=== PATIENT | female | born 1965 | race Caucasian/White ===

== ENCOUNTER → 2021-01-15 14:19 | Outpatient (BNVA) | payer MEDICARE, MEDICAID, SELFPAY | PROVIDERS: PCP Internal Medicine; Visit Provider Internal Medicine Pulmonary Disease | DX: E66.01 Morbid (severe) obesity due to excess calories (principal); Z99.89 Dependence on other enabling machines and devices | CPT/HCPCS: 99202 ==

== ENCOUNTER 2021-07-09 13:25 | Outpatient (REF) | payer MEDICARE, MEDICAID, SELFPAY ==
[2021-07-09 13:53] LABS: Binax Internal Control QC Valid; Binax Lot number: 17705; Binax Now Covid-19 Ag Negative (Negative); Binax Performed by: HO.BONILM
== END 2021-07-09 13:26 | disposition home or self-care (01) ==
LOC: HO.HMGCLDS 13:25
PROVIDERS: PCP Internal Medicine; Visit Provider Nurse Practitioner Family
DX: Z13.89 Encounter for screening for other disorder (principal)

== ENCOUNTER 2021-11-10 09:15 | Inpatient (IN) | payer MEDICARE, MEDICAID, SELFPAY ==
[2021-11-10] VITALS (8 sets, daily range): BP systolic 100–179; BP diastolic 51–87; PULSE 82–106; RESP 16–24; TEMP 37.1–37.7; O2SAT 87–96; BMI 77.6
--- NOTE | ~2021-11-10 | XR_ITS ---
EXAMINATION: PELVIS AND RIGHT FEMUR X-RAY CLINICAL INFORMATION: Pain and bruising COMPARISON: Right knee x-ray September 2015 TECHNIQUE: One view of the pelvis and 2 views of the right femur FINDINGS: Pelvis: Bone alignment is normal. No fracture or dislocation is seen. The joint spaces are normal. There are degenerative changes of the lower lumbar spine. There may be soft tissue calcification left lower quadrant or pelvis. Right femur: Bone alignment is normal. No fracture or dislocation is seen. The joint spaces are normal. Soft tissues are normal. XR/XR pelvis 1-2V IMPRESSION: No fracture or dislocation.
--- NOTE | ~2021-11-10 | XR_ITS ---
EXAMINATION: XR CHEST CLINICAL INFORMATION: Dyspnea. COMPARISON: Previous chest x-ray January 2020 TECHNIQUE: Frontal view of the chest was obtained. FINDINGS: The cardiac and mediastinal contours are stable. The lungs are clear. There is no pleural effusion or pneumothorax. Bony structures are unremarkable. XR/XR chest 1V IMPRESSION: No evidence for acute disease in the chest.
--- NOTE | ~2021-11-10 | XR_ITS ---
EXAMINATION: PELVIS AND RIGHT FEMUR X-RAY CLINICAL INFORMATION: Pain and bruising COMPARISON: Right knee x-ray September 2015 TECHNIQUE: One view of the pelvis and 2 views of the right femur FINDINGS: Pelvis: Bone alignment is normal. No fracture or dislocation is seen. The joint spaces are normal. There are degenerative changes of the lower lumbar spine. There may be soft tissue calcification left lower quadrant or pelvis. Right femur: Bone alignment is normal. No fracture or dislocation is seen. The joint spaces are normal. Soft tissues are normal. XR/XR femur RT 2V IMPRESSION: No fracture or dislocation.
--- NOTE | ~2021-11-10 | CT_ITS ---
EXAMINATION: CT HEAD WITHOUT CONTRAST CLINICAL INFORMATION: Leg COMPARISON: None TECHNIQUE: Contiguous axial imaging was performed from the skull base to vertex without intravenous administration of contrast. This CT examination was performed using dose optimization techniques as appropriate, variously including the following: *Automated exposure control *Adjustment of mA and/or kV according to patient size (this includes techniques or standardized protocols for targeted exams where dose is matched to indication/reason for exam; i.e. extremities or head) *Use of iterative reconstruction technique DLP: 688 mGy-cm FINDINGS: There is no evidence of acute intracranial hemorrhage or territorial infarction. No abnormal mass effect or midline shift is seen. Singh to white matter differentiation is well preserved. No extra-axial fluid collections are identified. The ventricles are normal in size. There is no abnormal attenuation within the brain parenchyma. The osseous structures and soft tissues are normal. The mastoid air cells and visualized portions of the paranasal sinuses are well aerated. CT/CT head/brain wo con IMPRESSION: Unremarkable exam.
--- NOTE | ~2021-11-10 | US_ITS ---
EXAMINATION: US VENOUS ULTRASOUND WITH DOPPLER LOWER EXTREMITY, RIGHT CLINICAL INFORMATION: Pain and swelling COMPARISON: None TECHNIQUE: Ultrasound of the deep veins is performed from the hip to the calf with compression sonography and color and pulse Doppler assessment. Spectral analysis with color-flow imaging is performed. FINDINGS: There is normal venous compression and respiratory variation and augmented flow. The visualized common femoral vein, superficial femoral vein, and profunda femoral veins show no evidence of DVT. The popliteal vein and calf veins are not well visualized. There is no significant popliteal fossa cyst. If the patient's symptoms persist, followup ultrasound in 5 days 7 days might be of value to exclude proximal propagation from a non-visualized calf vein. US/US venous duplex LE RT IMPRESSION: Very limited exam. No DVT demonstrated in the right lower extremity. Popliteal and calf veins are not well visualized.
--- NOTE | 2021-11-10 11:44 | ED.GENADULT ---
HPI - General Adult General Chief complaint: Dyspnea Stated complaint: SOB,COVID 2 WEEKS AGO PER EMS Time Seen by Provider: 11/10/21 11:27 Source: patient Mode of arrival: EMS Limitations: no limitations History of Present Illness HPI narrative: 56-year-old female presents emergency department multiple complaints. Four days and also slept for 2 days from Monday to Monday waking up 2 days ago. She denies any falls pains but states she has had chronic headaches and migraines and has run out of her sumatriptan. She states she has had chills for the past 4 days as well but denies any fevers and states he has got body aches all over. When she initially arrived her chief complaint was shortness of breath and that she recently had COVID but since test negative she states she has not had anything to eat for the past Related Data Home Medications Medication Instructions Recorded Confirmed buspirone 15 mg tablet 15 mg PO TID 07/07/20 11/10/21 ondansetron HCl 4 mg tablet 4 mg PO Q8H PRN 07/07/20 11/10/21 sertraline 100 mg tablet 150 mg PO DAILY 07/07/20 11/10/21 sumatriptan succinate 100 mg tablet 100 mg PO DIRECTED 07/07/20 11/10/21 montelukast 10 mg tablet 10 mg PO BEDTIME 11/10/21 11/10/21 Previous Rx's Medication Instructions Recorded cpap mask #1 ea NS 07/14/20 filters for cpap #1 ea NS 07/14/20 heated tubing #1 ea NS 07/14/20 oxybutynin chloride 15 mg 15 mg PO DAILY #30 tab 05/21/21 tablet,extended release 24 hr albuterol sulfate 90 mcg/actuation 1 inh INHALATION QID PRN #6.7 g 07/09/21 aerosol inhaler atorvastatin 40 mg tablet 40 mg PO BEDTIME #90 tab 07/12/21 cetirizine 10 mg tablet 10 mg PO DAILY PRN #90 tab 07/12/21 metformin 500 mg tablet,extended 1,000 mg PO BEDTIME #180 tab 07/12/21 release 24 hr cholecalciferol (vitamin D3) 125 125 mcg PO BEDTIME #90 cap 07/19/21 mcg (5,000 unit) capsule Allergies Allergy/AdvReac Type Severity Reaction Status Date / Time cat dander [CAT] Allergy Unknown UNKNOWN Verified 07/09/21 13:10 mold [MOLD] Allergy Unknown UNKNOWN Verified 07/09/21 13:10 amoxicillin [From Augmentin] AdvReac Anaphylaxis Verified 07/09/21 13:10 clavulanic acid AdvReac Anaphylaxis Verified 07/09/21 13:10 [From Augmentin] ENVIRONMENTAL Allergy Unknown RUNNY Uncoded 07/09/21 13:10 NOSE,ITCHY EYES Review of Systems Review of Systems: Review of systems: General: Patient denies any fever chills recent illness or falls Musculoskeletal: Denies back pain or body aches or other injuries HEENT: denies headache, runny nose, ear pain Respiratory: denies shortness of breath, cough Cardiovascular: no chest pain or palpitations : denies dysuria, frequency Abdomen: no nausea vomiting denies abdominal pain Extremities: no swelling, no pain Skin: no diaphoresis Yes all other systems are reviewed and are negative PMFSH Past Medical History Medical History Chronic venous insufficiency Depression with anxiety Essential hypertension Hyperparathyroidism Impaired fasting glucose Migraine Mixed dyslipidemia Morbid obesity DAVIS (nonalcoholic steatohepatitis) Obstructive sleep apnea on CPAP Peripheral vascular disease Urinary, incontinence, stress female Surgical History History of carpal tunnel release of both wrists History of section History of removal of cyst History of trigger finger History of umbilical hernia repair Hx of cholecystectomy Family History Family History Father Diabetes mellitus Mother HTN (hypertension) Maternal Grandmother Scleroderma Maternal Grandfather Lung cancer Maternal Aunt Lung cancer Maternal Uncle Colon cancer Brother No problems noted. Son No problems noted. Son No problems noted. Daughter No problems noted. Social History Social History Alcohol intake: never Advance Directives: No Advance Directives Information Provided: No Physical Exam ED Vital Signs: Vital Signs - 24 hr 11/10/21 09:21 11/10/21 10:55 11/10/21 12:54 Temperature Pulse Rate 106 H 97 93 Respiratory Rate 18 16 16 Blood Pressure 144/84 H 126/51 L 100/73 Pulse Oximetry 96 94 93 11/10/21 14:00 11/10/21 15:33 Temperature 98.7 F Pulse Rate 98 Respiratory Rate 24 H Blood Pressure 145/65 H Pulse Oximetry 87 L 93 BMI result Body Mass Index 77.6 General: Morbidly obese in no signs of distress HEENT: Normocephalic atraumatic Neck: No signs of JVD, no masses no tenderness or lymphadenopathy Cardiovascular: Regular rate and rhythm Respiratory: Clear to auscultation bilaterally Abdomen: Soft nontender no masses Extremities: Normal pedal pulses obesity with chronic venous stasis to legs Skin: Right hip with red blotchy round lesions that are tender to palpation in the warmer than the rest of the scan. Dry warm no rashes Back: No tenderness full ROM Medical Decision Making MDM Narrative Medical decision making narrative: Patient here with multiple complaints I will get a CT scan of her head to make sure that there is no bleeding within the brain. I will get an x-ray on her leg her leg does look like cellulitis I will start her on clindamycin as she is allergic to amoxicillin so I do not feel comfortable starting on Ancef and vanco. I will continue fluids she does have 2 tiny sores on her back she called back in the room to evaluate that very nonspecific in appearance could be related to bed sores. 1230 I was called back the room she had no complaints she feels that she can no longer take care of herself at home she states as she has was to use stockings she can not get up she can move around she feels that she needs to have help to get her in a better situation and she does not feel safe at home by herself. 1456 page sent to hospitalist about admission for the cellulitis and IV antibiotics 1515 I spoke with the hospitalist who wanted US for DVT ruled out as well as evaluation for PE and covid swab sent. I ordered the US she is sleeping comfortably in the room I took her off the oxygen that was was placed on by nursing. Patient was taken off of oxygen and her saturation was 87% on room air so the oxygen was restarted. Lab Data Result diagrams: 11/10/21 12:11 11/10/21 12:10 Labs: Lab Results 11/10/21 11/10/21 11/10/21 Range/Units 12:10 12:10 12:11 WBC 10.6 (4.8-10.8) X10*3/uL RBC 4.37 (4.20-5.50) X10*6/uL Hgb 10.7 L (12.0-16.0) g/dl Hct 34.7 L (37.0-47.0) % MCV 79.4 L (80.0-98.0) fL MCH 24.5 L (27.0-33.0) pg MCHC 30.8 L (31.0-35.0) g/dl RDW 16.7 H (11.0-16.0) % Plt Count 205 (160-400) X10*3/uL MPV 9.4 (9.4-12.3) fL Immature Gran % (Auto) 0.9 H (0.0-0.4) % Neut % (Auto) 79.4 H (45-73) % Lymph % (Auto) 10.6 L (20-40) % Faulk % (Auto) 8.8 (2-11) % Eos % (Auto) 0.0 (0-4) % Baso % (Auto) 0.3 (0-2) % Lymph # (Auto) 1.1 L (1.2-4.9) X10*3/uL Faulk # (Auto) 0.9 (0.1-1.2) X10*3/uL Eos # (Auto) 0.0 (0.0-0.4) X10*3/uL Baso # (Auto) 0.0 (0.0-0.2) X10*3/uL Abs Immat Gran (auto) 0.10 H (0.00-0.03) X10*3/uL Absolute Neuts (auto) 8.4 H (2.0-8.3) x10*3/uL Absolute Nucleated RBC 0.000 (0.0-0.012) X10*3/uL Nucleated RBC % (auto) 0.0 (0.0-0.2) /100WBC Sodium 142 (135-145) mmol/L Potassium 3.9 (3.3-5.1) mmol/L Chloride 102 (96-108) mmol/L Carbon Dioxide 32 H (22-29) mmol/L Anion Gap 12 (12-20) BUN 8 L (9-16) mg/dL Creatinine 0.69 (0.5-1.4) mg/dL Estim Creat Clear Calc 146.3 Estimated GFR > 60 Random Glucose 154 H (60-115) mg/dL Lactic Acid (0.5-2.0) mmol/L Calcium 9.6 (8.4-10.2) mg/dL Total Bilirubin 0.6 (0.0-1.0) mg/dL Direct Bilirubin 0.3 (0.0-0.5) mg/dL AST 26 (5-31) U/L ALT 22 (0-31) U/L Alkaline Phosphatase 80 (39-117) U/L Total Creatine Kinase 169 H (26-140) U/L Troponin I High Sens 11.9 (<3.5-17.0) ng/L Total Protein 7.0 (6.5-8.0) g/dL Albumin 3.4 L (3.5-5.0) g/dL Lipase 24 (8-78) U/L 11/10/ Range/Units 12:23 WBC (4.8-10.8) X10*3/uL RBC (4.20-5.50) X10*6/uL Hgb (12.0-16.0) g/dl Hct (37.0-47.0) % MCV (80.0-98.0) fL MCH (27.0-33.0) pg MCHC (31.0-35.0) g/dl RDW (11.0-16.0) % Plt Count (160-400) X10*3/uL MPV (9.4-12.3) fL Immature Gran % (Auto) (0.0-0.4) % Neut % (Auto) (45-73) % Lymph % (Auto) (20-40) % Faulk % (Auto) (2-11) % Eos % (Auto) (0-4) % Baso % (Auto) (0-2) % Lymph # (Auto) (1.2-4.9) X10*3/uL Faulk # (Auto) (0.1-1.2) X10*3/uL Eos # (Auto) (0.0-0.4) X10*3/uL Baso # (Auto) (0.0-0.2) X10*3/uL Abs Immat Gran (auto) (0.00-0.03) X10*3/uL Absolute Neuts (auto) (2.0-8.3) x10*3/uL Absolute Nucleated RBC (0.0-0.012) X10*3/uL Nucleated RBC % (auto) (0.0-0.2) /100WBC Sodium (135-145) mmol/L Potassium (3.3-5.1) mmol/L Chloride (96-108) mmol/L Carbon Dioxide (22-29) mmol/L Anion Gap (12-20) BUN (9-16) mg/dL Creatinine (0.5-1.4) mg/dL Estim Creat Clear Calc Estimated GFR Random Glucose (60-115) mg/dL Lactic Acid 1.4 (0.5-2.0) mmol/L Calcium (8.4-10.2) mg/dL Total Bilirubin (0.0-1.0) mg/dL Direct Bilirubin (0.0-0.5) mg/dL AST (5-31) U/L ALT (0-31) U/L Alkaline Phosphatase (39-117) U/L Total Creatine Kinase (26-140) U/L Troponin I High Sens (<3.5-17.0) ng/L Total Protein (6.5-8.0) g/dL Albumin (3.5-5.0) g/dL Lipase (8-78) U/L ECG Data Attestation: I personally reviewed and interpreted this ECG as follows: Prior ECG tracings: available for review Interpretation: Rate 98 pulse artifact normal intervals no signs of ischemia Discharge Plan Discharge Clinical Impression: Morbid obesity, Headache, Shortness of breath, Cellulitis of right anterior lower leg, Rhabdomyolysis, Acute dehydration, Adult failure to thrive Patient Disposition: Admitted As Inpatient Prescriptions: No Action (DME) filters for cpap See Rx Instructions .Route .MEDSUPPLY Qty: 1 0RF Rx Instructions: Filters for CPAP machine (DME) heated tubing See Rx Instructions .Route .MEDSUPPLY Qty: 1 0RF Rx Instructions: Heated tubing for CPAP machine (DME) cpap mask See Rx Instructions .Route .MEDSUPPLY Qty: 1 0RF Rx Instructions: cpap mask- CPAP at 15 cm oxybutynin chloride 15 mg tablet extended release 24 hr 15 mg PO DAILY Qty: 30 5RF cetirizine 10 mg tablet 10 mg PO DAILY PRN (Reason: for allergies) Qty: 90 0RF atorvastatin 40 mg tablet 40 mg PO BEDTIME Qty: 90 0RF metformin 500 mg tablet extended release 24 hr 1,000 mg PO BEDTIME Qty: 180 0RF cholecalciferol (vitamin D3) 125 mcg (5,000 unit) capsule 125 mcg PO BEDTIME Qty: 90 0RF montelukast 10 mg tablet 10 mg PO BEDTIME 0RF buspirone 15 mg tablet 15 mg PO TID 0RF sertraline 100 mg tablet 150 mg PO DAILY 0RF sumatriptan succinate 100 mg tablet 100 mg PO DIRECTED 0RF ondansetron HCl 4 mg tablet 4 mg PO Q8H PRN (Reason: Nausea) 0RF albuterol sulfate 90 mcg/actuation HFA aerosol inhaler 1 inh inhalation QID PRN (Reason: shortness of breath or wheezing) Qty: 6.7 1RF
--- NOTE | 2021-11-10 11:45 | ECG_ITS ---
Test Reason : DYSPNEA Blood Pressure : / mmHG Vent. Rate : 098 BPM Atrial Rate : 098 BPM P-R Int : 158 ms QRS Dur : 086 ms QT Int : 338 ms P-R-T Axes : 057 009 019 degrees QTc Int : 431 ms Normal sinus rhythm Cannot rule out Anterior infarct (cited on or before 13-JUN-2007) Abnormal ECG When compared with ECG of 13-JUN-2007 18:37, No significant change was found Referred By: Azeem Jensen Electronically Signed By:Perez Matson
[2021-11-10] MEDS: 0.9 % Sodium Chloride 1,000 ML 999 ML IV (12:13)
[2021-11-10] MEDS: Acetaminophen 325 MG TABLET 650 MG PO (12:13)
[2021-11-10] MEDS: Ketorolac Tromethamine 15 MG/ML VIAL IVPUSH (12:14)
[2021-11-10 12:23] LABS: Basophils Percent Auto 0.3 % (0-2); Hematocrit 34.7 % (37.0-47.0); Hemoglobin 10.7 g/dl (12.0-16.0); Imm Gran Pct Auto 0.9 % (0.0-0.4); Lymphocytes Absolute Auto 1.1 X10*3/uL (1.2-4.9); Lymphocytes Percent Auto 10.6 % (20-40); MANUAL DIFF FLAG NO; Mean Corpuscular HGB Conc 30.8 g/dl (31.0-35.0); Mean Corpuscular Hemoglobin 24.5 pg (27.0-33.0); Mean Corpuscular Volume 79.4 fL (80.0-98.0); Mean Platelet Volume 9.4 fL (9.4-12.3); Monocytes Absolute Auto 0.9 X10*3/uL (0.1-1.2); Monocytes Percent Auto 8.8 % (2-11); Neutrophils Absolute Auto 8.4 x10*3/uL (2.0-8.3); Neutrophils Percent Auto 79.4 % (45-73); Platelet Count 205 X10*3/uL (160-400); Red Blood Count 4.37 X10*6/uL (4.20-5.50); Red Cell Distribution Width 16.7 % (11.0-16.0); White Blood Count 10.6 X10*3/uL (4.8-10.8)
[2021-11-10 12:46] LABS: Alanine Aminotransferase 22 U/L (0-31); Albumin Level 3.4 g/dL (3.5-5.0); Alkaline Phosphatase 80 U/L (39-117); Anion Gap 12 (12-20); Aspartate Amino Transferase 26 U/L (5-31); Bilirubin Direct 0.3 mg/dL (0.0-0.5); Bilirubin Total 0.6 mg/dL (0.0-1.0); Blood Urea Nitrogen 8 mg/dL (9-16); Calcium 9.6 mg/dL (8.4-10.2); Carbon Dioxide 32 mmol/L (22-29); Chloride 102 mmol/L (96-108); Creatinine Clr Calc Pharmacy 146.3; Estimated Glomerular Filt Rate > 60; Glucose Random 154 mg/dL (60-115); Lipase 24 U/L (8-78); Potassium 3.9 mmol/L (3.3-5.1); Sodium 142 mmol/L (135-145)
[2021-11-10 12:48] LABS: Troponin-I High Sensitivity 11.9 ng/L (<3.5-17.0)
[2021-11-10 12:51] LABS: Lactic Acid 1.4 mmol/L (0.5-2.0)
--- NOTE | 2021-11-10 12:54 | PHA.MEDREC ---
Pharmacy Consult ? Medication Reconciliation Pharmacy has completed the medication reconciliation. Pt admittedly non-adherent to medications.
[2021-11-10] MEDS: Clindamycin Phosphate/D5W 600 MG/50 ML PIGGYBACK 100 MG IV (13:02)
--- NOTE | 2021-11-10 15:39 | P.HPHOSP_ITS ---
History of Present Illness Date of Service: 11/10/21 Chief Complaint: dyspnea 56F presented with sob. patient reports recent covid illness about 2 weeks ptp. she had tested positive on home test and had known exposure. she is vaccinated and recovered (12/2019). she was treated with paxlovid, her symptoms including, headache, myalgias, fatigue. on monday prior to admission patient noted fevers, she fell asleep and states she woke up on monday. she tested again and was negative at that time. patient also notes 2 new erythematous lesions on sholder blades and wide spread erythema and tightening and pain on right thigh. on day of presentation patient began to feel significant sob, inability to tolerate ADLs so she called EMS, she was found to have o2 sat on room air of 82%, improved to 93% on 2L. cxr negative, no signs of sepsis. Review of Systems Review of Systems: Constitutional: fevers Eyes: denies blurry vision ENT: denies sore throat CVS: denies chest pain Respiratory: dyspnea GI: no abdominal pain : denies dysuria MSK: denies neck pain Skin: rash Neuro: denies specific motor weakness Psych: denies suicidal ideation Endocrine: denies heat/cold intolerance Hematologic: denies easy bleeding Allergy: denies hives [facility] Medical History Chronic venous insufficiency Depression with anxiety Essential hypertension Hyperparathyroidism Impaired fasting glucose Migraine Mixed dyslipidemia Morbid obesity DAVIS (nonalcoholic steatohepatitis) Obstructive sleep apnea on CPAP Peripheral vascular disease Urinary, incontinence, stress female Family History Father Diabetes mellitus Mother HTN (hypertension) Maternal Grandmother Scleroderma Maternal Grandfather Lung cancer Maternal Aunt Lung cancer Maternal Uncle Colon cancer Brother No problems noted. Son No problems noted. Son No problems noted. Daughter No problems noted. Surgical History History of carpal tunnel release of both wrists History of section History of removal of cyst History of trigger finger History of umbilical hernia repair Hx of cholecystectomy Social History Alcohol intake: never Advance Directives: No Advance Directives Information Provided: No Meds Allergies Allergy/AdvReac Type Severity Reaction Status Date / Time cat dander [CAT] Allergy Unknown UNKNOWN Verified 07/09/21 13:10 mold [MOLD] Allergy Unknown UNKNOWN Verified 07/09/21 13:10 amoxicillin [From Augmentin] AdvReac Anaphylaxis Verified 07/09/21 13:10 clavulanic acid AdvReac Anaphylaxis Verified 07/09/21 13:10 [From Augmentin] ENVIRONMENTAL Allergy Unknown RUNNY Uncoded 07/09/21 13:10 NOSE,ITCHY EYES Active Medications: Current Medications Albuterol Sulfate (Albuterol Sulfate 90 Mcg 8 Gm Inhaler) 1 puff INHALE QID PRN PRN Reason: shortness of breath or wheezing Albuterol/Ipratropium (Albuterol/Iprat 2.5/0.5mg 3 Ml Ampul.Neb) 3 ml INHALE RQ4H PRN PRN Reason: sob Atorvastatin Calcium (Atorvastatin Calcium 40 Mg Tablet) 40 mg PO BEDTIME [facility] Buspirone HCl (Buspirone Hcl 5 Mg Tablet) 15 mg PO TID [facility] Dextrose (Dextrose 50 % 25 Gm/50 Ml Syringe) 25 gm IVPUSH Q15M PRN; Protocol PRN Reason: per Hypoglycemia Standing Ord. Glucose (Glucose Gel 15 Gm Gel..Gram.) 15 gm PO Q15M PRN; Protocol PRN Reason: per Hypoglycemia Standing Ord. Insulin Glargine (Insulin Glargine,Hum.Rec.Anlog 100 Unit/Ml 10 Ml Vial) 10 unit SUBCUT BEDTIME [facility] Insulin Human Lispro (Insulin Lispro 100 Unit/Ml 3 Ml Vial) 0 unit SUBCUT QIDACHS [facility]; Protocol Loratadine (Loratadine 10 Mg Tablet) 10 mg PO DAILY PRN PRN Reason: for allergies Montelukast Sodium (Montelukast Sodium 10 Mg Tablet) 10 mg PO BEDTIME [facility] Non-Formulary Medication (Cholecalciferol (Vitamin D3)) 125 mcg PO BEDTIME [facility] Oxybutynin Chloride (Oxybutynin Chloride Er 5 Mg Tab.Er.24) 15 mg PO DAILY [facility] Pharmacy Consult (Consult Rx Perform Med Rec) 1 each MISCELLANE ONCE PRN PRN Reason: Consult order Prednisone (Prednisone 20 Mg Tablet) 40 mg PO DAILY [facility] Sertraline HCl (Sertraline Hcl 50 Mg Tablet) 150 mg PO DAILY [facility] Home Medications Medication Instructions Recorded Confirmed Last Taken Type buspirone 15 mg tablet 15 mg PO TID 07/07/20 11/10/21 Unknown History ondansetron HCl 4 mg tablet 4 mg PO Q8H PRN 07/07/20 11/10/21 Unknown History sertraline 100 mg tablet 150 mg PO DAILY 07/07/20 11/10/21 11/10/21 History sumatriptan succinate 100 mg tablet 100 mg PO DIRECTED 07/07/20 11/10/21 Unknown History montelukast 10 mg tablet 10 mg PO BEDTIME 11/10/21 11/10/21 Unknown History Physical Exam Vital Signs and Narrative: Vital Signs: Last Vital Signs Temp 98.7 F 11/10/21 15:33 Pulse 98 11/10/21 15:33 Resp 24 H 11/10/21 15:33 BP 145/65 H 11/10/21 15:33 Pulse Ox 93 11/10/21 15:33 BMI result Body Mass Index 77.6 General: no acute distress HEENT: atraumatic Neck: normal to visual inspection CVS: S1, S2, RRR Resp: mild exp wheeze bilateral Chest: non tender GI: soft, non tender, non distended : no CVA tenderness Skin: rle rash (see pic), small patchy erythema on shoulder blades, chronic LLE erythema Extremities: bialteral le lymphedema Neuro: Oriented X3, grossly intact Psych: cooperative Results Labs CBC and Chem 7: 11/10/21 12:11 11/10/21 12:10 Labs: Laboratory Results - last 24 hr 11/10/21 11/10/21 11/10/21 12:10 12:10 12:11 MCV 79.4 L MCH 24.5 L MCHC 30.8 L RDW 16.7 H Plt Count 205 MPV 9.4 Immature Gran % (Auto) 0.9 H Neut % (Auto) 79.4 H Lymph % (Auto) 10.6 L [place] % (Auto) 8.8 Eos % (Auto) 0.0 Baso % (Auto) 0.3 Lymph # (Auto) 1.1 L [place] # (Auto) 0.9 Eos # (Auto) 0.0 Baso # (Auto) 0.0 Abs Immat Gran (auto) 0.10 H Absolute Neuts (auto) 8.4 H Absolute Nucleated RBC 0.000 Nucleated RBC % (auto) 0.0 Anion Gap 12 Estim Creat Clear Calc 146.3 Estimated GFR > 60 Random Glucose 154 H Lactic Acid Calcium 9.6 Total Bilirubin 0.6 Direct Bilirubin 0.3 AST 26 ALT 22 Alkaline Phosphatase 80 Total Creatine Kinase 169 H Troponin I High Sens 11.9 Total Protein 7.0 Albumin 3.4 L Lipase 24 11/10/21 12:23 MCV MCH MCHC RDW Plt Count MPV Immature Gran % (Auto) Neut % (Auto) Lymph % (Auto) [place] % (Auto) Eos % (Auto) Baso % (Auto) Lymph # (Auto) [place] # (Auto) Eos # (Auto) Baso # (Auto) Abs Immat Gran (auto) Absolute Neuts (auto) Absolute Nucleated RBC Nucleated RBC % (auto) Anion Gap Estim Creat Clear Calc Estimated GFR Random Glucose Lactic Acid 1.4 Calcium Total Bilirubin Direct Bilirubin AST ALT Alkaline Phosphatase Total Creatine Kinase Troponin I High Sens Total Protein Albumin Lipase Imaging Radiologist's Impressions: Impressions Chest X-Ray 11/10/21 13:20 IMPRESSION: No evidence for acute disease in the chest. Femur X-Ray 11/10/21 13:20 IMPRESSION: No fracture or dislocation. Pelvis X-Ray 11/10/21 13:20 IMPRESSION: No fracture or dislocation. Head CT 11/10/21 13:47 IMPRESSION: Unremarkable exam. Assessment and Plan (1) Shortness of breath: Status: Acute Plan 56F presented with sob, RLE erythema acute hypoxic respiratory failure acute decompensation of moderate persistent asthma due to recent COVID steroids, bronchodilators RLE erythema rule out dvt, follow up us empiric antibiotics for possible cellulitis morbid obesity complicated by bilateral lymphedema, DAVIS, DM, likely OHS, ZAHEER weight loss strongly encouraged DM basal bolus insulin ZAHEER no longer on CPAP at home (needs new study) mood disorder sertraline buspar dvt prophylaxis- lovenox full code patient with singifcant hypoxia, risk factors of morbid obesity and DM, therefor, expected to require atleast 2 midnights in hospital Quality Stroke Does the patient have a stroke diagnosis?: No VTE Prior VTE?: No VTE Risk Level:: Medical - moderate - high VTE Device Contraindication: Treatment Not Indicated VTE Drug Contraindication: N/A - Med Ordered
[2021-11-10 16:10] LABS: COVID-19 Test Negative (Negative); IDNOW Serial# 16C4AD1C
[2021-11-10] MEDS: Enoxaparin Sodium 40 MG/0.4 ML SYRINGE SUBCUT (16:15)
[2021-11-10] MEDS: predniSONE 20 MG TABLET 40 MG PO (16:16)
[2021-11-10 16:35] LABS: Glucose, Whole Blood 132 mg/dL (60-115)
--- NOTE | 2021-11-10 20:08 | PC.NURSE ---
PATIENT WAS INC OF URINE ,CARE WAS GIVEN ,NEW PER WICK WAS PLACED BEDDING WAS CHANGE AND PATIENT WAS CHANGE INTO HOSPITAL ATTIRE .
[2021-11-10] MEDS: Cholecalciferol (Vitamin D3) 25 MCG TABLET 125 MCG PO (21:12)
[2021-11-10] MEDS: Atorvastatin Calcium 40 MG TABLET PO (21:13)
[2021-11-10] MEDS: busPIRone HCl 5 MG TABLET 15 MG PO (21:13)
[2021-11-10] MEDS: Montelukast Sodium 10 MG TABLET PO (21:13)
[2021-11-10 21:28] LABS: Glucose, Whole Blood 218 mg/dL (60-115)
[2021-11-10] MEDS: Insulin Glargine,Hum.rec.anlog 100 UNIT/ML 10 ML VIAL 10 UNIT SUBCUT (21:32)
[2021-11-10] MEDS: Insulin Lispro 100 UNIT/ML 3 ML VIAL SUBCUT (21:32)
--- NOTE | 2021-11-10 22:00 | PC.NURSE ---
pt given a sandwich, nigel delmy and crackers for h.s snack
[2021-11-10] MEDS: Clindamycin Phosphate/D5W 900 MG/50 ML PIGGYBACK 50 MG IV (22:49)
[2021-11-11] VITALS (11 sets, daily range): BP systolic 118–149; BP diastolic 46–94; PULSE 74–88; RESP 16–26; TEMP 36.3–37.2; O2SAT 86–96
[2021-11-11] MEDS: 0.9 % Sodium Chloride Flush 3 ML SYRINGE IVFLUSH ×2 (00:23→08:06)
--- NOTE | 2021-11-11 04:32 | PC.NURSE ---
while giving pt incontient care, after being incont of urine, this RN noted 2 reddened areas to the L and R side back. Rt upper leg was noted to be reddened as well
[2021-11-11] MEDS: Clindamycin Phosphate/D5W 900 MG/50 ML PIGGYBACK 50 MG IV (05:49)
[2021-11-11 07:16] LABS: Hematocrit 32.4 % (37.0-47.0); Hemoglobin 9.7 g/dl (12.0-16.0); Mean Corpuscular HGB Conc 29.9 g/dl (31.0-35.0); Mean Corpuscular Hemoglobin 23.8 pg (27.0-33.0); Mean Corpuscular Volume 79.6 fL (80.0-98.0); Mean Platelet Volume 9.9 fL (9.4-12.3); Platelet Count 205 X10*3/uL (160-400); Red Blood Count 4.07 X10*6/uL (4.20-5.50); Red Cell Distribution Width 16.7 % (11.0-16.0); White Blood Count 12.8 X10*3/uL (4.8-10.8)
[2021-11-11 07:44] LABS: Anion Gap 11 (12-20); Blood Urea Nitrogen 10 mg/dL (9-16); Calcium 9.4 mg/dL (8.4-10.2); Carbon Dioxide 30 mmol/L (22-29); Chloride 104 mmol/L (96-108); Creatinine Clr Calc Pharmacy 168.2; Estimated Glomerular Filt Rate > 60; Glucose Fasting 158 mg/dL (60-99); Potassium 3.5 mmol/L (3.3-5.1); Sodium 141 mmol/L (135-145)
[2021-11-11 07:48] LABS: Glucose, Whole Blood 147 mg/dL (60-115)
[2021-11-11] MEDS: Sertraline HCL 50 MG TABLET 150 MG PO (08:04)
[2021-11-11] MEDS: Acetaminophen 325 MG TABLET 650 MG PO ×2 (08:04→13:53)
[2021-11-11] MEDS: busPIRone HCl 5 MG TABLET 15 MG PO ×3 (08:04→21:06)
[2021-11-11] MEDS: predniSONE 20 MG TABLET 40 MG PO (08:05)
--- NOTE | 2021-11-11 08:55 | MHC.CM.PN ---
Addendum entered by Aracely Mayo 11/11/21 09:49: VAX X2 SILVERIO WILL NEED A PT JUAN DANIEL Original Note: IMM 11/11/21 Female 56 DX Dyspnea She lives with her dtr. Pts Parents and a son also live in the same complex. She uses a cane. She states that she fells weak and unsteady. She has requested a referral be placed to [facility]. A referral will be sent. She uses a CPAP, provider [facility] is the provider. DP home with services family will provide transportation. A HCP has been documented and copies have been provided to the patient. CM will follow to address discharge needs as needed.
[2021-11-11 12:14] LABS: Glucose, Whole Blood 196 mg/dL (60-115)
[2021-11-11] MEDS: Insulin Lispro 100 UNIT/ML 3 ML VIAL SUBCUT ×3 (12:16→20:54)
--- NOTE | 2021-11-11 13:24 | P.PNIM_ITS ---
Subjective Subjective Date of Service: 11/11/21 Interval History: cc: sob interval history: minimally better Cardiovascular Cardiovascular: Reports no additional cardiovascular complaints Respiratory Respiratory: Reports no additional respiratory complaints Physical Exam Vital Signs: Vital Signs: Last Vital Signs Temp 98.8 F 11/11/21 08:36 Pulse 83 11/11/21 08:36 Resp 17 11/11/21 08:36 BP 118/46 L 11/11/21 08:36 Pulse Ox 92 11/11/21 08:36 BMI result Body Mass Index 77.6 General: AO X 3, no acute distress Resp: diminished bilateral, no accessory muscles used CVS: S1,S2,RRR GI: soft, non tender, non distended Neuro: motor grossly intact, alert Psych: appropriate affect, appropriate insight skin: rle erythema unchanged, bilateral lymphedema Objective Data Active Medications Acetaminophen (Acetaminophen 325 Mg Tablet) 650 mg PO Q6H PRN PRN Reason: Breakthrough Pain Last Admin: 11/11/21 08:04 Dose: 650 mg Documented by: ARISTIDES Albuterol Sulfate (Albuterol Sulfate 90 Mcg 8 Gm Inhaler) 1 puff INHALE QID PRN PRN Reason: shortness of breath or wheezing Albuterol/Ipratropium (Albuterol/Iprat 2.5/0.5mg 3 Ml Ampul.Neb) 3 ml INHALE RQ4H PRN PRN Reason: sob Atorvastatin Calcium (Atorvastatin Calcium 40 Mg Tablet) 40 mg PO BEDTIME [facility] Last Admin: 11/10/21 21:13 Dose: 40 mg Documented by: LORRAINE Buspirone HCl (Buspirone Hcl 5 Mg Tablet) 15 mg PO TID [facility] Last Admin: 11/11/21 08:04 Dose: 15 mg Documented by: ARISTIDES Dextrose (Dextrose 50 % 25 Gm/50 Ml Syringe) 25 gm IVPUSH Q15M PRN; Protocol PRN Reason: per Hypoglycemia Standing Ord. Enoxaparin Sodium (Enoxaparin Sodium 40 Mg/0.4 Ml Syringe) 40 mg SUBCUT Q24H [facility] Last Admin: 11/10/21 16:15 Dose: 40 mg Documented by: AMY Glucose (Glucose Gel 15 Gm Gel..Gram.) 15 gm PO Q15M PRN; Protocol PRN Reason: per Hypoglycemia Standing Ord. Cefazolin Sodium 1 gm/ Sodium (Chloride) 50 mls @ 100 mls/hr IV Q8H [facility] Last Admin: 11/11/21 11:19 Dose: 100 mls/hr Documented by: REY Insulin Glargine (Insulin Glargine,Hum.Rec.Anlog 100 Unit/Ml 10 Ml Vial) 10 un it SUBCUT BEDTIME [facility] Last Admin: 11/10/21 21:32 Dose: 10 unit Documented by: LORRAINE Insulin Human Lispro (Insulin Lispro 100 Unit/Ml 3 Ml Vial) 0 unit SUBCUT QIDACHS [facility]; Protocol Last Admin: 11/11/21 12:16 Dose: 2 unit Documented by: REY Loratadine (Loratadine 10 Mg Tablet) 10 mg PO DAILY PRN PRN Reason: for allergies Montelukast Sodium (Montelukast Sodium 10 Mg Tablet) 10 mg PO BEDTIME [facility] Last Admin: 11/10/21 21:13 Dose: 10 mg Documented by: LORRAINE Oxybutynin Chloride (Oxybutynin Chloride Er 5 Mg Tab.Er.24) 15 mg PO DAILY [facility] Last Admin: 11/11/21 08:04 Dose: 15 mg Documented by: ARISTIDES Pharmacy Consult (Consult Rx Perform Med Rec) 1 each MISCELLANE ONCE PRN PRN Reason: Consult order Prednisone (Prednisone 20 Mg Tablet) 40 mg PO DAILY [facility] Last Admin: 11/11/21 08:05 Dose: 40 mg Documented by: ARISTIDES Sertraline HCl (Sertraline Hcl 50 Mg Tablet) 150 mg PO DAILY [facility] Last Admin: 11/11/21 08:04 Dose: 150 mg Documented by: ARISTIDES Sodium Chloride (0.9 % Sodium Chloride Flush 3 Ml Syringe) 3 ml IVFLUSH QSHIFT [facility] Last Admin: 11/11/21 08:06 Dose: 3 ml Documented by: ARISTIDES Vitamin D (Cholecalciferol (Vitamin D3) 25 Mcg Tablet) 125 mcg PO BEDTIME [facility] Last Admin: 11/10/21 21:12 Dose: 125 mcg Documented by: LORRAINE Labs CBC & Chem 7: 11/11/21 07:00 11/11/21 07:00 Labs: Laboratory Results - last 24 hr 11/10/21 11/10/21 11/10/21 15:39 16:32 21:22 MCV MCH MCHC RDW Plt Count MPV Absolute Nucleated RBC Nucleated RBC % (auto) Anion Gap Estim Creat Clear Calc Estimated GFR POC Glucose 132 H 218 H Fasting Glucose Calcium COVID-19 (GAEL) Negative COVID-19 Clin Com See Note 11/11/21 11/11/21 11/11/21 07:00 07:00 07:42 MCV 79.6 L MCH 23.8 L MCHC 29.9 L RDW 16.7 H Plt Count 205 MPV 9.9 Absolute Nucleated RBC 0.000 Nucleated RBC % (auto) 0.0 Anion Gap 11 L Estim Creat Clear Calc 168.2 Estimated GFR > 60 POC Glucose 147 H Fasting Glucose 158 H Calcium 9.4 COVID-19 (GAEL) COVID-19 Clin Com 11/11/21 12:05 MCV MCH MCHC RDW Plt Count MPV Absolute Nucleated RBC Nucleated RBC % (auto) Anion Gap Estim Creat Clear Calc Estimated GFR POC Glucose 196 H Fasting Glucose Calcium COVID-19 (GAEL) COVID-19 Clin Com Assessment and Plan (1) Cellulitis of right anterior lower leg: Status: Acute Plan 56F presented with sob, RLE erythema acute hypoxic respiratory failure acute decompensation of moderate persistent asthma due to recent COVID continue steroids, bronchodilators wean o2 as tolerated RLE erythema duplex negative empiric antibiotics for possible cellulitis - augmentin allergy not anaphylaxis - abd pain and diarrhea only, will change to ancef morbid obesity complicated by bilateral lymphedema, DAVIS, DM, likely OHS, ZAHEER weight loss strongly encouraged DM basal bolus insulin ZAHEER no longer on CPAP at home (needs new study) mood disorder sertraline buspar dvt prophylaxis-? lovenox full code reason for continued hospitalization:still needing o2, minimal improvement of cellulitis, continued need for iv abx Quality Stroke Does the patient have a stroke diagnosis?: No VTE Prior VTE?: No VTE Risk Level:: Medical - moderate - high VTE Device Contraindication: Treatment Not Indicated VTE Drug Contraindication: N/A - Med Ordered
[2021-11-11] MEDS: Enoxaparin Sodium 40 MG/0.4 ML SYRINGE SUBCUT (14:41)
[2021-11-11] MEDS: SUMAtriptan succinate 100 MG TABLET PO (14:41)
[2021-11-11 15:13] LABS: Glucose, Whole Blood 206 mg/dL (60-115)
--- NOTE | 2021-11-11 17:45 | PC.NURSE ---
patient's damp at this time, linens changed and skin cleansed. patient noted to have red area to right thigh, goes from knee to hip. patient rotated on to left side with pillows under right side. patient's purewix changed at this time. urine noted to be red and cloudy, contacted via tiger text and informed of urine condition
[2021-11-11 20:35] LABS: Glucose, Whole Blood 199 mg/dL (60-115)
[2021-11-11] MEDS: Montelukast Sodium 10 MG TABLET PO (20:54)
[2021-11-11] MEDS: Cholecalciferol (Vitamin D3) 25 MCG TABLET 125 MCG PO (20:54)
[2021-11-11] MEDS: Atorvastatin Calcium 40 MG TABLET PO (20:54)
[2021-11-11] MEDS: Insulin Glargine,Hum.rec.anlog 100 UNIT/ML 10 ML VIAL 10 UNIT SUBCUT (21:15)
[2021-11-12] VITALS: BP 139/72; PULSE 76; RESP 16; TEMP 36.8; O2SAT 98
[2021-11-12 00:45] LABS: Appearance Urine CLEAR; Color Urine YELLOW; Glucose Urine UA NEG (NEG); Leukocyte Esterase Urine NEG (NEG); Nitrite Urine NEG (NEG); PH 6.5 (5.0-8.0); Urine Blood 1+ (NEG); Urine Ketones NEG (NEG); Urine Protein NEG (NEG-TRACE)
[2021-11-12 01:34] LABS: Squamous Epithelial Cell Urine TRACE /LPF; WBC Urine 0-2 /HPF (0-4)
[2021-11-12] MEDS: SUMAtriptan succinate 100 MG TABLET PO (02:31)
[2021-11-12] MEDS: Famotidine/PF 20 MG/2 ML VIAL IVPUSH (05:21)
[2021-11-12 05:42] VITALS: PULSE 77; RESP 18; O2SAT 98
[2021-11-12] MEDS: Albuterol/Iprat 2.5/0.5MG 3 ML AMPUL.NEB INHALE (05:42)
[2021-11-12] MEDS: ondansetron HCL 4 MG/2 ML VIAL IVPUSH (05:46)
[2021-11-12 06:43] VITALS: BP 120/64; PULSE 103; RESP 16; TEMP 37.6; O2SAT 90
[2021-11-12 06:57] LABS: Hematocrit 33.8 % (37.0-47.0); Hemoglobin 10.1 g/dl (12.0-16.0); Mean Corpuscular HGB Conc 29.9 g/dl (31.0-35.0); Mean Corpuscular Hemoglobin 24.1 pg (27.0-33.0); Mean Corpuscular Volume 80.7 fL (80.0-98.0); Mean Platelet Volume 10.3 fL (9.4-12.3); NRBC Pct Auto 0.1 /100WBC (0.0-0.2); Platelet Count 167 X10*3/uL (160-400); Red Blood Count 4.19 X10*6/uL (4.20-5.50); Red Cell Distribution Width 16.8 % (11.0-16.0); White Blood Count 13.4 X10*3/uL (4.8-10.8)
[2021-11-12 07:18] LABS: Anion Gap 12 (12-20); Blood Urea Nitrogen 10 mg/dL (9-16); Carbon Dioxide 32 mmol/L (22-29); Chloride 102 mmol/L (96-108); Creatinine Clr Calc Pharmacy 174.1; Estimated Glomerular Filt Rate > 60; Glucose Fasting 126 mg/dL (60-99); Potassium 3.8 mmol/L (3.3-5.1); Sodium 142 mmol/L (135-145)
[2021-11-12 07:43] LABS: Glucose, Whole Blood 136 mg/dL (60-115)
[2021-11-12] MEDS: 0.9 % Sodium Chloride Flush 3 ML SYRINGE IVFLUSH ×2 (10:58→22:33)
--- NOTE | 2021-11-12 11:26 | HO.PM.IMPN ---
Subjective Subjective Date of Service: 11/12/21 Interval History: cc: sob, rle erythema interval history: abd pain, n/v, diaphoresis, feeling unwell Respiratory Respiratory: Reports no additional respiratory complaints Gastrointestinal Gastrointestinal: Reports no additional gastrointestinal complaints Physical Exam Vital Signs: Vital Signs: Last Vital Signs Temp 99.6 F 11/12/21 06:43 Pulse 103 H 11/12/21 06:43 Resp 16 11/12/21 06:43 BP 120/64 11/12/21 06:43 Pulse Ox 90 L 11/12/21 06:43 BMI result Body Mass Index 77.6 General: AO X 3, diaphoretic, in distress Resp: diminished bilateral, no accessory muscles used CVS: S1,S2,RRR GI: soft, non tender, non distended Neuro: motor grossly intact, alert Psych: appropriate affect, appropriate insight skin: bilateral lymphedema with some improvement in RLE erythema Objective Data Active Medications Acetaminophen (Acetaminophen 325 Mg Tablet) 650 mg PO Q6H PRN PRN Reason: Breakthrough Pain Last Admin: 11/11/21 13:53 Dose: 650 mg Documented by: REY Albuterol Sulfate (Albuterol Sulfate 90 Mcg 8 Gm Inhaler) 1 puff INHALE QID PRN PRN Reason: shortness of breath or wheezing Albuterol/Ipratropium (Albuterol/Iprat 2.5/0.5mg 3 Ml Ampul.Neb) 3 ml INHALE RQ4H PRN PRN Reason: sob Last Admin: 11/12/21 05:42 Dose: 3 ml Documented by: ANA Atorvastatin Calcium (Atorvastatin Calcium 40 Mg Tablet) 40 mg PO BEDTIME [facility] Last Admin: 11/11/21 20:54 Dose: 40 mg Documented by: OG Buspirone HCl (Buspirone Hcl 5 Mg Tablet) 15 mg PO TID [facility] Last Admin: 11/12/21 10:54 Dose: Not Given Documented by: PERICO Non-Admin Reason: Patient Refused Dextrose (Dextrose 50 % 25 Gm/50 Ml Syringe) 25 gm IVPUSH Q15M PRN; Protocol PRN Reason: per Hypoglycemia Standing Ord. Enoxaparin Sodium (Enoxaparin Sodium 40 Mg/0.4 Ml Syringe) 40 mg SUBCUT Q24H [facility] Last Admin: 11/11/21 14:41 Dose: 40 mg Documented by: REY Glucose (Glucose Gel 15 Gm Gel..Gram.) 15 gm PO Q15M PRN; Protocol PRN Reason: per Hypoglycemia Standing Ord. Clindamycin Phosphate (Cleocin) 900 mg in 50 mls @ 50 mls/hr IV Q8H [facility] Insulin Glargine (Insulin Glargine,Hum.Rec.Anlog 100 Unit/Ml 10 Ml Vial) 10 unit SUBCUT BEDTIME [facility] Last Admin: 11/11/21 21:15 Dose: 10 unit Documented by: OG Insulin Human Lispro (Insulin Lispro 100 Unit/Ml 3 Ml Vial) 0 unit SUBCUT QIDACHS [facility]; Protocol Last Admin: 11/12/21 07:56 Dose: Not Given Documented by: PERICO Non-Admin Reason: No Insulin Coverage Loratadine (Loratadine 10 Mg Tablet) 10 mg PO DAILY PRN PRN Reason: for allergies Montelukast Sodium (Montelukast Sodium 10 Mg Tablet) 10 mg PO BEDTIME [facility] Last Admin: 11/11/21 20:54 Dose: 10 mg Documented by: OG Oxybutynin Chloride (Oxybutynin Chloride Er 5 Mg Tab.Er.24) 15 mg PO DAILY [facility] Last Admin: 11/12/21 10:55 Dose: Not Given Documented by: PERICO Non-Admin Reason: Patient Refused Pharmacy Consult (Consult Rx Perform Med Rec) 1 each MISCELLANE ONCE PRN PRN Reason: Consult order Prednisone (Prednisone 20 Mg Tablet) 40 mg PO DAILY [facility] Last Admin: 11/12/21 10:54 Dose: Not Given Documented by: PERICO Non-Admin Reason: Patient Refused Sertraline HCl (Sertraline Hcl 50 Mg Tablet) 150 mg PO DAILY [facility] Last Admin: 11/12/21 10:55 Dose: Not Given Documented by: PERICO Non-Admin Reason: Patient Refused Sodium Chloride (0.9 % Sodium Chloride Flush 3 Ml Syringe) 3 ml IVFLUSH QSHIFT [facility] Last Admin: 11/12/21 10:58 Dose: 3 ml Documented by: PERICO Sumatriptan Succinate (Sumatriptan Succinate 100 Mg Tablet) 100 mg PO DAILY MRX1 PRN PRN Reason: Migraine Headache Last Admin: 11/12/21 02:31 Dose: 100 mg Documented by: OG Vitamin D (Cholecalciferol (Vitamin D3) 25 Mcg Tablet) 125 mcg PO BEDTIME [facility] Last Admin: 11/11/21 20:54 Dose: 125 mcg Documented by: OG Labs CBC & Chem 7: 11/12/21 06:33 11/12/21 06:33 Labs: Laboratory Results - last 24 hr 11/11/21 11/11/21 11/11/21 12:05 15:10 20:18 MCV MCH MCHC RDW Plt Count MPV Absolute Nucleated RBC Nucleated RBC % (auto) Anion Gap Estim Creat Clear Calc Estimated GFR POC Glucose 196 H 206 H 199 H Fasting Glucose Calcium Urine Color Urine Appearance Urine pH Ur Specific Randolph Urine Protein Urine Glucose (UA) Urine Ketones Urine Blood Urine Nitrite Ur Leukocyte Esterase Urine RBC Urine WBC Ur Squamous Epith Cells Urine Bacteria 11/12/21 11/12/21 11/12/21 00:30 06:33 06:33 MCV 80.7 MCH 24.1 L MCHC 29.9 L RDW 16.8 H Plt Count 167 MPV 10.3 Absolute Nucleated RBC 0.020 H Nucleated RBC % (auto) 0.1 Anion Gap 12 Estim Creat Clear Calc 174.1 Estimated GFR > 60 POC Glucose Fasting Glucose 126 H Calcium 10.0 D Urine Color YELLOW Urine Appearance CLEAR Urine pH 6.5 Ur Specific Randolph 1.020 Urine Protein NEG Urine Glucose (UA) NEG Urine Ketones NEG Urine Blood 1+ H Urine Nitrite NEG Ur Leukocyte Esterase NEG Urine RBC 10-14 H Urine WBC 0-2 Ur Squamous Epith Cells TRACE Urine Bacteria Not Reportable 11/12/21 07:23 MCV MCH MCHC RDW Plt Count MPV Absolute Nucleated RBC Nucleated RBC % (auto) Anion Gap Estim Creat Clear Calc Estimated GFR POC Glucose 136 H Fasting Glucose Calcium Urine Color Urine Appearance Urine pH Ur Specific [place] Urine Protein Urine Glucose (UA) Urine Ketones Urine Blood Urine Nitrite Ur Leukocyte Esterase Urine RBC Urine WBC Ur Squamous Epith Cells Urine Bacteria Microbiology Microbiology Results: Microbiology 11/10/21 12:24 Blood Culture - Preliminary Blood - Venous No growth after 24 hours. 11/10/21 12:10 Blood Culture - Preliminary Blood - Venous No growth after 24 hours. Assessment and Plan (1) Cellulitis of right anterior lower leg: Status: Acute Plan 56F presented with sob, RLE erythema acute hypoxic respiratory failure acute decompensation of moderate persistent asthma due to recent COVID continue steroids, bronchodilators wean o2 as tolerated RLE erythema duplex negative GI upset possible adverse reaction to ancef, will change back to clina, minimal improvement - continue iv, bcx negative morbid obesity complicated by bilateral lymphedema, DAVIS, DM, likely OHS, ZAHEER weight loss strongly encouraged DM basal bolus insulin ZAHEER no longer on CPAP at home (needs new study) mood disorder sertraline buspar dvt prophylaxis-? lovenox full code reason for continued hospitalization:still needing o2, minimal improvement of cellulitis, continued need for iv abx Quality Stroke Does the patient have a stroke diagnosis?: No VTE Prior VTE?: No VTE Risk Level:: Medical - moderate - high VTE Device Contraindication: Treatment Not Indicated VTE Drug Contraindication: N/A - Med Ordered
[2021-11-12 12:33] VITALS: BP 132/77; PULSE 85; RESP 17; TEMP 37.3; O2SAT 90
[2021-11-12 13:04] VITALS: BMI 74.9
[2021-11-12 13:07] LABS: Glucose, Whole Blood 174 mg/dL (60-115)
[2021-11-12] MEDS: busPIRone HCl 5 MG TABLET 15 MG PO ×2 (14:21→22:32)
[2021-11-12] MEDS: Clindamycin Phosphate/D5W 900 MG/50 ML PIGGYBACK 50 MG IV ×2 (14:23→22:33)
[2021-11-12 15:11] VITALS: BP 137/77; PULSE 76; RESP 18; TEMP 36.9; O2SAT 93
--- NOTE | 2021-11-12 15:30 | MHC.CLN ---
NUTRITION CONSULT FOR OBESITY. BMI=74.9. NO LONGER ACTIVE WITH [facility]. DISCUSSED EATING PATTERNS/EATING HABITS. FOOD INSECURITY IS CONCERN AND DISCUSSED PLACES WHERE FOOD IS AVAILABLE. PROVIDED BOOKLET ON EATING FOR DIABETES.
[2021-11-12 15:37] LABS: Glucose, Whole Blood 154 mg/dL (60-115)
[2021-11-12] MEDS: Enoxaparin Sodium 40 MG/0.4 ML SYRINGE SUBCUT (17:17)
[2021-11-12] MEDS: Insulin Lispro 100 UNIT/ML 3 ML VIAL SUBCUT (17:17)
[2021-11-12 19:56] VITALS: BP 139/82; PULSE 74; RESP 20; TEMP 37.1; O2SAT 96
[2021-11-12 20:14] LABS: Glucose, Whole Blood 119 mg/dL (60-115)
[2021-11-12] MEDS: Montelukast Sodium 10 MG TABLET PO (22:32)
[2021-11-12] MEDS: Atorvastatin Calcium 40 MG TABLET PO (22:33)
[2021-11-12] MEDS: Cholecalciferol (Vitamin D3) 25 MCG TABLET 125 MCG PO (22:33)
[2021-11-12] MEDS: Insulin Glargine,Hum.rec.anlog 100 UNIT/ML 10 ML VIAL 10 UNIT SUBCUT (22:37)
[2021-11-13] VITALS: BP 114/56; PULSE 77; RESP 17; TEMP 36.1; O2SAT 94
[2021-11-13] MEDS: oxyCODONE HCl Immed Release 5 MG TABLET 10 MG PO (00:24)
[2021-11-13 04:00] VITALS: BP 136/76; PULSE 88; RESP 17; TEMP 36.4; O2SAT 94
[2021-11-13] MEDS: Clindamycin Phosphate/D5W 900 MG/50 ML PIGGYBACK 50 MG IV ×3 (05:41→21:30)
[2021-11-13 06:04] LABS: Hematocrit 32.5 % (37.0-47.0); Hemoglobin 9.4 g/dl (12.0-16.0); Mean Corpuscular HGB Conc 28.9 g/dl (31.0-35.0); Mean Corpuscular Hemoglobin 23.6 pg (27.0-33.0); Mean Corpuscular Volume 81.7 fL (80.0-98.0); Mean Platelet Volume 9.5 fL (9.4-12.3); NRBC Pct Auto 0.2 /100WBC (0.0-0.2); Platelet Count 236 X10*3/uL (160-400); Red Blood Count 3.98 X10*6/uL (4.20-5.50); White Blood Count 11.2 X10*3/uL (4.8-10.8)
[2021-11-13 06:28] LABS: Alanine Aminotransferase 31 U/L (0-31); Albumin Level 3.1 g/dL (3.5-5.0); Alkaline Phosphatase 93 U/L (39-117); Anion Gap 13 (12-20); Aspartate Amino Transferase 36 U/L (5-31); Bilirubin Direct 0.5 mg/dL (0.0-0.5); Bilirubin Total 0.7 mg/dL (0.0-1.0); Blood Urea Nitrogen 10 mg/dL (9-16); Calcium 9.8 mg/dL (8.4-10.2); Carbon Dioxide 34 mmol/L (22-29); Chloride 101 mmol/L (96-108); Creatinine Clr Calc Pharmacy 166.7; Estimated Glomerular Filt Rate > 60; Glucose Fasting 115 mg/dL (60-99); Potassium 3.8 mmol/L (3.3-5.1); Sodium 144 mmol/L (135-145); Total Protein 6.4 g/dL (6.5-8.0)
[2021-11-13 07:31] LABS: Glucose, Whole Blood 113 mg/dL (60-115)
[2021-11-13 07:38] VITALS: BP 132/61; PULSE 76; RESP 19; TEMP 36.5; O2SAT 95
[2021-11-13] MEDS: predniSONE 20 MG TABLET 40 MG PO (08:30)
[2021-11-13] MEDS: 0.9 % Sodium Chloride Flush 3 ML SYRINGE IVFLUSH ×3 (08:30→20:32)
[2021-11-13] MEDS: Sertraline HCL 50 MG TABLET 150 MG PO (08:30)
[2021-11-13] MEDS: busPIRone HCl 5 MG TABLET 15 MG PO ×3 (08:31→20:29)
[2021-11-13 11:25] LABS: Glucose, Whole Blood 151 mg/dL (60-115)
[2021-11-13] MEDS: Furosemide 40 MG/4 ML VIAL IVPUSH ×2 (11:28→17:10)
--- NOTE | 2021-11-13 11:35 | HO.PM.IMPN ---
Subjective Subjective Date of Service: 11/13/21 Interval History: cc: sob, rle erythema interval history:much better today, still with sob Cardiovascular Cardiovascular: Reports no additional cardiovascular complaints Respiratory Respiratory: Reports no additional respiratory complaints Physical Exam Vital Signs: Vital Signs: Last Vital Signs Temp 97.7 F 11/13/21 07:38 Pulse 76 11/13/21 07:38 Resp 19 11/13/21 07:38 BP 132/61 11/13/21 07:38 Pulse Ox 95 11/13/21 07:38 BMI result Body Mass Index 74.9 General: AO X 3, NAD Resp:? diminished bilateral, no accessory muscles used CVS: S1,S2,RRR GI: soft, non tender, non distended Neuro:? motor grossly intact, alert Psych: appropriate affect, appropriate insight? skin: bilateral lymphedema with some improvement in RLE erythema Objective Data Active Medications Acetaminophen (Acetaminophen 325 Mg Tablet) 650 mg PO Q6H PRN PRN Reason: Breakthrough Pain Last Admin: 11/11/21 13:53 Dose: 650 mg Documented by: REY Albuterol Sulfate (Albuterol Sulfate 90 Mcg 8 Gm Inhaler) 1 puff INHALE QID PRN PRN Reason: shortness of breath or wheezing Albuterol/Ipratropium (Albuterol/Iprat 2.5/0.5mg 3 Ml Ampul.Neb) 3 ml INHALE RQ4H PRN PRN Reason: sob Last Admin: 11/12/21 05:42 Dose: 3 ml Documented by: ANA Atorvastatin Calcium (Atorvastatin Calcium 40 Mg Tablet) 40 mg PO BEDTIME [facility] Last Admin: 11/12/21 22:33 Dose: 40 mg Documented by: BECK Buspirone HCl (Buspirone Hcl 5 Mg Tablet) 15 mg PO TID [facility] Last Admin: 11/13/21 08:31 Dose: 15 mg Documented by: MILTON Dextrose (Dextrose 50 % 25 Gm/50 Ml Syringe) 25 gm IVPUSH Q15M PRN; Protocol PRN Reason: per Hypoglycemia Standing Ord. Enoxaparin Sodium (Enoxaparin Sodium 40 Mg/0.4 Ml Syringe) 40 mg SUBCUT Q24H [facility] Last Admin: 11/12/21 17:17 Dose: 40 mg Documented by: COLSOL Furosemide (Furosemide 40 Mg/4 Ml Vial) 40 mg IVPUSH BID@0900,1800 [facility]; Protocol Last Admin: 11/13/21 11:28 Dose: 40 mg Documented by: MILTON Glucose (Glucose Gel 15 Gm Gel..Gram.) 15 gm PO Q15M PRN; Protocol PRN Reason: per Hypoglycemia Standing Ord. Clindamycin Phosphate (Cleocin) 900 mg in 50 mls @ 50 mls/hr IV Q8H [facility] Last Infusion: 11/13/21 07:18 Dose: 0 mls/hr Documented by: BECK Insulin Glargine (Insulin Glargine,Hum.Rec.Anlog 100 Unit/Ml 10 Ml Vial) 10 unit SUBCUT BEDTIME [facility] Last Admin: 11/12/21 22:37 Dose: 10 unit Documented by: BECK Insulin Human Lispro (Insulin Lispro 100 Unit/Ml 3 Ml Vial) 0 unit SUBCUT QIDACHS [facility]; Protocol Last Admin: 11/13/21 07:33 Dose: Not Given Documented by: MILTON Non-Admin Reason: No Insulin Coverage Loratadine (Loratadine 10 Mg Tablet) 10 mg PO DAILY PRN PRN Reason: for allergies Montelukast Sodium (Montelukast Sodium 10 Mg Tablet) 10 mg PO BEDTIME [facility] Last Admin: 11/12/21 22:32 Dose: 10 mg Documented by: BECK Oxybutynin Chloride (Oxybutynin Chloride Er 5 Mg Tab.Er.24) 15 mg PO DAILY [facility] Last Admin: 11/13/21 08:31 Dose: 15 mg Documented by: MILTON Pharmacy Consult (Consult Rx Perform Med Rec) 1 each MISCELLANE ONCE PRN PRN Reason: Consult order Prednisone (Prednisone 20 Mg Tablet) 40 mg PO DAILY [facility] Last Admin: 11/13/21 08:30 Dose: 40 mg Documented by: MILTON Sertraline HCl (Sertraline Hcl 50 Mg Tablet) 150 mg PO DAILY [facility] Last Admin: 11/13/21 08:30 Dose: 150 mg Documented by: MILTON Sodium Chloride (0.9 % Sodium Chloride Flush 3 Ml Syringe) 3 ml IVFLUSH QSHIFT [facility] Last Admin: 11/13/21 08:30 Dose: 3 ml Documented by: MILTON Sumatriptan Succinate (Sumatriptan Succinate 100 Mg Tablet) 100 mg PO DAILY MRX1 PRN PRN Reason: Migraine Headache Last Admin: 11/12/21 02:31 Dose: 100 mg Documented by: OG Vitamin D (Cholecalciferol (Vitamin D3) 25 Mcg Tablet) 125 mcg PO BEDTIME [facility] Last Admin: 11/12/21 22:33 Dose: 125 mcg Documented by: BECK Labs CBC & Chem 7: 11/13/21 05:42 11/13/21 05:42 Labs: Laboratory Results - last 24 hr 11/12/21 11/12/21 11/12/21 13:03 15:15 19:59 MCV MCH MCHC RDW Plt Count MPV Absolute Nucleated RBC Nucleated RBC % (auto) Anion Gap Estim Creat Clear Calc Estimated GFR POC Glucose 174 H 154 H 119 H Fasting Glucose Calcium Total Bilirubin Direct Bilirubin AST ALT Alkaline Phosphatase Total Protein Albumin 11/13/21 11/13/21 11/13/21 05:42 05:42 07:26 MCV 81.7 MCH 23.6 L MCHC 28.9 L RDW 17.0 H Plt Count 236 D MPV 9.5 Absolute Nucleated RBC 0.020 H Nucleated RBC % (auto) 0.2 Anion Gap 13 Estim Creat Clear Calc 166.7 Estimated GFR > 60 POC Glucose 113 Fasting Glucose 115 H Calcium 9.8 Total Bilirubin 0.7 Direct Bilirubin 0.5 AST 36 H ALT 31 Alkaline Phosphatase 93 Total Protein 6.4 L Albumin 3.1 L 11/13/21 11:20 MCV MCH MCHC RDW Plt Count MPV Absolute Nucleated RBC Nucleated RBC % (auto) Anion Gap Estim Creat Clear Calc Estimated GFR POC Glucose 151 H Fasting Glucose Calcium Total Bilirubin Direct Bilirubin AST ALT Alkaline Phosphatase Total Protein Albumin Microbiology Microbiology Results: Microbiology 11/10/21 12:24 Blood Culture - Preliminary Blood - Venous No growth after 48 hours. 11/10/21 12:10 Blood Culture - Preliminary Blood - Venous No growth after 48 hours. Assessment and Plan (1) Cellulitis of right anterior lower leg: Status: Acute Plan 56F presented with sob, RLE erythema acute hypoxic respiratory failure acute decompensation of moderate persistent asthma due to recent COVID continue steroids, bronchodilators wean o2 as tolerated acute on chronic diastolic chf iv lasix, monitor bmp RLE erythema - cellulitis with stasis dermatitis duplex negative had some gi upset with ancef, better with iv clinda morbid obesity complicated by bilateral lymphedema, DAVIS, DM, likely OHS, ZAHEER weight loss strongly encouraged DM basal bolus insulin ZAHEER no longer on CPAP at home (needs new study) mood disorder sertraline buspar dvt prophylaxis-? lovenox full code reason for continued hospitalization:still needing o2, minimal improvement of cellulitis, continued need for iv abx Quality Stroke Does the patient have a stroke diagnosis?: No VTE Prior VTE?: No VTE Risk Level:: Medical - moderate - high VTE Device Contraindication: Treatment Not Indicated VTE Drug Contraindication: N/A - Med Ordered
[2021-11-13] MEDS: Insulin Lispro 100 UNIT/ML 3 ML VIAL SUBCUT ×3 (11:43→21:33)
[2021-11-13 15:47] VITALS: BP 134/83; PULSE 78; RESP 18; TEMP 36.4; O2SAT 95
[2021-11-13] MEDS: Enoxaparin Sodium 40 MG/0.4 ML SYRINGE SUBCUT (15:51)
[2021-11-13 16:34] LABS: Glucose, Whole Blood 184 mg/dL (60-115)
[2021-11-13 20:27] LABS: Glucose, Whole Blood 191 mg/dL (60-115)
[2021-11-13] MEDS: Atorvastatin Calcium 40 MG TABLET PO (20:29)
[2021-11-13] MEDS: Cholecalciferol (Vitamin D3) 25 MCG TABLET 125 MCG PO (20:29)
[2021-11-13] MEDS: Montelukast Sodium 10 MG TABLET PO (20:30)
[2021-11-13] MEDS: Insulin Glargine,Hum.rec.anlog 100 UNIT/ML 10 ML VIAL 10 UNIT SUBCUT (21:33)
[2021-11-14] VITALS: BP 133/98; PULSE 69; RESP 18; TEMP 36.3; O2SAT 96
[2021-11-14] MEDS: Clindamycin Phosphate/D5W 900 MG/50 ML PIGGYBACK 50 MG IV ×3 (05:22→20:22)
[2021-11-14] MEDS: SUMAtriptan succinate 100 MG TABLET PO (05:28)
[2021-11-14 06:57] LABS: Anion Gap 14 (12-20); Blood Urea Nitrogen 11 mg/dL (9-16); Calcium 10.6 mg/dL (8.4-10.2); Carbon Dioxide 39 mmol/L (22-29); Chloride 96 mmol/L (96-108); Creatinine Clr Calc Pharmacy 156.1; Estimated Glomerular Filt Rate > 60; Glucose Fasting 113 mg/dL (60-99); Potassium 3.6 mmol/L (3.3-5.1); Sodium 145 mmol/L (135-145)
[2021-11-14 07:04] LABS: Hematocrit 35.1 % (37.0-47.0); Hemoglobin 10.2 g/dl (12.0-16.0); Mean Corpuscular HGB Conc 29.1 g/dl (31.0-35.0); Mean Corpuscular Hemoglobin 23.3 pg (27.0-33.0); Mean Corpuscular Volume 80.1 fL (80.0-98.0); Mean Platelet Volume 9.8 fL (9.4-12.3); NRBC Pct Auto 0.4 /100WBC (0.0-0.2); Platelet Count 285 X10*3/uL (160-400); Red Blood Count 4.38 X10*6/uL (4.20-5.50); Red Cell Distribution Width 16.5 % (11.0-16.0); White Blood Count 10.8 X10*3/uL (4.8-10.8)
[2021-11-14 07:57] VITALS: BP 156/74; PULSE 68; RESP 19; TEMP 36.2; O2SAT 94
[2021-11-14 07:58] LABS: Glucose, Whole Blood 115 mg/dL (60-115)
[2021-11-14] MEDS: Sertraline HCL 50 MG TABLET 150 MG PO (09:02)
[2021-11-14] MEDS: 0.9 % Sodium Chloride Flush 3 ML SYRINGE IVFLUSH ×2 (09:02→20:26)
[2021-11-14] MEDS: predniSONE 20 MG TABLET 40 MG PO (09:02)
[2021-11-14] MEDS: busPIRone HCl 5 MG TABLET 15 MG PO ×3 (09:02→20:14)
--- NOTE | 2021-11-14 09:25 | P.PNIM_ITS ---
Subjective Subjective Date of Service: 11/14/21 Interval History: cc: sob interval history: overall improved, but still sob Cardiovascular Cardiovascular: Reports no additional cardiovascular complaints Respiratory Respiratory: Reports no additional respiratory complaints Physical Exam Vital Signs: Vital Signs: Last Vital Signs Temp 97.1 F 11/14/21 07:57 Pulse 68 11/14/21 07:57 Resp 19 11/14/21 07:57 BP 156/74 H 11/14/21 07:57 Pulse Ox 94 11/14/21 07:57 BMI result Body Mass Index 74.9 General: AO X 3, NAD Resp:? diminished bilateral, no accessory muscles used CVS: S1,S2,RRR GI: soft, non tender, non distended Neuro:? motor grossly intact, alert Psych: appropriate affect, appropriate insight? skin: bilateral lymphedema with some improvement in RLE erythema Objective Data Active Medications Acetaminophen (Acetaminophen 325 Mg Tablet) 650 mg PO Q6H PRN PRN Reason: Breakthrough Pain Last Admin: 11/11/21 13:53 Dose: 650 mg Documented by: REY Albuterol Sulfate (Albuterol Sulfate 90 Mcg 8 Gm Inhaler) 1 puff INHALE QID PRN PRN Reason: shortness of breath or wheezing Albuterol/Ipratropium (Albuterol/Iprat 2.5/0.5mg 3 Ml Ampul.Neb) 3 ml INHALE RQ4H PRN PRN Reason: sob Last Admin: 11/12/21 05:42 Dose: 3 ml Documented by: ANA Atorvastatin Calcium (Atorvastatin Calcium 40 Mg Tablet) 40 mg PO BEDTIME [facility] Last Admin: 11/13/21 20:29 Dose: 40 mg Documented by: MICHAEL Buspirone HCl (Buspirone Hcl 5 Mg Tablet) 15 mg PO TID [facility] Last Admin: 11/14/21 09:02 Dose: 15 mg Documented by: MILTON Dextrose (Dextrose 50 % 25 Gm/50 Ml Syringe) 25 gm IVPUSH Q15M PRN; Protocol PRN Reason: per Hypoglycemia Standing Ord. Enoxaparin Sodium (Enoxaparin Sodium 40 Mg/0.4 Ml Syringe) 40 mg SUBCUT Q24H [facility] Last Admin: 11/13/21 15:51 Dose: 40 mg Documented by: MILTON Furosemide (Furosemide 40 Mg/4 Ml Vial) 40 mg IVPUSH BID@0900,1800 [facility]; P rotocol Last Admin: 11/13/21 17:10 Dose: 40 mg Documented by: MILTON Glucose (Glucose Gel 15 Gm Gel..Gram.) 15 gm PO Q15M PRN; Protocol PRN Reason: per Hypoglycemia Standing Ord. Clindamycin Phosphate (Cleocin) 900 mg in 50 mls @ 50 mls/hr IV Q8H [facility] Last Infusion: 11/14/21 06:23 Dose: 0 mls/hr Documented by: MICHAEL Insulin Glargine (Insulin Glargine,Hum.Rec.Anlog 100 Unit/Ml 10 Ml Vial) 10 unit SUBCUT BEDTIME [facility] Last Admin: 11/13/21 21:33 Dose: 10 unit Documented by: MICHAEL Insulin Human Lispro (Insulin Lispro 100 Unit/Ml 3 Ml Vial) 0 unit SUBCUT QIDACHS [facility]; Protocol Last Admin: 11/14/21 08:54 Dose: Not Given Documented by: MILTON Non-Admin Reason: No Insulin Coverage Loratadine (Loratadine 10 Mg Tablet) 10 mg PO DAILY PRN PRN Reason: for allergies Montelukast Sodium (Montelukast Sodium 10 Mg Tablet) 10 mg PO BEDTIME [facility] Last Admin: 11/13/21 20:30 Dose: 10 mg Documented by: MICHAEL Oxybutynin Chloride (Oxybutynin Chloride Er 5 Mg Tab.Er.24) 15 mg PO DAILY [facility] Last Admin: 11/14/21 09:02 Dose: 15 mg Documented by: MILTON Pharmacy Consult (Consult Rx Perform Med Rec) 1 each MISCELLANE ONCE PRN PRN Reason: Consult order Prednisone (Prednisone 20 Mg Tablet) 40 mg PO DAILY [facility] Last Admin: 11/14/21 09:02 Dose: 40 mg Documented by: MILTON Sertraline HCl (Sertraline Hcl 50 Mg Tablet) 150 mg PO DAILY [facility] Last Admin: 11/14/21 09:02 Dose: 150 mg Documented by: MILTON Sodium Chloride (0.9 % Sodium Chloride Flush 3 Ml Syringe) 3 ml IVFLUSH QSHIFT [facility] Last Admin: 11/14/21 09:02 Dose: 3 ml Documented by: MILTON Sumatriptan Succinate (Sumatriptan Succinate 100 Mg Tablet) 100 mg PO DAILY MRX1 PRN PRN Reason: Migraine Headache Last Admin: 11/14/21 05:28 Dose: 100 mg Documented by: MICHAEL Vitamin D (Cholecalciferol (Vitamin D3) 25 Mcg Tablet) 125 mcg PO BEDTIME [facility] Last Admin: 11/13/21 20:29 Dose: 125 mcg Documented by: MICHAEL Labs CBC & Chem 7: 11/14/21 06:11 11/14/21 06:11 Labs: Laboratory Results - last 24 hr 11/13/21 11/13/21 11/13/21 11:20 15:50 19:37 MCV MCH MCHC RDW Plt Count MPV Absolute Nucleated RBC Nucleated RBC % (auto) Anion Gap Estim Creat Clear Calc Estimated GFR POC Glucose 151 H 184 H 191 H Fasting Glucose Calcium 11/14/21 11/14/21 11/14/21 06:11 06:11 07:48 MCV 80.1 MCH 23.3 L MCHC 29.1 L RDW 16.5 H Plt Count 285 MPV 9.8 Absolute Nucleated RBC 0.040 H Nucleated RBC % (auto) 0.4 H Anion Gap 14 Estim Creat Clear Calc 156.1 Estimated GFR > 60 POC Glucose 115 Fasting Glucose 113 H Calcium 10.6 H D Assessment and Plan (1) Cellulitis of right anterior lower leg: Status: Acute Plan 56F presented with sob, RLE erythema acute hypoxic respiratory failure acute decompensation of moderate persistent asthma due to recent COVID continue steroids, bronchodilators wean o2 as tolerated acute on chronic diastolic chf continue iv lasix, monitor bmp RLE erythema - cellulitis with stasis dermatitis duplex negative had some gi upset with ancef, better with iv clinda morbid obesity complicated by bilateral lymphedema, DAVIS, DM, likely OHS, ZAHEER weight loss strongly encouraged DM basal bolus insulin ZAHEER no longer on CPAP at home (needs new study) mood disorder sertraline buspar dvt prophylaxis-? lovenox full code reason for continued hospitalization:still needing o2, iv diuresis Quality Stroke Does the patient have a stroke diagnosis?: No VTE Prior VTE?: No VTE Risk Level:: Medical - moderate - high VTE Device Contraindication: Treatment Not Indicated VTE Drug Contraindication: N/A - Med Ordered
[2021-11-14 11:52] LABS: Glucose, Whole Blood 149 mg/dL (60-115)
[2021-11-14] MEDS: Furosemide 40 MG/4 ML VIAL IVPUSH ×2 (12:32→17:07)
[2021-11-14] MEDS: Enoxaparin Sodium 40 MG/0.4 ML SYRINGE SUBCUT (14:45)
[2021-11-14 15:49] VITALS: BP 153/69; PULSE 72; RESP 16; TEMP 35.9; O2SAT 94
[2021-11-14 17:06] LABS: Glucose, Whole Blood 203 mg/dL (60-115)
[2021-11-14] MEDS: Insulin Lispro 100 UNIT/ML 3 ML VIAL SUBCUT ×2 (17:07→20:21)
[2021-11-14] MEDS: Cholecalciferol (Vitamin D3) 25 MCG TABLET 125 MCG PO (20:11)
[2021-11-14] MEDS: Montelukast Sodium 10 MG TABLET PO (20:15)
[2021-11-14] MEDS: Atorvastatin Calcium 40 MG TABLET PO (20:15)
[2021-11-14] MEDS: Insulin Glargine,Hum.rec.anlog 100 UNIT/ML 10 ML VIAL 10 UNIT SUBCUT (20:15)
[2021-11-14 20:16] LABS: Glucose, Whole Blood 163 mg/dL (60-115)
[2021-11-14 23:15] VITALS: PULSE 67; RESP 20; O2SAT 95
[2021-11-15] VITALS: BP 141/78; PULSE 70; RESP 17; TEMP 36.6; O2SAT 96
[2021-11-15] MEDS: Clindamycin Phosphate/D5W 900 MG/50 ML PIGGYBACK 50 MG IV (05:43)
[2021-11-15 06:29] LABS: Hematocrit 35.4 % (37.0-47.0); Hemoglobin 10.5 g/dl (12.0-16.0); Mean Corpuscular HGB Conc 29.7 g/dl (31.0-35.0); Mean Corpuscular Hemoglobin 23.6 pg (27.0-33.0); Mean Corpuscular Volume 79.7 fL (80.0-98.0); Mean Platelet Volume 9.4 fL (9.4-12.3); Platelet Count 289 X10*3/uL (160-400); Red Blood Count 4.44 X10*6/uL (4.20-5.50); Red Cell Distribution Width 16.5 % (11.0-16.0); White Blood Count 11.2 X10*3/uL (4.8-10.8)
[2021-11-15 07:40] LABS: Anion Gap 13 (12-20); Blood Urea Nitrogen 12 mg/dL (9-16); Calcium 10.2 mg/dL (8.4-10.2); Carbon Dioxide 40 mmol/L (22-29); Chloride 94 mmol/L (96-108); Creatinine Clr Calc Pharmacy 161.2; Estimated Glomerular Filt Rate > 60; Glucose Fasting 112 mg/dL (60-99); Potassium 3.3 mmol/L (3.3-5.1); Sodium 144 mmol/L (135-145)
[2021-11-15 07:41] LABS: Glucose, Whole Blood 109 mg/dL (60-115)
[2021-11-15 07:43] VITALS: BP 149/72; PULSE 78; RESP 18; TEMP 36.1; O2SAT 96
[2021-11-15] MEDS: predniSONE 20 MG TABLET 40 MG PO (09:30)
[2021-11-15] MEDS: acetaZOLAMIDE 250 MG TABLET 500 MG PO (09:30)
[2021-11-15] MEDS: busPIRone HCl 5 MG TABLET 15 MG PO (09:30)
[2021-11-15] MEDS: Sertraline HCL 50 MG TABLET 150 MG PO (09:31)
[2021-11-15] MEDS: 0.9 % Sodium Chloride Flush 3 ML SYRINGE IVFLUSH (09:32)
--- NOTE | 2021-11-15 10:55 | PM.DS ---
DS: Providers Provider Date of Service: 11/15/21 Date of admission: 11/10/21 15:36 Primary care physician: Nonstaff Physician DS: Diagnosis Discharge Diagnosis (1) Cellulitis of right anterior lower leg: Status: Acute DS: Summary Hospital Course Hospital Course: from initial hpi: Chief Complaint: dyspnea 56F presented with sob. patient reports recent covid illness about 2 weeks ptp. she had tested positive on home test and had known exposure. she is vaccinated and recovered (12/2019). she was treated with paxlovid, her symptoms including, headache, myalgias, fatigue. on monday prior to admission patient noted fevers, she fell asleep and states she woke up on monday. she tested again and was negative at that time. patient also notes 2 new erythematous lesions on sholder blades and wide spread erythema and tightening and pain on right thigh. on day of presentation patient began to feel significant sob, inability to tolerate ADLs so she called EMS, she was found to have o2 sat on room air of 82%, improved to 93% on 2L. cxr negative, no signs of sepsis. hospital course: Patient was admitted for acute hypoxic respiratory failure secondary to acute decompensation of moderate persistent asthma in the setting of recent COVID infection. She was treated with steroids and bronchodilators. Course was also complicated by acute on chronic diastolic CHF, patient was treated with IV Lasix with significant diuresis and improvement shortness of breath. She was eventually able to be weaned off oxygen. Patient was also noted to have right lower extremity edema and erythema likely stasis dermatitis with superimposed bacterial cellulitis. Her venous duplex was negative for DVT, she was treated with IV cefazolin, however, she had GI side effects of abdominal pain and diarrhea and vomiting, so she was changed to clindamycin which she tolerated well with significant improvement in erythema and pain. She will be discharged on 4 more days of oral clindamycin for her morbid obesity complicated by bilateral lymphedema, nonalcoholic steatohepatitis, diabetes -weight loss is strongly encouraged. Will continue on insulin for diabetes, for obstructive sleep apnea she should get a new overnight sleep study to renew her CPAP. For mood disorder she will continue on sertraline and BuSpar. Patient is feeling much better will be discharged home. Time Spent with Patient Time attestation: Total time spent providing and/or coordinating discharge services: Discharge coordination time: Greater than 30 minutes Quality: Safe Use of Opioids Does Pt have an Active Cancer Diagnosis on the Problem List?: No Quality: Stroke Does the patient have a stroke diagnosis?: No Physical Exam Vital Signs: Vital Signs: Last Vital Signs Temp 96.9 F 11/15/21 07:43 Pulse 78 11/15/21 07:43 Resp 18 11/15/21 07:43 BP 149/72 H 11/15/21 07:43 Pulse Ox 96 11/15/21 07:43 BMI result Body Mass Index 74.9 General: AO X 3, NAD Resp:? diminished bilateral, no accessory muscles used CVS: S1,S2,RRR GI: soft, non tender, non distended Neuro:? motor grossly intact, alert Psych: appropriate affect, appropriate insight? skin: bilateral lymphedema with near resolution of RLE erythema DS: Data Data Completed and Pending Labs on day of discharge: Laboratory Results - last 24 hr 11/14/21 11/14/21 11/14/21 11:45 16:48 20:03 WBC RBC Hgb Hct MCV MCH MCHC RDW Plt Count MPV Absolute Nucleated RBC Nucleated RBC % (auto) Sodium Potassium Chloride Carbon Dioxide Anion Gap BUN Creatinine Estim Creat Clear Calc Estimated GFR POC Glucose 149 H 203 H 163 H Fasting Glucose Calcium 11/15/21 11/15/21 11/15/21 06:09 06:09 07:23 WBC 11.2 H RBC 4.44 Hgb 10.5 L Hct 35.4 L MCV 79.7 L MCH 23.6 L MCHC 29.7 L RDW 16.5 H Plt Count 289 MPV 9.4 Absolute Nucleated RBC 0.000 Nucleated RBC % (auto) 0.0 Sodium 144 Potassium 3.3 Chloride 94 L Carbon Dioxide 40 H* Anion Gap 13 BUN 12 Creatinine 0.61 Estim Creat Clear Calc 161.2 Estimated GFR > 60 POC Glucose 109 Fasting Glucose 112 H Calcium 10.2 Preliminary micro results at discharge 11/10/21 12:24 Blood Culture - Preliminary Blood - Venous No growth after 48 hours. 11/10/21 12:10 Blood Culture - Preliminary Blood - Venous No growth after 48 hours. Discharge Plan Discharge Patient Disposition: Home, Self-Care Discharge Diagnosis: chf, asthma, cellulitis Referrals: Physician,Nonstaff [Primary Care Provider] - 1 Week Discharge Medications: New clindamycin HCl 300 mg capsule 300 mg PO Q8H Qty: 12 0RF Continued (DME) filters for cpap See Rx Instructions .Route .MEDSUPPLY Qty: 1 0RF Rx Instructions: Filters for CPAP machine (DME) heated tubing See Rx Instructions .Route .MEDSUPPLY Qty: 1 0RF Rx Instructions: Heated tubing for CPAP machine (DME) cpap mask See Rx Instructions .Route .MEDSUPPLY Qty: 1 0RF Rx Instructions: cpap mask- CPAP at 15 cm oxybutynin chloride 15 mg tablet extended release 24 hr 15 mg PO DAILY Qty: 30 5RF cetirizine 10 mg tablet 10 mg PO DAILY PRN (Reason: for allergies) Qty: 90 0RF atorvastatin 40 mg tablet 40 mg PO BEDTIME Qty: 90 0RF metformin 500 mg tablet extended release 24 hr 1,000 mg PO BEDTIME Qty: 180 0RF cholecalciferol (vitamin D3) 125 mcg (5,000 unit) capsule 125 mcg PO BEDTIME Qty: 90 0RF montelukast 10 mg tablet 10 mg PO BEDTIME 0RF buspirone 15 mg tablet 15 mg PO TID 0RF sertraline 100 mg tablet 150 mg PO DAILY 0RF sumatriptan succinate 100 mg tablet 100 mg PO DIRECTED 0RF ondansetron HCl 4 mg tablet 4 mg PO Q8H PRN (Reason: Nausea) 0RF albuterol sulfate 90 mcg/actuation HFA aerosol inhaler 1 inh inhalation QID PRN (Reason: shortness of breath or wheezing) Qty: 6.7 1RF Discharge Orders: Discharge Order (Routine); Ordered 11/15/21 Ordered By: Sandro Childress Diet: advance to usual diet Activity on Discharge: As tolerated Stand Alone Forms: Patient Portal Discharge page Care Plan Goals: recovery Health Concerns: chf, cellultiis, asthma Plan of Treatment: 4 more days clinda Assessment: see above
[2021-11-15 11:21] LABS: Glucose, Whole Blood 118 mg/dL (60-115)
--- NOTE | 2021-11-15 12:05 | MHC.CM.PN ---
PATIENT DISCHARGED HOME - SELF CARE CONTACT NUMBER FOR [facility] (NEAR HER HOME) GIVEN SHE IS ASKING FOR PROCESS OF SECURING HOME HEALTH AIDES. CASE MANAGEMENT AWARE THAT AGENCY DOES NOT RESPOND IN ALL[facility]CRIPTS SO PATIENT WAS COMFORTABLE WITH CALLING ON HER OWN IMM 11/14 IN CHART
== END 2021-11-15 14:01 | disposition home or self-care (01) | DRG 202 ==
LOC: HO.ED 15:37 → HO.EDOVER 15:46 → HO.S3 11-12 09:35
PROVIDERS: Hospitalist; Admitting Provider Internal Medicine; Emergency Provider Student in an Organized Health Care Education/Training Program; Visit Provider Internal Medicine
DX: J45.41 Moderate persistent asthma with (acute) exacerbation (principal); J96.01 Acute respiratory failure with hypoxia; I50.33 Acute on chronic diastolic (congestive) heart failure; Z68.45 Body mass index [BMI] 70 or greater, adult; E66.2 Morbid (severe) obesity with alveolar hypoventilation; L03.115 Cellulitis of right lower limb; G43.909 Migraine, unspecified, not intractable, without status migrainosus; E11.9 Type 2 diabetes mellitus without complications; E78.2 Mixed hyperlipidemia; I87.321 Chronic venous hypertension (idiopathic) with inflammation of right lower extremity; K75.81 Nonalcoholic steatohepatitis (NASH); U09.9 Post COVID-19 condition, unspecified; Z20.822 Contact with and (suspected) exposure to COVID-19; Z91.14 Patient's other noncompliance with medication regimen; Z88.0 Allergy status to penicillin; Z79.84 Long term (current) use of oral hypoglycemic drugs; Z79.899 Other long term (current) drug therapy
CPT/HCPCS: 36415; 70450; 71045; 72170; 73552; 80048; 80076; 81001; 82550; 82947; 83605; 83690; 84484; 85025; 85027; 87040; 87635; 93005; 93971; 94640; 94660; 96361; 96374; 96375; 99285; J0690; J1650; J1885; J1940; J2405

== ENCOUNTER 2021-12-02 09:29 | Emergency (ER) | payer MEDICARE, MEDICAID, SELFPAY ==
--- NOTE | ~2021-12-02 | XR_ITS ---
EXAMINATION: XR KNEE, LEFT CLINICAL INFORMATION: Left knee pain. COMPARISON: None TECHNIQUE: Four views of the left knee. FINDINGS: There is loss of tricompartment joint space without bony erosive changes. No visible acute fracture, dislocation or subluxation seen. The soft tissues are normal. XR/XR knee LT 4V IMPRESSION: Unremarkable left knee exam.
[2021-12-02 09:38] VITALS: BP 144/88; PULSE 98; O2SAT 100
[2021-12-02 09:41] VITALS: BP 143/63; PULSE 93; RESP 18; TEMP 36.9; O2SAT 99; BMI 76.6
--- NOTE | 2021-12-02 09:49 | ED_ITS ---
HPI - Extremity Injury (Lower) General Chief Complaint: Extremity Injury, Lower Stated Complaint: L KNEE PAIN PER EMS Time Seen by Provider: 12/02/21 09:41 Source: patient and EMS Mode of arrival: EMS Limitations: no limitations History of Present Illness HPI Narrative: 56 y/o female with history of morbid obesity (BMI 76), chronic LE edema with venous insufficiency, depression, anxiety, DAVIS, ZAHEER on CPAP, HTN, HLD who presents to the ER from home via EMS with left knee pain. She states she was getting into the shower today when she heard a snap and her left knee gave out. She fell backward and caught herself on the towel rack, did not fall onto the knee. She has not been able to bend the knee or bear any weight since. She states last Monday (11/23) she also injured the knee while walking and has been taking Motrin since last week with little improvement. She also was recently started on a diuretic for LE swelling. She was also recently treated for LE cellulitis. She had negative (but limited) LE dopplers on November 10. She was admitted here from 11/10 to 11/15 for acute hypoxia 2/2 asthma exacerbation s/p recent COVID infection, HFpEF. She states she ambulates with a cane at baseline and lives with her daughter. She has stairs to get up into the house but not within the home. complaint: knee injury Onset (ago): minute(s) Injury: Left: knee Type of Injury: unknown Place: home Severity: severe Severity scale (1-10): 10 Relieving factors: immobilization and rest Exacerbating factors: weight bearing, movement and palpation Associated symptoms: snap/pop sensation and unable to bear weight Other symptoms: none Related Data Home Medications Medication Instructions Recorded Confirmed buspirone 15 mg tablet 15 mg PO TID 07/07/20 11/10/21 ondansetron HCl 4 mg tablet 4 mg PO Q8H PRN Nausea 07/07/20 11/10/21 sertraline 100 mg tablet 150 mg PO DAILY 07/07/20 11/10/21 sumatriptan succinate 100 mg tablet 100 mg PO DIRECTED 07/07/20 11/10/21 montelukast 10 mg tablet 10 mg PO BEDTIME 11/10/21 11/10/21 Previous Rx's Medication Instructions Recorded cpap mask #1 ea 07/14/20 filters for cpap #1 ea 07/14/20 heated tubing #1 ea 07/14/20 oxybutynin chloride 15 mg 15 mg PO DAILY #30 tabs 05/21/21 tablet,extended release 24 hr albuterol sulfate 90 mcg/actuation 1 inh inhalation QID PRN shortness 07/09/21 aerosol inhaler of breath or wheezing #6.7 grams atorvastatin 40 mg tablet 40 mg PO BEDTIME #90 tabs 07/12/21 metformin 500 mg tablet,extended 1,000 mg PO BEDTIME #180 tabs 07/12/21 release 24 hr cholecalciferol (vitamin D3) 125 125 mcg PO BEDTIME #90 caps 07/19/21 mcg (5,000 unit) capsule cetirizine 10 mg tablet 10 mg PO DAILY PRN for allergies 11/23/21 #90 tabs furosemide 20 mg tablet 20 mg PO QAM PRN edema #30 tabs 11/23/21 commode (bedside commode) #1 ea 12/02/21 walker #1 ea 12/02/21 Allergies Allergy/AdvReac Type Severity Reaction Status Date / Time cat dander [CAT] Allergy Unknown UNKNOWN Verified 12/02/21 09:46 mold [MOLD] Allergy Unknown UNKNOWN Verified 12/02/21 09:46 amoxicillin [From Augmentin] AdvReac Abdominal Verified 12/02/21 09:46 Pain ENVIRONMENTAL Allergy Unknown RUNNY Uncoded 11/23/21 10:04 NOSE,ITCHY EYES Review of Systems Review of Systems: Constitutional: No Fever, No Chills ENT/Mouth: No sore throat, No Rhinorrhea Cardiovascular: No Chest Pain, No SOB, No Orthopnea, No Edema Respiratory: No Cough, No Sputum, No Wheezing, No dyspnea Gastrointestinal: No Nausea, No Vomiting, No Diarrhea, No abdominal Pain Musculoskeletal: +joint pain, No Myalgias Skin: No Skin Lesions, + rash Neuro: No Weakness, No Numbness, No Dizziness, No Headache Psych: No Anxiety/Panic, No Depression Heme/Lymph: No Bruising, No Lymphadenopathy Endocrine: No Polyuria, No Polydipsia PMFSH Past Medical History Surgical History History of carpal tunnel release of both wrists History of section History of removal of cyst History of trigger finger History of umbilical hernia repair Hx of cholecystectomy Family History Family History Father Diabetes mellitus Mother HTN (hypertension) Maternal Grandmother Scleroderma Maternal Grandfather Lung cancer Maternal Aunt Lung cancer Mental health disorder Maternal Uncle Colon cancer Substance use disorder Brother No problems noted. Son No problems noted. Son No problems noted. Daughter Mental health disorder Social History Social History Household Members: None Housing: Apartment Do you presently have visiting nurse or other home services: No Alcohol intake: never Patient Tobacco Use Status: Never used Tobacco e-Cigarette/Vaping Use: Never Used Advance Directives: Yes Advance Directives on File: Yes Advance Directives Date on File: 11/11/21 service: No Current occupational status: disabled Cognitive needs: No Hearing needs: No Vision needs: Yes Physical Exam Vital Signs: Vital Signs: Last Vital Signs Temp 98.5 F 12/02/21 09:41 Pulse 93 12/02/21 13:10 Resp 18 12/02/21 09:41 BP 143/63 H 12/02/21 13:10 Pulse Ox 99 12/02/21 13:10 O2 Del Method 12/02/21 09:41 BMI result Body Mass Index 76.6 Appearance: Alert. Oriented X3. No acute distress. Eyes: Pupils equal, round and reactive to light. ENT: Pharynx normal. Neck: Normal inspection. Neck supple. CVS: Normal heart rate and rhythm. Pulses normal. Respiratory: No respiratory distress. Breath sounds normal. Abdomen: Morbidly obese, Soft and nontender. +BS x4 Skin: Skin warm and dry. Normal skin color. Normal skin turgor. No rashes. Extremities: Bilateral lower extremities are obese with mild chronic venous stasis changes, pitting edema bilaterally of the lower legs. unable to flex the left knee, tender throughout the knee area. unable to assess for joint laxity due to pain and body habitus Neuro: Oriented X 3. No motor deficit. No sensory deficit. Unable to assess gait due to pain Course Course Course Narrative: 56 yo morbidly obese female with history of ZAHEER, asthma, HFpEF, HTN, HLD,. PVD and chronic lymphedema of the LE presents to the ER with severe left knee pain s/p slip and fall earlier today. Unable to bear weight on the left knee. Technically difficult examination due to body habitus and pain. Will medicate with Motrin and oxycodone and reassess her ability to bear weight and ambulate with the assist of a walker. Will also get x-rays to rule out bony traumatic injury. Reevaluation(s) Reevaluation #1: X-ray of the knee joint is normal. Patient up to the bedside commode with staff assistance, she is doing well. She is to be seen by Physical therapy for evaluation of possible home PT versus placement to a detention facility for acute rehab. Case management also involved. Reevaluation #2: Patient worked with physical therapy and is stable for discharge home with a bariatric walker and a bariatric commode. Will write scripts for both of those things. Will refer her to orthopedics for further evaluation of her knee pain and injury. Stable for DC. Consultations Consultation #1: Physical therapy and case management Discharge Plan Discharge Clinical Impression: Acute pain of left knee Patient Disposition: Home, Self-Care Instructions: Knee Pain (ED) Additional Instructions: A bariatric bedside commode and walker were sent to [facility]. Follow up with Orthopedics for further evaluation and treatment of your knee pain with concern for a possible ligament injury Your x-ray was normal - you can bear weight as tolerated Take Motrin and Tylenol as needed for pain If you develop new or worsening symptoms call 911 or come back to the ER for further evaluation. Prescriptions: New (DME) walker [facility] [place] See Rx Instructions .Route Qty: 1 0RF Rx Instructions: As directed (DME) bedside commode Kit See Rx Instructions .Route Qty: 1 0RF Rx Instructions: As directed [facility] (DME) filters for cpap See Rx Instructions .Route .MEDSUPPLY Qty: 1 0RF Rx Instructions: Filters for CPAP machine (DME) heated tubing See Rx Instructions .Route .MEDSUPPLY Qty: 1 0RF Rx Instructions: Heated tubing for CPAP machine (DME) cpap mask See Rx Instructions .Route .MEDSUPPLY Qty: 1 0RF Rx Instructions: cpap mask- CPAP at 15 cm oxybutynin chloride 15 mg tablet extended release 24 hr 15 mg PO DAILY Qty: 30 5RF atorvastatin 40 mg tablet 40 mg PO BEDTIME Qty: 90 0RF metformin 500 mg tablet extended release 24 hr 1,000 mg PO BEDTIME Qty: 180 0RF cholecalciferol (vitamin D3) 125 mcg (5,000 unit) capsule 125 mcg PO BEDTIME Qty: 90 0RF montelukast 10 mg tablet 10 mg PO BEDTIME buspirone 15 mg tablet 15 mg PO TID sertraline 100 mg tablet 150 mg PO DAILY sumatriptan succinate 100 mg tablet 100 mg PO DIRECTED ondansetron HCl 4 mg tablet 4 mg PO Q8H PRN (Reason: Nausea) albuterol sulfate 90 mcg/actuation HFA aerosol inhaler 1 inh inhalation QID PRN (Reason: shortness of breath or wheezing) Qty: 6.7 1RF furosemide 20 mg tablet 20 mg PO QAM PRN (Reason: edema) Qty: 30 0RF cetirizine 10 mg tablet 10 mg PO DAILY PRN (Reason: for allergies) Qty: 90 2RF Referrals: [facility] [Outside] Kaiden Roberts MD [Physician] - (knee pain, concern for ligamentous injury)
[2021-12-02] MEDS: oxyCODONE HCl Immed Release 5 MG TABLET PO (10:25)
[2021-12-02] MEDS: Ibuprofen 600 MG TABLET PO ×2 (10:26→17:59)
[2021-12-02 12:00] VITALS: RESP 18
--- NOTE | 2021-12-02 12:08 | PC.NURSE ---
PT ASSISTED TO SIT ON STRETCHER AND STAND BEARING WEIGHT ON RIGHT LEG, ABLE TO SLOWLY TURN AND HOLD ONTO A WALKER AND SIT ONTO COMMODE. PT THEN ASSISTED BACK INTO BED, PT UNABLE TO LIFT HER OWN LEFT LEG.
[2021-12-02 13:10] VITALS: BP 143/63; PULSE 93; O2SAT 99
--- NOTE | 2021-12-02 14:39 | MHC.CM.PN ---
Addendum entered by Yola Romero 12/02/21 14:45: [facility] IS ACCEPTING PATIENT Original Note: [facility] UNABLE TO OFFER SERVICES. [facility] IS INTERESTED IN OFFERING SERVICES. CASE MANAGEMENT AWAITING ANSWER. SHE WILL NEED [facility] TO GET HOME CASE MANAGEMENT TO ARRANGE
--- NOTE | 2021-12-02 14:52 | PC.NURSE ---
PLAN IS FOR PATIENT TO GO HOME BY AMBULANCE AND HAVE VISITING NURSES COME IN, ALSO SCRIPTS FOR BARIATRIC COMMODE AND WALKER.
[2021-12-02 15:41] VITALS: BP 135/53; PULSE 90; RESP 20; TEMP 36.9; O2SAT 98
[2021-12-02] MEDS: Acetaminophen 325 MG TABLET 975 MG PO (17:59)
--- NOTE | 2021-12-02 18:30 | MHC.CM.ED ---
CM met with pt at the request of VERITO Burch. Pt unable to obtain bariatric walker and commode until maybe Monday. Pt tells CM that she has access to a bariatric walker that she can borrow from family and that her daughter, who lives with her can help her to the bathroom. [facility] has accepted patient for home PT. Pt given contact information for agency. Ambulance booked with [facility]. Needs bariatric stretcher. CM called [facility] with ETA. Per [facility], ETA is about 9pm. Appropriate stretcher is on another run. Pt and RN aware. CM will follow for d/c needs.
== END 2021-12-02 22:01 | disposition home or self-care (01) ==
PROVIDERS: Emergency Provider Student in an Organized Health Care Education/Training Program; PCP Internal Medicine
DX: M25.562 Pain in left knee (principal); R60.0 Localized edema; E66.01 Morbid (severe) obesity due to excess calories; I10 Essential (primary) hypertension; E78.5 Hyperlipidemia, unspecified
CPT/HCPCS: 73564; 97162; 99284

== ENCOUNTER → 2022-01-05 08:47 | Outpatient (BNVA) | payer MEDICARE, MEDICAID, SELFPAY | PROVIDERS: PCP Internal Medicine; Visit Provider Physician Assistant | DX: M17.12 Unilateral primary osteoarthritis, left knee (principal); M25.562 Pain in left knee; E66.01 Morbid (severe) obesity due to excess calories; Z68.45 Body mass index [BMI] 70 or greater, adult; I83.899 Varicose veins of unspecified lower extremity with other complications; N39.46 Mixed incontinence | CPT/HCPCS: 99202 ==

== ENCOUNTER → 2022-01-06 14:52 | Outpatient (BNVA) | payer MEDICARE, MEDICAID, SELFPAY | PROVIDERS: PCP Internal Medicine; Visit Provider Internal Medicine Pulmonary Disease | DX: G47.33 Obstructive sleep apnea (adult) (pediatric) (principal); I83.11 Varicose veins of right lower extremity with inflammation; Z99.89 Dependence on other enabling machines and devices | CPT/HCPCS: 99202; 99212 ==

== ENCOUNTER 2022-07-06 13:02 | Outpatient (REF) | payer OTHER, SELFPAY ==
--- NOTE | ~2022-07-06 | US_ITS ---
EXAMINATION: US LOWER EXTREMITY VENOUS (REFLUX EXAM), BILATERAL CLINICAL INDICATION: Right lower extremity varicose veins COMPARISON: None. TECHNIQUE: Color flow triplex imaging and compression Doppler was performed to evaluate both the deep and the superficial systems bilaterally. To evaluate the superficial system, the examination was performed in the upright position. Color-flow Doppler ultrasound and compression ultrasound were utilized. In addition, maneuvers were utilized to demonstrate reflux. FINDINGS: RIGHT: 1. DEEP VENOUS ULTRASOUND OF THE RIGHT LOWER EXTREMITY: Common Femoral Vein: Compressible, normal respiratory variation and augmented flow. Popliteal Vein: Compressible, normal augmentation. Deep Venous Reflux: There is no evidence of reflux in the deep system in either the common femoral vein or the popliteal vein. There is no evidence of a Bahena's cyst. 2. SUPERFICIAL ULTRASOUND WITH DOPPLER OF RIGHT LOWER EXTREMITY: RIGHT GREAT SAPHENOUS VEIN: Saphenofemoral Junction: 10.6 mm. No reflux. Proximal thigh: 10 mm. No reflux Mid Thigh: 8 mm. No reflux. Above Knee: 8 mm. No reflux. At knee: 7 mm. 600 ms of reflux Below Knee: 7 mm. No reflux. Mid Calf: 4 mm. 2152 ms of reflux. Ankle: 2 mm. 1464 ms of reflux. DUPLICATED GREAT SAPHENOUS VEIN: Present Lateral: Saphenofemoral junction: 8 mm. 1492 ms of reflux Mid thigh: 10 mm. 1564 ms of reflux RIGHT SMALL SAPHENOUS VEIN: Saphenous popliteal junction: 4 mm LEFT: 1. DEEP VENOUS ULTRASOUND OF THE LEFT LOWER EXTREMITY: Common Femoral Vein: Compressible, normal respiratory variation and augmented flow. Popliteal Vein: Compressible, normal augmentation. Deep Venous Reflux: There is no evidence of reflux in the deep system in either the common femoral vein or the popliteal vein. There is no evidence of a Bahena's cyst. 2. SUPERFICIAL ULTRASOUND WITH DOPPLER OF LEFT LOWER EXTREMITY: LEFT GREAT SAPHENOUS VEIN: Saphenofemoral Junction: 8 mm. No reflux. Proximal thigh: 12 mm. No reflux Mid Thigh: 9 mm. No reflux. Above Knee: 6 mm. No reflux. Below Knee: 5 mm. 1464 ms of reflux. Mid Calf: 5 mm. No reflux. Ankle: 4 mm. No reflux. DUPLICATED GREAT SAPHENOUS VEIN: Present Lateral: Saphenofemoral junction: 6 mm. No reflux Mid thigh: 7 mm. No reflux LEFT SMALL SAPHENOUS VEIN: Proximal: 4 mm. No reflux. Distal: 3 mm. No reflux. US/US venous duplex LE BI IMPRESSION: 1. Venous reflux seen within the right great saphenous vein and accessory saphenous vein. See details above. 2. Venous reflux seen within the left great saphenous vein at the level of the knee. Abnormal lower extremity venous reflux times: Superficial and deep calf veins: >500 ms Femoropopliteal veins: >1000 ms Perforating veins: >350 ms Dana N, Yoly J, Pauline L, Iris AK, Chris SS, Karl Keyes M, Josef WH. Definition of venous reflux in lower-extremity veins.J Vasc Surg. 2003; [id number].
== END 2022-07-06 13:03 | disposition home or self-care (01) ==
LOC: HO.US 13:02
PROVIDERS: PCP Internal Medicine; Visit Provider Surgery Vascular Surgery
DX: I83.11 Varicose veins of right lower extremity with inflammation (principal)
CPT/HCPCS: 93970

== ENCOUNTER → 2022-09-14 13:58 | Outpatient (REF) | payer OTHER, SELFPAY | LOC: HO.SL 13:58 | PROVIDERS: Visit Provider Internal Medicine Pulmonary Disease | DX: Z13.89 Encounter for screening for other disorder (principal) ==

== ENCOUNTER → 2022-10-06 15:14 | Outpatient (BNVA) | payer OTHER, SELFPAY | PROVIDERS: PCP Internal Medicine; Visit Provider Surgery Vascular Surgery | DX: I83.11 Varicose veins of right lower extremity with inflammation (principal) | CPT/HCPCS: 99212 ==

== ENCOUNTER 2023-01-28 09:15 | Outpatient (AMB) | payer OTHER, SELFPAY ==
[2023-01-28 09:21] VITALS: BP 130/72; PULSE 84; TEMP 36.5; O2SAT 97
--- NOTE | 2023-01-28 09:21 | MHC.OFFWIV ---
Intake Vital Signs 01/28/23 09:21 Height 5 ft 1 in BP 130/72 Blood Pressure Location Rt brachial Position Sitting Pulse 84 Pulse Source Pulse Oximeter Temp 97.7 F Temp Source Temporal Artery Scan Pulse Oximetry (%) 97 Intake Visit Reasons: EST/right eye issues Intake Note: pt is here for c/o right eye, for 3 weeks pateint had watery eyes, itchiness, and crusty, and sensitive to light Patient Tobacco Use Status: Never used Tobacco Allergies cat dander [CAT] Allergy (Unknown, Verified 01/28/23 09:21) UNKNOWN mold [MOLD] Allergy (Unknown, Verified 01/28/23 09:21) UNKNOWN amoxicillin [From Augmentin] Adverse Reaction (Verified 01/28/23 09:21) Abdominal Pain ENVIRONMENTAL Allergy (Unknown, Uncoded 03/11/22 14:23) RUNNY NOSE,ITCHY EYES Do you need a note to return to daycare/school/sports/work: No HPI EST/right eye issues HPI Details Patient is a 57-year-old female who comes to the walk-in clinic complaining of about 3 weeks of itchy and watery eyes, that have become increasingly sensitive to light, irritated, and now having thick curd discharge that is crusty, especially in the morning. She states that yesterday she started to developed chills and possible low-grade fever, and this morning she felt wheezy . She does have allergy history, and uses cetirizine in the morning and montelukast at night. She denies having asthma, but states that she was written for an albuterol inhaler have 1 point. She denies cough, shortness of breath, current fever or chills, nausea vomiting, headache, dizziness or weakness, myalgias or malaise, chest pain, runny nose or sore throat, or other significant associated symptoms. [facility] Medical History Anemia Chronic venous insufficiency Colon cancer screening Depression with anxiety Essential hypertension Hyperparathyroidism Impaired fasting glucose Migraine Mixed dyslipidemia Mixed stress and urge urinary incontinence Morbid obesity DAVIS (nonalcoholic steatohepatitis) Obstructive sleep apnea on CPAP Peripheral vascular disease Postmenopausal bleeding Urinary, incontinence, stress female Varicose veins of leg with swelling Surgical History History of carpal tunnel release of both wrists History of section History of removal of cyst History of trigger finger History of umbilical hernia repair Hx of cholecystectomy Family History Father Diabetes mellitus Mother HTN (hypertension) Maternal Grandmother Scleroderma Maternal Grandfather Lung cancer Maternal Aunt Lung cancer Mental health disorder Maternal Uncle Colon cancer Substance use disorder Brother No problems noted. Son No problems noted. Son No problems noted. Daughter Mental health disorder Social History Household Members: None Housing: Apartment Do you presently have visiting nurse or other home services: No Alcohol intake: never Patient Tobacco Use Status: Never used Tobacco e-Cigarette/Vaping Use: Never Used Advance Directives Date on File: 11/11/21 service: No Current occupational status: disabled Cognitive needs: No Hearing needs: No Vision needs: Yes Review of Systems Const All systems reviewed & are unremarkable except as noted in HPI and below Physical Exam Vital Signs: Last Vital Signs Temp 97.7 F 01/28/23 09:21 Pulse 84 01/28/23 09:21 BP 130/72 01/28/23 09:21 Pulse Ox 97 01/28/23 09:21 Const General: cooperative, comfortable, no acute distress, alert, awake, Physically active and well groomed; No anxious, diaphoretic, intoxicated appearing, poor hygiene or tired appearing Limitations: no limitations HEENT Head: Yes normal to inspection, Yes normocephalic and Yes atraumatic Ears: hearing grossly normal bilaterally, external ears normal, TM's normal bilaterally and EAC's normal General nose exam: Normal external nose present, Normal nares present, No nasal polyps present, Normal nasal mucous membranes and turbinates present, Normal septum present and No nasal discharge present Face and sinus: Yes normal facial exam, Yes sinuses nontender and Yes face symmetric Mouth: Normal oral and palatal mucosa present, lip normal and tongue normal Throat: Yes posterior oropharynx normal, Yes abnormal tonsil (mildly erythematous bilaterally), No peritonsillar mass, No postnasal drainage, No uvular edema and No cobblestoning Eyes Alignment and Position: alignment normal and position normal Periorbital: periorbital findings normal Eyelids: Yes eyelids normal Conjunctivae: conjunctival abnormal (Injection, erythema and watery discharge, right worse than left scant crust) diffuse Pupils: Equal, round and reactive pupils present EOM: EOMs intact bilaterally Neck Neck: Yes normal visual inspection, Yes no lymphadenopathy and Yes trachea midline Resp Effort & Inspection: normal respiratory effort, able to speak in complete sentences, no audible wheezes, no cough, no grunting, not labored, no nasal flaring, no retractions and symmetric chest movement Auscultation: clear to auscultation bilaterally, no crackles, no rales, no rhonchi, no wheezes, lung sounds not diminished and No rub present Cardio Rate: regular rate Rhythm: regular rhythm Skin Other: Good color, warm and dry Neuro Cranial nerves: Yes Equal, round and reactive pupils present Psych Appearance: grossly normal Mental Status: mental status grossly normal Speech and movement: Normal speech and movement present Affect: normal affect Attitude: cooperative Thought process: Normal thought process present Insight: Good insight present (Psych) Judgement: Good judgement present (Psych) Assessment & Plan Assessment & Plan (1) Allergic conjunctivitis: Code(s): H10.10 - Acute atopic conjunctivitis, unspecified eye Plan: Patient with a few weeks of allergic conjunctivitis symptoms, that have apparently worsened over the last few days, along with systemic symptoms that suggest viral infection. She is developing crusting on the right side especially. I will write her for azelastine drops for baseline allergy use, and will prescribe erythromycin for the acute infection. She knows to keep hands clean with frequent washing. She can use warm compresses as needed for the discharge. Follow-up if symptoms persist or worsen (2) Viral syndrome: Code(s): B34.9 - Viral infection, unspecified Plan: Patient is pending results for rapid COVID. PCR for the respiratory panel not available today. We discussed however we discussed that in general 5 days from symptom onset is the quarantine time still for COVID, with a total of 10 days masked. If she is negative for COVID, she should still be at least 24 hours from fever/chills symptoms, and other symptoms before considering social interactions. Orders: Orders [facility] Covid-19 Ag 01/28/23 Z20.822 - Contact with and (suspected) exposure to COVID-19 Medications: New azelastine 0.05% 1 drp ophthalmic (eye) BID 6 mL 0RF erythromycin 0.5 inches ophthalmic (eye) TID 3.5 grams 0RF Coding Level of Care Code Est Pt Level 4 (41009) Diagnoses Allergic conjunctivitis H10.10 Viral syndrome B34.9
== END 2023-01-28 11:00 | disposition home or self-care (01) ==
PROVIDERS: PCP Internal Medicine; Visit Provider Physician Assistant Medical
DX: H10.10 Acute atopic conjunctivitis, unspecified eye (principal); B34.9 Viral infection, unspecified
CPT/HCPCS: 99214

== ENCOUNTER 2023-01-28 10:00 | Outpatient (REF) | payer OTHER, SELFPAY ==
[2023-01-28 10:31] LABS: Binax Internal Control QC Valid; Binax Now Covid-19 Ag Negative (Negative); Binax Performed by: HO.BONILM
== END 2023-01-28 10:01 | disposition home or self-care (01) ==
LOC: HO.HMGCLDS 10:00
PROVIDERS: PCP Internal Medicine; Visit Provider Physician Assistant Medical
DX: Z20.822 Contact with and (suspected) exposure to COVID-19 (principal)
CPT/HCPCS: 87811; C9803

== ENCOUNTER 2023-03-13 07:27 | Emergency (ER) | payer OTHER, SELFPAY ==
[2023-03-13] VITALS (7 sets, daily range): BP systolic 115–148; BP diastolic 60–80; PULSE 88–94; RESP 16–22; TEMP 36.7–36.8; O2SAT 86–94; BMI 72.1
--- NOTE | ~2023-03-13 | US_ITS ---
EXAMINATION: US VENOUS ULTRASOUND WITH DOPPLER LOWER EXTREMITY, BILATERAL CLINICAL INFORMATION: Left calf pain, right lower extremity swelling. COMPARISON: 07/06/2022 and 11/10/2021. TECHNIQUE: Ultrasound of the deep veins is performed from the hip to the calf with compression sonography and color and pulse Doppler assessment. Spectral analysis with color-flow imaging is performed. FINDINGS: RIGHT: There is normal venous compression and respiratory variation and augmented flow. The visualized common femoral vein, superficial femoral vein, profunda femoral vein, popliteal vein, and calf veins shows no evidence of deep venous thrombosis with the caveat that the peroneal vein was not well visualized. There is a large 5.2 x 3.8 x 3.3 cm avascular collection in the popliteal fossa with thickened dsouza and lobulated shape. LEFT: There is occlusive thrombosis of the popliteal vein and posterior tibialis veins. The distal femoral and peroneal veins were not well visualized. Otherwise, the visualized segments of the common femoral vein, superficial femoral vein, profunda femoral vein and popliteal vein are patent. There is no significant popliteal fossa cyst. US/US venous duplex LE BI IMPRESSION: 1. There is occlusive thrombosis of the left popliteal vein and posterior tibialis veins. 2. No evidence of deep venous thrombosis in the right lower extremity with the caveat that the peroneal veins were not well visualized. 3. There is a large 5.2 cm avascular collection in the right popliteal fossa with thickened dsouza and lobulated shape. This could represent a complex Bahena's cyst with superimposed infection/inflammatory changes versus hematoma or abscess in the appropriate clinical context. Recommend correlation with physical examination. This critical result was discussed with Sangita Park at 03/13/2023 10:25 AM and it was ascertained that the content and urgency of the report was understood at the time of direct communication.
--- NOTE | ~2023-03-13 | CT_ITS ---
EXAMINATION: CT ANGIOGRAM OF THE CHEST WITH AND WITHOUT CONTRAST (CT PULMONARY ANGIOGRAM FOR PE) CLINICAL INFORMATION: Shortness of breath, hypoxia, calf pain, DVT. COMPARISON: None available. TECHNIQUE: Prior to contrast administration, noncontrast localization images were obtained. Subsequently, multidetector volumetric imaging was performed from the thoracic inlet to below the diaphragms following the administration of 100 mL Omnipaque 350 intravenous contrast. No contrast reaction reported Sagittal, coronal, and MIP oblique sagittal reformatted images were obtained on the CT workstation, uploaded to PACS, and reviewed. This CT examination was performed using dose optimization techniques as appropriate, variously including the following: *Automated exposure control *Adjustment of mA and/or kV according to patient size (this includes techniques or standardized protocols for targeted exams where dose is matched to indication/reason for exam; i.e. extremities or head) *Use of iterative reconstruction technique Total exam dose-length product 484 mGy-cm FINDINGS: QUALITY OF STUDY/CONTRAST BOLUS: Satisfactory. PULMONARY ARTERIES: Saddle pulmonary embolism with a large thrombus straddling the bifurcation of the pulmonary trunk, extending into the left and right pulmonary arteries. The pulmonary trunk is enlarged measuring 3.9 cm in diameter, there increased right ventricular to left ventricular ratio and there is reflux of contrast into the hepatic veins all suggestive of increased right-sided heart pressure. Multiple additional segmental pulmonary emboli are noted bilaterally. THORACIC AORTA: No aneurysm. LUNG: No focal consolidation or significant groundglass disease. Central airways are patent. Multiple sub-6 mm solid pulmonary nodules are seen, for instance a 6 mm right lower lobe nodule (10:260) and a 6 mm pleural-based nodule in the left lower lobe (10:263). PLEURA: No pleural effusion or pneumothorax. MEDIASTINUM: Normal heart size. No pericardial effusion. No hilar or mediastinal lymphadenopathy. As above, increased right ventricle to left ventricular ratio. CORONARY ARTERY CALCIFICATION: Coronary artery calcifications are present. CHEST WALL/AXILLA: No axillary or internal mammary lymphadenopathy. OSSEOUS STRUCTURES: No acute or suspicious osseous abnormality. UPPER ABDOMEN: Hepatic steatosis and hepatomegaly. As above, there is reflux of contrast into the hepatic veins. CT/CT angio chest PE protocol IMPRESSION: Extensive bilateral pulmonary emboli, including a saddle pulmonary embolism straddling the bifurcation of the pulmonary trunk, extending into the left and right pulmonary arteries. There is evidence of right heart strain with increased size of the main pulmonary trunk, increased right ventricular to left ventricular ratio and reflux of contrast into the hepatic veins. Multiple sub-6 mm bilateral solid pulmonary nodules. Assuming patient has no history of malignancy, recommend follow-up per Fleischner Society recommendations. According to the UPDATED 2017 Fleischner Society recommendations, the advised followup imaging for multiple solid nodules, the largest measuring 6 mm or greater, is: LOW RISK PATIENT: CT at 3-6 months, then consider CT at 18-24 months. HIGH RISK PATIENT: CT at 3-6 months, then at 18-24 months. Hepatic steatosis and hepatomegaly. VTE: positive This critical result was discussed with Sangita Park at 03/13/2023 12:16 PM and it was ascertained that the content and urgency of the report was understood at the time of direct communication.
--- NOTE | 2023-03-13 07:47 | ED_ITS ---
HPI - SOB/Dyspnea General Chief Complaint: Dyspnea Stated Complaint: DIFF BREATHING PER EMS Time Seen by Provider: 03/13/23 07:33 Source: patient, EMS, RN notes reviewed and old records reviewed Mode of arrival: EMS History of Present Illness HPI Narrative: 57-year-old female with past medical history of anemia, hyperparathyroidism, DAVIS, depression/ anxiety, migraines, HTN, PVD, morbid obesity, ZAHEER noncompliant on CPAP, presenting to the ED complaining of SOB worse on exertion x 5 days with productive cough starting yesterday. Also reports left calf pain. Per EMS patient was satting 95% on RA, when transferred to stretcher O2 dropped to 86%, placed on 2 L NC. Also reports RLE more swollen than baseline, LLE chronically swollen. Denies fever/chills, chest pain, abdominal pain, recent travel, anticoagulation use. MD elicited complaint: shortness of breath and cough Related Data Home Medications Medication Instructions Recorded Confirmed buspirone 15 mg tablet 15 mg PO TID 07/07/20 03/11/22 ondansetron HCl 4 mg tablet 4 mg PO Q8H PRN Nausea 07/07/20 03/11/22 sertraline 100 mg tablet 150 mg PO DAILY 07/07/20 03/11/22 sumatriptan succinate 100 mg tablet 100 mg PO DIRECTED 07/07/20 03/11/22 Previous Rx's Medication Instructions Recorded cpap mask #1 ea 07/14/20 filters for cpap #1 ea 07/14/20 heated tubing #1 ea 07/14/20 albuterol sulfate 90 mcg/actuation 1 inh inhalation QID PRN shortness 07/09/21 aerosol inhaler of breath or wheezing #6.7 grams commode (bedside commode) #1 ea 12/02/21 bariatric sliding shower bench #1 ea 12/07/21 bariatric wheeled walker #1 ea 12/07/21 bariatric commode #1 ea 01/05/22 walker #1 ea 01/05/22 furosemide 20 mg tablet 20 mg PO QAM PRN for swelling #90 06/02/22 tabs bed pad #100 ea 10/26/22 diaper,brief,adult,disposable #200 ea 10/26/22 disposable wipes #100 ea 10/26/22 cetirizine 10 mg tablet 10 mg PO DAILY PRN for allergies 12/02/22 #90 tabs atorvastatin 40 mg tablet 40 mg PO BEDTIME #90 tabs 01/26/23 cholecalciferol (vitamin D3) 125 125 mcg PO BEDTIME #90 caps 01/26/23 mcg (5,000 unit) capsule metformin 500 mg tablet,extended 1,000 mg (2 x 500 mg) PO BEDTIME 01/26/23 release 24 hr #180 tabs montelukast 10 mg tablet 10 mg PO BEDTIME #90 tabs 01/26/23 azelastine 0.05 % eye drops 1 drp ophthalmic (eye) BID #6 mL 01/28/23 erythromycin 5 mg/gram (0.5 %) eye 0.5 inch ophthalmic (eye) TID #3.5 01/28/23 ointment grams Allergies Allergy/AdvReac Type Severity Reaction Status Date / Time cat dander [CAT] Allergy Unknown UNKNOWN Verified 03/13/23 07:36 mold [MOLD] Allergy Unknown UNKNOWN Verified 03/13/23 07:36 amoxicillin [From Augmentin] AdvReac Abdominal Verified 03/13/23 07:36 Pain ENVIRONMENTAL Allergy Unknown RUNNY Uncoded 03/13/23 07:36 NOSE,ITCHY EYES Review of Systems 2 Review of Systems: Constitutional: No Fever, No Chills, No Fatigue, No Malaise ENT/Mouth: No Ear Pain, No Nasal Congestion, No sore throat, No Rhinorrhea, No Swallowing Difficulty Eyes: No Eye Pain, No Swelling, No Redness, No Vision Changes Cardiovascular: No Chest Pain, +SOB, + Dyspnea on Exertion, No Orthopnea, No Edema, No Palpitations Respiratory: + Cough, + Sputum, No Wheezing, No Smoke Exposure, +Dyspne Genitourinary: No irregular bleeding, No Dysuria, No Urinary Frequency, No Hematuria, No Flank Pain Musculoskeletal: No joint pain, No Myalgias, No Joint Swelling Skin: No Skin Lesions, No rash Neuro: No Weakness, No Numbness, No Dizziness, No Headache Yes all other systems are reviewed and are negative Constitutional: Constitutional: Reports as per [facility] Past Medical History Attestation statement: The following information was validated with the patient. Source: old records reviewed Medical History Anemia Mixed stress and urge urinary incontinence Varicose veins of leg with swelling Postmenopausal bleeding Colon cancer screening Hyperparathyroidism DAVIS (nonalcoholic steatohepatitis) Impaired fasting glucose Depression with anxiety Migraine Chronic venous insufficiency Urinary, incontinence, stress female Mixed dyslipidemia Essential hypertension Peripheral vascular disease Morbid obesity Obstructive sleep apnea on CPAP Surgical History History of removal of cyst History of umbilical hernia repair Hx of cholecystectomy History of trigger finger History of carpal tunnel release of both wrists History of section Family History Family History Father Diabetes mellitus Mother HTN (hypertension) Maternal Grandmother Scleroderma Maternal Grandfather Lung cancer Maternal Aunt Lung cancer Mental health disorder Maternal Uncle Colon cancer Substance use disorder Brother No problems noted. Son No problems noted. Son No problems noted. Daughter Mental health disorder Social History Social History Household Members: None Housing: Apartment Do you presently have visiting nurse or other home services: No Alcohol intake: never Patient Tobacco Use Status: Never used Tobacco Smoked in Last 30 Days: No e-Cigarette/Vaping Use: Never Used Use of substances other than those prescribed or required for medical reasons: No Advance Directives: Yes Advance Directives on File: Yes Advance Directives Date on File: 11/11/21 Patient : No service: No Current occupational status: disabled Cognitive needs: No Hearing needs: No Vision needs: Yes Physical Exam 2 Vital Signs: Vital Signs: Last Vital Signs Temp 98.1 F 03/13/23 12:36 Pulse 94 03/13/23 14:16 Resp 20 03/13/23 14:16 BP 148/74 H 03/13/23 14:16 Pulse Ox 94 03/13/23 14:16 O2 Del Method Nasal Cannula 03/13/23 14:16 O2 Flow Rate 2 03/13/23 14:16 BMI result Body Mass Index 72.1 Const: General: cooperative, healthy appearing, no acute distress and alert Orientation/consciousness: patient oriented x3 Limitations: no limitations HEENT: Head: Yes normal to inspection and Yes atraumatic Ears: hearing grossly normal bilaterally General nose exam: Normal external nose present Face and sinus: Yes normal facial exam Eyes: General: appearance normal, both eyes and all related structures EOM: EOMs intact bilaterally Neck: Neck: Yes normal visual inspection and Yes no meningeal signs Resp: Effort & Inspection: normal respiratory effort and no respiratory distress Auscultation: diminished lung sounds bilateral in the lower lung valdez Cardio: Rate: regular rate Heart sounds: S1 normal heart sound present and S2 normal heart sound present GI: Inspection: Yes normal to inspection Palpation (GI): Soft to palpation, nontender, no guarding and not rigid Skin: Rashes: no rashes Wounds: no wounds Neuro: General: patient oriented x3, tone normal and no meningeal signs C ranial nerves: Yes CN's II-XII intact bilaterally Gait exam (Neuro): Normal gait present Extrem: Other: + chronic bilateral LE lymphedema noted. No overlying erythema/warmth. +L calf ttp. NV intact distally Course Course Course Narrative: -0930-- No leukocytosis. Initial troponin 13 > will obtain 3 hour repeat. BNP 252 - on re-evaluation patient satting 87-90% on 1L NC > 93-84% in 2L NC >> technical education teacher confirmed DVT to left lower extremity. CTA pending but will initiate heparinbolus & drip US venous duplex LE BI IMPRESSION: 1. There is occlusive thrombosis of the left popliteal vein and posterior tibialis veins. 2. No evidence of deep venous thrombosis in the right lower extremity with the caveat that the peroneal veins were not well visualized. 3. There is a large 5.2 cm avascular collection in the right popliteal fossa with thickened dsouza and lobulated shape. This could represent a complex Bahena's cyst with superimposed infection/inflammatory changes versus hematoma or abscess in the appropriate clinical context. Recommend correlation with physical examination. This critical result was discussed with Sangita Park at 03/13/2023 10:25 AM and it was ascertained that the content and urgency of the report was understood at the time of direct communication. 1227--CT angio chest PE protocol IMPRESSION: Extensive bilateral pulmonary emboli, including a saddle pulmonary embolism straddling the bifurcation of the pulmonary trunk, extending into the left and right pulmonary arteries. There is evidence of right heart strain with increased size of the main pulmonary trunk, increased right ventricular to left ventricular ratio and reflux of contrast into the hepatic veins. Multiple sub-6 mm bilateral solid pulmonary nodules. Assuming patient has no history of malignancy, recommend follow-up per Fleischner Society recommendations. According to the UPDATED 2017 Fleischner Society recommendations, the advised followup imaging for multiple solid nodules, the largest measuring 6 mm or greater, is: LOW RISK PATIENT: CT at 3-6 months, then consider CT at 18-24 months. HIGH RISK PATIENT: CT at 3-6 months, then at 18-24 months. Hepatic steatosis and hepatomegaly. VTE: positive > will consult vascular, Dr. Light who recommended transfer for intervention/ clot removal -1257--[facility] declined transfer & [facility] declined due to capacity - patient accepted to [facility] ICU, accepting physician Dr. Finn. Spoke with vascular surgeon Dr. Arambula, plan will be for intervention to night. Medications Administered Discontinued Medications Generic Name Dose Route Start Last Admin Trade Name Freq PRN Reason Stop Dose Admin Albuterol/Ipratropium 3 ml 03/13/23 08:09 03/13/23 09:10 Albuterol/Iprat 2.5/0.5mg 3 Ml Ampul.Neb INHALE 03/13/23 08:10 3 ml ONCE ONE Administration Heparin Sodium (Porcine) 10,000 unit 03/13/23 09:35 03/13/23 10:49 Heparin Sodium,Porcine 5,000 Unit/Ml Vial IVPUSH 03/13/23 09:36 10,000 unit ONCE ONE Administration Heparin Sodium/Sodium Chloride 25,000 unit in 250 mls @ 0 mls/hr 03/13/23 09:45 03/13/23 10:54 Heparin Sodium,Porcine/1/2ns IVCONT 14 units/kg/hr .Q0M ELMER 24.23 mls/hr Administration Protocol Per Protocol Iohexol 100 ml 03/13/23 10:42 03/13/23 10:42 Iohexol 350 Mg/Ml 100 Ml Infus..Btl IV 03/13/23 10:43 100 ml ONCE ONE Administration Medical Decision Making Medical Decision Making MDM Narrative: 57-year-old female with past medical history of anemia, hyperparathyroidism, DAVIS, depression/ anxiety, migraines, HTN, PVD, morbid obesity, ZAHEER noncompliant on CPAP, presenting to the ED complaining of SOB worse on exertion x 5 days with productive cough starting yesterday. Also reports left calf pain. On exam patient is satting 92-93% on RA, with little movement de-sats, lungs with diminished breath sounds throughout, chronic LUE lymphedema noted with left- sided calf tenderness. Concern for CHF vs DVT/PE vs pneumonia or atypical ACS. Rule out viral syndrome. Unlikely dissection plan: EKG, labs, CXR, viral testing, venous duplex ultrasound, re-evaluate Please refer to course for remaining clinical decision making, interpretation of labs/imaging results, and discussions with consultants and/or family members. Differential Diagnosis Differential Diagnoses: The differential diagnosis associated with the presentation includes As above Admission/Observation Consideration of admission/observation: Escalation of care including admission/observation considered Consult Healthcare Provider Management of the patient was discussed with: Hospitalist Lab Data MDM Lab Attestation statement: I reviewed the patient's lab results. 03/13/23 08:26 03/13/23 08:26 Labs: Lab Results 03/13/23 03/13/23 03/13/23 Range/Units 07:46 08:25 08:26 WBC 10.3 (4.8-10.8) X10*3/uL RBC 4.96 (4.20-5.50) X10*6/uL Hgb 12.2 (12.0-16.0) g/dl Hct 39.8 (37.0-47.0) % MCV 80.2 (80.0-98.0) fL MCH 24.6 L (27.0-33.0) pg MCHC 30.7 L (31.0-35.0) g/dl RDW 17.3 H (11.0-16.0) % Plt Count 222 (160-400) X10*3/uL MPV 10.0 (9.4-12.3) fL Immature Gran % (Auto) 1.2 H (0.0-0.4) % Neut % (Auto) 72.3 (45-73) % Lymph % (Auto) 16.8 L (20-40) % Rogers % (Auto) 7.7 (2-11) % Eos % (Auto) 1.4 (0-4) % Baso % (Auto) 0.6 (0-2) % Lymph # (Auto) 1.7 (1.2-4.9) X10*3/uL Rogers # (Auto) 0.8 (0.1-1.2) X10*3/uL Eos # (Auto) 0.1 (0.0-0.4) X10*3/uL Baso # (Auto) 0.1 (0.0-0.2) X10*3/uL Abs Immat Gran (auto) 0.12 H (0.00-0.03) X10*3/uL Absolute Neuts (auto) 7.5 (2.0-8.3) x10*3/uL Absolute Nucleated RBC 0.000 (0.0-0.012) X10*3/uL Nucleated RBC % (auto) 0.0 (0.0-0.2) /100WBC PT 12.5 (11.1-13.3) SEC INR 1.0 (0.9-1.1) APTT 28.3 (26.0-36.4) SEC Sodium 142 (135-145) mmol/L Potassium 3.7 (3.3-5.1) mmol/L Chloride 106 (96-108) mmol/L Carbon Dioxide 23 (22-29) mmol/L Anion Gap 17 (12-20) BUN 13 (9-16) mg/dL Creatinine 0.74 (0.5-1.4) mg/dL Estim Creat Clear Calc 132.8 Estimated GFR > 60 POC Glucose 173 H (60-115) mg/dL Random Glucose 169 H (60-115) mg/dL Calcium 10.2 (8.4-10.2) mg/dL Magnesium 2.0 (1.6-2.6) mg/dL Total Bilirubin 0.6 (0.0-1.0) mg/dL Direct Bilirubin 0.2 (0.0-0.5) mg/dL AST 19 (5-31) U/L ALT 13 (0-31) U/L Alkaline Phosphatase 105 (39-117) U/L Troponin I High Sens 13.0 (<3.5-17.0) ng/L B-Natriuretic Peptide 252 H (<100) pg/mL Total Protein 8.0 (6.5-8.0) g/dL Albumin 3.9 (3.5-5.0) g/dL COVID-19 (GAEL) Negative (Negative) COVID-19 Clin Com See Note 03/13/23 Range/Units 11:47 WBC (4.8-10.8) X10*3/uL RBC (4.20-5.50) X10*6/uL Hgb (12.0-16.0) g/dl Hct (37.0-47.0) % MCV (80.0-98.0) fL MCH (27.0-33.0) pg MCHC (31.0-35.0) g/dl RDW (11.0-16.0) % Plt Count (160-400) X10*3/uL MPV (9.4-12.3) fL Immature Gran % (Auto) (0.0-0.4) % Neut % (Auto) (45-73) % Lymph % (Auto) (20-40) % Rogers % (Auto) (2-11) % Eos % (Auto) (0-4) % Baso % (Auto) (0-2) % Lymph # (Auto) (1.2-4.9) X10*3/uL Rogers # (Auto) (0.1-1.2) X10*3/uL Eos # (Auto) (0.0-0.4) X10*3/uL Baso # (Auto) (0.0-0.2) X10*3/uL Abs Immat Gran (auto) (0.00-0.03) X10*3/uL Absolute Neuts (auto) (2.0-8.3) x10*3/uL Absolute Nucleated RBC (0.0-0.012) X10*3/uL Nucleated RBC % (auto) (0.0-0.2) /100WBC PT (11.1-13.3) SEC INR (0.9-1.1) APTT (26.0-36.4) SEC Sodium (135-145) mmol/L Potassium (3.3-5.1) mmol/L Chloride (96-108) mmol/L Carbon Dioxide (22-29) mmol/L Anion Gap (12-20) BUN (9-16) mg/dL Creatinine (0.5-1.4) mg/dL Estim Creat Clear Calc Estimated GFR POC Glucose (60-115) mg/dL Random Glucose (60-115) mg/dL Calcium (8.4-10.2) mg/dL Magnesium (1.6-2.6) mg/dL Total Bilirubin (0.0-1.0) mg/dL Direct Bilirubin (0.0-0.5) mg/dL AST (5-31) U/L ALT (0-31) U/L Alkaline Phosphatase (39-117) U/L Troponin I High Sens 11.7 (<3.5-17.0) ng/L B-Natriuretic Peptide (<100) pg/mL Total Protein (6.5-8.0) g/dL Albumin (3.5-5.0) g/dL COVID-19 (GAEL) (Negative) COVID-19 Clin Com Independent Interpretation I performed an independent interpretation of an: EKG ( my interpretation EKG is normal sinus rhythm rate of 86. QRS 100. QTC 495. T-wave inversion now evident in anterior leads. No STEMI.) Radiology Impression Discussion of test interpretation with radiology: I have reviewed the radiologist's reading. Independent Historian Clinical information obtained from an independent historian. History obtained from or confirmed by: EMS External Record Review External record reviewed: Inpatient record, Office record, Outpatient record, Prior outpatient labs, Prior outpatient radiology, Primary care record and Outside ED record Tests considered The following testing was considered but not selected: As above Chronic Conditions Patient?s care impacted by: Hypertension and Other (ZAHEER) Critical Care Time Critical Care Time Critical Care Time: Yes Total Critical Care Time: 60 Attestation: I have personally provided critical care time exclusive of time spent on separately billable procedures. Time includes review of lab data, radiology results, discussion with consultants, and monitoring for potential decompensation. Intervention performed as documented. Discharge Plan Discharge Clinical Impression: Acute saddle pulmonary embolism with acute cor pulmonale, DVT (deep venous thrombosis), Hypoxia Patient Disposition: Xfer Other Transfer Details: [facility] ICU Dr. Finn Prescriptions: No Action (DME) filters for cpap See Rx Instructions .Route .MEDSUPPLY Qty: 1 0RF Rx Instructions: Filters for CPAP machine (DME) heated tubing See Rx Instructions .Route .MEDSUPPLY Qty: 1 0RF Rx Instructions: Heated tubing for CPAP machine (DME) cpap mask See Rx Instructions .Route .MEDSUPPLY Qty: 1 0RF Rx Instructions: cpap mask- CPAP at 15 cm (DME) bariatric wheeled walker See Rx Instructions .Route .MEDSUPPLY Qty: 1 0RF Rx Instructions: As directed (DME) bariatric sliding shower bench See Rx Instructions .Route .MEDSUPPLY Qty: 1 0RF Rx Instructions: As directed furosemide 20 mg tablet 20 mg PO QAM PRN (Reason: for swelling) Qty: 90 0RF (DME) disposable wipes See Rx Instructions .Route .MEDSUPPLY Qty: 100 11RF Rx Instructions: As directed to clean after incontinence (DME) diaper,brief,adult,disposable Misc See Rx Instructions .Route Qty: 200 11RF Rx Instructions: As directed for incontinence, up to 6 per day (DME) bed pad See Rx Instructions .Route .MEDSUPPLY Qty: 100 11RF Rx Instructions: As directed cetirizine 10 mg tablet 10 mg PO DAILY PRN (Reason: for allergies) Qty: 90 1RF montelukast 10 mg tablet 10 mg PO BEDTIME Qty: 90 0RF Rx Instructions: schedule PCP appt for future refills atorvastatin 40 mg tablet 40 mg PO BEDTIME Qty: 90 0RF Rx Instructions: schedule PCP appt for future refills metformin 500 mg tablet extended release 24 hr 1,000 mg PO BEDTIME Qty: 180 0RF Rx Instructions: Schedule next PCP appt for future refills cholecalciferol (vitamin D3) 125 mcg (5,000 unit) capsule 125 mcg PO BEDTIME Qty: 90 0RF Rx Instructions: Schedule next PCP appt for future refill (DME) bedside commode Kit See Rx Instructions .Route Qty: 1 0RF Rx Instructions: As directed buspirone 15 mg tablet 15 mg PO TID sertraline 100 mg tablet 150 mg PO DAILY sumatriptan succinate 100 mg tablet 100 mg PO DIRECTED ondansetron HCl 4 mg tablet 4 mg PO Q8H PRN (Reason: Nausea) albuterol sulfate 90 mcg/actuation HFA aerosol inhaler 1 inh inhalation QID PRN (Reason: shortness of breath or wheezing) Qty: 6.7 1RF azelastine 0.05 % drops 1 drp ophthalmic (eye) BID Qty: 6 0RF erythromycin 5 mg/gram (0.5 %) ointment 0.5 inch ophthalmic (eye) TID Qty: 3.5 0RF (DME) walker Misc See Rx Instructions .Route Qty: 1 0RF Rx Instructions: As directed (DME) bariatric commode See Rx Instructions .Route .MEDSUPPLY Qty: 1 0RF Rx Instructions: As directed Interventions: Acute Care Transfer Worksheet (ED) Last Done: 03/13/23 14:41 Discharge Date/Time: 03/13/23 14:42
--- NOTE | 2023-03-13 07:47 | ECG_ITS ---
Test Reason : SOB Blood Pressure : / mmHG Vent. Rate : 086 BPM Atrial Rate : 086 BPM P-R Int : 156 ms QRS Dur : 100 ms QT Int : 414 ms P-R-T Axes : 068 012 -30 degrees QTc Int : 495 ms Normal sinus rhythm T wave abnormality, consider anterior ischemia Abnormal ECG When compared with ECG of 10-NOV-2021 11:52, Inverted T waves have replaced nonspecific T wave abnormality in Inferior leads T wave inversion now evident in Anterior leads QT has lengthened Referred By: Sangita Park Electronically Signed By:MACK ARAIZA
--- NOTE | 2023-03-13 07:48 | PC.NURSE ---
pt a&ox3, vss, nsr on the cardiac monitor technician. pt biba d/t SOB/difficulty breathing. pt verbalizing SOB increases upon movement/exertion. pt currently on 1L satting at 93%. pt able to speak in full clear sentences but displays some WOB. pt seems short of breath when anwerng questions and displays pursed lip breathing. denies hx of asthma/COPD. find crackles noted throughout upon auscultation. pt also complaining of left calf pain. CMS intact. peripheral pulses palpable. redness/swelling noted to LLE. 2+ edema present bilaterally. POC = 179mg/dL. provider bedside discussing plan of care with pt. call whitt placed within reach.
[2023-03-13 08:07] LABS: Glucose, Whole Blood 173 mg/dL (60-115)
--- NOTE | 2023-03-13 08:27 | PC.NURSE ---
20gIV placed in the right forearm w/o complications. tech bedside currently drawing labs.
[2023-03-13 08:34] LABS: MANUAL DIFF FLAG NO
[2023-03-13 08:38] LABS: Basophils Absolute Auto 0.1 X10*3/uL (0.0-0.2); Basophils Percent Auto 0.6 % (0-2); Eosinophils Absolute Auto 0.1 X10*3/uL (0.0-0.4); Eosinophils Percent Auto 1.4 % (0-4); Hematocrit 39.8 % (37.0-47.0); Hemoglobin 12.2 g/dl (12.0-16.0); Imm Gran Abs Auto 0.12 X10*3/uL (0.00-0.03); Imm Gran Pct Auto 1.2 % (0.0-0.4); Lymphocytes Absolute Auto 1.7 X10*3/uL (1.2-4.9); Lymphocytes Percent Auto 16.8 % (20-40); Mean Corpuscular HGB Conc 30.7 g/dl (31.0-35.0); Mean Corpuscular Hemoglobin 24.6 pg (27.0-33.0); Mean Corpuscular Volume 80.2 fL (80.0-98.0); Monocytes Absolute Auto 0.8 X10*3/uL (0.1-1.2); Monocytes Percent Auto 7.7 % (2-11); Neutrophils Absolute Auto 7.5 x10*3/uL (2.0-8.3); Neutrophils Percent Auto 72.3 % (45-73); Platelet Count 222 X10*3/uL (160-400); Red Blood Count 4.96 X10*6/uL (4.20-5.50); Red Cell Distribution Width 17.3 % (11.0-16.0); White Blood Count 10.3 X10*3/uL (4.8-10.8)
[2023-03-13 08:49] LABS: Prothrombin Time 12.5 SEC (11.1-13.3)
[2023-03-13 08:50] LABS: Alanine Aminotransferase 13 U/L (0-31); Albumin Level 3.9 g/dL (3.5-5.0); Alkaline Phosphatase 105 U/L (39-117); Anion Gap 17 (12-20); Aspartate Amino Transferase 19 U/L (5-31); Bilirubin Direct 0.2 mg/dL (0.0-0.5); Bilirubin Total 0.6 mg/dL (0.0-1.0); Blood Urea Nitrogen 13 mg/dL (9-16); Calcium 10.2 mg/dL (8.4-10.2); Carbon Dioxide 23 mmol/L (22-29); Chloride 106 mmol/L (96-108); Creatinine Clr Calc Pharmacy 132.8; Estimated Glomerular Filt Rate > 60; Glucose Random 169 mg/dL (60-115); Potassium 3.7 mmol/L (3.3-5.1); Sodium 142 mmol/L (135-145)
[2023-03-13 08:56] LABS: B Type Natriuretic Peptide 252 pg/mL (<100)
[2023-03-13 09:01] LABS: IDNOW Serial# BCCEAD1C
[2023-03-13 09:02] LABS: COVID-19 Test Negative (Negative)
[2023-03-13] MEDS: Albuterol/Iprat 2.5/0.5MG 3 ML AMPUL.NEB INHALE (09:10)
[2023-03-13] MEDS: iohexoL 350 MG/ML 100 ML INFUS..BTL IV (10:42)
[2023-03-13] MEDS: Heparin Sodium,Porcine 5,000 UNIT/ML VIAL 10000 UNIT IVPUSH (10:49)
[2023-03-13] MEDS: Heparin Sodium,Porcine/1/2NS 25,000 UNIT/250 ML IV.SOLN 24.23 UNIT IVCONT (10:54)
--- NOTE | 2023-03-13 10:57 | PC.NURSE ---
vss and up to date. nsr on the cardiac rn. pt still verbalizing SOB at this time. pt able to speak in full, clear sentences w/o difficulty. medications administered per provider order. heparin drip started per protocol. pt resting comfortably in no apparent distress. call whitt placed within reach.
[2023-03-13 11:41] LABS: Partial Thromboplastin Time 28.3 SEC (26.0-36.4)
[2023-03-13 12:18] LABS: Troponin-I High Sensitivity 11.7 ng/L (<3.5-17.0)
--- NOTE | 2023-03-13 14:22 | PC.NURSE ---
Patient alert and oriented x 3. Iv angio in left antecubital. Heparin drip running at 14u/kg/hr next ptt due at
--- NOTE | 2023-03-13 14:31 | PC.NURSE ---
Patient alert and oriented x 3. Iv angio in left antecubital. Heparin drip running at 14u/kg/hr next ptt due at 1700. Gave report to [facility] at [facility] ICU. tele: sinus rythym 80-90's on 2l via nasal cannula o2 sats 92-94%. 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 Patient using purewick to void. Will continue with plan of care.
== END 2023-03-13 14:42 | disposition other institution (70) ==
PROVIDERS: Physician Assistant; Emergency Provider Emergency Medicine; PCP Internal Medicine
DX: I26.02 Saddle embolus of pulmonary artery with acute cor pulmonale (principal); I82.432 Acute embolism and thrombosis of left popliteal vein; R09.02 Hypoxemia; Q82.0 Hereditary lymphedema; I10 Essential (primary) hypertension; R06.02 Shortness of breath; E66.01 Morbid (severe) obesity due to excess calories; Z68.45 Body mass index [BMI] 70 or greater, adult; Z79.899 Other long term (current) drug therapy
CPT/HCPCS: 36415; 71275; 80048; 80076; 82947; 83735; 83880; 84484; 85025; 85610; 85730; 87635; 93005; 93970; 99284; 99285; J1643; Q9967

== ENCOUNTER 2023-04-17 13:12 | Outpatient (AMB) | payer OTHER, SELFPAY ==
[2023-04-17 13:49] VITALS: BP 126/64; PULSE 79; O2SAT 99; BMI 71.4
--- NOTE | 2023-04-17 13:49 | A.OFFPC_ITS ---
Vital Signs 04/17/23 13:49 Height 5 ft 1 in Weight 378 lb 2 oz BMI 71.4 BP 126/64 Blood Pressure Location Lt radial Position Sitting Pulse 79 Pulse Source Pulse Oximeter Pulse Oximetry (%) 99 Oxygen Delivery Method Nasal Cannula Intake Visit Reasons: [facility] [place] 03/12 Sandle PE w/ heart strain Intake Note: pt is here for HDF from [facility] 03/12 Allergies cat dander [CAT] Allergy (Unknown, Verified 05/08/23 00:00) UNKNOWN mold [MOLD] Allergy (Unknown, Verified 05/08/23 00:00) UNKNOWN amoxicillin [From Augmentin] Adverse Reaction (Verified 05/08/23 00:00) Abdominal Pain ENVIRONMENTAL Allergy (Unknown, Uncoded 05/08/23 00:00) RUNNY NOSE,ITCHY EYES Medication List - Last Reconciled 05/08/23 by Shaunna Owens MD albuterol sulfate 90 mcg/actuation 1 inh inhalation QID PRN atorvastatin 40 mg PO BEDTIME [bariatric commode As directed] [bariatric sliding shower bench As directed] [bariatric wheeled walker As directed] [bed pad As directed ] buspirone 15 mg PO TID cetirizine 10 mg PO DAILY PRN cholecalciferol (vitamin D3) 125 mcg PO BEDTIME commode (bedside commode) As directed [cpap mask cpap mask- CPAP at 15 cm NS] diaper,brief,adult,disposable As directed for incontinence, up to 6 per day [disposable wipes As directed to clean after incontinence] Eliquis (apixaban) 5 mg PO BID 30 days NS [filters for cpap Filters for CPAP machine NS] furosemide 20 mg PO QAM PRN [heated tubing Heated tubing for CPAP machine NS] medroxyprogesterone 10 mg PO BID montelukast 10 mg PO BEDTIME nitrofurantoin monohyd/m-cryst 100 mg 1 cap PO BID ondansetron HCl 4 mg PO Q8H PRN oxybutynin chloride ER 15 mg PO DAILY sennosides-docusate sodium 8.6-50 mg (Senokot-S) 1 tab-cap PO BEDTIME PRN sertraline 150 mg PO DAILY sulfamethoxazole-trimethoprim 800-160 mg 1 tab PO BID sumatriptan succinate 100 mg PO DIRECTED walker As directed Tobacco use date assessed: 04/17/23 Dental Screening Dental Screen Date: 04/17/23 Did you have a dental visit in the last 12 months?: No Did you have a dental problem in the last 6 months where you did not have access to dental care?: No Was dental information given to patient?: No [facility] Sandle PE w/ heart strain HPI Details 57-year-old lady with history of anemia, hyperparathyroidism, DAVIS, depression with anxiety, migraines, hypertension , peripheral vascular disease, morbid obesity, obstructive so sleep apnea, noncompliant with CPAP, who is here today for follow-up after recent admission at [facility] 03/13- for acute saddle pulmonary embolism with right ventricular strain and a DVT. Patient had catheter directed thrombolysis of her pulmonary embolism, discharged home on Eliquis and home O2 at 3 L. She however reported having vaginal bleeding which started at the hospital when she was started on heparin drip prior to having tPA. She then presented again to the ER at [facility] as she has started passing big clots. Patient however denies having any dizziness or lightheadedness. Pelvic ultrasound done 03/20/2023 showed presence of thickened endometrium, neoplastic process cannot be excluded. She remained hemodynamically stable, was started on 20 mg of Provera daily to control bleed and was discharged home. She was advised to follow-up with OBGYN for endometrial sampling and to discuss long-term management. [facility] Medical History (Updated 05/23/23 @ 23:34 by Shaunna Owens MD) Pulmonary embolism on long-term anticoagulation therapy History of DVT (deep vein thrombosis) Saddle embolism of pulmonary artery Anemia Mixed stress and urge urinary incontinence Varicose veins of leg with swelling Postmenopausal bleeding Colon cancer screening Hyperparathyroidism DAVIS (nonalcoholic steatohepatitis) Impaired fasting glucose Depression with anxiety Migraine Chronic venous insufficiency Mixed dyslipidemia Essential hypertension Peripheral vascular disease Morbid obesity Surgical History History of removal of cyst History of umbilical hernia repair Hx of cholecystectomy History of trigger finger History of carpal tunnel release of both wrists History of section Family History Father Diabetes mellitus Mother HTN (hypertension) Maternal Grandmother Scleroderma Maternal Grandfather Lung cancer Maternal Aunt Lung cancer Mental health disorder Maternal Uncle Colon cancer Substance use disorder Brother No problems noted. Son No problems noted. Son No problems noted. Daughter Mental health disorder Social History Household Members: None Housing: Apartment Do you presently have visiting nurse or other home services: No Alcohol intake: never Patient Tobacco Use Status: Never used Tobacco e-Cigarette/Vaping Use: Never Used Advance Directives Date on File: 11/11/21 service: No Current occupational status: disabled Cognitive needs: No Hearing needs: No Vision needs: Yes Questionnaire Thrive Questionnaire Date Thrive assessed: 12/17/21 AUDIT C Alcohol Use Questionnaire (AUDIT-C) 1. How often do you have a drink containing alcohol?: Never 3. How often do you have six or more drinks on one occasion?: Never Total Score: 0 KIARA-7 AMB Questionnaire KIARA-7 Date KIARA - 7 assessed: 11/23/21 Source: Developed by Drs. Vince Duque, Jane Sue, Govind Gomez and colleagues, with an educational ayaz from [employer]. Review of Systems Const Reports daytime sleepiness, Denies excessive sweating, Denies fever(s), Denies m alaise, Denies night sweats, Reports snoring, Reports weakness (Lower extremities) and Denies weight loss Eyes Denies blurry vision ENT Denies nasal congestion, Reports disequilibrium, Denies post nasal drip, Denies sinus pain and Denies sinus pressure Card Denies chest pain and Reports dyspnea on exertion Resp Denies cough, Denies hemoptysis, Denies excessive phlegm production, Reports dyspnea on exertion, Reports snoring and Denies wheezing GI Denies abdominal pain and Denies heartburn Reports urinary incontinence Musc Reports abnormal gait, Denies arthralgias, Denies joint swelling, Reports muscle weakness (Lower extremities) and Reports stiffness Skin/Breast Reports dry skin and Denies rash Neuro Reports abnormal gait, Denies memory loss, Denies seizure-like activity, Reports disequilibrium and Reports weakness (Lower extremities) Psych Denies anxiety and Denies memory loss Endo Denies excessive sweating and Denies heat intolerance Saulo/Lymph Reports easy bruising Aller/Immun Denies seasonal rhinorrhea and Denies wheezing Physical exam (Primary Care) Vital Signs: Last Vital Signs Pulse 79 04/17/23 13:49 BP 126/64 04/17/23 13:49 Pulse Ox 99 04/17/23 13:49 Oxygen Delivery Method Nasal Cannula 04/17/23 13:49 BMI result Body Mass Index 71.4 Tobacco/Smoking Status: Tobacco use Status Tobacco use date assessed 04/17/23 04/17/23 14:00 Patient Tobacco Use Status Never used Tobacco 04/17/23 14:00 e-Cigarette/Vaping Use Never Used 04/17/23 14:00 Thrive Assessment: Date of Thrive Assessment Date Thrive assessed 12/17/21 04/17/23 14:00 Const General: comfortable, no acute distress and alert Nutritional Appearance: obese morbidly obese Orientation/consciousness: patient oriented x3 Limitations: physical limitations, ambulation with walker and other limitations (On 3 L supplemental oxygen) HENMT Ears: external ears normal General nose exam: Normal external nose present Mouth: oropharynx normal and moist mucous membranes Eyes General: appearance normal, both eyes and all related structures Neck Neck: Yes full ROM, Yes no lymphadenopathy and Yes supple Resp Effort & Inspection: normal respiratory effort and able to speak in complete sentences Auscultation: diminished lung sounds bilateral Cardio Rate: regular rate Rhythm: regular rhythm Heart sounds: S1 normal heart sound present and S2 normal heart sound present GI Palpation (GI): Soft to palpation, nontender and no masses Auscultation: normal bowel sounds Back/Spine/Pelvis Back: No back tenderness Skin Other: Varicose veins noted in both lower extremities Neuro General: patient oriented x3, tone normal, moves all extremities, Normal light touch and pain sensation and no focal motor deficits Cranial nerves: Yes CN's II-XII intact bilaterally Cognition (Neuro): normal cognition Extrem General: Yes full ROM, Yes no joint enlargement, Yes no calf tenderness, Yes normal gait and Yes pedal edema (Bilateral) Assessment and Plan Assessment & Plan (1) History of DVT (deep vein thrombosis): Code(s): Z86.718 - Personal history of other venous thrombosis and embolism Plan: Currently on Eliquis (2) Postmenopausal bleeding: Code(s): N95.0 - Postmenopausal bleeding Plan: Started on Provera, to make appointment with OBGYN at [place] for follow-up and to do endometrial sample (3) Impaired fasting glucose: Code(s): R73.01 - Impaired fasting glucose Plan: Your fasting blood sugars elevated above 100 mg/dL. Impaired glucose metabolism O2 at risk for developing diabetes mellitus type 2, as well as heart attack and stroke later on. Lifestyle changes at just weight loss, healthy eating habits, and regular exercise are important, and can prevent the progression to diabetes (4) Mixed dyslipidemia: Code(s): E78.2 - Mixed hyperlipidemia Plan: Continue atorvastatin 40 mg daily, in addition to adhering to healthy eating habits, and staying active (5) Essential hypertension: Code(s): I10 - Essential (primary) hypertension Plan: Blood pressure at goal of less than 130/80. Continue with current medication. Reinforced importance of following a low sodium diet, getting regular exercise, and lowering stress levels. (6) Supplemental oxygen dependent: Code(s): Z99.81 - Dependence on supplemental oxygen (7) Peripheral vascular disease: Code(s): I73.9 - Peripheral vascular disease, unspecified Plan: Followed by vascular surgery (8) Morbid obesity: Comment: Currently being followed at [facility] Code(s): E66.01 - Morbid (severe) obesity due to excess calories (9) Depression with anxiety: Code(s): F41.8 - Other specified anxiety disorders Plan: Followed by her psychiatrist (10) ZAHEER (obstructive sleep apnea): Code(s): G47.33 - Obstructive sleep apnea (adult) (pediatric) Plan: Within appointment already to see her liquid sugar fortifier, interested in restarting CPAP (11) Pulmonary embolism on long-term anticoagulation therapy: Code(s): I26.99 - Other pulmonary embolism without acute cor pulmonale; 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 Plan: Currently on Eliquis Orders: Orders Hemoglobin A1c 04/17/23 Z86.718 - Personal history of other venous thrombosis an d embolism, I26.92 - Saddle embolus of pulmonary artery without acute cor pulmonale, N95.0 - Postmenopausal bleeding, R73.01 - Impaired fasting glucose, E78.2 - Mixed hyperlipidemia, I10 - Essential (primary) hypertension Lipid Panel 04/17/23 Z86.718 - Personal history of other venous thrombosis and embolism, I26.92 - Saddle embolus of pulmonary artery without acute cor pulmonale, N95.0 - Postmenopausal bleeding, R73.01 - Impaired fasting glucose, E78.2 - Mixed hyperlipidemia, I10 - Essential (primary) hypertension Comprehensive [place]. Panel Fast 04/17/23 Z86.718 - Personal history of other venous thrombosis and embolism, I26.92 - Saddle embolus of pulmonary artery without acute cor pulmonale, N95.0 - Postmenopausal bleeding, R73.01 - Impaired fasting glucose, E78.2 - Mixed hyperlipidemia, I10 - Essential (primary) hypertension Complete Blood Count Auto Diff 04/17/23 Z86.718 - Personal history of other veno us thrombosis and embolism, I26.92 - Saddle embolus of pulmonary artery without acute cor pulmonale, N95.0 - Postmenopausal bleeding, R73.01 - Impaired fasting glucose, E78.2 - Mixed hyperlipidemia, I10 - Essential (primary) hypertension Vitamin D 25-OH Total 04/17/23 Z86.718 - Personal history of other venous thrombosis and embolism, I26.92 - Saddle embolus of pulmonary artery without acute cor pulmonale, N95.0 - Postmenopausal bleeding, R73.01 - Impaired fasting glucose, E78.2 - Mixed hyperlipidemia, I10 - Essential (primary) hypertension Coding Level of Care Code Est Pt Level 4 (14834) Diagnoses History of DVT (deep vein thrombosis) Z86.718 Postmenopausal bleeding N95.0 Impaired fasting glucose R73.01 Mixed dyslipidemia E78.2 Essential hypertension I10 Supplemental oxygen dependent Z99.81 Peripheral vascular disease I73.9 Morbid obesity E66.01 Depression with anxiety F41.8 ZAHEER (obstructive sleep apnea) G47.33 Pulmonary embolism on long-term anticoagulation therapy I26.99; Z79.01
== END 2023-04-17 14:32 | disposition home or self-care (01) ==
PROVIDERS: PCP Internal Medicine; Visit Provider Internal Medicine
DX: I73.9 Peripheral vascular disease, unspecified (principal); I26.99 Other pulmonary embolism without acute cor pulmonale; E66.01 Morbid (severe) obesity due to excess calories; Z68.45 Body mass index [BMI] 70 or greater, adult; Z86.718 Personal history of other venous thrombosis and embolism; N95.0 Postmenopausal bleeding; R73.01 Impaired fasting glucose; E78.2 Mixed hyperlipidemia; I10 Essential (primary) hypertension; Z99.81 Dependence on supplemental oxygen; G47.33 Obstructive sleep apnea (adult) (pediatric); Z79.01 Long term (current) use of anticoagulants
CPT/HCPCS: 99214

== ENCOUNTER 2023-04-28 15:12 | Outpatient (AMB) | payer OTHER, SELFPAY ==
--- NOTE | 2023-04-28 15:12 | MHC.OFFVIS ---
Intake Vital Signs 04/28/23 15:13 Height 5 ft 1 in Weight 378 lb 1.484 oz BMI 71.4 BP 122/67 Blood Pressure Location Rt brachial Position Sitting Pulse 87 Pulse Source Doppler Pulse Oximetry (%) 98 Oxygen Delivery Method Room Air Oxygen Flow Rate 3 Intake Visit Reasons: ZAHEER Allergies cat dander [CAT] Allergy (Unknown, Verified 04/28/23 15:16) UNKNOWN mold [MOLD] Allergy (Unknown, Verified 04/28/23 15:16) UNKNOWN amoxicillin [From Augmentin] Adverse Reaction (Verified 04/28/23 15:16) Abdominal Pain ENVIRONMENTAL Allergy (Unknown, Uncoded 04/17/23 14:04) RUNNY NOSE,ITCHY EYES HPI ZAHEER HPI Details 57-year-old lady with underlying history of morbid obesity and severe obstructive sleep apnea recent diagnosis of DVT with PE status post directed therapy, now requiring 3 L of supplemental oxygen, on Eliquis. Patient is interested in restarting CPAP therapy. She does need new sleep study. [facility] Medical History (Updated 04/28/23 @ 15:38 by Jose Mares MD) History of DVT (deep vein thrombosis) Saddle embolism of pulmonary artery Anemia Mixed stress and urge urinary incontinence Varicose veins of leg with swelling Postmenopausal bleeding Colon cancer screening Hyperparathyroidism DAVIS (nonalcoholic steatohepatitis) Impaired fasting glucose Depression with anxiety Migraine Chronic venous insufficiency Urinary, incontinence, stress female Mixed dyslipidemia Essential hypertension Peripheral vascular disease Morbid obesity Obstructive sleep apnea on CPAP Surgical History History of removal of cyst History of umbilical hernia repair Hx of cholecystectomy History of trigger finger History of carpal tunnel release of both wrists History of section Family History Father Diabetes mellitus Mother HTN (hypertension) Maternal Grandmother Scleroderma Maternal Grandfather Lung cancer Maternal Aunt Lung cancer Mental health disorder Maternal Uncle Colon cancer Substance use disorder Brother No problems noted. Son No problems noted. Son No problems noted. Daughter Mental health disorder Social History Household Members: None Housing: Apartment Do you presently have visiting nurse or other home services: No Alcohol intake: never Patient Tobacco Use Status: Never used Tobacco e-Cigarette/Vaping Use: Never Used Advance Directives Date on File: 11/11/21 service: No Current occupational status: disabled Cognitive needs: No Hearing needs: No Vision needs: Yes Review of Systems Const Denies daytime sleepiness, Denies excessive sweating, Denies fatigue, Denies fever(s), Denies lethargy, Denies malaise, Denies night sweats, Denies snoring and Denies weight loss Eyes Denies blurry vision and Denies itchy eyes ENT Denies nasal congestion, Denies post nasal drip, Denies sinus pain, Denies sinus pressure and Denies other ( Thrush) Card Denies chest pain, Denies pedal edema, Denies dyspnea, Denies orthopnea and Denies paroxysmal nocturnal dyspnea Resp Denies cough, Denies hemoptysis, Denies excessive phlegm production, Denies dyspnea, Denies snoring and Denies wheezing GI Denies abdominal pain and Denies heartburn Musc Denies myalgias, Denies arthralgias and Denies joint swelling Skin/Breast Denies rash Neuro Denies memory loss and Denies seizure-like activity Psych Denies abnormal sleep pattern, Denies anxiety and Denies memory loss Endo Denies excessive sweating, Denies fatigue and Denies heat intolerance Saulo/Lymph Denies easy bruising Aller/Immun Denies itchy eyes, Denies seasonal rhinorrhea and Denies wheezing Physical Exam Vital Signs: Last Vital Signs Pulse 87 04/28/23 15:13 BP 122/67 04/28/23 15:13 Pulse Ox 98 04/28/23 15:13 Oxygen Delivery Method Room Air 04/28/23 15:13 Oxygen Flow Rate 3 04/28/23 15:13 BMI result Body Mass Index 71.4 Const General: no acute distress and alert Nutritional Appearance: obese Orientation/consciousness: Other orientation findings ( oriented) HEENT Head: Yes atraumatic Eyes General: appearance normal, both eyes and all related structures Sclerae: sclerae normal EOM: EOMs intact bilaterally Neck Neck: Yes supple Lymphatic: no lymphadenopathy noted Resp Effort & Inspection: normal respiratory effort and no use of accessory muscles Auscultation: clear to auscultation bilaterally Cardio Rate: regular rate Rhythm: regular rhythm Heart sounds: no gallops, no murmurs and no rubs Skin General skin exam: other ( warm) Extrem General: No clubbing, No cyanosis and No edema Assessment & Plan Assessment & Plan (1) ZAHEER (obstructive sleep apnea): Code(s): G47.33 - Obstructive sleep apnea (adult) (pediatric) Plan: Will obtain in lab sleep study. [place] Sleepiness Scale score of 16. (2) Supplemental oxygen dependent: Code(s): Z99.81 - Dependence on supplemental oxygen Plan: Continue supplemental oxygen to maintain O2 saturation above 90%. (3) Saddle embolism of pulmonary artery: Code(s): I26.92 - Saddle embolus of pulmonary artery without acute cor pulmonale Plan: Continue on Eliquis for 6 months, then will discontinue and reassess for further need. Orders: Orders RT PSG in-lab sleep study Today G47.33 - Obstructive sleep apnea (adult) (pediatric) Medications: Changed From apixaban (Eliquis) 5 mg PO BID G47.33 - Obstructive sleep apnea (adult) (pediatric) To Eliquis (apixaban) 5 mg PO BID 60 tabs 6RF 30 days NS G47.33 - Obstructive sleep apnea (adult) (pediatric) Coding Level of Care Code Est Pt Level 4 (34670) Diagnoses ZAHEER (obstructive sleep apnea) G47.33 Supplemental oxygen dependent Z99.81 Saddle embolism of pulmonary artery I26.92
[2023-04-28 15:13] VITALS: BP 122/67; PULSE 87; O2SAT 98; BMI 71.4
== END 2023-04-28 15:35 | disposition home or self-care (01) ==
PROVIDERS: PCP Internal Medicine; Visit Provider Internal Medicine Pulmonary Disease
DX: G47.33 Obstructive sleep apnea (adult) (pediatric) (principal); Z99.81 Dependence on supplemental oxygen; I26.92 Saddle embolus of pulmonary artery without acute cor pulmonale
CPT/HCPCS: 99214

== ENCOUNTER → 2023-04-28 15:12 | Outpatient (BNVA) | payer OTHER, SELFPAY | PROVIDERS: PCP Internal Medicine; Visit Provider Internal Medicine Pulmonary Disease | DX: G47.33 Obstructive sleep apnea (adult) (pediatric) (principal); I26.99 Other pulmonary embolism without acute cor pulmonale; Z99.81 Dependence on supplemental oxygen | CPT/HCPCS: 99212 ==

== ENCOUNTER 2023-06-01 10:43 | Outpatient (REF) | payer OTHER, SELFPAY ==
[2023-06-01 13:13] LABS: MANUAL DIFF FLAG NO
[2023-06-01 13:23] LABS: Basophils Percent Auto 0.2 % (0-2); Eosinophils Absolute Auto 0.1 X10*3/uL (0.0-0.4); Eosinophils Percent Auto 0.9 % (0-4); Hematocrit 24.2 % (37.0-47.0); Imm Gran Abs Auto 0.06 X10*3/uL (0.00-0.03); Imm Gran Pct Auto 0.7 % (0.0-0.4); Lymphocytes Absolute Auto 1.7 X10*3/uL (1.2-4.9); Lymphocytes Percent Auto 19.6 % (20-40); Mean Corpuscular HGB Conc 27.7 g/dl (31.0-35.0); Mean Corpuscular Hemoglobin 19.8 pg (27.0-33.0); Mean Corpuscular Volume 71.6 fL (80.0-98.0); Mean Platelet Volume 10.4 fL (9.4-12.3); Monocytes Absolute Auto 0.6 X10*3/uL (0.1-1.2); Monocytes Percent Auto 7.1 % (2-11); NRBC Pct Auto 0.2 /100WBC (0.0-0.2); Neutrophils Percent Auto 71.5 % (45-73); Platelet Count 310 X10*3/uL (160-400); Red Blood Count 3.38 X10*6/uL (4.20-5.50); Red Cell Distribution Width 16.9 % (11.0-16.0); White Blood Count 8.5 X10*3/uL (4.8-10.8)
[2023-06-01 13:29] LABS: Hemoglobin 6.7 g/dl (12.0-16.0)
[2023-06-01 13:45] LABS: Estimated Average Glucose 171 mg/dL; Hemoglobin A1c % 7.6 % (<6.0)
[2023-06-01 14:00] LABS: Alanine Aminotransferase 8 U/L (0-31); Albumin Level 3.8 g/dL (3.5-5.0); Alkaline Phosphatase 85 U/L (39-117); Anion Gap 14 (12-20); Aspartate Amino Transferase 11 U/L (5-31); Bilirubin Total 0.4 mg/dL (0.0-1.0); Blood Urea Nitrogen 13 mg/dL (9-16); Carbon Dioxide 26 mmol/L (22-29); Chloride 104 mmol/L (96-108); Cholesterol 205 mg/dL (<200); Estimated Glomerular Filt Rate > 60; Glucose Fasting 210 mg/dL (60-99); HDL Cholesterol 32 mg/dL (>40); LDL Cholesterol Calculated 143 mg/dL (<100); Potassium 3.9 mmol/L (3.3-5.1); Sodium 140 mmol/L (135-145); Total Protein 7.4 g/dL (6.5-8.0); Triglycerides 151 mg/dL (<150)
[2023-06-01 14:03] LABS: Vitamin D 25-OH Total 23.9 ng/mL (>30)
== END 2023-06-01 10:44 | disposition home or self-care (01) ==
LOC: HO.HMGCLDS 10:43
PROVIDERS: PCP Internal Medicine; Visit Provider Internal Medicine
DX: I26.92 Saddle embolus of pulmonary artery without acute cor pulmonale (principal); N95.0 Postmenopausal bleeding; R73.01 Impaired fasting glucose; E78.2 Mixed hyperlipidemia; I10 Essential (primary) hypertension; Z86.718 Personal history of other venous thrombosis and embolism
CPT/HCPCS: 36415; 80053; 80061; 82306; 83036; 85025

== ENCOUNTER 2023-06-01 14:43 | Inpatient (IN) | payer OTHER, SELFPAY ==
[2023-06-01] VITALS (9 sets, daily range): BP systolic 117–162; BP diastolic 47–74; PULSE 85–101; RESP 18–26; TEMP 37.1–37.4; O2SAT 98–100; BMI 67.7; BMI 69.1
--- NOTE | ~2023-06-01 | XR_ITS ---
EXAMINATION: XR CHEST CLINICAL INFORMATION: Shortness of breath. COMPARISON: 11/10/2021 TECHNIQUE: Frontal view of the chest was obtained. FINDINGS: The study is limited due to low lung volumes, body habitus and AP portable technique. The cardiomediastinal silhouette is within normal limits and stable. There is no focal lung consolidation or pleural effusion. The bony structures and soft tissues are unremarkable. XR/XR chest 1V IMPRESSION: Somewhat limited study due to low lung volumes, body habitus and AP portable technique. No evidence for active cardiopulmonary disease.
--- NOTE | 2023-06-01 15:31 | ECG_ITS ---
Test Reason : ANEMIA/SOB Blood Pressure : / mmHG Vent. Rate : 088 BPM Atrial Rate : 088 BPM P-R Int : 162 ms QRS Dur : 088 ms QT Int : 346 ms P-R-T Axes : 058 007 023 degrees QTc Int : 418 ms Normal sinus rhythm Cannot rule out Anterior infarct , age undetermined Abnormal ECG When compared with ECG of 13-MAR-2023 07:58, Nonspecific T wave abnormality has replaced inverted T waves in Inferior leads T wave inversion no longer evident in Anterior leads QT has shortened Referred By: Ashlyn Seymour Electronically Signed By:Perez Matson
--- NOTE | 2023-06-01 15:37 | ED_ITS ---
HPI - Recheck/Abnormal Lab/Rx General Chief Complaint: Recheck/Abnormal Lab/Rx Stated Complaint: ABN LABS PER EMS Time Seen by Provider: 06/01/23 15:20 Source: patient and EMS Mode of arrival: EMS Limitations: no limitations History of Present Illness HPI narrative: [age] year female came in from PCP office for low blood count. Patient with history of pulmonary embolism taking Eliquis pulmonary embolism patient also using 3 L of oxygen 24/7 for hypoxia secondary to pulmonary embolism, 3 months history of vaginal bleed on the daily basis change 3-6 pads a day sometimes with blood clots, no rectal bleed, no nose bleed. Patient had OBGYN evaluation was told that she may need a D&C. Patient is requesting a 2nd opinion from our OBGYN a while she is here. Blood transfusion risk was discussed with the patient, and agreed for blood transfusion. Related Data Home Medications Medication Instructions Recorded Confirmed buspirone 15 mg tablet 15 mg PO TID 07/07/20 04/17/23 ondansetron HCl 4 mg tablet 4 mg PO Q8H PRN Nausea 07/07/20 04/17/23 sertraline 100 mg tablet 150 mg PO DAILY 07/07/20 04/17/23 sumatriptan succinate 100 mg tablet 100 mg PO DIRECTED 07/07/20 04/17/23 medroxyprogesterone 10 mg tablet 10 mg PO BID 04/17/23 04/17/23 nitrofurantoin 1 cap PO BID 04/28/23 05/08/23 monohydrate/macrocrystals 100 mg capsule sulfamethoxazole 800 1 tab PO BID 04/28/23 05/08/23 mg-trimethoprim 160 mg tablet Previous Rx's Medication Instructions Recorded cpap mask #1 ea 07/14/20 filters for cpap #1 ea 07/14/20 heated tubing #1 ea 07/14/20 albuterol sulfate 90 mcg/actuation 1 inh inhalation QID PRN shortness 07/09/21 aerosol inhaler of breath or wheezing #6.7 grams commode (bedside commode) #1 ea 12/02/21 bariatric sliding shower bench #1 ea 12/07/21 bariatric wheeled walker #1 ea 12/07/21 bariatric commode #1 ea 01/05/22 walker #1 ea 01/05/22 furosemide 20 mg tablet 20 mg PO QAM PRN for swelling #90 06/02/22 tabs bed pad #100 ea 10/26/22 diaper,brief,adult,disposable #200 ea 10/26/22 disposable wipes #100 ea 10/26/22 montelukast 10 mg tablet 10 mg PO BEDTIME #90 tabs 01/26/23 sennosides 8.6 mg-docusate sodium 1 tab-cap PO BEDTIME PRN 04/03/23 50 mg tablet (Senokot-S) constipation #30 tabs atorvastatin 40 mg tablet 40 mg PO BEDTIME #90 tabs 04/24/23 cholecalciferol (vitamin D3) 125 125 mcg PO BEDTIME #90 caps 04/24/23 mcg (5,000 unit) capsule Eliquis 5 mg tablet (apixaban) 5 mg PO BID 30 days #60 tabs 04/28/23 cetirizine 10 mg tablet 10 mg PO DAILY PRN for allergies 05/06/23 #90 tabs oxybutynin chloride 15 mg 15 mg PO DAILY #30 tabs 05/08/23 tablet,extended release 24 hr Allergies Allergy/AdvReac Type Severity Reaction Status Date / Time cat dander [CAT] Allergy Unknown UNKNOWN Verified 06/01/23 15:06 mold [MOLD] Allergy Unknown UNKNOWN Verified 06/01/23 15:06 amoxicillin [From Augmentin] AdvReac Abdominal Verified 06/01/23 15:06 Pain ENVIRONMENTAL Allergy Unknown RUNNY Uncoded 06/01/23 15:06 NOSE,ITCHY EYES PMFSH Past Medical History Medical History (Updated 06/01/23 @ 15:48 by Ashlyn Seymour MD) Pulmonary embolism on long-term anticoagulation therapy History of DVT (deep vein thrombosis) Saddle embolism of pulmonary artery Anemia Mixed stress and urge urinary incontinence Varicose veins of leg with swelling Postmenopausal bleeding Colon cancer screening Hyperparathyroidism DAVIS (nonalcoholic steatohepatitis) Impaired fasting glucose Depression with anxiety Migraine Chronic venous insufficiency Mixed dyslipidemia Essential hypertension Peripheral vascular disease Morbid obesity Surgical History History of removal of cyst History of umbilical hernia repair Hx of cholecystectomy History of trigger finger History of carpal tunnel release of both wrists History of section Family History Family History Father Diabetes mellitus Mother HTN (hypertension) Maternal Grandmother Scleroderma Maternal Grandfather Lung cancer Maternal Aunt Lung cancer Mental health disorder Maternal Uncle Colon cancer Substance use disorder Brother No problems noted. Son No problems noted. Son No problems noted. Daughter Mental health disorder Social History Social History Household Members: None Housing: Apartment Do you presently have visiting nurse or other home services: No Alcohol intake: never Patient Tobacco Use Status: Never used Tobacco Smoked in Last 30 Days: No e-Cigarette/Vaping Use: Never Used Use of substances other than those prescribed or required for medical reasons: No Advance Directives: Yes Advance Directives on File: Yes Advance Directives Date on File: 11/11/21 Patient : No service: No Current occupational status: disabled Cognitive needs: No Hearing needs: No Vision needs: Yes Physical Exam Vital Signs: Vital Signs: Last Vital Signs Temp 99.0 F 06/01/23 15:08 Pulse 91 06/01/23 15:08 Resp 18 06/01/23 15:08 BP 144/69 H 06/01/23 15:08 Pulse Ox 98 06/01/23 15:08 O2 Del Method Nasal Cannula 06/01/23 15:08 O2 Flow Rate 3 06/01/23 15:08 BMI result Body Mass Index 67.7 Vital signs have been reviewed and appear to be correct. Blood pressure elevated. Heart rate normal. Respiratory rate normal. Temperature normal. Oxygen saturation normal. Appearance: Alert. Oriented X3. No acute distress. Head: Normal external exam. Normocephalic. Atraumatic. No Rahman signs noted. No raccoon eyes noted Eyes: PERRLA. EOMI. Conjunctiva and sclera normal. Eyelids normal. ENT: TM's Normal. Pharynx normal. Uvula midline. Moist mucous membranes. No trismus noted. No drooling noted. No muffled voice noted. Neck: Normal inspection. Neck supple. FROM. No adenopathy. Thyroid Normal. No meningeal signs. No neck mass noted. CVS: Normal heart rate and rhythm. Heart sound normal. No murmurs noted. Pulses normal throughout. Respiratory: No respiratory distress. Painless inspiration. Breath sounds normal. No wheezes/rales/rhonchi noted. Chest nontender. No accessory muscle usage noted or decreased air movement noted. Abdomen: Soft and nontender. Bowel sounds normal in all 4 quadrants. No distention noted. No organomegaly noted. No visible injury noted. Pelvic exam: Few cc of fresh blood in the vault, soaked pad in place, no active blood coming out of the os. Back: No CVA tenderness. Full range of motion noted. Skin: Skin warm and dry. Normal skin color. Normal skin turgor. No rashes/lesions/lacerations noted. Extremities: No lower extremity edema. Extremities exhibit normal range of motion. Extremities nontender. Neuro: Oriented X 3. Cranial nerve exam: II-XII are grossly intact No motor deficit. No sensory deficit. Reflexes normal. Course Reevaluation(s) Reevaluation #1: Severe anemia due to vaginal bleed, patient is on Eliquis, case discussed with Dr. Matthew who agree on the plan. Patient consented for blood transfusion after explaining risk and benefit of transfusing blood. Time: 15:45 Medical Decision Making Differential Diagnosis Differential Diagnoses: The differential diagnosis associated with the presentation includes (Vaginal bleed, rectal bleed, severe anemia, blood transfusion.) Admission/Observation Consideration of admission/observation: Escalation of care including admission/observation considered Consult Healthcare Provider Management of the patient was discussed with: Hospitalist (Soraya) and Lime Trimmer () Lab Data MDM Lab Attestation statement: I reviewed the patient's lab results. Critical Care Time Critical Care Time Critical Care Time: Yes Total Critical Care Time: 45 Attestation: I spent 45 minutes providing critical care service to the patient, this including time spent at the bedside to evaluate the patient, reassess the patient, monitoring vital signs, review labs, and radiographic studies, counseling the patient/family, discussing the case with consultants, disposition the patient. Discharge Plan Discharge Clinical Impression: Anemia, Abnormal vaginal bleeding Patient Disposition: Admitted As Inpatient Prescriptions: No Action (DME) filters for cpap See Rx Instructions .Route .MEDSUPPLY Qty: 1 0RF Rx Instructions: Filters for CPAP machine (DME) heated tubing See Rx Instructions .Route .MEDSUPPLY Qty: 1 0RF Rx Instructions: Heated tubing for CPAP machine (DME) cpap mask See Rx Instructions .Route .MEDSUPPLY Qty: 1 0RF Rx Instructions: cpap mask- CPAP at 15 cm (DME) bariatric wheeled walker See Rx Instructions .Route .MEDSUPPLY Qty: 1 0RF Rx Instructions: As directed (DME) bariatric sliding shower bench See Rx Instructions .Route .MEDSUPPLY Qty: 1 0RF Rx Instructions: As directed furosemide 20 mg tablet 20 mg PO QAM PRN (Reason: for swelling) Qty: 90 0RF (DME) disposable wipes See Rx Instructions .Route .MEDSUPPLY Qty: 100 11RF Rx Instructions: As directed to clean after incontinence (DME) diaper,brief,adult,disposable Misc See Rx Instructions .Route Qty: 200 11RF Rx Instructions: As directed for incontinence, up to 6 per day (DME) bed pad See Rx Instructions .Route .MEDSUPPLY Qty: 100 11RF Rx Instructions: As directed montelukast 10 mg tablet 10 mg PO BEDTIME Qty: 90 0RF Rx Instructions: schedule PCP appt for future refills sennosides-docusate sodium [Senokot-S] 8.6-50 mg tablet 1 tab-cap PO BEDTIME PRN (Reason: constipation) Qty: 30 0RF atorvastatin 40 mg tablet 40 mg PO BEDTIME Qty: 90 0RF cholecalciferol (vitamin D3) 125 mcg (5,000 unit) capsule 125 mcg PO BEDTIME Qty: 90 0RF cetirizine 10 mg tablet 10 mg PO DAILY PRN (Reason: for allergies) Qty: 90 1RF oxybutynin chloride 15 mg tablet extended release 24hr 15 mg PO DAILY Qty: 30 5RF (DME) bedside commode Kit See Rx Instructions .Route Qty: 1 0RF Rx Instructions: As directed buspirone 15 mg tablet 15 mg PO TID sertraline 100 mg tablet 150 mg PO DAILY sumatriptan succinate 100 mg tablet 100 mg PO DIRECTED ondansetron HCl 4 mg tablet 4 mg PO Q8H PRN (Reason: Nausea) albuterol sulfate 90 mcg/actuation HFA aerosol inhaler 1 inh inhalation QID PRN (Reason: shortness of breath or wheezing) Qty: 6.7 1RF medroxyprogesterone 10 mg tablet 10 mg PO BID (DME) walker Misc See Rx Instructions .Route Qty: 1 0RF Rx Instructions: As directed (DME) bariatric commode See Rx Instructions .Route .MEDSUPPLY Qty: 1 0RF Rx Instructions: As directed nitrofurantoin monohyd/m-cryst 100 mg capsule 1 cap PO BID sulfamethoxazole-trimethoprim 800-160 mg tablet 1 tab PO BID Eliquis 5 mg tablet 5 mg PO BID 30 Days Qty: 60 6RF
[2023-06-01 16:15] LABS: MANUAL DIFF FLAG NO
--- NOTE | 2023-06-01 16:17 | PHA.MEDREC ---
Pharmacy Consult ? Medication Reconciliation Pharmacy has completed the medication reconciliation. Patient had list of medication that match claim history. Deepali Martins, ClareD
--- NOTE | 2023-06-01 16:26 | PM.GYNCN ---
[employer] - CN: HPI Data of Consult Consult date: 06/01/23 Primary Care Provider: Shaunna Owens MD Consult Narrative Narrative: I was consulted on Argelia Gibbons who is a 57 year old female presenting to emergency room from PCP office for low H&H of 6.7/24.2. Patient with history of pulmonary embolism taking Eliquis pulmonary embolism using 3 L of oxygen 09/01 for hypoxia secondary to pulmonary embolism,. The patient gives a 3 months history of vaginal bleeding associated with blood clots. The Patient was seen at [facility] and was referred to Dr. conley, real property evaluator oncologist at [facility], who according to the patient did in office endometrial biopsy and was negative for endometrial hyperplasia and malignancy per patient, no records available an was started on 20 mg Provera b.i.d. in addition a pelvic Ultrasound according to the patient showed a thick endometrial thickness , the patient is scheduled for a follow-up in the outpatient office for possible preop hysteroscopy D&C polypectomy. The patient had some bleeding this morning but since then no vaginal bleeding cc:: CC: OB [facility] Past Medical History Medical History (Updated 06/01/23 @ 18:40 by Leo Matthew MD) Pulmonary embolism on long-term anticoagulation therapy History of DVT (deep vein thrombosis) Saddle embolism of pulmonary artery Anemia Mixed stress and urge urinary incontinence Varicose veins of leg with swelling Postmenopausal bleeding Colon cancer screening Hyperparathyroidism DAVIS (nonalcoholic steatohepatitis) Impaired fasting glucose Depression with anxiety Migraine Chronic venous insufficiency Mixed dyslipidemia Essential hypertension Peripheral vascular disease Morbid obesity Family History Family History Father Diabetes mellitus Mother HTN (hypertension) Maternal Grandmother Scleroderma Maternal Grandfather Lung cancer Maternal Aunt Lung cancer Mental health disorder Maternal Uncle Colon cancer Substance use disorder Brother No problems noted. Son No problems noted. Son No problems noted. Daughter Mental health disorder Surgical History Surgical History History of removal of cyst History of umbilical hernia repair Hx of cholecystectomy History of trigger finger History of carpal tunnel release of both wrists History of section Social History Social History Household Members: None Housing: Apartment Do you presently have visiting nurse or other home services: No Alcohol intake: never Patient Tobacco Use Status: Never used Tobacco Smoked in Last 30 Days: No e-Cigarette/Vaping Use: Never Used Use of substances other than those prescribed or required for medical reasons: No Advance Directives: Yes Advance Directives on File: Yes Advance Directives Date on File: 11/11/21 Patient : No service: No Current occupational status: disabled Cognitive needs: No Hearing needs: No Vision needs: Yes Meds Allergies Allergy/AdvReac Type Severity Reaction Status Date / Time cat dander [CAT] Allergy Unknown UNKNOWN Verified 06/01/23 15:06 mold [MOLD] Allergy Unknown UNKNOWN Verified 06/01/23 15:06 amoxicillin [From Augmentin] AdvReac Abdominal Verified 06/01/23 15:06 Pain ENVIRONMENTAL Allergy Unknown RUNNY Uncoded 06/01/23 15:06 NOSE,ITCHY EYES Active Medications: Current Medications Sodium Chloride (Ns) 100 mls @ 100 mls/hr IV ONCE ONE Stop: 06/01/23 16:29 Home Medications Medication Instructions Recorded Confirmed Last Taken Type buspirone 15 mg tablet 15 mg PO TID 07/07/20 06/01/23 06/01/23 History ondansetron HCl 4 mg tablet 4 mg PO Q8H PRN Nausea 07/07/20 06/01/23 Unknown History sertraline 100 mg tablet 150 mg PO DAILY 07/07/20 06/01/23 06/01/23 History sumatriptan succinate 100 mg tablet 100 mg PO DAILY MRX1 PRN Migraine 07/07/20 06/01/23 06/01/23 History Headache medroxyprogesterone 10 mg tablet 20 mg PO BID 04/17/23 06/01/23 06/01/23 History loperamide 2 mg capsule 2 mg PO Q6H PRN Loose Stool 06/01/23 06/01/23 06/01/23 History [employer] Physical Exam Vitals Vital signs: Temp Pulse Resp BP Pulse Ox O2 Del Method O2 Flow Rate 99.0 F 91 18 144/69 H 98 Nasal Cannula 3 06/01/23 15:08 06/01/23 15:08 06/01/23 15:08 06/01/23 15:08 06/01/23 15:08 06/01/23 15:08 06/01/23 15:08 BMI result Body Mass Index 67.7 Abdomen Auscultation/Inspection/Palpation: Normal bowel sounds, Soft, Non-distended and No tenderness Female Genitalia (Pelvic) Bladder/Urethra: Normal meatus Vulva: No lesions Vagina: Nontender and No erythema Cervix: Grossly normal Uterus: Normal size Adnexa/Parametria: Adnexal Tenderness: None, Adnexal Mass: None, Parametrial Tenderness: None and Parametrial Mass: None Additional Comments: Few blood clots per vagina but No evidence of active vaginal bleeding [employer] - Results Labs 06/01/23 15:58 06/01/23 15:58 Assessment and Plan (1) Postmenopausal bleeding: Status: Acute Discussed with the patient the possible causes of thickened endometrial stripe by ultrasound including but not limited to endometrial hyperplasia, polyp and/or malignancy please. Although according to patient's history endometrial biopsy was negative for endometrial hyperplasia malignancy or atypia, pathology/ultrasound reports are not available. Since there is no evidence of active vaginal bleeding, recommended to keep the patient on Provera 20 mg p.o. b.i.d. as prescribed and the patient will be managed as an outpatient with possible hysteroscopy D&C / polypectomy versus to r/o endometrial pathology including hyperplasia or cancer or polyp. All questions were answered pt verbalized understanding (2) Anemia: Status: Acute Defer the management to the hospitalist team (3) Pulmonary embolism on long-term anticoagulation therapy: Status: Acute Will defer the management to the hospitalist team
[2023-06-01 16:29] LABS: Basophils Percent Auto 0.4 % (0-2); Eosinophils Absolute Auto 0.1 X10*3/uL (0.0-0.4); Eosinophils Percent Auto 1.1 % (0-4); Hematocrit 22.8 % (37.0-47.0); Imm Gran Abs Auto 0.07 X10*3/uL (0.00-0.03); Lymphocytes Absolute Auto 1.3 X10*3/uL (1.2-4.9); Lymphocytes Percent Auto 18.4 % (20-40); Mean Corpuscular HGB Conc 27.6 g/dl (31.0-35.0); Mean Corpuscular Volume 72.4 fL (80.0-98.0); Mean Platelet Volume 10.3 fL (9.4-12.3); Monocytes Absolute Auto 0.5 X10*3/uL (0.1-1.2); Monocytes Percent Auto 6.5 % (2-11); Neutrophils Absolute Auto 5.1 x10*3/uL (2.0-8.3); Neutrophils Percent Auto 72.6 % (45-73); Platelet Count 275 X10*3/uL (160-400); Red Blood Count 3.15 X10*6/uL (4.20-5.50); Red Cell Distribution Width 16.8 % (11.0-16.0); White Blood Count 7.1 X10*3/uL (4.8-10.8)
[2023-06-01 16:35] LABS: Hemoglobin 6.3 g/dl (12.0-16.0)
[2023-06-01 16:43] LABS: Troponin-I High Sensitivity < 2.7 ng/L (<3.5-17.0)
[2023-06-01 16:44] LABS: Alanine Aminotransferase 8 U/L (0-31); Albumin Level 3.5 g/dL (3.5-5.0); Alkaline Phosphatase 80 U/L (39-117); Anion Gap 13 (12-20); Aspartate Amino Transferase 19 U/L (5-31); Bilirubin Direct 0.1 mg/dL (0.0-0.5); Bilirubin Total 0.3 mg/dL (0.0-1.0); Blood Urea Nitrogen 13 mg/dL (9-16); Calcium 9.9 mg/dL (8.4-10.2); Carbon Dioxide 25 mmol/L (22-29); Chloride 105 mmol/L (96-108); Estimated Glomerular Filt Rate > 60; Glucose Random 215 mg/dL (60-115); HCG Quantitative < 2 mIU/mL; Lipase 23 U/L (8-78); Potassium 3.8 mmol/L (3.3-5.1); Sodium 139 mmol/L (135-145); Total Protein 7.3 g/dL (6.5-8.0)
[2023-06-01 16:54] LABS: Influenza A PCR NEGATIVE (Negative); Influenza B PCR NEGATIVE (Negative); Resp Syncy Virus RNA Qual PCR NEGATIVE (Negative); SARS COV2 PCR INHOUSE NEGATIVE (Negative)
[2023-06-01 17:43] LABS: Appearance Urine Cloudy; Color Urine Yellow; Glucose Urine UA 500 mg/dL (Negative); Leukocyte Esterase Urine Small (1+) (Negative); Nitrite Urine Negative (Negative); PH 5.5 (5.0-9.0); Specific Gravity - Urine 1.025 (1.005-1.025); UMIC TRIGGER UACC YES; Urine Blood Large (3+) (Negative); Urine Ketones Negative (Negative); Urine Protein 30 (1+) mg/dL (Neg-Trace)
[2023-06-01 17:55] LABS: Iron 25 mcg/dL (30-160); Percent Iron Saturation 7 % (15-50); Total Iron Binding Capacity 365 mcg/dL (228-428); Unsaturated Iron Binding 340 ug/dL
[2023-06-01 18:01] LABS: Bacteria Urine Trace (None Seen); Hyaline Casts Urine 0-2 /LPF (0-2); RBC Urine >20 /HPF (0-2); Squamous Epithelial Cell Urine 0-2 /HPF (0-2); UACC Culture Trigger YES
--- NOTE | 2023-06-01 18:03 | PM.IMHP ---
History of Present Illness Date of Service: 06/01/23 Chief Complaint: Vaginal bleeding 57-year-old female patient with past medical history significant for anemia, hyperparathyroidism, depression/anxiety, migraine, hypertension, PVD, morbid obesity, obstructive sleep apnea not on CPAP on 3 L of oxygen, history of diabetes mellitus not on medications,, history of PE and left lower extremity DVT diagnosed in February 2023 on Eliquis presented to [facility] due to 3 month history of vaginal bleed and passing clots on a daily basis have to change 4-6 pads a day since started on Eliquis, she was seen by OBGYN physician at [facility] an ultrasound of pelvis was obtained that showed significant endometrial thickness ,she was started on Provera and was recommended D&C , patient was noted to have low hemoglobin therefore was referred to [facility] by PCP, patient complaining of increased weakness and lightheadedness, she denies associated chest pain, no palpitations, no headache, no nausea, no vomiting, no hematemesis, no melena, in ED labs showed a hematocrit of 22.8 with the last hematocrit 39.8 on March 13, otherwise patient noted to have normal electrolytes and kidney function hemoglobin A1c 7.6, blood sugar 215, 1 unit of packed RBC ordered patient is now being admitted for further treatment and evaluation of ongoing vaginal bleed and symptomatic anemia. Review of Systems Review of Systems: General no headache, no dizziness no fever chills. CVS no chest pain, no palpitation. Respiratory no cough no sob Gastrointestinal no nausea, no vomiting, no abdominal pain history of urinary incontinence Skin no rash PMFSH Medical History Pulmonary embolism on long-term anticoagulation therapy History of DVT (deep vein thrombosis) Saddle embolism of pulmonary artery Anemia Mixed stress and urge urinary incontinence Varicose veins of leg with swelling Postmenopausal bleeding Colon cancer screening Hyperparathyroidism DAVIS (nonalcoholic steatohepatitis) Impaired fasting glucose Depression with anxiety Migraine Chronic venous insufficiency Mixed dyslipidemia Essential hypertension Peripheral vascular disease Morbid obesity Family History Father Diabetes mellitus Mother HTN (hypertension) Maternal Grandmother Scleroderma Maternal Grandfather Lung cancer Maternal Aunt Lung cancer Mental health disorder Maternal Uncle Colon cancer Substance use disorder Brother No problems noted. Son No problems noted. Son No problems noted. Daughter Mental health disorder Surgical History History of removal of cyst History of umbilical hernia repair Hx of cholecystectomy History of trigger finger History of carpal tunnel release of both wrists History of section Social History Household Members: Family Housing: House Do you presently have visiting nurse or other home services: Yes Alcohol intake: never Patient Tobacco Use Status: Never used Tobacco e-Cigarette/Vaping Use: Never Used Advance Directives Date on File: 11/11/21 service: No Current occupational status: disabled Cognitive needs: No Hearing needs: No Vision needs: Yes Meds Allergies Allergy/AdvReac Type Severity Reaction Status Date / Time cat dander [CAT] Allergy Unknown UNKNOWN Verified 06/01/23 15:06 mold [MOLD] Allergy Unknown UNKNOWN Verified 06/01/23 15:06 amoxicillin [From Augmentin] AdvReac Abdominal Verified 06/01/23 15:06 Pain ENVIRONMENTAL Allergy Unknown RUNNY Uncoded 06/01/23 15:06 NOSE,ITCHY EYES Active Medications: Current Medications Acetaminophen (Acetaminophen 325 Mg Tablet) 650 mg PO Q6H PRN PRN Reason: Pain, Mild (Pain Scale 1-3) Al Hydroxide/Mg Hydroxide (Magnesium Hydrox/Alum Hydrox 30 Ml Oral.Susp) 30 ml PO Q4H PRN PRN Reason: Heartburn/Nausea Atorvastatin Calcium (Atorvastatin Calcium 40 Mg Tablet) 40 mg PO BEDTIME [place] Buspirone HCl (Buspirone Hcl 5 Mg Tablet) 15 mg PO TID [place] Loperamide HCl (Loperamide Hcl 2 Mg Capsule) 2 mg PO Q6H PRN PRN Reason: Loose Stool Magnesium Hydroxide (Milk Of Magnesia 30 Ml Oral.Susp) 30 ml PO DAILY PRN PRN Reason: Constipation Melatonin (Melatonin 3 Mg Tablet) 6 mg PO BEDTIME PRN PRN Reason: Insomnia Montelukast Sodium (Montelukast Sodium 10 Mg Tablet) 10 mg PO BEDTIME [place] Ondansetron HCl (Ondansetron Hcl 4 Mg/2 Ml Vial) 4 mg IVPUSH Q8H PRN PRN Reason: Nausea and Vomiting Oxybutynin Chloride (Oxybutynin Chloride Er 5 Mg Tab.Er.24) 15 mg PO DAILY [place] Senna/Docusate Sodium (Sennosides/Docusate Sodium Tablet) 1 tab PO BEDTIME PRN PRN Reason: constipation Sertraline HCl (Sertraline Hcl 50 Mg Tablet) 150 mg PO DAILY [facility] Sodium Chloride (0.9 % Sodium Chloride Flush 3 Ml Syringe) 3 ml IVFLUSH QSHIFT [facility] Sumatriptan Succinate (Sumatriptan Succinate 100 Mg Tablet) 100 mg PO DAILY MRX1 PRN PRN Reason: Migraine Headache Vitamin D (Cholecalciferol (Vitamin D3) 25 Mcg Tablet) 125 mcg PO BEDTIME [facility] Home Medications Medication Instructions Recorded Confirmed Last Taken Type buspirone 15 mg tablet 15 mg PO TID 07/07/20 06/01/23 06/01/23 History ondansetron HCl 4 mg tablet 4 mg PO Q8H PRN Nausea 07/07/20 06/01/23 Unknown History sertraline 100 mg tablet 150 mg PO DAILY 07/07/20 06/01/23 06/01/23 History sumatriptan succinate 100 mg tablet 100 mg PO DAILY MRX1 PRN Migraine 07/07/20 06/01/23 06/01/23 History Headache medroxyprogesterone 10 mg tablet 20 mg PO BID 04/17/23 06/01/23 06/01/23 History loperamide 2 mg capsule 2 mg PO Q6H PRN Loose Stool 06/01/23 06/01/23 06/01/23 History Physical Exam Vital Signs and Narrative: Vital Signs: Last Vital Signs Temp 98.8 F 06/01/23 17:38 Pulse 91 06/01/23 17:38 Resp 20 06/01/23 17:38 BP 136/65 06/01/23 17:38 Pulse Ox 100 06/01/23 17:29 O2 Del Method Nasal Cannula 06/01/23 17:29 O2 Flow Rate 3 06/01/23 17:29 BMI result Body Mass Index 67.7 Const: Other: General: no acute distress resting comfortably HEENT: Anicteric sclera Neck: normal to visual inspection, no JVD CVS: S1, S2, RRR Resp: Clear to auscultation, no use of accessory muscles no wheeze GI: soft, non tender, non distended, bowel sounds audible Skin: No rash,pallor Extremities: No pitting edema Neuro: Awake alert x3, no motor deficit, speech clear Psych: Appropriate affect Results Labs 06/02/23 07:59 06/01/23 15:58 Labs: Laboratory Results - last 24 hr 06/01/23 06/01/23 06/01/23 15:57 15:58 16:58 MCV 72.4 L MCH 20.0 L MCHC 27.6 L RDW 16.8 H Plt Count 275 MPV 10.3 Immature Gran % (Auto) 1.0 H Neut % (Auto) 72.6 Lymph % (Auto) 18.4 L Shack[place]ord % (Auto) 6.5 Eos % (Auto) 1.1 Baso % (Auto) 0.4 Lymph # (Auto) 1.3 [place]ord # (Auto) 0.5 Eos # (Auto) 0.1 Baso # (Auto) 0.0 Abs Immat Gran (auto) 0.07 H Absolute Neuts (auto) 5.1 Absolute Nucleated RBC 0.000 Nucleated RBC % (auto) 0.0 Smear Path Review Cancelled Anion Gap 13 Estim Creat Clear Calc 130.0 Estimated GFR > 60 Random Glucose 215 H Calcium 9.9 Iron 25 L TIBC 365 % Saturation 7 L Unsat Iron Binding 340 Total Bilirubin 0.3 Direct Bilirubin 0.1 AST 19 ALT 8 Alkaline Phosphatase 80 Total Protein 7.3 Albumin 3.5 Lipase 23 Beta HCG, Quant < 2 Urine Color Yellow Urine Appearance Cloudy Urine pH 5.5 Ur Specific Tuttle 1.025 Urine Protein 30 (1+) H Urine Glucose (UA) 500 H Urine Ketones Negative Urine Blood Large (3+) H Urine Nitrite Negative Ur Leukocyte Esterase Small (1+) H Influenza Type A (PCR) NEGATIVE Influenza Type B (PCR) NEGATIVE RSV RNA Qual (PCR) NEGATIVE SARS-CoV-2 RNA (RT-PCR) NEGATIVE Blood Type B Positive Antibody Screen NEGATIVE Crossmatch See Detail Imaging Radiologist's Impressions: Impressions Chest X-Ray 06/01/23 17:45 IMPRESSION: Somewhat limited study due to low lung volumes, body habitus and AP portable technique. No evidence for active cardiopulmonary disease. Assessment and Plan (1) Abnormal vaginal bleeding: Status: Acute (2) Anemia: Status: Acute (3) Pulmonary embolism on long-term anticoagulation therapy: Status: Acute (4) Supplemental oxygen dependent: Status: Acute Plan 57-year-old female patient with past medical history significant for morbid obesity, chronic hypoxic respiratory failure on 3 L of home oxygen, recently diagnosed saddle pulmonary embolism and left lower extremity DVT on Eliquis, history of obstructive sleep apnea, mood disorder, diabetes mellitus presented to [facility] due to vaginal bleed of recur 2-3 months duration since started on Eliquis, noted to have low hematocrit, as per labs ordered by PCP, patient presented with lightheadedness and weakness and noted to have significant anemia. Symptomatic anemia Due to vaginal bleeding since started on Eliquis for saddle pulmonary embolism Will transfuse 1 unit of packed RBC follow H&H closely obtain OBGYN consultation Hold Eliquis, monitor clinical status patient high risk for thromboembolism while on medroxyprogesterone. Diabetes mellitus place on diabetic diet and insulin sliding scale, patient not on home medications, recommend outpatient follow-up with PCP Obstructive sleep apnea not using CPAP, needs a new study Hyperlipidemia resume Lipitor Mood disorder continue home medications Morbid obesity complicated by bilateral lymphedema, Davis, diabetes mellitus, obstructive sleep apnea strongly encouraged to lose weight. DVT prophylaxis with compression boots due to vaginal bleed and resume Eliquis if noted to have no recurrent bleed in my clinical judgment patient need 2 night inpatient stay for treatment of symptomatic anemia due to vaginal bleed requiring blood transfusion and close hematocrit monitoring. Quality Stroke Does the patient have a stroke diagnosis?: No VTE Prior VTE?: No VTE Risk Level:: Medical - moderate - high VTE Device Contraindication: N/A - Device Ordered VTE Drug Contraindication: Treatment Not Indicated
[2023-06-01 18:09] LABS: Ferritin 10 ng/mL (10-250)
[2023-06-01] MEDS: Atorvastatin Calcium 40 MG TABLET PO (21:49)
[2023-06-01] MEDS: busPIRone HCl 5 MG TABLET 15 MG PO (21:49)
[2023-06-01] MEDS: Montelukast Sodium 10 MG TABLET PO (21:49)
[2023-06-01] MEDS: Cholecalciferol (Vitamin D3) 25 MCG TABLET 125 MCG PO (21:49)
[2023-06-01] MEDS: 0.9 % Sodium Chloride Flush 3 ML SYRINGE IVFLUSH (21:50)
[2023-06-02] VITALS (12 sets, daily range): BP systolic 121–162; BP diastolic 56–101; PULSE 76–91; RESP 17–20; TEMP 36.2–37.6; O2SAT 95–99
[2023-06-02 08:21] LABS: Hematocrit 23.6 % (37.0-47.0); Mean Corpuscular HGB Conc 28.8 g/dl (31.0-35.0); Mean Corpuscular Hemoglobin 20.6 pg (27.0-33.0); Mean Corpuscular Volume 71.5 fL (80.0-98.0); Mean Platelet Volume 9.6 fL (9.4-12.3); NRBC Pct Auto 0.3 /100WBC (0.0-0.2); Platelet Count 244 X10*3/uL (160-400); Red Cell Distribution Width 17.5 % (11.0-16.0); White Blood Count 7.1 X10*3/uL (4.8-10.8)
[2023-06-02 08:32] LABS: Hemoglobin 6.8 g/dl (12.0-16.0)
[2023-06-02] MEDS: oxyBUTYnin chloride ER 5 MG TAB.ER.24 15 MG PO (09:27)
[2023-06-02] MEDS: medroxyPROGESTERone Acetate 5 MG TABLET 20 MG PO ×2 (09:27→19:49)
[2023-06-02] MEDS: 0.9 % Sodium Chloride Flush 3 ML SYRINGE IVFLUSH ×2 (09:27→22:06)
[2023-06-02] MEDS: Sertraline HCL 50 MG TABLET 150 MG PO (09:28)
[2023-06-02] MEDS: busPIRone HCl 5 MG TABLET 15 MG PO ×3 (09:28→19:49)
--- NOTE | 2023-06-02 10:50 | P.PNOB_ITS ---
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 - Prog Note: Results Labs 06/02/23 07:59 06/01/23 15:58 Labs: Laboratory Results - last 24 hr 06/01/23 06/01/23 06/01/23 15:57 15:58 16:58 WBC 7.1 RBC 3.15 L Hgb 6.3 L* Hct 22.8 L MCV 72.4 L MCH 20.0 L MCHC 27.6 L RDW 16.8 H Plt Count 275 MPV 10.3 Immature Gran % (Auto) 1.0 H Neut % (Auto) 72.6 Lymph % (Auto) 18.4 L Charles % (Auto) 6.5 Eos % (Auto) 1.1 Baso % (Auto) 0.4 Lymph # (Auto) 1.3 Charles # (Auto) 0.5 Eos # (Auto) 0.1 Baso # (Auto) 0.0 Abs Immat Gran (auto) 0.07 H Absolute Neuts (auto) 5.1 Absolute Nucleated RBC 0.000 Nucleated RBC % (auto) 0.0 Smear Path Review Cancelled Sodium 139 Potassium 3.8 Chloride 105 Carbon Dioxide 25 Anion Gap 13 BUN 13 Creatinine 0.75 Estim Creat Clear Calc 130.0 Estimated GFR > 60 Random Glucose 215 H Calcium 9.9 Iron 25 L TIBC 365 % Saturation 7 L Unsat Iron Binding 340 Ferritin 10 Total Bilirubin 0.3 Direct Bilirubin 0.1 AST 19 ALT 8 Alkaline Phosphatase 80 Troponin I High Sens < 2.7 D Total Protein 7.3 Albumin 3.5 Lipase 23 Beta HCG, Quant < 2 Urine Color Yellow Urine Appearance Cloudy Urine pH 5.5 Ur Specific Arthur 1.025 Urine Protein 30 (1+) H Urine Glucose (UA) 500 H Urine Ketones Negative Urine Blood Large (3+) H Urine Nitrite Negative Ur Leukocyte Esterase Small (1+) H Urine RBC >20 H Urine WBC 11-20 H Ur Squamous Epith Cells 0-2 Urine Bacteria Trace Hyaline Casts 0-2 Influenza Type A (PCR) NEGATIVE Influenza Type B (PCR) NEGATIVE RSV RNA Qual (PCR) NEGATIVE SARS-CoV-2 RNA (RT-PCR) NEGATIVE Blood Type B Positive Antibody Screen NEGATIVE Crossmatch See Detail 06/02/23 07:59 WBC 7.1 RBC 3.30 L Hgb 6.8 L* Hct 23.6 L MCV 71.5 L MCH 20.6 L MCHC 28.8 L RDW 17.5 H Plt Count 244 MPV 9.6 Immature Gran % (Auto) Neut % (Auto) Lymph % (Auto) Charles % (Auto) Eos % (Auto) Baso % (Auto) Lymph # (Auto) Charles # (Auto) Eos # (Auto) Baso # (Auto) Abs Immat Gran (auto) Absolute Neuts (auto) Absolute Nucleated RBC 0.020 H Nucleated RBC % (auto) 0.3 H Smear Path Review Sodium Potassium Chloride Carbon Dioxide Anion Gap BUN Creatinine Estim Creat Clear Calc Estimated GFR Random Glucose Calcium Iron TIBC % Saturation Unsat Iron Binding Ferritin Total Bilirubin Direct Bilirubin AST ALT Alkaline Phosphatase Troponin I High Sens Total Protein Albumin Lipase Beta HCG, Quant Urine Color Urine Appearance Urine pH Ur Specific Arthur Urine Protein Urine Glucose (UA) Urine Ketones Urine Blood Urine Nitrite Ur Leukocyte Esterase Urine RBC Urine WBC Ur Squamous Epith Cells Urine Bacteria Hyaline Casts Influenza Type A (PCR) Influenza Type B (PCR) RSV RNA Qual (PCR) SARS-CoV-2 RNA (RT-PCR) Blood Type Antibody Screen Crossmatch 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 b.i.d. Instructions to be the patient to come back to emergency room in case of recurrence of heavy vaginal bleeding and 2 follow-up in outpatient clinic after discharge, early next week for further management. Time Spent With Patient Time: Total time managing care of this patient today ____ minutes. 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
[2023-06-02 11:22] LABS: Glucose, Whole Blood 162 mg/dL (60-115)
--- NOTE | 2023-06-02 11:33 | MHC.CM.PN ---
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
[2023-06-02] MEDS: Insulin Lispro 100 UNIT/ML 3 ML VIAL SUBCUT ×3 (12:07→22:02)
[2023-06-02] MEDS: Furosemide 20 MG TABLET PO (13:29)
--- NOTE | 2023-06-02 15:07 | PC.NURSE ---
1 unit of PRBCs infusing without complication. Documentation on TAR displays no blood clots box un-checked. This physician underwriter reviewed integrity with secondary RN as witness that unit was intact and free of clots upon inspection. Blood bank contacted and aware.
--- NOTE | 2023-06-02 16:00 | PM.CNPUL ---
History of Present Illness History of Present Illness Consult date: 06/02/23 Chief complaint: Pulmonary embolism Narrative: 57-year-old lady with recent saddle pulmonary embolism requiring catheter acted therapy in February of 2023 thereafter on Eliquis In supplemental oxygen 2-3 L admitted on 06/02/2023 with recurrent vaginal bleeding and clots since starting on Eliquis, now requiring PRBC transfusion. Patient is also under care of labor mediator for increased endometrial thickness and is currently on Provera. Review of Systems Constitutional: Constitutional: Denies daytime sleepiness, Denies excessive sweating, Denies fatigue, Denies fever(s), Denies lethargy, Denies malaise, Denies night sweats, Denies snoring and Denies weight loss Eyes: Eyes: Denies blurry vision and Denies itchy eyes ENT: Denies nasal congestion, Denies post nasal drip, Denies sinus pain, Denies sinus pressure and Denies other ( Thrush) Cardiovascular: Cardiovascular: Denies chest pain, Denies pedal edema, Denies dyspnea, Denies orthopnea and Denies paroxysmal nocturnal dyspnea Respiratory: Respiratory: Denies cough, Denies hemoptysis, Denies excessive phlegm production, Denies dyspnea, Denies snoring and Denies wheezing Gastrointestinal: Gastrointestinal: Denies abdominal pain and Denies heartburn Musculoskeletal: Musculoskeletal: Denies myalgias, Denies arthralgias and Denies joint swelling Integumentary/Breasts: Skin/Breast: Denies rash Neurologic: Denies memory loss and Denies seizure-like activity Psychiatric: Psychiatric: Denies abnormal sleep pattern, Denies anxiety and Denies memory loss Endocrine: Endocrine: Denies excessive sweating, Denies fatigue and Denies heat intolerance Hematologic/Lymphatic: Hematologic/Lymphatic: Denies easy bruising Allergic/Immunologic: Allergic/Immunologic: Denies itchy eyes, Denies seasonal rhinorrhea and Denies wheezing PMFSH Past Medical History Medical History Pulmonary embolism on long-term anticoagulation therapy History of DVT (deep vein thrombosis) Saddle embolism of pulmonary artery Anemia Mixed stress and urge urinary incontinence Varicose veins of leg with swelling Postmenopausal bleeding Colon cancer screening Hyperparathyroidism DAVIS (nonalcoholic steatohepatitis) Impaired fasting glucose Depression with anxiety Migraine Chronic venous insufficiency Mixed dyslipidemia Essential hypertension Peripheral vascular disease Morbid obesity Family History Family History Father Diabetes mellitus Mother HTN (hypertension) Maternal Grandmother Scleroderma Maternal Grandfather Lung cancer Maternal Aunt Lung cancer Mental health disorder Maternal Uncle Colon cancer Substance use disorder Brother No problems noted. Son No problems noted. Son No problems noted. Daughter Mental health disorder Surgical History Surgical History History of removal of cyst History of umbilical hernia repair Hx of cholecystectomy History of trigger finger History of carpal tunnel release of both wrists History of section Social History Social History Household Members: Family Housing: House Do you presently have visiting nurse or other home services: Yes Alcohol intake: never Patient Tobacco Use Status: Never used Tobacco e-Cigarette/Vaping Use: Never Used Advance Directives Date on File: 11/11/21 service: No Current occupational status: disabled Cognitive needs: No Hearing needs: No Vision needs: Yes Meds Allergies Allergy/AdvReac Type Severity Reaction Status Date / Time cat dander [CAT] Allergy Unknown UNKNOWN Verified 06/01/23 15:06 mold [MOLD] Allergy Unknown UNKNOWN Verified 06/01/23 15:06 amoxicillin [From Augmentin] AdvReac Abdominal Verified 06/01/23 15:06 Pain ENVIRONMENTAL Allergy Unknown RUNNY Uncoded 06/01/23 15:06 NOSE,ITCHY EYES Active Medications: Current Medications Acetaminophen (Acetaminophen 325 Mg Tablet) 650 mg PO Q6H PRN PRN Reason: Pain, Mild (Pain Scale 1-3) Al Hydroxide/Mg Hydroxide (Magnesium Hydrox/Alum Hydrox 30 Ml Oral.Susp) 30 ml PO Q4H PRN PRN Reason: Heartburn/Nausea Apixaban (Apixaban 5 Mg Tablet) 5 mg PO BID [facility] Atorvastatin Calcium (Atorvastatin Calcium 40 Mg Tablet) 40 mg PO BEDTIME [facility] Last Admin: 06/01/23 21:49 Dose: 40 mg Buspirone HCl (Buspirone Hcl 5 Mg Tablet) 15 mg PO TID [facility] Last Admin: 06/02/23 15:54 Dose: 15 mg Dextrose (Dextrose 50 % 25 Gm/50 Ml Syringe) 25 gm IVPUSH Q15M PRN; Protocol PRN Reason: per Hypoglycemia Standing Ord. Glucose (Glucose Gel 15 Gm Gel..Gram.) 15 gm PO Q15M PRN; Protocol PRN Reason: per Hypoglycemia Standing Ord. Insulin Human Lispro (Insulin Lispro 100 Unit/Ml 3 Ml Vial) 0 unit SUBCUT QIDACHS [facility]; Protocol Last Admin: 06/02/23 12:07 Dose: 2 unit Loperamide HCl (Loperamide Hcl 2 Mg Capsule) 2 mg PO Q6H PRN PRN Reason: Loose Stool Magnesium Hydroxide (Milk Of Magnesia 30 Ml Oral.Susp) 30 ml PO DAILY PRN PRN Reason: Constipation Medroxyprogesterone Acetate (Medroxyprogesterone Acetate 5 Mg Tablet) 20 mg PO BID [facility] Last Admin: 06/02/23 09:27 Dose: 20 mg Melatonin (Melatonin 3 Mg Tablet) 6 mg PO BEDTIME PRN PRN Reason: Insomnia Montelukast Sodium (Montelukast Sodium 10 Mg Tablet) 10 mg PO BEDTIME [facility] Last Admin: 06/01/23 21:49 Dose: 10 mg Ondansetron HCl (Ondansetron Hcl 4 Mg/2 Ml Vial) 4 mg IVPUSH Q8H PRN PRN Reason: Nausea and Vomiting Oxybutynin Chloride (Oxybutynin Chloride Er 5 Mg Tab.Er.24) 15 mg PO DAILY [facility] Last Admin: 06/02/23 09:27 Dose: 15 mg Senna/Docusate Sodium (Sennosides/Docusate Sodium Tablet) 1 tab PO BEDTIME PRN PRN Reason: constipation Sertraline HCl (Sertraline Hcl 50 Mg Tablet) 150 mg PO DAILY [facility] Last Admin: 06/02/23 09:28 Dose: 150 mg Sodium Chloride (0.9 % Sodium Chloride Flush 3 Ml Syringe) 3 ml IVFLUSH QSHIFT [facility] Last Admin: 06/02/23 09:27 Dose: 3 ml Sumatriptan Succinate (Sumatriptan Succinate 100 Mg Tablet) 100 mg PO DAILY MRX1 PRN PRN Reason: Migraine Headache Vitamin D (Cholecalciferol (Vitamin D3) 25 Mcg Tablet) 125 mcg PO BEDTIME [facility] Last Admin: 06/01/23 21:49 Dose: 125 mcg Home Medications Medication Instructions Recorded Confirmed Last Taken Type buspirone 15 mg tablet 15 mg PO TID 07/07/20 06/01/23 06/01/23 History ondansetron HCl 4 mg tablet 4 mg PO Q8H PRN Nausea 07/07/20 06/01/23 Unknown History sertraline 100 mg tablet 150 mg PO DAILY 07/07/20 06/01/23 06/01/23 History sumatriptan succinate 100 mg tablet 100 mg PO DAILY MRX1 PRN Migraine 07/07/20 06/01/23 06/01/23 History Headache medroxyprogesterone 10 mg tablet 20 mg PO BID 04/17/23 06/01/23 06/01/23 History loperamide 2 mg capsule 2 mg PO Q6H PRN Loose Stool 06/01/23 06/01/23 06/01/23 History Physical Exam Vital Signs: Vital Signs: Last Vital Signs Temp 98.6 F 06/02/23 15:42 Pulse 85 06/02/23 15:42 Resp 18 06/02/23 15:42 BP 122/57 L 06/02/23 15:42 Pulse Ox 97 06/02/23 15:42 O2 Del Method Nasal Cannula 06/02/23 15:42 O2 Flow Rate 2 06/02/23 15:42 BMI result Body Mass Index 69.1 Const: General: no acute distress and alert Nutritional Appearance: obese Orientation/consciousness: Other orientation findings ( oriented) HEENT: Head: Yes atraumatic Eyes: General: appearance normal, both eyes and all related structures Sclerae: sclerae normal EOM: EOMs intact bilaterally Neck: Neck: Yes supple Lymphatic: no lymphadenopathy noted Resp: Effort & Inspection: normal respiratory effort and no use of accessory muscles Auscultation: clear to auscultation bilaterally Cardio: Rate: regular rate Rhythm: regular rhythm Heart sounds: no gallops, no murmurs and no rubs Skin: General skin exam: other ( warm) Extrem: General: No clubbing, No cyanosis and No edema Results Laboratory Findings 06/02/23 07:59 06/01/23 15:58 Abnormal lab findings: Abnormal Labs 06/01/23 06/01/23 06/01/23 15:57 15:58 16:58 RBC 3.15 L Hgb 6.3 L* Hct 22.8 L MCV 72.4 L MCH 20.0 L MCHC 27.6 L RDW 16.8 H Immature Gran % (Auto) 1.0 H Lymph % (Auto) 18.4 L Abs Immat Gran (auto) 0.07 H Absolute Nucleated RBC Nucleated RBC % (auto) POC Glucose Random Glucose 215 H Iron 25 L % Saturation 7 L Urine Protein 30 (1+) H Urine Glucose (UA) 500 H Urine Blood Large (3+) H Ur Leukocyte Esterase Small (1+) H Urine RBC >20 H Urine WBC 11-20 H Crossmatch See Detail 06/02/23 06/02/23 07:59 11:14 RBC 3.30 L Hgb 6.8 L* Hct 23.6 L MCV 71.5 L MCH 20.6 L MCHC 28.8 L RDW 17.5 H Immature Gran % (Auto) Lymph % (Auto) Abs Immat Gran (auto) Absolute Nucleated RBC 0.020 H Nucleated RBC % (auto) 0.3 H POC Glucose 162 H Random Glucose Iron % Saturation Urine Protein Urine Glucose (UA) Urine Blood Ur Leukocyte Esterase Urine RBC Urine WBC Crossmatch Microbiology: Microbiology 06/01/23 Unknown Urine clean catch - Urine allen top Urine Culture - Preliminary Gram negative bernadette Assessment and Plan (1) History of DVT (deep vein thrombosis): Status: Acute (2) Supplemental oxygen dependent: Status: Acute (3) Saddle embolism of pulmonary artery: Status: Acute Plan Impression: 57-year-old lady with history of saddle pulmonary embolism now on 3rd months of Eliquis presenting with recurrent vaginal bleeding and on Provera. Recommendations: Consider and high-risk of clotting on Provera and recent history of what appears to be unprovoked pulmonary embolism patient requires further anticoagulation. At this time utilization of novel anticoagulants may be limited by difficulties in their reversal and usage of Lovenox is limited by significant obesity. Would suggest transition to Coumadin. However, if anticoagulation is significantly limited by vaginal bleeding, then further gynecologic evaluation is warranted. Procedures Date of Service Date of Service: 06/02/23
--- NOTE | 2023-06-02 16:11 | P.PNIM_ITS ---
Subjective Subjective Date of Service: 06/03/23 Interval History: being followed for vaginal bleed and symptomatic anemia. patient denies a general bleed, not passing clots, denies chest pain, no palpitations, complaining of tiredness weakness of few days duration, tolerated 1 unit of packed RBC hematocrit remains low agreeable for 2 more units of blood no acute issues overnight. Review of Systems All other system reviewed and negative. Physical Exam 2 Vital Signs: Vital Signs: Last Vital Signs Temp 98.6 F 06/02/23 15:42 Pulse 85 06/02/23 15:42 Resp 18 06/02/23 15:42 BP 122/57 L 06/02/23 15:42 Pulse Ox 97 06/02/23 15:42 O2 Del Method Nasal Cannula 06/02/23 15:42 O2 Flow Rate 2 06/02/23 15:42 BMI result Body Mass Index 69.1 Const: Other: General: no acute distress resting comfortably HEENT: Anicteric sclera Neck: normal to visual inspection, no JVD CVS: S1, S2, RRR Resp: Clear to auscultation, no use of accessory muscles no wheeze GI: soft, non tender, non distended, bowel sounds audible Skin: No rash,pallor Extremities: No pitting edema Neuro: Awake alert x3, no motor deficit, speech clear Psych: Appropriate affect Objective Data Active Medications Acetaminophen (Acetaminophen 325 Mg Tablet) 650 mg PO Q6H PRN PRN Reason: Pain, Mild (Pain Scale 1-3) Al Hydroxide/Mg Hydroxide (Magnesium Hydrox/Alum Hydrox 30 Ml Oral.Susp) 30 ml PO Q4H PRN PRN Reason: Heartburn/Nausea Apixaban (Apixaban 5 Mg Tablet) 5 mg PO BID [facility] Atorvastatin Calcium (Atorvastatin Calcium 40 Mg Tablet) 40 mg PO BEDTIME [facility] Last Admin: 06/01/23 21:49 Dose: 40 mg Documented By: CHRISTINE Buspirone HCl (Buspirone Hcl 5 Mg Tablet) 15 mg PO TID [facility] Last Admin: 06/02/23 15:54 Dose: 15 mg Documented By: MONICO Dextrose (Dextrose 50 % 25 Gm/50 Ml Syringe) 25 gm IVPUSH Q15M PRN; Protocol PRN Reason: per Hypoglycemia Standing Ord. Glucose (Glucose Gel 15 Gm Gel..Gram.) 15 gm PO Q15M PRN; Protocol PRN Reason: per Hypoglycemia Standing Ord. Insulin Human Lispro (Insulin Lispro 100 Unit/Ml 3 Ml Vial) 0 unit SUBCUT QIDACHS [facility]; Protocol Last Admin: 06/02/23 12:07 Dose: 2 unit Documented By: MONICO Loperamide HCl (Loperamide Hcl 2 Mg Capsule) 2 mg PO Q6H PRN PRN Reason: Loose Stool Magnesium Hydroxide (Milk Of Magnesia 30 Ml Oral.Susp) 30 ml PO DAILY PRN PRN Reason: Constipation Medroxyprogesterone Acetate (Medroxyprogesterone Acetate 5 Mg Tablet) 20 mg PO BID [facility] Last Admin: 06/02/23 09:27 Dose: 20 mg Documented By: MONICO Melatonin (Melatonin 3 Mg Tablet) 6 mg PO BEDTIME PRN PRN Reason: Insomnia Montelukast Sodium (Montelukast Sodium 10 Mg Tablet) 10 mg PO BEDTIME [facility] Last Admin: 06/01/23 21:49 Dose: 10 mg Documented By: CHRISTINE Ondansetron HCl (Ondansetron Hcl 4 Mg/2 Ml Vial) 4 mg IVPUSH Q8H PRN PRN Reason: Nausea and Vomiting Oxybutynin Chloride (Oxybutynin Chloride Er 5 Mg Tab.Er.24) 15 mg PO DAILY [facility] Last Admin: 06/02/23 09:27 Dose: 15 mg Documented By: MONICO Senna/Docusate Sodium (Sennosides/Docusate Sodium Tablet) 1 tab PO BEDTIME PRN PRN Reason: constipation Sertraline HCl (Sertraline Hcl 50 Mg Tablet) 150 mg PO DAILY [facility] Last Admin: 06/02/23 09:28 Dose: 150 mg Documented By: MONICO Sodium Chloride (0.9 % Sodium Chloride Flush 3 Ml Syringe) 3 ml IVFLUSH QSHIFT [facility] Last Admin: 06/02/23 09:27 Dose: 3 ml Documented By: MONICO Sumatriptan Succinate (Sumatriptan Succinate 100 Mg Tablet) 100 mg PO DAILY MRX1 PRN PRN Reason: Migraine Headache Vitamin D (Cholecalciferol (Vitamin D3) 25 Mcg Tablet) 125 mcg PO BEDTIME [facility] Last Admin: 06/01/23 21:49 Dose: 125 mcg Documented By: CHRISTINE Labs 06/02/23 16:35 06/01/23 15:58 Labs: Laboratory Results - last 24 hr 06/01/23 06/01/23 06/01/23 15:57 15:58 16:58 MCV 72.4 L MCH 20.0 L MCHC 27.6 L RDW 16.8 H Plt Count 275 MPV 10.3 Immature Gran % (Auto) 1.0 H Neut % (Auto) 72.6 Lymph % (Auto) 18.4 L [place] % (Auto) 6.5 Eos % (Auto) 1.1 Baso % (Auto) 0.4 Lymph # (Auto) 1.3 [place] # (Auto) 0.5 Eos # (Auto) 0.1 Baso # (Auto) 0.0 Abs Immat Gran (auto) 0.07 H Absolute Neuts (auto) 5.1 Absolute Nucleated RBC 0.000 Nucleated RBC % (auto) 0.0 Smear Path Review Cancelled Anion Gap 13 Estim Creat Clear Calc 130.0 Estimated GFR > 60 POC Glucose Random Glucose 215 H Calcium 9.9 Iron 25 L TIBC 365 % Saturation 7 L Unsat Iron Binding 340 Ferritin 10 Total Bilirubin 0.3 Direct Bilirubin 0.1 AST 19 ALT 8 Alkaline Phosphatase 80 Total Protein 7.3 Albumin 3.5 Lipase 23 Beta HCG, Quant < 2 Urine Color Yellow Urine Appearance Cloudy Urine pH 5.5 Ur Specific [place] 1.025 Urine Protein 30 (1+) H Urine Glucose (UA) 500 H Urine Ketones Negative Urine Blood Large (3+) H Urine Nitrite Negative Ur Leukocyte Esterase Small (1+) H Urine RBC >20 H Urine WBC 11-20 H Ur Squamous Epith Cells 0-2 Urine Bacteria Trace Hyaline Casts 0-2 Influenza Type A (PCR) NEGATIVE Influenza Type B (PCR) NEGATIVE RSV RNA Qual (PCR) NEGATIVE SARS-CoV-2 RNA (RT-PCR) NEGATIVE Blood Type B Positive Antibody Screen NEGATIVE Crossmatch See Detail 06/02/23 06/02/23 07:59 11:14 MCV 71.5 L MCH 20.6 L MCHC 28.8 L RDW 17.5 H Plt Count 244 MPV 9.6 Immature Gran % (Auto) Neut % (Auto) Lymph % (Auto) [place] % (Auto) Eos % (Auto) Baso % (Auto) Lymph # (Auto) [place] # (Auto) Eos # (Auto) Baso # (Auto) Abs Immat Gran (auto) Absolute Neuts (auto) Absolute Nucleated RBC 0.020 H Nucleated RBC % (auto) 0.3 H Smear Path Review Anion Gap Estim Creat Clear Calc Estimated GFR POC Glucose 162 H Random Glucose Calcium Iron TIBC % Saturation Unsat Iron Binding Ferritin Total Bilirubin Direct Bilirubin AST ALT Alkaline Phosphatase Total Protein Albumin Lipase Beta HCG, Quant Urine Color Urine Appearance Urine pH Ur Specific [place] Urine Protein Urine Glucose (UA) Urine Ketones Urine Blood Urine Nitrite Ur Leukocyte Esterase Urine RBC Urine WBC Ur Squamous Epith Cells Urine Bacteria Hyaline Casts Influenza Type A (PCR) Influenza Type B (PCR) RSV RNA Qual (PCR) SARS-CoV-2 RNA (RT-PCR) Blood Type Antibody Screen Crossmatch Microbiology Microbiology Results: Microbiology 06/01/23 Unknown Urine Culture - Preliminary Urine clean catch - Urine allen top Gram negative bernadette Assessment and Plan (1) Abnormal vaginal bleeding: Status: Acute (2) Anemia: Status: Acute (3) Pulmonary embolism on long-term anticoagulation therapy: Status: Acute Plan 57-year-old female patient with past medical history significant for morbid obesity, chronic hypoxic respiratory failure on 3 L of home oxygen, recently diagnosed saddle pulmonary embolism and left lower extremity DVT on Eliquis, history of obstructive sleep apnea, mood disorder, diabetes mellitus presented to [facility] due to vaginal bleed of recur 2-3 months duration since started on Eliquis, noted to have low hematocrit, as per labs ordered by PCP, patient presented with lightheadedness and weakness and noted to have significant anemia. Symptomatic anemia hematocrit remains low after 1 unit of packed RBC, will transfuse 2 more units noted to have low iron studies seen by OBGYN since patient having no active bleeding they recommend to hold off on any procedures and recommend outpatient follow-up with patient's OBGYN physician in [place] pulmonary consult by Dr. Mares obtained he recommend coumadin will check INR, and Hold Eliquis, Diabetes mellitus on diabetic diet and insulin sliding scale, patient not on home medications, recommend outpatient follow-up with PCP Obstructive sleep apnea not using CPAP, needs a new study Hyperlipidemia resume Lipitor Mood disorder continue home medications Morbid obesity complicated by bilateral lymphedema, [place], diabetes mellitus, obstructive sleep apnea strongly encouraged to lose weight. DVT prophylaxis with compression boots due to vaginal bleed and resume Eliquis if noted to have no recurrent bleed in my clinical judgment patient need continued inpatient stay for treatment of symptomatic anemia due to vaginal bleed requiring blood transfusion and close hematocrit monitoring. Quality Stroke Does the patient have a stroke diagnosis?: No VTE Prior VTE?: No VTE Risk Level:: Medical - moderate - high VTE Device Contraindication: N/A - Device Ordered VTE Drug Contraindication: Treatment Not Indicated
[2023-06-02 16:28] LABS: Glucose, Whole Blood 185 mg/dL (60-115)
[2023-06-02 16:58] LABS: Hematocrit 26.3 % (37.0-47.0); Hemoglobin 7.8 g/dl (12.0-16.0); Mean Corpuscular HGB Conc 29.7 g/dl (31.0-35.0); Mean Corpuscular Hemoglobin 21.5 pg (27.0-33.0); Mean Corpuscular Volume 72.5 fL (80.0-98.0); Mean Platelet Volume 9.9 fL (9.4-12.3); Platelet Count 253 X10*3/uL (160-400); Red Blood Count 3.63 X10*6/uL (4.20-5.50); Red Cell Distribution Width 18.3 % (11.0-16.0); White Blood Count 6.7 X10*3/uL (4.8-10.8)
[2023-06-02 17:02] LABS: Prothrombin Time 12.1 SEC (11.1-13.3)
[2023-06-02] MEDS: Cholecalciferol (Vitamin D3) 25 MCG TABLET 125 MCG PO (19:48)
[2023-06-02] MEDS: Enoxaparin Sodium 40 MG/0.4 ML SYRINGE SUBCUT (19:50)
[2023-06-02] MEDS: Warfarin Sodium 5 MG TABLET PO (19:50)
[2023-06-02] MEDS: Atorvastatin Calcium 40 MG TABLET PO (19:51)
[2023-06-02] MEDS: Montelukast Sodium 10 MG TABLET PO (19:51)
[2023-06-02 20:10] LABS: Glucose, Whole Blood 167 mg/dL (60-115)
[2023-06-03 04:00] VITALS: BP 122/56; PULSE 72; RESP 18; TEMP 37.6; O2SAT 98
[2023-06-03 06:52] VITALS: BP 145/72; PULSE 78; RESP 16; TEMP 36.6; O2SAT 97
[2023-06-03 07:24] LABS: Glucose, Whole Blood 154 mg/dL (60-115)
[2023-06-03] MEDS: medroxyPROGESTERone Acetate 5 MG TABLET 20 MG PO ×2 (08:29→20:34)
[2023-06-03] MEDS: Insulin Lispro 100 UNIT/ML 3 ML VIAL SUBCUT ×4 (08:29→20:35)
[2023-06-03] MEDS: Sertraline HCL 50 MG TABLET 150 MG PO (08:29)
[2023-06-03] MEDS: busPIRone HCl 5 MG TABLET 15 MG PO ×3 (08:30→20:34)
[2023-06-03] MEDS: 0.9 % Sodium Chloride Flush 3 ML SYRINGE IVFLUSH ×2 (08:30→16:59)
[2023-06-03] MEDS: oxyBUTYnin chloride ER 5 MG TAB.ER.24 15 MG PO (08:30)
[2023-06-03 08:59] LABS: Prothrombin Time 11.8 SEC (11.1-13.3)
[2023-06-03 11:07] LABS: Glucose, Whole Blood 189 mg/dL (60-115)
[2023-06-03] MEDS: Iron Sucrose Complex 200 MG in 0.9 % Sodium Chloride 100 ML 440 MG IV (11:37)
[2023-06-03 15:22] VITALS: BP 142/63; PULSE 76; RESP 18; TEMP 36.7; O2SAT 98
--- NOTE | 2023-06-03 15:31 | PC.NURSE ---
Lovenox education completed with patient's daughter. Able to return demonstrate. Information provided to take home.
--- NOTE | 2023-06-03 15:38 | P.PNIM_ITS ---
Subjective Subjective Date of Service: 06/03/23 Interval History: feeling better this morning less tired tolerated 3 units of packed RBC, no shortness of breath, no chest pain noted to have no recurrent vaginal bleed, patient denies urinary symptoms of urgency and frequency but has had prior UTIs in March required treatment with multiple courses of antibiotics complaining of vaginal itch, noted to have dark-colored urine and urine culture positive for E coli less than 100,000 Review of Systems all other system reviewed and negative. Physical Exam 2 Vital Signs: Vital Signs: Last Vital Signs Temp 98.1 F 06/03/23 15:22 Pulse 76 06/03/23 15:22 Resp 18 06/03/23 15:22 BP 142/63 H 06/03/23 15:22 Pulse Ox 98 06/03/23 15:22 O2 Del Method Nasal Cannula 06/03/23 15:22 O2 Flow Rate 2 06/03/23 15:22 BMI result Body Mass Index 69.1 Const: Other: General: no acute distress resting comfortably HEENT: Anicteric sclera Neck: normal to visual inspection, no JVD CVS: S1, S2, RRR Resp: Clear to auscultation, no use of accessory muscles no wheeze GI: soft, non tender, non distended, bowel sounds audible Skin: No rash,pallor Extremities: No pitting edema Neuro: Awake alert x3, no motor deficit, speech clear Psych: Appropriate affect Objective Data Active Medications Acetaminophen (Acetaminophen 325 Mg Tablet) 650 mg PO Q6H PRN PRN Reason: Pain, Mild (Pain Scale 1-3) Al Hydroxide/Mg Hydroxide (Magnesium Hydrox/Alum Hydrox 30 Ml Oral.Susp) 30 ml PO Q4H PRN PRN Reason: Heartburn/Nausea Atorvastatin Calcium (Atorvastatin Calcium 40 Mg Tablet) 40 mg PO BEDTIME [facility] Last Admin: 06/02/23 19:51 Dose: 40 mg Documented By: CHRISTINE Buspirone HCl (Buspirone Hcl 5 Mg Tablet) 15 mg PO TID [facility] Last Admin: 06/03/23 14:05 Dose: 15 mg Documented By: SUHAS Dextrose (Dextrose 50 % 25 Gm/50 Ml Syringe) 25 gm IVPUSH Q15M PRN; Protocol PRN Reason: per Hypoglycemia Standing Ord. Enoxaparin Sodium (Enoxaparin Sodium 40 Mg/0.4 Ml Syringe) 40 mg SUBCUT Q24H [facility] Last Admin: 06/02/23 19:50 Dose: 40 mg Documented By: CHRISTINE Glucose (Glucose Gel 15 Gm Gel..Gram.) 15 gm PO Q15M PRN; Protocol PRN Reason: per Hypoglycemia Standing Ord. Insulin Human Lispro (Insulin Lispro 100 Unit/Ml 3 Ml Vial) 0 unit SUBCUT QIDACHS [facility]; Protocol Last Admin: 06/03/23 11:38 Dose: 2 unit Documented By: SUHAS Loperamide HCl (Loperamide Hcl 2 Mg Capsule) 2 mg PO Q6H PRN PRN Reason: Loose Stool Magnesium Hydroxide (Milk Of Magnesia 30 Ml Oral.Susp) 30 ml PO DAILY PRN PRN Reason: Constipation Medroxyprogesterone Acetate (Medroxyprogesterone Acetate 5 Mg Tablet) 20 mg PO BID [facility] Last Admin: 06/03/23 08:29 Dose: 20 mg Documented By: SUHAS Melatonin (Melatonin 3 Mg Tablet) 6 mg PO BEDTIME PRN PRN Reason: Insomnia Montelukast Sodium (Montelukast Sodium 10 Mg Tablet) 10 mg PO BEDTIME [facility] Last Admin: 06/02/23 19:51 Dose: 10 mg Documented By: CHRISTINE Ondansetron HCl (Ondansetron Hcl 4 Mg/2 Ml Vial) 4 mg IVPUSH Q8H PRN PRN Reason: Nausea and Vomiting Oxybutynin Chloride (Oxybutynin Chloride Er 5 Mg Tab.Er.24) 15 mg PO DAILY [facility] Last Admin: 06/03/23 08:30 Dose: 15 mg Documented By: SUHAS Senna/Docusate Sodium (Sennosides/Docusate Sodium Tablet) 1 tab PO BEDTIME PRN PRN Reason: constipation Sertraline HCl (Sertraline Hcl 50 Mg Tablet) 150 mg PO DAILY [facility] Last Admin: 06/03/23 08:29 Dose: 150 mg Documented By: SUHAS Sodium Chloride (0.9 % Sodium Chloride Flush 3 Ml Syringe) 3 ml IVFLUSH QSHIFT [facility] Last Admin: 06/03/23 08:30 Dose: 3 ml Documented By: SUHAS Sumatriptan Succinate (Sumatriptan Succinate 100 Mg Tablet) 100 mg PO DAILY MRX1 PRN PRN Reason: Migraine Headache Vitamin D (Cholecalciferol (Vitamin D3) 25 Mcg Tablet) 125 mcg PO BEDTIME [facility] Last Admin: 06/02/23 19:48 Dose: 125 mcg Documented By: CRHISTINE Warfarin Sodium (Warfarin Sodium 5 Mg Tablet) 5 mg PO DAILY@1800 [facility] Last Admin: 06/02/23 19:50 Dose: 5 mg Documented By: CHRISTINE Labs 06/02/23 16:35 06/01/23 15:58 Labs: Laboratory Results - last 24 hr 06/01/23 06/02/23 06/02/23 15:57 16:24 16:35 MCV 72.5 L MCH 21.5 L MCHC 29.7 L RDW 18.3 H Plt Count 253 MPV 9.9 Absolute Nucleated RBC 0.000 Nucleated RBC % (auto) 0.0 Hold Purple Top PT 12.1 INR 1.0 POC Glucose 185 H Blood Type B Positive Antibody Screen NEGATIVE Crossmatch See Detail 06/02/23 06/03/23 06/03/23 20:06 06:51 08:03 MCV MCH MCHC RDW Plt Count MPV Absolute Nucleated RBC Nucleated RBC % (auto) Hold Purple Top SEE NOTE PT 11.8 INR 1.0 POC Glucose 167 H 154 H Blood Type Antibody Screen Crossmatch 06/03/23 11:02 MCV MCH MCHC RDW Plt Count MPV Absolute Nucleated RBC Nucleated RBC % (auto) Hold Purple Top PT INR POC Glucose 189 H Blood Type Antibody Screen Crossmatch Microbiology Microbiology Results: Microbiology 06/01/23 Unknown Urine Culture - Final Urine clean catch - Urine allen top Escherichia coli Assessment and Plan (1) Abnormal vaginal bleeding: Status: Acute (2) Anemia: Status: Acute (3) Pulmonary embolism on long-term anticoagulation therapy: Status: Acute Plan 57-year-old female patient with past medical history significant for morbid obesity, chronic hypoxic respiratory failure on 3 L of home oxygen, recently diagnosed saddle pulmonary embolism and left lower extremity DVT on Eliquis, history of obstructive sleep apnea, mood disorder, diabetes mellitus presented to [facility] due to vaginal bleed of recur 2-3 months duration since started on Eliquis, noted to have low hematocrit, as per labs ordered by PCP, patient presented with lightheadedness and weakness and noted to have significant anemia. Symptomatic anemia due to vaginal bleed hematocrit improved after 3 units of packed RBC no recurrent vaginal bleed noted seen by OBGYN since patient having no active bleeding they recommend to hold off on any procedures and recommend outpatient follow-up with patient's OBGYN physician in [place] started on Coumadin 5 mg as per Pulmonary recommendation follow PT INR, subQ Lovenox iron deficiency anemia due to bleed will give IV iron infusion Diabetes mellitus on diabetic diet and insulin sliding scale, patient not on home medications, recommend outpatient follow-up with PCP UTI will place on IV ceftriaxone. Obstructive sleep apnea not using CPAP, needs a new study Hyperlipidemia resume Lipitor Mood disorder continue home medications Morbid obesity complicated by bilateral lymphedema, [place], diabetes mellitus, obstructive sleep apnea strongly encouraged to lose weight. DVT prophylaxis with Coumadin in my clinical judgment patient need continued inpatient stay for treatment of symptomatic anemia due to vaginal bleed requiring blood transfusion and close hematocrit monitoring. Quality Stroke Does the patient have a stroke diagnosis?: No VTE Prior VTE?: No VTE Risk Level:: Medical - moderate - high VTE Device Contraindication: N/A - Device Ordered VTE Drug Contraindication: Treatment Not Indicated
[2023-06-03 16:05] LABS: Glucose, Whole Blood 163 mg/dL (60-115)
[2023-06-03] MEDS: cefTRIAXone sodium 1 GM in 0.9 % Sodium Chloride 50 ML IV (16:59)
[2023-06-03] MEDS: Warfarin Sodium 5 MG TABLET PO (17:56)
[2023-06-03 19:32] VITALS: BP 158/75; PULSE 74; RESP 16; TEMP 36.6; O2SAT 97
[2023-06-03 20:12] LABS: Glucose, Whole Blood 156 mg/dL (60-115)
[2023-06-03] MEDS: Enoxaparin Sodium 40 MG/0.4 ML SYRINGE SUBCUT (20:33)
[2023-06-03] MEDS: Atorvastatin Calcium 40 MG TABLET PO (20:34)
[2023-06-03] MEDS: Montelukast Sodium 10 MG TABLET PO (20:35)
[2023-06-03] MEDS: Cholecalciferol (Vitamin D3) 25 MCG TABLET 125 MCG PO (20:35)
[2023-06-04] MEDS: 0.9 % Sodium Chloride Flush 3 ML SYRINGE IVFLUSH ×3 (00:22→16:56)
[2023-06-04] MEDS: SUMAtriptan succinate 100 MG TABLET PO (00:49)
[2023-06-04 03:36] VITALS: BP 157/72; PULSE 74; RESP 14; TEMP 36.6; O2SAT 97
--- NOTE | 2023-06-04 05:41 | PC.NURSE ---
Patient with external urinary catheter with dark urine. ? blood ?vaginal bleeding. Looks brown when emptied into commode, no jennifer red blood.
[2023-06-04 07:08] LABS: Hematocrit 30.1 % (37.0-47.0); Hemoglobin 8.6 g/dl (12.0-16.0); Mean Corpuscular HGB Conc 28.6 g/dl (31.0-35.0); Mean Corpuscular Hemoglobin 21.5 pg (27.0-33.0); Mean Corpuscular Volume 75.3 fL (80.0-98.0); Mean Platelet Volume 9.8 fL (9.4-12.3); NRBC Pct Auto 0.4 /100WBC (0.0-0.2); Platelet Count 232 X10*3/uL (160-400); Red Cell Distribution Width 19.4 % (11.0-16.0)
[2023-06-04 07:11] VITALS: BP 138/65; PULSE 75; RESP 18; TEMP 36.1; O2SAT 98
[2023-06-04 07:15] LABS: Prothrombin Time 12.3 SEC (11.1-13.3)
[2023-06-04 07:21] LABS: Glucose, Whole Blood 154 mg/dL (60-115)
[2023-06-04] MEDS: Insulin Lispro 100 UNIT/ML 3 ML VIAL SUBCUT ×3 (07:45→20:56)
[2023-06-04] MEDS: busPIRone HCl 5 MG TABLET 15 MG PO ×3 (07:45→20:57)
[2023-06-04] MEDS: Sertraline HCL 50 MG TABLET 150 MG PO (07:45)
[2023-06-04] MEDS: oxyBUTYnin chloride ER 5 MG TAB.ER.24 15 MG PO (07:45)
[2023-06-04] MEDS: medroxyPROGESTERone Acetate 5 MG TABLET 20 MG PO ×2 (07:45→20:57)
[2023-06-04 10:58] LABS: PTT Heparin Drip 28.7 SEC (53-77.9)
[2023-06-04 11:24] VITALS: BMI 68.3
[2023-06-04 11:38] LABS: Glucose, Whole Blood 151 mg/dL (60-115)
[2023-06-04] MEDS: Heparin Sodium,Porcine/1/2NS 25,000 UNIT/250 ML IV.SOLN 10 UNIT IVCONT (12:19)
--- NOTE | 2023-06-04 15:07 | HO.PM.IMPN ---
Subjective Subjective Date of Service: 06/04/23 Interval History: being followed for vaginal bleed and anemia patient noted to have bloody urine, not aware of passing clots or having vaginal bleed,, puree catheter was removed and patient was noted to have vaginal bleeding and passing blood clot, patient denies urinary frequency or urgency, no fevers no chills denies lightheadedness dizziness no chest pain no palpitations, tolerating diet with no nausea, no vomiting. Review of Systems all other system reviewed and negative Physical Exam Vital Signs: Vital Signs: Last Vital Signs Temp 97.0 F 06/04/23 07:11 Pulse 75 06/04/23 07:11 Resp 18 06/04/23 07:11 BP 138/65 06/04/23 07:11 Pulse Ox 98 06/04/23 07:11 O2 Del Method Nasal Cannula 06/04/23 07:11 O2 Flow Rate 2 06/04/23 07:11 BMI result Body Mass Index 68.3 Const: Other: General: no acute distress resting comfortably HEENT: Anicteric sclera Neck: normal to visual inspection, no JVD CVS: S1, S2, RRR Resp: Clear to auscultation, no use of accessory muscles no wheeze GI: soft, non tender, non distended, bowel sounds audible Skin: No rash, Extremities: No pitting edema Neuro: Awake alert x3, no motor deficit, speech clear Psych: Appropriate affect Objective Data Active Medications Acetaminophen (Acetaminophen 325 Mg Tablet) 650 mg PO Q6H PRN PRN Reason: Pain, Mild (Pain Scale 1-3) Al Hydroxide/Mg Hydroxide (Magnesium Hydrox/Alum Hydrox 30 Ml Oral.Susp) 30 ml PO Q4H PRN PRN Reason: Heartburn/Nausea Atorvastatin Calcium (Atorvastatin Calcium 40 Mg Tablet) 40 mg PO BEDTIME [facility] Last Admin: 06/03/23 20:34 Dose: 40 mg Documented By: ALAINA Buspirone HCl (Buspirone Hcl 5 Mg Tablet) 15 mg PO TID [facility] Last Admin: 06/04/23 14:10 Dose: 15 mg Documented By: SUHAS Dextrose (Dextrose 50 % 25 Gm/50 Ml Syringe) 25 gm IVPUSH Q15M PRN; Protocol PRN Reason: per Hypoglycemia Standing Ord. Glucose (Glucose Gel 15 Gm Gel..Gram.) 15 gm PO Q15M PRN; Protocol PRN Reason: per Hypoglycemia Standing Ord. Heparin Sodium (Porcine) (Heparin Sodium,Porcine 5,000 Unit/Ml Vial) 6,800 unit 40 unit/kg (6800 unit) IVPUSH PROTOCOL BOLUS PRN; Protocol PRN Reason: 40 unit/kg - Heparin Protocol Heparin Sodium (Porcine) (Heparin Sodium,Porcine 5,000 Unit/Ml Vial) 10,000 unit IVPUSH PROTOCOL BOLUS PRN; Protocol PRN Reason: 80 unit/kg - Heparin Protocol Ceftriaxone Sodium 1 gm/ (Sodium Chloride) 50 mls @ 100 mls/hr IV Q24H [facility] Last Infusion: 06/03/23 17:58 Dose: Infused Documented By: ALAINA Heparin Sodium/Sodium Chloride (Heparin Sodium,Porcine/1/2ns) 25,000 unit in 250 mls @ 0 mls/hr IVCONT .Q0M [facility]; Protocol Last Admin: 06/04/23 12:19 Dose: 5.91 units/kg/hr, 10 mls/hr Documented By: SUHAS Co-signed By: CORINA Insulin Human Lispro (Insulin Lispro 100 Unit/Ml 3 Ml Vial) 0 unit SUBCUT QIDACHS [facility]; Protocol Last Admin: 06/04/23 12:10 Dose: 2 unit Documented By: SUHAS Loperamide HCl (Loperamide Hcl 2 Mg Capsule) 2 mg PO Q6H PRN PRN Reason: Loose Stool Magnesium Hydroxide (Milk Of Magnesia 30 Ml Oral.Susp) 30 ml PO DAILY PRN PRN Reason: Constipation Medroxyprogesterone Acetate (Medroxyprogesterone Acetate 5 Mg Tablet) 20 mg PO BID [facility] Last Admin: 06/04/23 07:45 Dose: 20 mg Documented By: SUHAS Melatonin (Melatonin 3 Mg Tablet) 6 mg PO BEDTIME PRN PRN Reason: Insomnia Montelukast Sodium (Montelukast Sodium 10 Mg Tablet) 10 mg PO BEDTIME [facility] Last Admin: 06/03/23 20:35 Dose: 10 mg Documented By: ALAINA Ondansetron HCl (Ondansetron Hcl 4 Mg/2 Ml Vial) 4 mg IVPUSH Q8H PRN PRN Reason: Nausea and Vomiting Oxybutynin Chloride (Oxybutynin Chloride Er 5 Mg Tab.Er.24) 15 mg PO DAILY [facility] Last Admin: 06/04/23 07:45 Dose: 15 mg Documented By: SUHAS Senna/Docusate Sodium (Sennosides/Docusate Sodium Tablet) 1 tab PO BEDTIME PRN PRN Reason: constipation Sertraline HCl (Sertraline Hcl 50 Mg Tablet) 150 mg PO DAILY [facility] Last Admin: 06/04/23 07:45 Dose: 150 mg Documented By: SUHAS Sodium Chloride (0.9 % Sodium Chloride Flush 3 Ml Syringe) 3 ml IVFLUSH QSHIFT [facility] Last Admin: 06/04/23 07:46 Dose: 3 ml Documented By: SUHAS Sumatriptan Succinate (Sumatriptan Succinate 100 Mg Tablet) 100 mg PO DAILY MRX1 PRN PRN Reason: Migraine Headache Last Admin: 06/04/23 00:49 Dose: 100 mg Documented By: AJ Vitamin D (Cholecalciferol (Vitamin D3) 25 Mcg Tablet) 125 mcg PO BEDTIME [facility] Last Admin: 06/03/23 20:35 Dose: 125 mcg Documented By: RHONDAIT Labs 06/04/23 06:58 06/01/23 15:58 Labs: Laboratory Results - last 24 hr 06/03/23 06/03/23 06/04/23 16:01 20:07 06:58 MCV 75.3 L MCH 21.5 L MCHC 28.6 L RDW 19.4 H Plt Count 232 MPV 9.8 Absolute Nucleated RBC 0.030 H Nucleated RBC % (auto) 0.4 H PT 12.3 INR 1.0 aPTT Heparin Protocol POC Glucose 163 H 156 H 06/04/23 06/04/23 06/04/23 07:18 10:36 11:34 MCV MCH MCHC RDW Plt Count MPV Absolute Nucleated RBC Nucleated RBC % (auto) PT INR aPTT Heparin Protocol 28.7 L POC Glucose 154 H 151 H Assessment and Plan (1) Abnormal vaginal bleeding: Status: Acute (2) Anemia: Status: Acute (3) Pulmonary embolism on long-term anticoagulation therapy: Status: Acute Plan 57-year-old female patient with past medical history significant for morbid obesity, chronic hypoxic respiratory failure on 3 L of home oxygen, recently diagnosed saddle pulmonary embolism and left lower extremity DVT on Eliquis, history of obstructive sleep apnea, mood disorder, diabetes mellitus presented to [facility] due to vaginal bleed of recur 2-3 months duration since started on Eliquis, noted to have low hematocrit, as per labs ordered by PCP, patient presented with lightheadedness and weakness and noted to have significant anemia. Symptomatic anemia due to vaginal bleed hematocrit improved after 3 units of packed RBC and IV iron infusion x1 noted to have vaginal bleed and passed clot this morning seen by Dr Matthew since patient was not having active bleeding they recommend to hold off on any procedures and recommend outpatient follow-up with patient's OBGYN physician in [place] Dr. conley, form grader operator oncologist at [facility], who according to the patient did in office endometrial biopsy and was negative for endometrial hyperplasia and malignancy per patient, and was started on 20 mg Provera b.i.d. in addition a pelvic Ultrasound according to the patient showed a thick endometrial thickness , the patient is scheduled for a follow-up in the outpatient office for possible preop hysteroscopy D&C polypectomy. patient might be a candidate for hysterectomy will re-consult Dr. Matthew at a.m. patient was started on Coumadin as per Pulmonary recommendation / INR remained 1, Eliquis was discontinued but due to recurrent vaginal bleeding/ passing clot will DC Coumadin start patient on IV heparin drip consult Dr. Light for IVC filter placement iron deficiency anemia due to vaginal bleed s/p IV iron infusion x1 placed on po iron. Diabetes mellitus on diabetic diet and insulin sliding scale, patient not on home medications, recommend outpatient follow-up with PCP UTI on IV ceftriaxone is started on 06 03. Obstructive sleep apnea not using CPAP, needs a new study Hyperlipidemia on Lipitor Mood disorder continue home medications Morbid obesity complicated by bilateral lymphedema, [place], diabetes mellitus, obstructive sleep apnea strongly encouraged to lose weight. DVT prophylaxis with IV heparin in my clinical judgment patient need continued inpatient stay for treatment of vaginal bleed , UTI and expert consultation a culture. Quality Stroke Does the patient have a stroke diagnosis?: No VTE Prior VTE?: No VTE Risk Level:: Medical - moderate - high VTE Device Contraindication: N/A - Device Ordered VTE Drug Contraindication: Treatment Not Indicated
[2023-06-04 15:34] VITALS: BP 143/70; PULSE 73; RESP 16; TEMP 36.9; O2SAT 97
[2023-06-04 16:08] LABS: Glucose, Whole Blood 144 mg/dL (60-115)
[2023-06-04] MEDS: Acetaminophen 325 MG TABLET 650 MG PO (16:56)
[2023-06-04] MEDS: Ferrous Sulfate 324 MG TABLET.DR PO (16:56)
[2023-06-04] MEDS: cefTRIAXone sodium 1 GM in 0.9 % Sodium Chloride 50 ML IV (16:57)
[2023-06-04 18:47] LABS: PTT Heparin Drip 28.4 SEC (53-77.9)
[2023-06-04] MEDS: Heparin Sodium,Porcine 5,000 UNIT/ML VIAL 10000 UNIT IVPUSH (19:42)
--- NOTE | 2023-06-04 19:48 | PC.NURSE ---
AT 89 WITNESSED HEPARIN DRIP INCREASED TO 9.907 UNITS/KG/HR = 16.77 ML /HR
[2023-06-04 19:59] LABS: Glucose, Whole Blood 163 mg/dL (60-115)
[2023-06-04] MEDS: Atorvastatin Calcium 40 MG TABLET PO (20:56)
[2023-06-04] MEDS: Montelukast Sodium 10 MG TABLET PO (20:57)
[2023-06-04] MEDS: Cholecalciferol (Vitamin D3) 25 MCG TABLET 125 MCG PO (20:57)
[2023-06-04] MEDS: Melatonin 3 MG TABLET 6 MG PO (23:38)
--- NOTE | 2023-06-05 02:57 | PC.NURSE ---
waiting for PTT-HD results
[2023-06-05 03:14] LABS: PTT Heparin Drip 47.5 SEC (53-77.9)
[2023-06-05] MEDS: Heparin Sodium,Porcine 5,000 UNIT/ML VIAL 6800 UNIT IVPUSH (03:53)
[2023-06-05] MEDS: Heparin Sodium,Porcine/1/2NS 25,000 UNIT/250 ML IV.SOLN 20.16 UNIT IVCONT ×2 (04:01→18:25)
[2023-06-05 06:56] LABS: Hematocrit 30.2 % (37.0-47.0); Hemoglobin 8.7 g/dl (12.0-16.0); Mean Corpuscular HGB Conc 28.8 g/dl (31.0-35.0); Mean Corpuscular Hemoglobin 22.1 pg (27.0-33.0); Mean Corpuscular Volume 76.6 fL (80.0-98.0); Platelet Count 252 X10*3/uL (160-400); Red Blood Count 3.94 X10*6/uL (4.20-5.50); Red Cell Distribution Width 20.5 % (11.0-16.0); White Blood Count 8.6 X10*3/uL (4.8-10.8)
[2023-06-05 07:06] LABS: INTERNATIONAL NORM RATIO 1.1 (0.9-1.1); Prothrombin Time 13.1 SEC (11.1-13.3)
[2023-06-05 07:08] LABS: Glucose, Whole Blood 142 mg/dL (60-115)
[2023-06-05] MEDS: medroxyPROGESTERone Acetate 5 MG TABLET 20 MG PO ×2 (08:35→21:09)
[2023-06-05 08:36] VITALS: BP 132/94; PULSE 83; RESP 12; TEMP 36.4; O2SAT 97
[2023-06-05] MEDS: Ferrous Sulfate 324 MG TABLET.DR PO ×2 (08:36→16:46)
[2023-06-05] MEDS: oxyBUTYnin chloride ER 5 MG TAB.ER.24 15 MG PO (08:36)
[2023-06-05] MEDS: Sertraline HCL 50 MG TABLET 150 MG PO (08:36)
[2023-06-05] MEDS: 0.9 % Sodium Chloride Flush 3 ML SYRINGE IVFLUSH ×2 (08:36→16:46)
[2023-06-05] MEDS: busPIRone HCl 5 MG TABLET 15 MG PO ×3 (08:36→21:09)
--- NOTE | 2023-06-05 08:49 | P.CONGS_ITS ---
History of Present Illness Consult details Consult date: 06/05/23 Reason for consult: other (DVT) Narrative: very pleasant 57-year-old female actually well known to me for prior treatment with lymphedema. She actually presented to [facility] with acute onset DVT. She was treated with anticoagulation and was discovered to have abnormal vaginal bleeding. She was readmitted to [facility] and it subsequently subsided. This recurred and she now presents to [facility]. Her presenting hemoglobin was down to 6.3. Review of Systems 2 Review of Systems: Yes all other systems are reviewed and are negative Constitutional: Constitutional: Reports no additional constitutional complaints ENT: Reports Normal hearing present Cardiovascular: Cardiovascular: Denies chest pain, Denies chest pain at rest, Denies chest pain with activity and Denies pedal edema Respiratory: Respiratory: Denies cough Gastrointestinal: Gastrointestinal: Denies abdominal pain Musculoskeletal: Musculoskeletal: Denies abnormal gait, Denies muscle cramps and Denies radiating pain into limb Integumentary/Breasts: Skin/Breast: Denies skin ulcer and Denies wounds Neurologic: Reports Normal hearing present and Denies abnormal gait Psychiatric: Psychiatric: Reports no additional psychiatric complaints [facility] Past Medical History Medical History Pulmonary embolism on long-term anticoagulation therapy History of DVT (deep vein thrombosis) Saddle embolism of pulmonary artery Anemia Mixed stress and urge urinary incontinence Varicose veins of leg with swelling Postmenopausal bleeding Colon cancer screening Hyperparathyroidism DAVIS (nonalcoholic steatohepatitis) Impaired fasting glucose Depression with anxiety Migraine Chronic venous insufficiency Mixed dyslipidemia Essential hypertension Peripheral vascular disease Morbid obesity Family History Family History Father Diabetes mellitus Mother HTN (hypertension) Maternal Grandmother Scleroderma Maternal Grandfather Lung cancer Maternal Aunt Lung cancer Mental health disorder Maternal Uncle Colon cancer Substance use disorder Brother No problems noted. Son No problems noted. Son No problems noted. Daughter Mental health disorder Surgical History Surgical History History of removal of cyst History of umbilical hernia repair Hx of cholecystectomy History of trigger finger History of carpal tunnel release of both wrists History of section Social History Social History Household Members: Family Housing: House Do you presently have visiting nurse or other home services: Yes Alcohol intake: never Patient Tobacco Use Status: Never used Tobacco e-Cigarette/Vaping Use: Never Used Advance Directives Date on File: 11/11/21 service: No Current occupational status: disabled Cognitive needs: No Hearing needs: No Vision needs: Yes Meds Allergies Allergy/AdvReac Type Severity Reaction Status Date / Time cat dander [CAT] Allergy Unknown UNKNOWN Verified 06/01/23 15:06 mold [MOLD] Allergy Unknown UNKNOWN Verified 06/01/23 15:06 amoxicillin [From Augmentin] AdvReac Abdominal Verified 06/01/23 15:06 Pain ENVIRONMENTAL Allergy Unknown RUNNY Uncoded 06/01/23 15:06 NOSE,ITCHY EYES Active Medications: Current Medications Acetaminophen (Acetaminophen 325 Mg Tablet) 650 mg PO Q6H PRN PRN Reason: Pain, Mild (Pain Scale 1-3) Last Admin: 06/04/23 16:56 Dose: 650 mg Al Hydroxide/Mg Hydroxide (Magnesium Hydrox/Alum Hydrox 30 Ml Oral.Susp) 30 ml PO Q4H PRN PRN Reason: Heartburn/Nausea Atorvastatin Calcium (Atorvastatin Calcium 40 Mg Tablet) 40 mg PO BEDTIME [facility] Last Admin: 06/04/23 20:56 Dose: 40 mg Buspirone HCl (Buspirone Hcl 5 Mg Tablet) 15 mg PO TID [facility] Last Admin: 06/05/23 08:36 Dose: 15 mg Dextrose (Dextrose 50 % 25 Gm/50 Ml Syringe) 25 gm IVPUSH Q15M PRN; Protocol PRN Reason: per Hypoglycemia Standing Ord. Ferrous Sulfate (Ferrous Sulfate 324 Mg Tablet.Dr) 324 mg PO BIDWM [facility] Last Admin: 06/05/23 08:36 Dose: 324 mg Glucose (Glucose Gel 15 Gm Gel..Gram.) 15 gm PO Q15M PRN; Protocol PRN Reason: per Hypoglycemia Standing Ord. Heparin Sodium (Porcine) (Heparin Sodium,Porcine 5,000 Unit/Ml Vial) 6,800 unit 40 unit/kg (6800 unit) IVPUSH PROTOCOL BOLUS PRN; Protocol PRN Reason: 40 unit/kg - Heparin Protocol Last Admin: 06/05/23 03:53 Dose: 6,800 unit Heparin Sodium (Porcine) (Heparin Sodium,Porcine 5,000 Unit/Ml Vial) 10,000 unit IVPUSH PROTOCOL BOLUS PRN; Protocol PRN Reason: 80 unit/kg - Heparin Protocol Last Admin: 06/04/23 19:42 Dose: 10,000 unit Ceftriaxone Sodium 1 gm/ (Sodium Chloride) 50 mls @ 100 mls/hr IV Q24H [facility] Last Infusion: 06/04/23 17:32 Dose: Infused Heparin Sodium/Sodium Chloride (Heparin Sodium,Porcine/1/2ns) 25,000 unit in 250 mls @ 0 mls/hr IVCONT .Q0M [facility]; Protocol Last Admin: 06/05/23 04:01 Dose: 11.907 units/kg/hr, 20.16 mls/hr Insulin Human Lispro (Insulin Lispro 100 Unit/Ml 3 Ml Vial) 0 unit SUBCUT QIDACHS [facility]; Protocol Last Admin: 06/05/23 07:53 Dose: Not Given Loperamide HCl (Loperamide Hcl 2 Mg Capsule) 2 mg PO Q6H PRN PRN Reason: Loose Stool Magnesium Hydroxide (Milk Of Magnesia 30 Ml Oral.Susp) 30 ml PO DAILY PRN PRN Reason: Constipation Medroxyprogesterone Acetate (Medroxyprogesterone Acetate 5 Mg Tablet) 20 mg PO BID [facility] Last Admin: 06/05/23 08:35 Dose: 20 mg Melatonin (Melatonin 3 Mg Tablet) 6 mg PO BEDTIME PRN PRN Reason: Insomnia Last Admin: 06/04/23 23:38 Dose: 6 mg Montelukast Sodium (Montelukast Sodium 10 Mg Tablet) 10 mg PO BEDTIME [facility] Last Admin: 06/04/23 20:57 Dose: 10 mg Ondansetron HCl (Ondansetron Hcl 4 Mg/2 Ml Vial) 4 mg IVPUSH Q8H PRN PRN Reason: Nausea and Vomiting Oxybutynin Chloride (Oxybutynin Chloride Er 5 Mg Tab.Er.24) 15 mg PO DAILY [facility] Last Admin: 06/05/23 08:36 Dose: 15 mg Senna/Docusate Sodium (Sennosides/Docusate Sodium Tablet) 1 tab PO BEDTIME PRN PRN Reason: constipation Sertraline HCl (Sertraline Hcl 50 Mg Tablet) 150 mg PO DAILY [facility] Last Admin: 06/05/23 08:36 Dose: 150 mg Sodium Chloride (0.9 % Sodium Chloride Flush 3 Ml Syringe) 3 ml IVFLUSH QSHIFT [facility] Last Admin: 06/05/23 08:36 Dose: 3 ml Sumatriptan Succinate (Sumatriptan Succinate 100 Mg Tablet) 100 mg PO DAILY MRX1 PRN PRN Reason: Migraine Headache Last Admin: 06/04/23 00:49 Dose: 100 mg Vitamin D (Cholecalciferol (Vitamin D3) 25 Mcg Tablet) 125 mcg PO BEDTIME [facility] Last Admin: 06/04/23 20:57 Dose: 125 mcg Home Medications Medication Instructions Recorded Confirmed Last Taken Type buspirone 15 mg tablet 15 mg PO TID 07/07/20 06/01/23 06/01/23 History ondansetron HCl 4 mg tablet 4 mg PO Q8H PRN Nausea 07/07/20 06/01/23 Unknown History sertraline 100 mg tablet 150 mg PO DAILY 07/07/20 06/01/23 06/01/23 History sumatriptan succinate 100 mg tablet 100 mg PO DAILY MRX1 PRN Migraine 07/07/20 06/01/23 06/01/23 History Headache medroxyprogesterone 10 mg tablet 20 mg PO BID 04/17/23 06/01/23 06/01/23 History loperamide 2 mg capsule 2 mg PO Q6H PRN Loose Stool 06/01/23 06/01/23 06/01/23 History Physical Exam 2 Vital Signs: Vital Signs: Last Vital Signs Temp 97.5 F 06/05/23 08:36 Pulse 83 06/05/23 08:36 Resp 12 06/05/23 08:36 BP 132/94 H 06/05/23 08:36 Pulse Ox 97 06/05/23 08:36 O2 Del Method Room Air 06/05/23 08:36 O2 Flow Rate 2 06/04/23 15:34 BMI result Body Mass Index 68.3 Const: General: cooperative, healthy appearing and comfortable O rientation/consciousness: oriented to person, oriented to place and oriented to time HEENT: Head: Yes normal to inspection Neck: Neck: Yes normal visual inspection Carotids: no bruits Chest: Chest palpation & inspection: normal inspection of the chest Resp: Effort & Inspection: normal respiratory effort and able to speak in complete sentences Auscultation: clear to auscultation bilaterally, no crackles, no rales, no rhonchi and no wheezes Cardio: Rate: regular rate Rhythm: regular rhythm Heart sounds: S1 normal heart sound present and S2 normal heart sound present Bruits: no carotid bruits Peripheral pulses: Peripheral pulses 2+ throughout GI: Inspection: Yes normal to inspection Skin: Wounds: no wounds Hair: normal Neuro: General: oriented to person, oriented to place and oriented to time Cranial nerves: Yes CN's II-XII intact bilaterally and Yes Normal hearing present Cognition (Neuro): normal cognition Motor exam (neuro): 5/5 motor strength present throughout Extrem: Other: venous exam: No significant superficial varicosities or spider telangiectasias, minimal edema General: No clubbing, No cyanosis and No edema Psych: Appearance: grossly normal Mental Status: mental status grossly normal Speech and movement: Normal speech and movement present Results Labs 06/05/23 06:18 06/01/23 15:58 Labs: Abnormal lab results 06/04/23 06/04/23 06/04/23 Range/Units 10:36 11:34 16:04 RBC (4.20-5.50) X10*6/uL Hgb (12.0-16.0) g/dl Hct (37.0-47.0) % MCV (80.0-98.0) fL MCH (27.0-33.0) pg MCHC (31.0-35.0) g/dl RDW (11.0-16.0) % aPTT Heparin Protocol 28.7 L (53-77.9) SEC POC Glucose 151 H 144 H (60-115) mg/dL 06/04/23 06/04/23 06/05/23 Range/Units 18:27 19:48 01:50 RBC (4.20-5.50) X10*6/uL Hgb (12.0-16.0) g/dl Hct (37.0-47.0) % MCV (80.0-98.0) fL MCH (27.0-33.0) pg MCHC (31.0-35.0) g/dl RDW (11.0-16.0) % aPTT Heparin Protocol 28.4 L 47.5 L D (53-77.9) SEC POC Glucose 163 H (60-115) mg/dL 06/05/23 06/05/23 Range/Units 06:18 07:04 RBC 3.94 L (4.20-5.50) X10*6/uL Hgb 8.7 L (12.0-16.0) g/dl Hct 30.2 L (37.0-47.0) % MCV 76.6 L (80.0-98.0) fL MCH 22.1 L (27.0-33.0) pg MCHC 28.8 L (31.0-35.0) g/dl RDW 20.5 H (11.0-16.0) % aPTT Heparin Protocol (53-77.9) SEC POC Glucose 142 H (60-115) mg/dL Short CBC 06/05/23 Range/Units 06:18 WBC 8.6 (4.8-10.8) X10*3/uL Hgb 8.7 L (12.0-16.0) g/dl Hct 30.2 L (37.0-47.0) % Plt Count 252 (160-400) X10*3/uL Urine 06/01/23 Range/Units 16:58 Urine Color Yellow Urine Appearance Cloudy Urine pH 5.5 (5.0-9.0) Ur Specific [place] 1.025 (1.005-1.025) Urine Protein 30 (1+) H (Neg-Trace) mg/dL Urine Glucose (UA) 500 H (Negative) mg/dL All other labs normal. Imaging Additional studies: Ultrasound at [facility] left lower extremity DVT 03/13/2023 CTA did demonstrated pulmonary embolism Assessment and Plan (1) History of DVT (deep vein thrombosis): Status: Acute Plan in short patient has DVT with PE with failure to anticoagulate. Concern is the recurrent bleeding in the low hemoglobin. We will plan for inferior vena cava filter placement. Risks benefits complications were discussed in detail with the patient. She understood and consented. Will plan for placement later this afternoon. Procedures Date of Service Date of Service: 06/05/23
[2023-06-05 10:25] LABS: PTT Heparin Drip 60.6 SEC (53-77.9)
[2023-06-05 11:55] LABS: Glucose, Whole Blood 128 mg/dL (60-115)
[2023-06-05 12:31] VITALS: BMI 68.3
[2023-06-05 12:34] VITALS: BP 144/58; PULSE 85; RESP 18; TEMP 37.2; O2SAT 96
--- NOTE | 2023-06-05 14:25 | W.PM.OPN ---
Operative Note Operative Note Date of Service: 06/05/23 Narrative: Angiogram report from [facility] Preoperative diagnosis: Deep venous thrombosis Postoperative diagnosis: Same Procedure: 1. Ultrasound-guided right common femoral vein access 2. Inferior vena cavogram 3. Placement of inferior vena cava filter Surgeon:Jose Light M.D., FACS, RPVI Ground Control Approach Technician:None Anesthesia: Local only Specimens:none Drains:none Estimated blood loss: Less than 10 ml Implant: Bard Navya retrievable vena cava filter Indications: 57-year-old female with a prior history of pulmonary embolism and DVT was on anticoagulation. She had significant vaginal bleeding. She is worked up by [facility]. She is recommended for filter placement The patient has signed the informed consent after reviewing risks, complications, benefits, and alternatives previously discussed with the patient. The patient was given the opportunity to ask any additional questions or voice any concerns. All questions were answered to the patient's satisfaction. Procedure in detail: Patient was brought to the angiography suite prior to which a time-out was called for patient identification and site verification. Bilateral groins were prepped and draped in the standard surgical fashion. Under ultrasound guidance right common femoral vein was punctured with micro puncture needle and wire. Subsequently a precision 5 [place] sheath was then placed. Happifyson wire was advanced to the level of the vena cava. Vena cavogram was then undertaken through the 5 [place] sheath. This was a baseline study to define the variant anatomy, caval size, location and number of renal veins, and to evaluate for ileo caval thrombus. Under direct fluoroscopic guidance we exchanged out the 5 [place] sheath for the Bard in [place] sheath. We brought the filter into position. This was then subsequently deployed. The inner cannula was then removed. Through the sheath a hand injection was performed to assess filter position. Once this was accomplished the sheath was then removed, and hemostasis was achieved with 10 minutes of direct compression. No immediate complications occurred and the patient was returned to the recovery suite with no complications Interpretation of films: 1. Ultrasound demonstrates appropriate femoral vein puncture. Image of which was saved. 2. There was no ileal caval thrombus noted 3. There are single renal veins bilaterally and the IVC is normal in caliber. There is no aberrant anatomy. 4. The filter was deployed appropriately and position below the lowest renal vein. Conclusion: 1. Successful placement of Bard Navya IVC filter 2. Anticoagulation status: Resume regular anticoagulation as indicated 4 hours post filter placement This note is constructed using voice recognition software. While every effort has been made to ensure accuracy, enamel applier errors may have been included. Thank you for allowing me to participate in the care of your patient. Yours sincerely, Jose Light MD, FACS, R.P.V.I.
--- NOTE | 2023-06-05 14:46 | HO.PM.IMPN ---
Subjective Subjective Date of Service: 06/05/23 Interval History: No acute issues overnight. Breathing remained stable along with O2 requirement. Still passing vaginal clots Review of Systems Denies chest pain Denies shortness of breath Denies nausea vomiting diarrhea Denies fever chills Physical Exam Vital Signs: Vital Signs: Last Vital Signs Temp 98.9 F 06/05/23 12:34 Pulse 85 06/05/23 12:34 Resp 18 06/05/23 12:34 BP 144/58 H 06/05/23 12:34 Pulse Ox 96 06/05/23 12:34 O2 Del Method Nasal Cannula 06/05/23 12:34 O2 Flow Rate 2 06/05/23 12:34 BMI result Body Mass Index 68.3 Const: Other: Awake alert no acute distress Resp: Other: Clear to auscultation bilaterally no rales rhonchi or wheezes Cardio: Other: No S4; positive S1-S2; no S3 murmurs rubs gallops GI: Other: Soft nontender nondistended normoactive bowel sounds Extrem: Other: No edema bilaterally Objective Data Active Medications Acetaminophen (Acetaminophen 325 Mg Tablet) 650 mg PO Q6H PRN PRN Reason: Pain, Mild (Pain Scale 1-3) Last Admin: 06/04/23 16:56 Dose: 650 mg Documented By: ALAINA Al Hydroxide/Mg Hydroxide (Magnesium Hydrox/Alum Hydrox 30 Ml Oral.Susp) 30 ml PO Q4H PRN PRN Reason: Heartburn/Nausea Atorvastatin Calcium (Atorvastatin Calcium 40 Mg Tablet) 40 mg PO BEDTIME [facility] Last Admin: 06/04/23 20:56 Dose: 40 mg Documented By: ALAINA Buspirone HCl (Buspirone Hcl 5 Mg Tablet) 15 mg PO TID [facility] Last Admin: 06/05/23 08:36 Dose: 15 mg Documented By: COLT Dextrose (Dextrose 50 % 25 Gm/50 Ml Syringe) 25 gm IVPUSH Q15M PRN; Protocol PRN Reason: per Hypoglycemia Standing Ord. Ferrous Sulfate (Ferrous Sulfate 324 Mg Tablet.) 324 mg PO BIDWM [facility] Last Admin: 06/05/23 08:36 Dose: 324 mg Documented By: COLT Glucose (Glucose Gel 15 Gm Gel..Gram.) 15 gm PO Q15M PRN; Protocol PRN Reason: per Hypoglycemia Standing Ord. Heparin Sodium (Porcine) (Heparin Sodium,Porcine 5,000 Unit/Ml Vial) 6,800 unit 40 unit/kg (6800 unit) IVPUSH PROTOCOL BOLUS PRN; Protocol PRN Reason: 40 unit/kg - Heparin Protocol Last Admin: 06/05/23 03:53 Dose: 6,800 unit Documented By: AJ Heparin Sodium (Porcine) (Heparin Sodium,Porcine 5,000 Unit/Ml Vial) 10,000 unit IVPUSH PROTOCOL BOLUS PRN; Protocol PRN Reason: 80 unit/kg - Heparin Protocol Last Admin: 06/04/23 19:42 Dose: 10,000 unit Documented By: ALAINA Ceftriaxone Sodium 1 gm/ (Sodium Chloride) 50 mls @ 100 mls/hr IV Q24H [facility] Last Infusion: 06/04/23 17:32 Dose: Infused Documented By: ALAINA Heparin Sodium/Sodium Chloride (Heparin Sodium,Porcine/1/2ns) 25,000 unit in 250 mls @ 0 mls/hr IVCONT .Q0M [facility]; Protocol Last Titration: 06/05/23 10:41 Dose: 11.907 units/kg/hr, 20.16 mls/hr Documented By: COLT Co-signed By: ÓSCAR Insulin Human Lispro (Insulin Lispro 100 Unit/Ml 3 Ml Vial) 0 unit SUBCUT QIDACHS [facility]; Protocol Last Admin: 06/05/23 12:09 Dose: Not Given Documented By: COLT Non-Admin Reason: No Insulin Coverage Loperamide HCl (Loperamide Hcl 2 Mg Capsule) 2 mg PO Q6H PRN PRN Reason: Loose Stool Magnesium Hydroxide (Milk Of Magnesia 30 Ml Oral.Susp) 30 ml PO DAILY PRN PRN Reason: Constipation Medroxyprogesterone Acetate (Medroxyprogesterone Acetate 5 Mg Tablet) 20 mg PO BID [facility] Last Admin: 06/05/23 08:35 Dose: 20 mg Documented By: COLT Melatonin (Melatonin 3 Mg Tablet) 6 mg PO BEDTIME PRN PRN Reason: Insomnia Last Admin: 06/04/23 23:38 Dose: 6 mg Documented By: AJ Montelukast Sodium (Montelukast Sodium 10 Mg Tablet) 10 mg PO BEDTIME [facility] Last Admin: 06/04/23 20:57 Dose: 10 mg Documented By: ALAINA Ondansetron HCl (Ondansetron Hcl 4 Mg/2 Ml Vial) 4 mg IVPUSH Q8H PRN PRN Reason: Nausea and Vomiting Oxybutynin Chloride (Oxybutynin Chloride Er 5 Mg Tab.Er.24) 15 mg PO DAILY [facility] Last Admin: 06/05/23 08:36 Dose: 15 mg Documented By: COLT Senna/Docusate Sodium (Sennosides/Docusate Sodium Tablet) 1 tab PO BEDTIME PRN PRN Reason: constipation Sertraline HCl (Sertraline Hcl 50 Mg Tablet) 150 mg PO DAILY [facility] Last Admin: 06/05/23 08:36 Dose: 150 mg Documented By: COLT Sodium Chloride (0.9 % Sodium Chloride Flush 3 Ml Syringe) 3 ml IVFLUSH QSHIFT [facility] Last Admin: 06/05/23 08:36 Dose: 3 ml Documented By: COLT Sumatriptan Succinate (Sumatriptan Succinate 100 Mg Tablet) 100 mg PO DAILY MRX1 PRN PRN Reason: Migraine Headache Last Admin: 06/04/23 00:49 Dose: 100 mg Documented By: AJ Vitamin D (Cholecalciferol (Vitamin D3) 25 Mcg Tablet) 125 mcg PO BEDTIME [facility] Last Admin: 06/04/23 20:57 Dose: 125 mcg Documented By: ALAINA Labs 06/05/23 06:18 06/01/23 15:58 Labs: Laboratory Results - last 24 hr 06/04/23 06/04/23 06/04/23 16:04 18:27 19:48 MCV MCH MCHC RDW Plt Count MPV Absolute Nucleated RBC Nucleated RBC % (auto) PT INR aPTT Heparin Protocol 28.4 L POC Glucose 144 H 163 H 06/05/23 06/05/23 06/05/23 01:50 06:18 07:04 MCV 76.6 L MCH 22.1 L MCHC 28.8 L RDW 20.5 H Plt Count 252 MPV 10.0 Absolute Nucleated RBC 0.000 Nucleated RBC % (auto) 0.0 PT 13.1 INR 1.1 aPTT Heparin Protocol 47.5 L D POC Glucose 142 H 06/05/23 06/05/23 09:47 11:49 MCV MCH MCHC RDW Plt Count MPV Absolute Nucleated RBC Nucleated RBC % (auto) PT INR aPTT Heparin Protocol 60.6 D POC Glucose 128 H Assessment and Plan (1) Anemia: Status: Acute (2) Abnormal vaginal bleeding: Status: Acute (3) Pulmonary embolism on long-term anticoagulation therapy: Status: Acute Plan 57-year-old female patient with past medical history significant for morbid obesity, chronic hypoxic respiratory failure on 3 L of home oxygen, recently diagnosed saddle pulmonary embolism and left lower extremity DVT on Eliquis, history of obstructive sleep apnea, mood disorder, diabetes mellitus presented to [facility] due to vaginal bleed of recur 2-3 months duration since started on Eliquis, noted to have low hematocrit, as per labs ordered by PCP, patient presented with lightheadedness and weakness and noted to have significant anemia. Coumadin DC 8 however started on a heparin drip given need for likely IVC. 1.Symptomatic anemia due to vaginal bleed -hemoglobin is stable... Follow daily CBCs -given persistent vaginal clots will ask Dr. Vipul meza to re-evaluate 2.Diabetes mellitus -acceptable control on current therapies -lispro correctional scale -adjust as indicated 3.UTI -E coli sensitive to ceftriaxone -IV ceftriaxone (3) 4. PE (saddle embolus) -IVC filter done today by Dr. Chaparro -will ask rn prior authorization input and continue heparin until clarified -restart Coumadin when appropriate IV heparin Full code Requires ongoing hospitalization given need for IV heparin in the backdrop of symptomatic anemia due to vaginal bleed. Requires specialist consult to determine further treatment going forward Quality Stroke Does the patient have a stroke diagnosis?: No VTE Prior VTE?: No VTE Risk Level:: Medical - moderate - high VTE Device Contraindication: N/A - Device Ordered VTE Drug Contraindication: Treatment Not Indicated
--- NOTE | 2023-06-05 15:10 | PC.NURSE ---
Patient came back from procedure without heparin drip - was not able to get actual time drip was stopped. Message sent to provide to get new orders.
[2023-06-05 15:44] VITALS: BP 114/59; PULSE 75; RESP 18; TEMP 36.8; O2SAT 96
[2023-06-05 16:40] LABS: Glucose, Whole Blood 116 mg/dL (60-115)
[2023-06-05] MEDS: cefTRIAXone sodium 1 GM in 0.9 % Sodium Chloride 50 ML IV (16:42)
--- NOTE | 2023-06-05 18:49 | PC.NURSE ---
Received message from [facility] that Dr. Nadege nuñez stated to restart heparin drip 4 hrs after procedure at the same rate. Heparin restarted at 11.907 U/kg at 1830
[2023-06-05 20:25] LABS: Glucose, Whole Blood 183 mg/dL (60-115)
[2023-06-05] MEDS: Insulin Lispro 100 UNIT/ML 3 ML VIAL SUBCUT (21:10)
[2023-06-05] MEDS: Cholecalciferol (Vitamin D3) 25 MCG TABLET 125 MCG PO (21:10)
[2023-06-05] MEDS: Atorvastatin Calcium 40 MG TABLET PO (21:10)
[2023-06-05] MEDS: Montelukast Sodium 10 MG TABLET PO (21:10)
[2023-06-05 23:08] VITALS: PULSE 86; O2SAT 97
[2023-06-06] VITALS: BP 147/67; PULSE 71; RESP 18; TEMP 36.9; O2SAT 98
[2023-06-06] MEDS: Melatonin 3 MG TABLET 6 MG PO ×2 (00:08→22:14)
[2023-06-06 00:57] LABS: PTT Heparin Drip 44.3 SEC (53-77.9)
[2023-06-06] MEDS: Heparin Sodium,Porcine 5,000 UNIT/ML VIAL 6800 UNIT IVPUSH ×2 (01:50→17:26)
[2023-06-06] MEDS: Heparin Sodium,Porcine/1/2NS 25,000 UNIT/250 ML IV.SOLN 23.53 UNIT IVCONT ×2 (05:03→17:08)
[2023-06-06] MEDS: SUMAtriptan succinate 100 MG TABLET PO (05:09)
[2023-06-06 06:03] LABS: MANUAL DIFF FLAG NO
[2023-06-06 06:12] LABS: INTERNATIONAL NORM RATIO 1.1 (0.9-1.1); Prothrombin Time 13.3 SEC (11.1-13.3)
[2023-06-06 06:20] LABS: Basophils Absolute Auto 0.1 X10*3/uL (0.0-0.2); Basophils Percent Auto 0.6 % (0-2); Eosinophils Absolute Auto 0.2 X10*3/uL (0.0-0.4); Eosinophils Percent Auto 2.7 % (0-4); Hematocrit 30.5 % (37.0-47.0); Hemoglobin 8.7 g/dl (12.0-16.0); Imm Gran Abs Auto 0.13 X10*3/uL (0.00-0.03); Imm Gran Pct Auto 1.5 % (0.0-0.4); Lymphocytes Absolute Auto 2.1 X10*3/uL (1.2-4.9); Lymphocytes Percent Auto 25.3 % (20-40); Mean Corpuscular HGB Conc 28.5 g/dl (31.0-35.0); Mean Corpuscular Hemoglobin 21.8 pg (27.0-33.0); Mean Corpuscular Volume 76.3 fL (80.0-98.0); Mean Platelet Volume 9.6 fL (9.4-12.3); Monocytes Absolute Auto 0.6 X10*3/uL (0.1-1.2); Monocytes Percent Auto 7.4 % (2-11); Neutrophils Absolute Auto 5.3 x10*3/uL (2.0-8.3); Neutrophils Percent Auto 62.5 % (45-73); Platelet Count 244 X10*3/uL (160-400); Red Cell Distribution Width 20.8 % (11.0-16.0); White Blood Count 8.5 X10*3/uL (4.8-10.8)
[2023-06-06 06:22] LABS: Alanine Aminotransferase 8 U/L (0-31); Albumin Level 3.6 g/dL (3.5-5.0); Alkaline Phosphatase 66 U/L (39-117); Anion Gap 13 (12-20); Aspartate Amino Transferase 11 U/L (5-31); Bilirubin Total 0.4 mg/dL (0.0-1.0); Blood Urea Nitrogen 9 mg/dL (9-16); Calcium 10.2 mg/dL (8.4-10.2); Carbon Dioxide 28 mmol/L (22-29); Chloride 105 mmol/L (96-108); Creatinine Clr Calc Pharmacy 153.3; Estimated Glomerular Filt Rate > 60; Glucose Fasting 142 mg/dL (60-99); Potassium 3.8 mmol/L (3.3-5.1); Sodium 142 mmol/L (135-145)
[2023-06-06 07:24] LABS: Glucose, Whole Blood 133 mg/dL (60-115)
[2023-06-06] MEDS: medroxyPROGESTERone Acetate 5 MG TABLET 20 MG PO ×2 (07:35→21:16)
[2023-06-06] MEDS: busPIRone HCl 5 MG TABLET 15 MG PO ×3 (07:36→21:16)
[2023-06-06] MEDS: Ferrous Sulfate 324 MG TABLET.DR PO ×2 (07:36→17:12)
[2023-06-06] MEDS: Sertraline HCL 50 MG TABLET 150 MG PO (07:36)
[2023-06-06] MEDS: oxyBUTYnin chloride ER 5 MG TAB.ER.24 15 MG PO (07:36)
[2023-06-06 08:00] VITALS: BP 146/64; PULSE 76; RESP 10; TEMP 36.2; O2SAT 96
[2023-06-06 10:04] LABS: PTT Heparin Drip 82.2 SEC (53-77.9)
--- NOTE | 2023-06-06 10:31 | P.PNVS_ITS ---
Subjective Subjective Date of Service: 06/06/23 Patient reports: no new complaints and feels better Interval history: Patient seen and examined. No significant events. Postop day 1 status post IVC filter placement. In general feels well. It appears that her hemoglobin has stabilized as well peer Physical Exam Vital Signs: Vital Signs: Last Vital Signs Temp 97.1 F 06/06/23 08:00 Pulse 76 06/06/23 08:00 Resp 10 L 06/06/23 08:00 BP 146/64 H 06/06/23 08:00 Pulse Ox 96 06/06/23 08:00 O2 Del Method Room Air 06/06/23 08:00 O2 Flow Rate 2 06/06/23 00:00 BMI result Body Mass Index 68.3 Const: General: cooperative, healthy appearing and no acute distress Orientation/consciousness: oriented to person, oriented to place and oriented to time HEENT: Head: Yes normal to inspection Neck: Carotids: no bruits Chest: Chest palpation & inspection: normal inspection of the chest Resp: Effort & Inspection: normal respiratory effort and able to speak in complete sentences Auscultation: clear to auscultation bilaterally Cardio: Rate: regular rate Heart sounds: S1 normal heart sound present and S2 normal heart sound present GI: Inspection: Yes normal to inspection Skin: Other: right groin no hematoma General skin exam: no rashes or lesions noted Wounds: no wounds Neuro: General: oriented to person, oriented to place, oriented to time and CN's II-XI intact bilaterally Extrem: General: Yes normal to inspection, Yes full ROM and Yes no clubbing, cyanosis or edema Psych: Appearance: grossly normal and well kempt Speech and movement: Nor mal speech and movement present Affect: normal affect Progress Note: A&P Assessment and plan (1) History of DVT (deep vein thrombosis): Status: Acute Assessment and Plan: in short patient has done extremely well status post filter placement. stable from our perspective for discharge. In addition this filter will be protective should she have future Gyne surgery. No need for outpatient follow-up and can see us on an as-needed basis. Thank you for allowing us to assist in her care. Time Spent With Patient Time: Total time managing care of this patient today ____ minutes. Procedures Date of Service Date of Service: 06/06/23 Quality Stroke Does the patient have a stroke diagnosis?: No VTE Prior VTE?: No VTE Risk Level:: Medical - moderate - high VTE Device Contraindication: N/A - Device Ordered VTE Drug Contraindication: Treatment Not Indicated
[2023-06-06 11:24] LABS: Glucose, Whole Blood 148 mg/dL (60-115)
--- NOTE | 2023-06-06 15:05 | HO.PM.IMPN ---
Subjective Subjective Date of Service: 06/06/23 Interval History: No acute issues overnight. No postoperative issues with filter placement Review of Systems Denies chest pain Denies shortness of breath Denies nausea vomiting diarrhea Denies fever chills Physical Exam Vital Signs: Vital Signs: Last Vital Signs Temp 97.1 F 06/06/23 08:00 Pulse 76 06/06/23 08:00 Resp 10 L 06/06/23 08:00 BP 146/64 H 06/06/23 08:00 Pulse Ox 96 06/06/23 08:00 O2 Del Method Room Air 06/06/23 08:00 O2 Flow Rate 2 06/06/23 00:00 BMI result Body Mass Index 68.3 Const: Other: Awake alert no acute distress Resp: Other: Clear to auscultation bilaterally no rales rhonchi or wheezes Cardio: Other: No S4; positive S1-S2; no S3 murmurs rubs gallops GI: Other: Soft nontender nondistended normoactive bowel sounds Extrem: Other: No edema bilaterally Objective Data Active Medications Acetaminophen (Acetaminophen 325 Mg Tablet) 650 mg PO Q6H PRN PRN Reason: Pain, Mild (Pain Scale 1-3) Last Admin: 06/04/23 16:56 Dose: 650 mg Documented By: ALAINA Al Hydroxide/Mg Hydroxide (Magnesium Hydrox/Alum Hydrox 30 Ml Oral.Susp) 30 ml PO Q4H PRN PRN Reason: Heartburn/Nausea Atorvastatin Calcium (Atorvastatin Calcium 40 Mg Tablet) 40 mg PO BEDTIME [facility] Last Admin: 06/05/23 21:10 Dose: 40 mg Documented By: RAZA Buspirone HCl (Buspirone Hcl 5 Mg Tablet) 15 mg PO TID [facility] Last Admin: 06/06/23 07:36 Dose: 15 mg Documented By: PRUDENCIO Dextrose (Dextrose 50 % 25 Gm/50 Ml Syringe) 25 gm IVPUSH Q15M PRN; Protocol PRN Reason: per Hypoglycemia Standing Ord. Ferrous Sulfate (Ferrous Sulfate 324 Mg Tablet.) 324 mg PO BIDWM [facility] Last Admin: 06/06/23 07:36 Dose: 324 mg Documented By: PRUDENCIO Glucose (Glucose Gel 15 Gm Gel..Gram.) 15 gm PO Q15M PRN; Protocol PRN Reason: per Hypoglycemia Standing Ord. Heparin Sodium (Porcine) (Heparin Sodium,Porcine 5,000 Unit/Ml Vial) 6,800 unit 40 unit/kg (6800 unit) IVPUSH PROTOCOL BOLUS PRN; Protocol PRN Reason: 40 unit/kg - Heparin Protocol Last Admin: 06/06/23 01:50 Dose: 6,800 unit Documented By: ERIC Heparin Sodium (Porcine) (Heparin Sodium,Porcine 5,000 Unit/Ml Vial) 10,000 unit IVPUSH PROTOCOL BOLUS PRN; Protocol PRN Reason: 80 unit/kg - Heparin Protocol Last Admin: 06/04/23 19:42 Dose: 10,000 unit Documented By: ALAINA Ceftriaxone Sodium 1 gm/ (Sodium Chloride) 50 mls @ 100 mls/hr IV Q24H [facility] Last Infusion: 06/05/23 17:18 Dose: Infused Documented By: COLT Heparin Sodium/Sodium Chloride (Heparin Sodium,Porcine/1/2ns) 25,000 unit in 250 mls @ 0 mls/hr IVCONT .Q0M [facility]; Protocol Last Titration: 06/06/23 10:09 Dose: 11.9 units/kg/hr, 20.15 mls/hr Documented By: PRUDENCIO Co-signed By: CORINA Insulin Human Lispro (Insulin Lispro 100 Unit/Ml 3 Ml Vial) 0 unit SUBCUT QIDACHS [facility]; Protocol Last Admin: 06/06/23 11:29 Dose: Not Given Documented By: PRUDENCIO Non-Admin Reason: No Insulin Coverage Loperamide HCl (Loperamide Hcl 2 Mg Capsule) 2 mg PO Q6H PRN PRN Reason: Loose Stool Magnesium Hydroxide (Milk Of Magnesia 30 Ml Oral.Susp) 30 ml PO DAILY PRN PRN Reason: Constipation Medroxyprogesterone Acetate (Medroxyprogesterone Acetate 5 Mg Tablet) 20 mg PO BID [facility] Last Admin: 06/06/23 07:35 Dose: 20 mg Documented By: PRUDENCIO Melatonin (Melatonin 3 Mg Tablet) 6 mg PO BEDTIME PRN PRN Reason: Insomnia Last Admin: 06/06/23 00:08 Dose: 6 mg Documented By: ERIC Montelukast Sodium (Montelukast Sodium 10 Mg Tablet) 10 mg PO BEDTIME [facility] Last Admin: 06/05/23 21:10 Dose: 10 mg Documented By: RAZA Ondansetron HCl (Ondansetron Hcl 4 Mg/2 Ml Vial) 4 mg IVPUSH Q8H PRN PRN Reason: Nausea and Vomiting Oxybutynin Chloride (Oxybutynin Chloride Er 5 Mg Tab.Er.24) 15 mg PO DAILY [facility] Last Admin: 06/06/23 07:36 Dose: 15 mg Documented By: PRUDENCIO Senna/Docusate Sodium (Sennosides/Docusate Sodium Tablet) 1 tab PO BEDTIME PRN PRN Reason: constipation Sertraline HCl (Sertraline Hcl 50 Mg Tablet) 150 mg PO DAILY [facility] Last Admin: 06/06/23 07:36 Dose: 150 mg Documented By: PRUDENCIO Sodium Chloride (0.9 % Sodium Chloride Flush 3 Ml Syringe) 3 ml IVFLUSH QSHIFT [facility] Last Admin: 06/06/23 07:00 Dose: Not Given Documented By: PRUDENCIO Non-Admin Reason: IV Running Sumatriptan Succinate (Sumatriptan Succinate 100 Mg Tablet) 100 mg PO DAILY MRX1 PRN PRN Reason: Migraine Headache Last Admin: 06/06/23 05:09 Dose: 100 mg Documented By: ERIC Vitamin D (Cholecalciferol (Vitamin D3) 25 Mcg Tablet) 125 mcg PO BEDTIME [facility] Last Admin: 06/05/23 21:10 Dose: 125 mcg Documented By: RAZA Labs 06/06/23 05:55 06/06/23 05:55 Labs: Laboratory Results - last 24 hr 06/05/23 06/05/23 06/06/23 16:11 19:55 00:38 MCV MCH MCHC RDW Plt Count MPV Immature Gran % (Auto) Neut % (Auto) Lymph % (Auto) [place] % (Auto) Eos % (Auto) Baso % (Auto) Lymph # (Auto) [place] # (Auto) Eos # (Auto) Baso # (Auto) Abs Immat Gran (auto) Absolute Neuts (auto) Absolute Nucleated RBC Nucleated RBC % (auto) PT INR aPTT Heparin Protocol 44.3 L D Anion Gap Estim Creat Clear Calc Estimated GFR POC Glucose 116 H 183 H Fasting Glucose Calcium Total Bilirubin AST ALT Alkaline Phosphatase Total Protein Albumin 06/06/23 06/06/23 06/06/23 05:55 05:56 07:16 MCV 76.3 L MCH 21.8 L MCHC 28.5 L RDW 20.8 H Plt Count 244 MPV 9.6 Immature Gran % (Auto) 1.5 H Neut % (Auto) 62.5 Lymph % (Auto) 25.3 [place] % (Auto) 7.4 Eos % (Auto) 2.7 Baso % (Auto) 0.6 Lymph # (Auto) 2.1 [place] # (Auto) 0.6 Eos # (Auto) 0.2 Baso # (Auto) 0.1 Abs Immat Gran (auto) 0.13 H Absolute Neuts (auto) 5.3 Absolute Nucleated RBC 0.000 Nucleated RBC % (auto) 0.0 PT 13.3 INR 1.1 aPTT Heparin Protocol Anion Gap 13 Estim Creat Clear Calc 153.3 Estimated GFR > 60 POC Glucose 133 H Fasting Glucose 142 H Calcium 10.2 Total Bilirubin 0.4 AST 11 ALT 8 Alkaline Phosphatase 66 Total Protein 7.0 Albumin 3.6 06/06/23 06/06/23 09:30 11:07 MCV MCH MCHC RDW Plt Count MPV Immature Gran % (Auto) Neut % (Auto) Lymph % (Auto) [place] % (Auto) Eos % (Auto) Baso % (Auto) Lymph # (Auto) [place] # (Auto) Eos # (Auto) Baso # (Auto) Abs Immat Gran (auto) Absolute Neuts (auto) Absolute Nucleated RBC Nucleated RBC % (auto) PT INR aPTT Heparin Protocol 82.2 H D Anion Gap Estim Creat Clear Calc Estimated GFR POC Glucose 148 H Fasting Glucose Calcium Total Bilirubin AST ALT Alkaline Phosphatase Total Protein Albumin Assessment and Plan (1) Abnormal vaginal bleeding: Status: Acute (2) Saddle embolism of pulmonary artery: Status: Acute Plan 57-year-old female patient with past medical history significant for morbid obesity, chronic hypoxic respiratory failure on 3 L of home oxygen, recently diagnosed saddle pulmonary embolism and left lower extremity DVT on Eliquis, history of obstructive sleep apnea, mood disorder, diabetes mellitus presented to [facility] due to vaginal bleed of recur 2-3 months duration since started on Eliquis, noted to have low hematocrit, as per labs ordered by PCP, patient presented with lightheadedness and weakness and noted to have significant anemia. Coumadin DC 8 however started on a heparin drip given need for likely IVC. 1.Symptomatic anemia due to vaginal bleed -hemoglobin is stable... Follow daily CBCs -discussed with Dr. Matthew; will contact patient's line mover Onc at [facility] -will need to discuss option of anticoagulation given saddle embolus in backdrop of ongoing Provera use 2.Diabetes mellitus -acceptable control on current therapies -lispro correctional scale -adjust as indicated 3.UTI -E coli sensitive to ceftriaxone -IV ceftriaxone (4) 4. PE (saddle embolus) -IVC filter done today by Dr. Light... Doing excellent -continue heparin until clarified with [facility] line mover Onc -restart Coumadin when appropriate IV heparin Full code Requires ongoing hospitalization given need for IV heparin in the backdrop of symptomatic anemia due to vaginal bleed. Requires specialist consult to determine further treatment going forward Quality Stroke Does the patient have a stroke diagnosis?: No VTE Prior VTE?: No VTE Risk Level:: Medical - moderate - high VTE Device Contraindication: N/A - Device Ordered VTE Drug Contraindication: Treatment Not Indicated
[2023-06-06 15:10] VITALS: BP 147/67; PULSE 68; RESP 17; TEMP 36.1; O2SAT 97
[2023-06-06] MEDS: cefTRIAXone sodium 1 GM in 0.9 % Sodium Chloride 50 ML IV (15:36)
[2023-06-06] MEDS: 0.9 % Sodium Chloride Flush 3 ML SYRINGE IVFLUSH (15:36)
[2023-06-06 16:10] LABS: PTT Heparin Drip 43.7 SEC (53-77.9)
[2023-06-06 16:20] LABS: Glucose, Whole Blood 179 mg/dL (60-115)
[2023-06-06] MEDS: Insulin Lispro 100 UNIT/ML 3 ML VIAL SUBCUT ×2 (17:13→21:16)
[2023-06-06 19:31] VITALS: BP 144/55; PULSE 72; RESP 16; TEMP 36.6; O2SAT 94
[2023-06-06 20:12] LABS: Glucose, Whole Blood 193 mg/dL (60-115)
[2023-06-06] MEDS: Atorvastatin Calcium 40 MG TABLET PO (21:16)
[2023-06-06] MEDS: Cholecalciferol (Vitamin D3) 25 MCG TABLET 125 MCG PO (21:16)
[2023-06-06] MEDS: Montelukast Sodium 10 MG TABLET PO (21:16)
[2023-06-06 21:42] LABS: PTT Heparin Drip 85.1 SEC (53-77.9)
--- NOTE | 2023-06-06 23:21 | PC.RT ---
Patient refuses CPAP stating it is too much pressure and it is too loud . This therapist decreases the pressure from previous settings to see if this would increase patients compliance for using device. Patient states it is too uncomfortable and loud despite decreasing pressures. Patient divulges that she has not been compliant with CPAP at home lately. Patient educated on benefits of CPAP as well as risks associated with untreated sleep apnea. Patient still refuses therapy. HOB to 30 degrees to improve ventilation while asleep.
[2023-06-06 23:41] VITALS: BP 158/68; PULSE 74; RESP 16; TEMP 36.4; O2SAT 97
[2023-06-07 04:28] LABS: PTT Heparin Drip 57.7 SEC (53-77.9)
[2023-06-07] MEDS: Heparin Sodium,Porcine/1/2NS 25,000 UNIT/250 ML IV.SOLN 20.15 UNIT IVCONT ×2 (05:08→17:07)
--- NOTE | 2023-06-07 05:17 | PC.NURSE ---
PTT on 06/06 at 2205 was 85.1, decreased heparin drip by 2 units/kg to 11.9 units/kg. PTT on 06/07 at 0500 was 57.7, no change to heparin drip. New bag of heparin hung at 0505.
[2023-06-07 06:30] LABS: MANUAL DIFF FLAG NO
[2023-06-07 06:33] LABS: Basophils Percent Auto 0.4 % (0-2); Eosinophils Absolute Auto 0.2 X10*3/uL (0.0-0.4); Hematocrit 29.8 % (37.0-47.0); Hemoglobin 8.6 g/dl (12.0-16.0); Imm Gran Pct Auto 1.3 % (0.0-0.4); Lymphocytes Absolute Auto 1.7 X10*3/uL (1.2-4.9); Lymphocytes Percent Auto 22.9 % (20-40); Mean Corpuscular HGB Conc 28.9 g/dl (31.0-35.0); Mean Corpuscular Hemoglobin 22.1 pg (27.0-33.0); Mean Corpuscular Volume 76.4 fL (80.0-98.0); Mean Platelet Volume 9.8 fL (9.4-12.3); Monocytes Absolute Auto 0.6 X10*3/uL (0.1-1.2); Monocytes Percent Auto 7.4 % (2-11); Platelet Count 234 X10*3/uL (160-400); Red Cell Distribution Width 21.2 % (11.0-16.0); White Blood Count 7.5 X10*3/uL (4.8-10.8)
[2023-06-07 06:50] LABS: Alanine Aminotransferase 8 U/L (0-31); Albumin Level 3.5 g/dL (3.5-5.0); Alkaline Phosphatase 64 U/L (39-117); Anion Gap 12 (12-20); Aspartate Amino Transferase 11 U/L (5-31); Bilirubin Total 0.3 mg/dL (0.0-1.0); Blood Urea Nitrogen 11 mg/dL (9-16); Calcium 10.2 mg/dL (8.4-10.2); Carbon Dioxide 29 mmol/L (22-29); Chloride 105 mmol/L (96-108); Creatinine Clr Calc Pharmacy 155.7; Estimated Glomerular Filt Rate > 60; Glucose Fasting 169 mg/dL (60-99); Potassium 4.3 mmol/L (3.3-5.1); Sodium 142 mmol/L (135-145); Total Protein 6.9 g/dL (6.5-8.0)
[2023-06-07 06:56] LABS: Prothrombin Time 12.2 SEC (11.1-13.3)
[2023-06-07 07:16] VITALS: BP 144/84; PULSE 74; RESP 18; TEMP 36.6; O2SAT 98
[2023-06-07 07:46] LABS: Glucose, Whole Blood 150 mg/dL (60-115)
[2023-06-07] MEDS: SUMAtriptan succinate 100 MG TABLET PO (08:58)
[2023-06-07] MEDS: medroxyPROGESTERone Acetate 5 MG TABLET 20 MG PO ×2 (08:59→21:04)
[2023-06-07] MEDS: oxyBUTYnin chloride ER 5 MG TAB.ER.24 15 MG PO (08:59)
[2023-06-07] MEDS: Ferrous Sulfate 324 MG TABLET.DR PO ×2 (08:59→17:02)
[2023-06-07] MEDS: Sertraline HCL 50 MG TABLET 150 MG PO (08:59)
[2023-06-07] MEDS: busPIRone HCl 5 MG TABLET 15 MG PO ×3 (08:59→21:05)
[2023-06-07] MEDS: 0.9 % Sodium Chloride Flush 3 ML SYRINGE IVFLUSH ×2 (08:59→17:02)
[2023-06-07 11:18] LABS: Glucose, Whole Blood 149 mg/dL (60-115)
[2023-06-07 11:21] LABS: PTT Heparin Drip 55.3 SEC (53-77.9)
--- NOTE | 2023-06-07 13:40 | P.PNIM_ITS ---
Subjective Subjective Date of Service: 06/07/23 Interval History: No acute issues overnight. No further bleeding. Hemoglobin stable Review of Systems Denies chest pain Denies shortness of breath Denies nausea vomiting diarrhea Denies fever chills Physical Exam 2 Vital Signs: Vital Signs: Last Vital Signs Temp 97.8 F 06/07/23 07:16 Pulse 74 06/07/23 07:16 Resp 18 06/07/23 07:16 BP 144/84 H 06/07/23 07:16 Pulse Ox 98 06/07/23 07:16 O2 Del Method Nasal Cannula 06/07/23 07:16 O2 Flow Rate 2 06/07/23 07:16 BMI result Body Mass Index 68.3 Const: Other: Awake alert no acute distress Resp: Other: Clear to auscultation bilaterally no rales rhonchi or wheezes Cardio: Other: No S4; positive S1-S2; no S3 murmurs rubs gallops GI: Other: Soft nontender nondistended normoactive bowel sounds Extrem: Other: No edema bilaterally Objective Data Active Medications Acetaminophen (Acetaminophen 325 Mg Tablet) 650 mg PO Q6H PRN PRN Reason: Pain, Mild (Pain Scale 1-3) Last Admin: 06/04/23 16:56 Dose: 650 mg Documented By: ALAINA Al Hydroxide/Mg Hydroxide (Magnesium Hydrox/Alum Hydrox 30 Ml Oral.Susp) 30 ml PO Q4H PRN PRN Reason: Heartburn/Nausea Atorvastatin Calcium (Atorvastatin Calcium 40 Mg Tablet) 40 mg PO BEDTIME [facility] Last Admin: 06/06/23 21:16 Dose: 40 mg Documented By: JOSE LUIS Buspirone HCl (Buspirone Hcl 5 Mg Tablet) 15 mg PO TID [facility] Last Admin: 06/07/23 08:59 Dose: 15 mg Documented By: PRUDENCIO Dextrose (Dextrose 50 % 25 Gm/50 Ml Syringe) 25 gm IVPUSH Q15M PRN; Protocol PRN Reason: per Hypoglycemia Standing Ord. Ferrous Sulfate (Ferrous Sulfate 324 Mg Tablet.) 324 mg PO BIDWM [facility] Last Admin: 06/07/23 08:59 Dose: 324 mg Documented By: PRUDENCIO Glucose (Glucose Gel 15 Gm Gel..Gram.) 15 gm PO Q15M PRN; Protocol PRN Reason: per Hypoglycemia Standing Ord. Heparin Sodium (Porcine) (Heparin Sodium,Porcine 5,000 Unit/Ml Vial) 6,800 unit 40 unit/kg (6800 unit) IVPUSH PROTOCOL BOLUS PRN; Protocol PRN Reason: 40 unit/kg - Heparin Protocol Last Admin: 06/06/23 17:26 Dose: 6,800 unit Documented By: PRUDENCIO Heparin Sodium (Porcine) (Heparin Sodium,Porcine 5,000 Unit/Ml Vial) 10,000 unit IVPUSH PROTOCOL BOLUS PRN; Protocol PRN Reason: 80 unit/kg - Heparin Protocol Last Admin: 06/04/23 19:42 Dose: 10,000 unit Documented By: ALAINA Ceftriaxone Sodium 1 gm/ (Sodium Chloride) 50 mls @ 100 mls/hr IV Q24H [facility] Last Infusion: 06/06/23 16:43 Dose: Infused Documented By: PRUDENCIO Heparin Sodium/Sodium Chloride (Heparin Sodium,Porcine/1/2ns) 25,000 unit in 250 mls @ 0 mls/hr IVCONT .Q0M [facility]; Protocol Last Titration: 06/07/23 13:00 Dose: 11.9 units/kg/hr, 20.15 mls/hr Documented By: PRUDENCIO Co-signed By: CORINA Insulin Human Lispro (Insulin Lispro 100 Unit/Ml 3 Ml Vial) 0 unit SUBCUT QIDACHS [facility]; Protocol Last Admin: 06/07/23 11:21 Dose: Not Given Documented By: PRUDENCIO Non-Admin Reason: No Insulin Coverage Loperamide HCl (Loperamide Hcl 2 Mg Capsule) 2 mg PO Q6H PRN PRN Reason: Loose Stool Magnesium Hydroxide (Milk Of Magnesia 30 Ml Oral.Susp) 30 ml PO DAILY PRN PRN Reason: Constipation Medroxyprogesterone Acetate (Medroxyprogesterone Acetate 5 Mg Tablet) 20 mg PO BID [facility] Last Admin: 06/07/23 08:59 Dose: 20 mg Documented By: PRUDENCIO Melatonin (Melatonin 3 Mg Tablet) 6 mg PO BEDTIME PRN PRN Reason: Insomnia Last Admin: 06/06/23 22:14 Dose: 6 mg Documented By: JOSE LUIS Montelukast Sodium (Montelukast Sodium 10 Mg Tablet) 10 mg PO BEDTIME [facility] Last Admin: 06/06/23 21:16 Dose: 10 mg Documented By: JOSE LUIS Ondansetron HCl (Ondansetron Hcl 4 Mg/2 Ml Vial) 4 mg IVPUSH Q8H PRN PRN Reason: Nausea and Vomiting Oxybutynin Chloride (Oxybutynin Chloride Er 5 Mg Tab.Er.24) 15 mg PO DAILY [facility] Last Admin: 06/07/23 08:59 Dose: 15 mg Documented By: PRUDENCIO Senna/Docusate Sodium (Sennosides/Docusate Sodium Tablet) 1 tab PO BEDTIME PRN PRN Reason: constipation Sertraline HCl (Sertraline Hcl 50 Mg Tablet) 150 mg PO DAILY [facility] Last Admin: 06/07/23 08:59 Dose: 150 mg Documented By: PRUDENCIO Sodium Chloride (0.9 % Sodium Chloride Flush 3 Ml Syringe) 3 ml IVFLUSH QSHIFT [facility] Last Admin: 06/07/23 08:59 Dose: 3 ml Documented By: PRUDENCIO Sumatriptan Succinate (Sumatriptan Succinate 100 Mg Tablet) 100 mg PO DAILY MRX1 PRN PRN Reason: Migraine Headache Last Admin: 06/07/23 08:58 Dose: 100 mg Documented By: PRUDENCIO Vitamin D (Cholecalciferol (Vitamin D3) 25 Mcg Tablet) 125 mcg PO BEDTIME [facility] Last Admin: 06/06/23 21:16 Dose: 125 mcg Documented By: JOSE LUIS Labs 06/07/23 05:56 06/07/23 05:56 Labs: Laboratory Results - last 24 hr 06/06/23 06/06/23 06/06/23 15:33 16:10 19:35 MCV MCH MCHC RDW Plt Count MPV Immature Gran % (Auto) Neut % (Auto) Lymph % (Auto) [place] % (Auto) Eos % (Auto) Baso % (Auto) Lymph # (Auto) [place] # (Auto) Eos # (Auto) Baso # (Auto) Abs Immat Gran (auto) Absolute Neuts (auto) Absolute Nucleated RBC Nucleated RBC % (auto) PT INR aPTT Heparin Protocol 43.7 L D Anion Gap Estim Creat Clear Calc Estimated GFR POC Glucose 179 H 193 H Fasting Glucose Calcium Total Bilirubin AST ALT Alkaline Phosphatase Total Protein Albumin 06/06/23 06/07/23 06/07/23 21:27 04:10 05:56 MCV 76.4 L MCH 22.1 L MCHC 28.9 L RDW 21.2 H Plt Count 234 MPV 9.8 Immature Gran % (Auto) 1.3 H Neut % (Auto) 66.0 Lymph % (Auto) 22.9 [place] % (Auto) 7.4 Eos % (Auto) 2.0 Baso % (Auto) 0.4 Lymph # (Auto) 1.7 [place] # (Auto) 0.6 Eos # (Auto) 0.2 Baso # (Auto) 0.0 Abs Immat Gran (auto) 0.10 H Absolute Neuts (auto) 5.0 Absolute Nucleated RBC 0.000 Nucleated RBC % (auto) 0.0 PT 12.2 INR 1.0 aPTT Heparin Protocol 85.1 H D 57.7 D Anion Gap 12 Estim Creat Clear Calc 155.7 Estimated GFR > 60 POC Glucose Fasting Glucose 169 H Calcium 10.2 Total Bilirubin 0.3 AST 11 ALT 8 Alkaline Phosphatase 64 Total Protein 6.9 Albumin 3.5 06/07/23 06/07/23 06/07/23 07:25 10:57 11:12 MCV MCH MCHC RDW Plt Count MPV Immature Gran % (Auto) Neut % (Auto) Lymph % (Auto) [place] % (Auto) Eos % (Auto) Baso % (Auto) Lymph # (Auto) [place] # (Auto) Eos # (Auto) Baso # (Auto) Abs Immat Gran (auto) Absolute Neuts (auto) Absolute Nucleated RBC Nucleated RBC % (auto) PT INR aPTT Heparin Protocol 55.3 Anion Gap Estim Creat Clear Calc Estimated GFR POC Glucose 150 H 149 H Fasting Glucose Calcium Total Bilirubin AST ALT Alkaline Phosphatase Total Protein Albumin Assessment and Plan (1) Anemia: Status: Acute (2) Abnormal vaginal bleeding: Status: Acute (3) Pulmonary embolism on long-term anticoagulation therapy: Status: Acute Plan 57-year-old female patient with past medical history significant for morbid obesity, chronic hypoxic respiratory failure on 3 L of home oxygen, recently diagnosed saddle pulmonary embolism and left lower extremity DVT on Eliquis, history of obstructive sleep apnea, mood disorder, diabetes mellitus presented to [facility] due to vaginal bleed of recur 2-3 months duration since started on Eliquis, noted to have low hematocrit, as per labs ordered by PCP, patient presented with lightheadedness and weakness and noted to have significant anemia. Coumadin DC 8 however started on a heparin drip given need for likely IVC. 1.Symptomatic anemia due to vaginal bleed -hemoglobin is stable... Will discuss with PCP will need weekly CBCs going forward 2.Diabetes mellitus -acceptable control on current therapies -lispro correctional scale -adjust as indicated 3.UTI -E coli sensitive to ceftriaxone -IV ceftriaxone (5) 4. PE (saddle embolus) -IVC filter done today by Dr. Light... Doing excellent -will restart Eliquis later today. Home with 10 mg b.i.d. dosing x1 week then 5 mg b.i.d. IV heparin Full code Requires ongoing hospitalization given need for IV heparin in the backdrop of symptomatic anemia due to vaginal bleed. Requires specialist consult to determine further treatment going forward Quality Stroke Does the patient have a stroke diagnosis?: No VTE Prior VTE?: No VTE Risk Level:: Medical - moderate - high VTE Device Contraindication: N/A - Device Ordered VTE Drug Contraindication: Treatment Not Indicated
--- NOTE | 2023-06-07 14:34 | P.CDIM_ITS ---
PROVIDER RESPONSE TEXT: To clarify, the appropriate diagnosis supported by the clinical indicators: Acute blood loss anemia QUERY TEXT: PHYSICIAN'S DOCUMENTATION REQUEST Date of Query: 06/06/2023 07:59 AM EST Patient Name: Argelia Gibbons Admit Date: 06/01/2023 Dear Cesar Bernstein, A review of the medical record indicates additional documentation may be needed. Please review below and update the documentation accordingly. Clinical Indicators: H&P 06/01 - History of PE and left lower extremity DVT diagnosed in February on Eliquis presen t to ER due to 3 month history of vaginal bleeding and passing clots on a daily basis having to change 4-6 pads a day since started Eliquis. Assessment and plan - Symptomatic anemia due to vaginal bleeding since started on Eliquis for saddle pulmonary embolism. HGB 6.8 L HCT 22.8 L Iron 25 L 3 units PRBC transfused Based on the above, could you clarify which of the following is the most likely type of anemia you ar e evaluating, treating, and/or monitoring? Acute blood loss anemia Iron deficiency anemia due to acute and or acute on chronic blood loss Hemorrhagic disorder due to/2nd to anticoagulation (Eliquis) Other Other (explain) Clinically unable to determine (explain) Thank you, Dianelys Witt, CCS, CDIS Use of terms such as suspected, likely, concern for, or probable (associated with a specific diagnosi s that is being evaluated, monitored, or treated as if it exists) are acceptable and can be coded in the inpatient se tting, when documented at the time of discharge. Please use your independent medical judgment in providing your response. THIS QUERY IS PART OF THE PERMANENT MEDICAL RECORD
--- NOTE | 2023-06-07 15:41 | MHC.CM.PN ---
Per MD rounds no dc today. [facility] approved [facility]. [facility] will resume services. Disease management and medication management as well as weekly CBC. DP home with [facility] and [facility]. Patient will arrange for a ride home.
[2023-06-07 15:44] VITALS: BP 161/68; PULSE 77; RESP 20; TEMP 36.3; O2SAT 98
[2023-06-07 16:20] LABS: Glucose, Whole Blood 159 mg/dL (60-115)
[2023-06-07] MEDS: Insulin Lispro 100 UNIT/ML 3 ML VIAL SUBCUT ×2 (17:02→21:03)
[2023-06-07] MEDS: cefTRIAXone sodium 1 GM in 0.9 % Sodium Chloride 50 ML IV (17:02)
[2023-06-07] MEDS: Heparin Sodium,Porcine 5,000 UNIT/ML VIAL 6800 UNIT IVPUSH (17:42)
[2023-06-07 20:00] LABS: Glucose, Whole Blood 177 mg/dL (60-115)
[2023-06-07] MEDS: Cholecalciferol (Vitamin D3) 25 MCG TABLET 125 MCG PO (21:04)
[2023-06-07] MEDS: Montelukast Sodium 10 MG TABLET PO (21:04)
[2023-06-07] MEDS: Atorvastatin Calcium 40 MG TABLET PO (21:05)
[2023-06-07] MEDS: Melatonin 3 MG TABLET 6 MG PO (22:33)
[2023-06-07 23:25] VITALS: BP 178/67; PULSE 75; RESP 18; TEMP 36.8; O2SAT 97
[2023-06-08 00:27] LABS: PTT Heparin Drip 59.6 SEC (53-77.9)
[2023-06-08] MEDS: Heparin Sodium,Porcine/1/2NS 25,000 UNIT/250 ML IV.SOLN 23.53 UNIT IVCONT (03:51)
[2023-06-08 07:13] LABS: MANUAL DIFF FLAG NO
[2023-06-08 07:22] LABS: Basophils Percent Auto 0.4 % (0-2); Eosinophils Absolute Auto 0.2 X10*3/uL (0.0-0.4); Eosinophils Percent Auto 2.5 % (0-4); Hematocrit 31.7 % (37.0-47.0); Hemoglobin 9.1 g/dl (12.0-16.0); Imm Gran Abs Auto 0.12 X10*3/uL (0.00-0.03); Imm Gran Pct Auto 1.5 % (0.0-0.4); Lymphocytes Percent Auto 24.4 % (20-40); Mean Corpuscular HGB Conc 28.7 g/dl (31.0-35.0); Mean Corpuscular Hemoglobin 22.1 pg (27.0-33.0); Mean Corpuscular Volume 77.1 fL (80.0-98.0); Mean Platelet Volume 9.7 fL (9.4-12.3); Monocytes Absolute Auto 0.6 X10*3/uL (0.1-1.2); Monocytes Percent Auto 7.5 % (2-11); Neutrophils Absolute Auto 5.1 x10*3/uL (2.0-8.3); Neutrophils Percent Auto 63.7 % (45-73); Platelet Count 245 X10*3/uL (160-400); Red Blood Count 4.11 X10*6/uL (4.20-5.50); Red Cell Distribution Width 20.9 % (11.0-16.0)
[2023-06-08 07:24] LABS: Prothrombin Time 12.3 SEC (11.1-13.3)
[2023-06-08 07:26] LABS: PTT Heparin Drip 64.3 SEC (53-77.9)
[2023-06-08 07:31] LABS: Alanine Aminotransferase 10 U/L (0-31); Albumin Level 3.7 g/dL (3.5-5.0); Alkaline Phosphatase 64 U/L (39-117); Anion Gap 12 (12-20); Aspartate Amino Transferase 12 U/L (5-31); Bilirubin Total 0.3 mg/dL (0.0-1.0); Blood Urea Nitrogen 10 mg/dL (9-16); Calcium 10.8 mg/dL (8.4-10.2); Carbon Dioxide 28 mmol/L (22-29); Chloride 104 mmol/L (96-108); Creatinine Clr Calc Pharmacy 146.4; Estimated Glomerular Filt Rate > 60; Glucose Fasting 145 mg/dL (60-99); Potassium 4.4 mmol/L (3.3-5.1); Sodium 140 mmol/L (135-145); Total Protein 7.2 g/dL (6.5-8.0)
[2023-06-08 07:35] LABS: Glucose, Whole Blood 127 mg/dL (60-115)
[2023-06-08 07:43] VITALS: BP 156/65; PULSE 77; RESP 20; TEMP 36.4; O2SAT 98
[2023-06-08] MEDS: medroxyPROGESTERone Acetate 5 MG TABLET 20 MG PO ×2 (08:43→21:32)
[2023-06-08] MEDS: oxyBUTYnin chloride ER 5 MG TAB.ER.24 15 MG PO (08:43)
[2023-06-08] MEDS: Sertraline HCL 50 MG TABLET 150 MG PO (08:43)
[2023-06-08] MEDS: Ferrous Sulfate 324 MG TABLET.DR PO ×2 (08:44→16:39)
[2023-06-08] MEDS: busPIRone HCl 5 MG TABLET 15 MG PO ×3 (08:44→21:30)
[2023-06-08] MEDS: 0.9 % Sodium Chloride Flush 3 ML SYRINGE IVFLUSH ×3 (08:45→23:28)
--- NOTE | 2023-06-08 09:23 | PC.RT ---
pt refusing to wear our cpap c/o of too much pressure. RT tried to go as long as possible but still complaining and does not wanna wear it. Therefore it will be discontinued
[2023-06-08 11:26] LABS: Glucose, Whole Blood 142 mg/dL (60-115)
[2023-06-08] MEDS: Apixaban 5 MG TABLET PO ×2 (12:01→21:32)
--- NOTE | 2023-06-08 12:56 | HO.PM.IMPN ---
Subjective Subjective Date of Service: 06/08/23 Interval History: passed some vaginal clots this AM x1 otherwise no bleeding no dyspnea Review of Systems Review of Systems: Yes all other systems are reviewed and are negative Physical Exam Vital Signs: Vital Signs: Last Vital Signs Temp 97.5 F 06/08/23 07:43 Pulse 77 06/08/23 07:43 Resp 20 06/08/23 07:43 BP 156/65 H 06/08/23 07:43 Pulse Ox 98 06/08/23 07:43 O2 Del Method Room Air 06/08/23 07:43 O2 Flow Rate 2 06/07/23 23:25 BMI result Body Mass Index 68.3 Gen: in no acute distress HEENT: sclera anicteric, moist mucus membranes Neck: supple Lungs: clear to auscultation bilaterally Heart: regular rate and rhythm, no murmurs Abd: soft, non-tender, non-distended, obese Ext: no edema Skin: warm/well-perfused Neuro: alert and oriented x3, no focal findings Psych: appropriate affect Objective Data Active Medications Acetaminophen (Acetaminophen 325 Mg Tablet) 650 mg PO Q6H PRN PRN Reason: Pain, Mild (Pain Scale 1-3) Last Admin: 06/04/23 16:56 Dose: 650 mg Documented By: ALAINA Al Hydroxide/Mg Hydroxide (Magnesium Hydrox/Alum Hydrox 30 Ml Oral.Susp) 30 ml PO Q4H PRN PRN Reason: Heartburn/Nausea Apixaban (Apixaban 5 Mg Tablet) 5 mg PO BID [facility] Last Admin: 06/08/23 12:01 Dose: 5 mg Documented By: ELIZABETH Atorvastatin Calcium (Atorvastatin Calcium 40 Mg Tablet) 40 mg PO BEDTIME [facility] Last Admin: 06/07/23 21:05 Dose: 40 mg Documented By: RALF Buspirone HCl (Buspirone Hcl 5 Mg Tablet) 15 mg PO TID [facility] Last Admin: 06/08/23 08:44 Dose: 15 mg Documented By: ELIZABETH Dextrose (Dextrose 50 % 25 Gm/50 Ml Syringe) 25 gm IVPUSH Q15M PRN; Protocol PRN Reason: per Hypoglycemia Standing Ord. Ferrous Sulfate (Ferrous Sulfate 324 Mg Tablet.Dr) 324 mg PO BIDWM [facility] Last Admin: 06/08/23 08:44 Dose: 324 mg Documented By: ELIZABETH Glucose (Glucose Gel 15 Gm Gel..Gram.) 15 gm PO Q15M PRN; Protocol PRN Reason: per Hypoglycemia Standing Ord. Ceftriaxone Sodium 1 gm/ (Sodium Chloride) 50 mls @ 100 mls/hr IV Q24H [facility] Last Infusion: 06/07/23 18:10 Dose: Infused Documented By: RALF Heparin Sodium/Sodium Chloride (Heparin Sodium,Porcine/1/2ns) 25,000 unit in 250 mls @ 0 mls/hr IVCONT .Q0M [facility]; Protocol Stop: 06/08/23 13:00 Last Admin: 06/08/23 03:51 Dose: 13.9 units/kg/hr, 23.53 mls/hr Documented By: RAZA Co-signed By: JOSE LUIS Insulin Human Lispro (Insulin Lispro 100 Unit/Ml 3 Ml Vial) 0 unit SUBCUT QIDACHS [facility]; Protocol Last Admin: 06/08/23 12:00 Dose: Not Given Documented By: ELIZABETH Non-Admin Reason: No Insulin Coverage Loperamide HCl (Loperamide Hcl 2 Mg Capsule) 2 mg PO Q6H PRN PRN Reason: Loose Stool Magnesium Hydroxide (Milk Of Magnesia 30 Ml Oral.Susp) 30 ml PO DAILY PRN PRN Reason: Constipation Medroxyprogesterone Acetate (Medroxyprogesterone Acetate 5 Mg Tablet) 20 mg PO BID [facility] Last Admin: 06/08/23 08:43 Dose: 20 mg Documented By: ELIZABETH Melatonin (Melatonin 3 Mg Tablet) 6 mg PO BEDTIME PRN PRN Reason: Insomnia Last Admin: 06/07/23 22:33 Dose: 6 mg Documented By: RALF Montelukast Sodium (Montelukast Sodium 10 Mg Tablet) 10 mg PO BEDTIME [facility] Last Admin: 06/07/23 21:04 Dose: 10 mg Documented By: RALF Ondansetron HCl (Ondansetron Hcl 4 Mg/2 Ml Vial) 4 mg IVPUSH Q8H PRN PRN Reason: Nausea and Vomiting Oxybutynin Chloride (Oxybutynin Chloride Er 5 Mg Tab.Er.24) 15 mg PO DAILY [facility] Last Admin: 06/08/23 08:43 Dose: 15 mg Documented By: ELIZABETH Senna/Docusate Sodium (Sennosides/Docusate Sodium Tablet) 1 tab PO BEDTIME PRN PRN Reason: constipation Sertraline HCl (Sertraline Hcl 50 Mg Tablet) 150 mg PO DAILY [facility] Last Admin: 06/08/23 08:43 Dose: 150 mg Documented By: ELIZABETH Sodium Chloride (0.9 % Sodium Chloride Flush 3 Ml Syringe) 3 ml IVFLUSH QSHIFT [facility] Last Admin: 06/08/23 08:45 Dose: 3 ml Documented By: ELIZABETH Sumatriptan Succinate (Sumatriptan Succinate 100 Mg Tablet) 100 mg PO DAILY MRX1 PRN PRN Reason: Migraine Headache Last Admin: 06/07/23 08:58 Dose: 100 mg Documented By: PRUDENCIO Vitamin D (Cholecalciferol (Vitamin D3) 25 Mcg Tablet) 125 mcg PO BEDTIME [facility] Last Admin: 06/07/23 21:04 Dose: 125 mcg Documented By: RALF Labs 06/08/23 06:54 06/08/23 06:54 Labs: Laboratory Results - last 24 hr 06/07/23 06/07/23 06/07/23 16:08 17:06 19:48 MCV MCH MCHC RDW Plt Count MPV Immature Gran % (Auto) Neut % (Auto) Lymph % (Auto) [place] % (Auto) Eos % (Auto) Baso % (Auto) Lymph # (Auto) [place] # (Auto) Eos # (Auto) Baso # (Auto) Abs Immat Gran (auto) Absolute Neuts (auto) Absolute Nucleated RBC Nucleated RBC % (auto) PT INR aPTT Heparin Protocol 51.0 L Anion Gap Estim Creat Clear Calc Estimated GFR POC Glucose 159 H 177 H Fasting Glucose Calcium Total Bilirubin AST ALT Alkaline Phosphatase Total Protein Albumin 06/08/23 06/08/23 06/08/23 00:04 06:54 07:19 MCV 77.1 L MCH 22.1 L MCHC 28.7 L RDW 20.9 H Plt Count 245 MPV 9.7 Immature Gran % (Auto) 1.5 H Neut % (Auto) 63.7 Lymph % (Auto) 24.4 [place] % (Auto) 7.5 Eos % (Auto) 2.5 Baso % (Auto) 0.4 Lymph # (Auto) 2.0 [place] # (Auto) 0.6 Eos # (Auto) 0.2 Baso # (Auto) 0.0 Abs Immat Gran (auto) 0.12 H Absolute Neuts (auto) 5.1 Absolute Nucleated RBC 0.000 Nucleated RBC % (auto) 0.0 PT 12.3 INR 1.0 aPTT Heparin Protocol 59.6 64.3 Anion Gap 12 Estim Creat Clear Calc 146.4 Estimated GFR > 60 POC Glucose 127 H Fasting Glucose 145 H Calcium 10.8 H Total Bilirubin 0.3 AST 12 ALT 10 Alkaline Phosphatase 64 Total Protein 7.2 Albumin 3.7 06/08/23 11:05 MCV MCH MCHC RDW Plt Count MPV Immature Gran % (Auto) Neut % (Auto) Lymph % (Auto) [place] % (Auto) Eos % (Auto) Baso % (Auto) Lymph # (Auto) [place] # (Auto) Eos # (Auto) Baso # (Auto) Abs Immat Gran (auto) Absolute Neuts (auto) Absolute Nucleated RBC Nucleated RBC % (auto) PT INR aPTT Heparin Protocol Anion Gap Estim Creat Clear Calc Estimated GFR POC Glucose 142 H Fasting Glucose Calcium Total Bilirubin AST ALT Alkaline Phosphatase Total Protein Albumin Assessment and Plan (1) Anemia: Status: Acute (2) Abnormal vaginal bleeding: Status: Acute (3) Pulmonary embolism on long-term anticoagulation therapy: Status: Acute Plan d8 57yo F with morbid obesity, chronic hypoxia on 3L home O2, saddle PE + LLE DVT diagnosed in Feb and on apixaban, ZAHEER, mood disorder, DM2 presenting with vaginal bleeding + symptomatic anemia symptomatic blood loss + iron deficiency anemia due to vaginal bleeding - transfused 3u pRBCs 06/01/23 with appropriate rise in H+H and now stable; also got 1 dose IV iron and continue PO replacement - will need 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 discussed with MAIL TR[employer] Dr Matthew. trial of transitioning back to apixaban 5 mg bid. INR did not budge on trial of warfarin. recheck CBC tomorrow and will need periodic rechecks as outpt DM2 - hollis-dose lispro UTI, E coli resistant to levofloxacin - ceftriaxone d6/7 HLD - statin mood disorder - buspirone, sertraline morbid obesity - diet/exercise counseling VTE ppx - apixaban dispo - anticipate home with VNA in next 1-2d In my clinical judgment, the patient requires continued inpatient hospitalization for the following reasons: monitoring for bleeding Total time managing care of this patient today: 40 minutes. Quality Stroke Does the patient have a stroke diagnosis?: No VTE Prior VTE?: No VTE Risk Level:: Medical - moderate - high VTE Device Contraindication: N/A - Device Ordered VTE Drug Contraindication: Treatment Not Indicated
[2023-06-08 15:14] VITALS: BP 148/65; PULSE 83; RESP 18; TEMP 37.4; O2SAT 97
[2023-06-08 16:08] LABS: Glucose, Whole Blood 181 mg/dL (60-115)
[2023-06-08] MEDS: cefTRIAXone sodium 1 GM in 0.9 % Sodium Chloride 50 ML IV (16:39)
[2023-06-08] MEDS: Insulin Lispro 100 UNIT/ML 3 ML VIAL SUBCUT ×2 (16:39→21:45)
[2023-06-08 20:48] LABS: Glucose, Whole Blood 170 mg/dL (60-115)
[2023-06-08] MEDS: Cholecalciferol (Vitamin D3) 25 MCG TABLET 125 MCG PO (21:30)
[2023-06-08] MEDS: Atorvastatin Calcium 40 MG TABLET PO (21:31)
[2023-06-08] MEDS: Montelukast Sodium 10 MG TABLET PO (21:32)
[2023-06-08 23:27] VITALS: BP 161/75; PULSE 69; RESP 16; TEMP 36.1; O2SAT 97
[2023-06-08] MEDS: Melatonin 3 MG TABLET 6 MG PO (23:27)
[2023-06-09 03:35] VITALS: BP 137/63; PULSE 75; RESP 18; TEMP 36.6; O2SAT 98
[2023-06-09 07:22] LABS: Hematocrit 32.3 % (37.0-47.0); Hemoglobin 9.2 g/dl (12.0-16.0); Mean Corpuscular HGB Conc 28.5 g/dl (31.0-35.0); Mean Corpuscular Hemoglobin 21.9 pg (27.0-33.0); Mean Corpuscular Volume 76.7 fL (80.0-98.0); Mean Platelet Volume 9.9 fL (9.4-12.3); Platelet Count 246 X10*3/uL (160-400); Red Blood Count 4.21 X10*6/uL (4.20-5.50); Red Cell Distribution Width 20.8 % (11.0-16.0); White Blood Count 7.4 X10*3/uL (4.8-10.8)
[2023-06-09 07:46] LABS: Glucose, Whole Blood 143 mg/dL (60-115)
[2023-06-09 07:57] VITALS: BP 148/68; PULSE 73; RESP 20; TEMP 36; O2SAT 97
[2023-06-09] MEDS: Ferrous Sulfate 324 MG TABLET.DR PO (08:27)
[2023-06-09] MEDS: oxyBUTYnin chloride ER 5 MG TAB.ER.24 15 MG PO (08:27)
[2023-06-09] MEDS: medroxyPROGESTERone Acetate 5 MG TABLET 20 MG PO (08:27)
[2023-06-09] MEDS: busPIRone HCl 5 MG TABLET 15 MG PO (08:27)
[2023-06-09] MEDS: Apixaban 5 MG TABLET PO (08:28)
[2023-06-09] MEDS: Sertraline HCL 50 MG TABLET 150 MG PO (08:28)
[2023-06-09] MEDS: 0.9 % Sodium Chloride Flush 3 ML SYRINGE IVFLUSH (08:29)
[2023-06-09 11:16] LABS: Glucose, Whole Blood 158 mg/dL (60-115)
--- NOTE | 2023-06-09 11:28 | PM.DS ---
DS: Providers Provider Date of Service: 06/09/23 Date of admission: 06/01/23 17:46 Date of discharge: 06/09/23 Primary care physician: Shaunna Owens MD Consults: 06/01/23 16:40 Consult to Obstetrics / Gynecology Stat Consulting Provider: Leo Matthew Reason for consultation: Anemia with severe vaginal bleed. Has provider been notified: Yes 06/02/23 10:16 Consult to Pulmonology Routine Consulting Provider: Jose Mares Reason for consultation: PE/hypoxia Has provider been notified: No 06/04/23 10:07 Consult to Vascular Surgery Routine Consulting Provider: Jose Light Reason for consultation: ivc filter Has provider been notified: No DS: Diagnosis Discharge Diagnosis (1) Anemia: Status: Acute (2) Abnormal vaginal bleeding: Status: Acute (3) Pulmonary embolism on long-term anticoagulation therapy: Status: Acute (4) Acute on chronic blood loss anemia: Status: Acute (5) Morbid obesity: Status: Acute (6) UTI (urinary tract infection): Status: Acute DS: Summary Hospital Course Hospital Course: From the history and physical by the admitting hospitalist, Dr Jolene Lira, 06/11/23: 57-year-old female patient with past medical history significant for anemia, hyperparathyroidism, depression/anxiety, migraine, hypertension, PVD, morbid obesity, obstructive sleep apnea not on CPAP on 3 L of oxygen, history of diabetes mellitus not on medications,, history of PE and left lower extremity DVT diagnosed in February 2023 on Eliquis presented to [facility] due to 3 month history of vaginal bleed and passing clots on a daily basis have to change 4-6 pads a day since started on Eliquis, she was seen by OBGYN physician at [facility] an ultrasound of pelvis was obtained that showed significant endometrial thickness ,she was started on Provera and was recommended D&C , patient was noted to have low hemoglobin therefore was referred to [facility] by PCP, patient complaining of increased weakness and lightheadedness, she denies associated chest pain, no palpitations, no headache, no nausea, no vomiting, no hematemesis, no melena, in ED labs showed a hematocrit of 22.8 with the last hematocrit 39.8 on March 13, otherwise patient noted to have normal electrolytes and kidney function hemoglobin A1c 7.6, blood sugar 215, 1 unit of packed RBC ordered patient is now being admitted for further treatment and evaluation of ongoing vaginal bleed and symptomatic anemia. 57yo F with morbid obesity, chronic hypoxia on 3L home O2, saddle PE + LLE DVT diagnosed in Feb and on apixaban, ZAHEER, mood disorder, and DM2 presenting with vaginal bleeding + symptomatic anemia who was admitted to the hospitalist service for symptomatic blood loss + iron deficiency anemia due to vaginal bleeding. Apixaban was held and an IVC filter placed on 06/05/23. She was transfused 3u pRBCs 06/01/23 with appropriate rise in H+H. She also got 1 dose IV iron and was started on PO iron replacement. Vaginal bleeding resolved and she was started on heparin drip and in consultation with gynecology, transitioned back to apixaban without significant rebleeding. 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 She should continue medroxyprogesterone until then. She was also treated with 7 days of ceftriaxone for E. coli UTI resistant to levofloxacin. She was discharged home with VNA services. Time Attestation Discharge coordination time: Greater than 30 minutes Quality: Safe Use of Opioids Does Pt have an Active Cancer Diagnosis on the Problem List?: No Quality: Stroke Does the patient have a stroke diagnosis?: No Physical Exam Vital Signs: Vital Signs: Last Vital Signs Temp 96.8 F 06/09/23 07:57 Pulse 73 06/09/23 07:57 Resp 20 06/09/23 07:57 BP 148/68 H 06/09/23 07:57 Pulse Ox 97 06/09/23 07:57 O2 Del Method Room Air 06/09/23 07:57 O2 Flow Rate 2 06/09/23 03:35 BMI result Body Mass Index 68.3 Gen: in no acute distress HEENT: sclera anicteric, moist mucus membranes Neck: supple Lungs: clear to auscultation bilaterally Heart: regular rate and rhythm, no murmurs Abd: soft, non-tender, non-distended, obese Ext: no edema Skin: warm/well-perfused Neuro: alert and oriented x3, no focal findings Psych: appropriate affect DS: Data Data Completed and Pending Completed studies during hospitalization [Text1]: Laboratory Results WBC 7.4 X10*3/uL (4.8-10.8) 06/09/23 06:12 RBC 4.21 X10*6/uL (4.20-5.50) 06/09/23 06:12 Hgb 9.2 g/dl (12.0-16.0) L 06/09/23 06:12 Hct 32.3 % (37.0-47.0) L 06/09/23 06:12 MCV 76.7 fL (80.0-98.0) L 06/09/23 06:12 MCH 21.9 pg (27.0-33.0) L 06/09/23 06:12 MCHC 28.5 g/dl (31.0-35.0) L 06/09/23 06:12 RDW 20.8 % (11.0-16.0) H 06/09/23 06:12 Plt Count 246 X10*3/uL (160-400) 06/09/23 06:12 MPV 9.9 fL (9.4-12.3) 06/09/23 06:12 Immature Gran % (Auto) 1.5 % (0.0-0.4) H 06/08/23 06:54 Neut % (Auto) 63.7 % (45-73) 06/08/23 06:54 Lymph % (Auto) 24.4 % (20-40) 06/08/23 06:54 [place] % (Auto) 7.5 % (2-11) 06/08/23 06:54 Eos % (Auto) 2.5 % (0-4) 06/08/23 06:54 Baso % (Auto) 0.4 % (0-2) 06/08/23 06:54 Lymph # (Auto) 2.0 X10*3/uL (1.2-4.9) 06/08/23 06:54 [place] # (Auto) 0.6 X10*3/uL (0.1-1.2) 06/08/23 06:54 Eos # (Auto) 0.2 X10*3/uL (0.0-0.4) 06/08/23 06:54 Baso # (Auto) 0.0 X10*3/uL (0.0-0.2) 06/08/23 06:54 Abs Immat Gran (auto) 0.12 X10*3/uL (0.00-0.03) H 06/08/23 06:54 Absolute Neuts (auto) 5.1 x10*3/uL (2.0-8.3) 06/08/23 06:54 Absolute Nucleated RBC 0.000 X10*3/uL (0.0-0.012) 06/09/23 06:12 Nucleated RBC % (auto) 0.0 /100WBC (0.0-0.2) 06/09/23 06:12 Smear Path Review Cancelled 06/01/23 15:58 Hold Purple Top SEE NOTE 06/03/23 08:03 PT 12.3 SEC (11.1-13.3) 06/08/23 06:54 INR 1.0 (0.9-1.1) 06/08/23 06:54 aPTT Heparin Protocol 64.3 SEC (53-77.9) 06/08/23 06:54 Sodium 140 mmol/L (135-145) 06/08/23 06:54 Potassium 4.4 mmol/L (3.3-5.1) 06/08/23 06:54 Chloride 104 mmol/L (96-108) 06/08/23 06:54 Carbon Dioxide 28 mmol/L (22-29) 06/08/23 06:54 Anion Gap 12 (12-20) 06/08/23 06:54 BUN 10 mg/dL (9-16) 06/08/23 06:54 Creatinine 0.67 mg/dL (0.5-1.4) 06/08/23 06:54 Estim Creat Clear Calc 146.4 06/08/23 06:54 Estimated GFR > 60 06/08/23 06:54 POC Glucose 158 mg/dL (60-115) H 06/09/23 11:05 Random Glucose 215 mg/dL (60-115) H 06/01/23 15:58 Fasting Glucose 145 mg/dL (60-99) H 06/08/23 06:54 Calcium 10.8 mg/dL (8.4-10.2) H 06/08/23 06:54 Iron 25 mcg/dL (30-160) L 06/01/23 15:58 TIBC 365 mcg/dL (228-428) 06/01/23 15:58 % Saturation 7 % (15-50) L 06/01/23 15:58 Unsat Iron Binding 340 ug/dL 06/01/23 15:58 Ferritin 10 ng/mL (10-250) 06/01/23 15:58 Total Bilirubin 0.3 mg/dL (0.0-1.0) 06/08/23 06:54 Direct Bilirubin 0.1 mg/dL (0.0-0.5) 06/01/23 15:58 AST 12 U/L (5-31) 06/08/23 06:54 ALT 10 U/L (0-31) 06/08/23 06:54 Alkaline Phosphatase 64 U/L (39-117) 06/08/23 06:54 Troponin I High Sens < 2.7 ng/L (<3.5-17.0) D 06/01/23 15:58 Total Protein 7.2 g/dL (6.5-8.0) 06/08/23 06:54 Albumin 3.7 g/dL (3.5-5.0) 06/08/23 06:54 Lipase 23 U/L (8-78) 06/01/23 15:58 Beta HCG, Quant < 2 mIU/mL 06/01/23 15:58 Urine Color Yellow 06/01/23 16:58 Urine Appearance Cloudy 06/01/23 16:58 Urine pH 5.5 (5.0-9.0) 06/01/23 16:58 Ur Specific [place] 1.025 (1.005-1.025) 06/01/23 16:58 Urine Protein 30 (1+) mg/dL (Neg-Trace) H 06/01/23 16:58 Urine Glucose (UA) 500 mg/dL (Negative) H 06/01/23 16:58 Urine Ketones Negative mg/dL (Negative) 06/01/23 16:58 Urine Blood Large (3+) (Negative) H 06/01/23 16:58 Urine Nitrite Negative (Negative) 06/01/23 16:58 Ur Leukocyte Esterase Small (1+) (Negative) H 06/01/23 16:58 Urine RBC >20 /HPF (0-2) H 06/01/23 16:58 Urine WBC 11-20 /HPF (0-5) H 06/01/23 16:58 Ur Squamous Epith Cells 0-2 /HPF (0-2) 06/01/23 16:58 Urine Bacteria Trace (None Seen) 06/01/23 16:58 Hyaline Casts 0-2 /LPF (0-2) 06/01/23 16:58 Influenza Type A (PCR) NEGATIVE (Negative) 06/01/23 15:58 Influenza Type B (PCR) NEGATIVE (Negative) 06/01/23 15:58 RSV RNA Qual (PCR) NEGATIVE (Negative) 06/01/23 15:58 SARS-CoV-2 RNA (RT-PCR) NEGATIVE (Negative) 06/01/23 15:58 Blood Type B Positive 06/01/23 15:57 Antibody Screen NEGATIVE 06/01/23 15:57 Crossmatch See Detail 06/01/23 15:57 Impressions Chest X-Ray 06/01/23 17:45 IMPRESSION: Somewhat limited study due to low lung volumes, body habitus and AP portable technique. No evidence for active cardiopulmonary disease. Discharge Plan Discharge Anticipated Discharge Date/Time: 06/09/23 11:21 Patient Disposition: Home Health Service Discharge Diagnosis: symptomatic blood loss + iron deficiency anemia due to vaginal bleeding anticoagulated due to pulmonary embolism 03/12/23 Referrals: [facility] [Outside] - 1 Week Shaunna Owens MD [Primary Care Provider] - 1 Week SHERRY CARDENAS [Physician] - 1 Week Discharge Medications: New ferrous sulfate 324 mg (65 mg iron) Tablet,Delayed Release (Dr/Ec) 324 mg PO DAILY Qty: 30 0RF Continued (DME) filters for cpap See Rx Instructions .Route .MEDSUPPLY Qty: 1 0RF Rx Instructions: Filters for CPAP machine (DME) heated tubing See Rx Instructions .Route .MEDSUPPLY Qty: 1 0RF Rx Instructions: Heated tubing for CPAP machine (DME) cpap mask See Rx Instructions .Route .MEDSUPPLY Qty: 1 0RF Rx Instructions: cpap mask- CPAP at 15 cm (DME) bariatric wheeled walker See Rx Instructions .Route .MEDSUPPLY Qty: 1 0RF Rx Instructions: As directed (DME) bariatric sliding shower bench See Rx Instructions .Route .MEDSUPPLY Qty: 1 0RF Rx Instructions: As directed furosemide 20 mg tablet 20 mg PO QAM PRN (Reason: for swelling) Qty: 90 0RF (DME) disposable wipes See Rx Instructions .Route .MEDSUPPLY Qty: 100 11RF Rx Instructions: As directed to clean after incontinence (DME) diaper,brief,adult,disposable Misc See Rx Instructions .Route Qty: 200 11RF Rx Instructions: As directed for incontinence, up to 6 per day (DME) bed pad See Rx Instructions .Route .MEDSUPPLY Qty: 100 11RF Rx Instructions: As directed montelukast 10 mg tablet 10 mg PO BEDTIME Qty: 90 0RF Rx Instructions: schedule PCP appt for future refills sennosides-docusate sodium [Senokot-S] 8.6-50 mg tablet 1 tab-cap PO BEDTIME PRN (Reason: constipation) Qty: 30 0RF atorvastatin 40 mg tablet 40 mg PO BEDTIME Qty: 90 0RF cholecalciferol (vitamin D3) 125 mcg (5,000 unit) capsule 125 mcg PO BEDTIME Qty: 90 0RF cetirizine 10 mg tablet 10 mg PO DAILY PRN (Reason: for allergies) Qty: 90 1RF oxybutynin chloride 15 mg tablet extended release 24hr 15 mg PO DAILY Qty: 30 5RF (DME) bedside commode Kit See Rx Instructions .Route Qty: 1 0RF Rx Instructions: As directed loperamide 2 mg Capsule 2 mg PO Q6H PRN (Reason: Loose Stool) medroxyprogesterone 10 mg tablet 20 mg PO BID Qty: 60 0RF Eliquis 5 mg tablet 5 mg PO BID 30 Days Qty: 60 6RF buspirone 15 mg tablet 15 mg PO TID sertraline 100 mg tablet 150 mg PO DAILY sumatriptan succinate 100 mg tablet 100 mg PO DAILY MRX1 PRN (Reason: Migraine Headache) ondansetron HCl 4 mg tablet 4 mg PO Q8H PRN (Reason: Nausea) (DME) walker Misc See Rx Instructions .Route Qty: 1 0RF Rx Instructions: As directed (DME) bariatric commode See Rx Instructions .Route .MEDSUPPLY Qty: 1 0RF Rx Instructions: As directed Discharge Orders: Discharge Order (Routine); Ordered 06/09/23 Ordered By: Feliciano Hancock Diet: Advance to usual diet Activity on Discharge: As tolerated Stand Alone Forms: Patient Portal Discharge page Other Ambulatory Orders: Complete Blood Count Auto Diff (Routine) Timeframe: [id number] Facility: [facility] - Location: Laboratory Ordered By: Feliciano Hancock Care Plan Goals: safe anticoagulation without bleeding Health Concerns: symptomatic blood loss + iron deficiency anemia due to vaginal bleeding anticoagulated due to pulmonary embolism 03/12/23 Plan of Treatment: resume apixaban 5 mg twice daily take ferrous sulfate 324 mg once daily continue medroxyprogsterone 20 mg twice daily check CBC on 06/13/[address] Cardenas from [facility] Gynecology as scheduled 06/24/23 Please follow up with your primary care doctor within 1 week. Return to the hospital if you experience recurrent or worsening symptoms. Assessment: See Discharge Summary.
--- NOTE | 2023-06-09 11:36 | P.F2F_ITS ---
Service Date Service Date: 06/09/23 Encounter Date of encounter: 06/09/23 Reasons for Services Signs and symptoms assessed: anemia vaginal bleeding Reason for intermediate: medication management, medication treatment and teach disease management Reason for physical therapy: home safety and mobility, therapeutic exercises, gait/transfer training, assess need for DME, ADL training and energy conservation MD Overseeing Care: Shaunna Owens Homebound: Leaving the home is medically contraindicated at this time without the asist of a device and/or another person due th the listed conditions above and below. Reason homebound: weakness related to hospital stay Certification: Based on the above findings, I certify that this patient is confined to the home and needs intermittent intermediate care, physical therapy and/or speech therapy, or continues to need occupational therapy. The patient is under my care, and I have initiated the establishment of the plan of care. The patient will be followed by a physician who will periodically review the plan of care. Time Spent With Patient Time: Total time managing care of this patient today ____ minutes.
--- NOTE | 2023-06-09 11:42 | MHC.CM.PN ---
IMM 06/09/23 Female 57yrs DX PE She is discharged to home today with [facility]. All discharge information has been sent to the agency. She has arranged for transportation home.
[2023-06-09] MEDS: Insulin Lispro 100 UNIT/ML 3 ML VIAL SUBCUT (12:00)
[2023-06-09] MEDS: cefTRIAXone sodium 1 GM in 0.9 % Sodium Chloride 50 ML IV (12:09)
== END 2023-06-09 13:38 | disposition home health service (06) | DRG 760 ==
LOC: HO.ED 15:48 → HO.EDOVER 17:51 → HO.S3 19:33
PROVIDERS: Hospitalist; Internal Medicine; Surgery Vascular Surgery; Admitting Provider Hospitalist; Emergency Provider Emergency Medicine; PCP Internal Medicine; Visit Provider Family Medicine
PROC: 06H03DZ Insertion of Intraluminal Device into Inferior Vena Cava, Percutaneous Approach (ICD-10-PCS; principal; 2023-06-05 13:00)
DX: N95.0 Postmenopausal bleeding (principal); D62 Acute posthemorrhagic anemia; N39.0 Urinary tract infection, site not specified; Z68.44 Body mass index [BMI] 60.0-69.9, adult; J96.11 Chronic respiratory failure with hypoxia; Z16.23 Resistance to quinolones and fluoroquinolones; E78.2 Mixed hyperlipidemia; K75.81 Nonalcoholic steatohepatitis (NASH); G47.33 Obstructive sleep apnea (adult) (pediatric); B96.20 Unspecified Escherichia coli [E. coli] as the cause of diseases classified elsewhere; E66.01 Morbid (severe) obesity due to excess calories; Z99.81 Dependence on supplemental oxygen; Z20.822 Contact with and (suspected) exposure to COVID-19; Z86.718 Personal history of other venous thrombosis and embolism; Z86.711 Personal history of pulmonary embolism; Z79.01 Long term (current) use of anticoagulants; Z79.899 Other long term (current) drug therapy
CPT/HCPCS: 0241U; 36415; 37191; 71045; 80048; 80053; 80076; 81001; 82728; 82947; 83540; 83690; 84484; 84702; 85025; 85027; 85610; 85730; 86850; 86900; 86901; 86923; 87086; 87088; 87186; 93005; 94660; 99285; A4364; C1769; C1880; C1894; J0696; J1644; J1650; J1756; P9016

== ENCOUNTER → 2023-06-01 15:31 | Outpatient (BNV) | payer OTHER, SELFPAY | PROVIDERS: Admitting Provider Hospitalist; Emergency Provider Emergency Medicine; PCP Internal Medicine; Visit Provider Internal Medicine Cardiovascular Disease | DX: R94.31 Abnormal electrocardiogram [ECG] [EKG] (principal) | CPT/HCPCS: 93010 ==

== ENCOUNTER → 2023-06-01 17:46 | Outpatient (BNV) | payer OTHER, SELFPAY | PROVIDERS: Admitting Provider Hospitalist; Emergency Provider Emergency Medicine; PCP Internal Medicine; Visit Provider Surgery Vascular Surgery | DX: Z86.718 Personal history of other venous thrombosis and embolism (principal) | CPT/HCPCS: 37191; 99222; 99232 ==

== ENCOUNTER → 2023-06-01 17:46 | Outpatient (BNV) | payer OTHER, SELFPAY | PROVIDERS: Admitting Provider Hospitalist; Emergency Provider Emergency Medicine; PCP Internal Medicine; Visit Provider Hospitalist | DX: N93.9 Abnormal uterine and vaginal bleeding, unspecified (principal); I26.99 Other pulmonary embolism without acute cor pulmonale; Z79.01 Long term (current) use of anticoagulants; D62 Acute posthemorrhagic anemia; N39.0 Urinary tract infection, site not specified; E66.01 Morbid (severe) obesity due to excess calories; Z68.44 Body mass index [BMI] 60.0-69.9, adult | CPT/HCPCS: 99223; 99232; 99233; 99239; G0180 ==

== ENCOUNTER → 2023-06-01 17:46 | Outpatient (BNV) | payer OTHER, SELFPAY | PROVIDERS: Admitting Provider Hospitalist; Emergency Provider Emergency Medicine; PCP Internal Medicine; Visit Provider Internal Medicine Pulmonary Disease | DX: I26.92 Saddle embolus of pulmonary artery without acute cor pulmonale (principal); Z86.718 Personal history of other venous thrombosis and embolism; Z99.81 Dependence on supplemental oxygen | CPT/HCPCS: 99222 ==

== ENCOUNTER → 2023-06-01 17:46 | Outpatient (BNV) | payer OTHER, SELFPAY | PROVIDERS: Admitting Provider Hospitalist; Emergency Provider Emergency Medicine; PCP Internal Medicine; Visit Provider Obstetrics & Gynecology | DX: N95.0 Postmenopausal bleeding (principal); D64.9 Anemia, unspecified; I26.99 Other pulmonary embolism without acute cor pulmonale; Z79.01 Long term (current) use of anticoagulants | CPT/HCPCS: 99222; 99232 ==

== ENCOUNTER 2023-07-27 11:07 | Outpatient (AMB) | payer OTHER, SELFPAY ==
[2023-07-27 11:17] VITALS: BP 122/78; PULSE 89; O2SAT 98; BMI 69.9
--- NOTE | 2023-07-27 11:17 | MHC.PC.OV ---
Vital Signs 07/27/23 11:17 Height 5 ft 1 in Weight 370 lb BMI 69.9 BP 122/78 Blood Pressure Location Lt radial Position Sitting Pulse 89 Pulse Source Pulse Oximeter Pulse Oximetry (%) 98 Oxygen Delivery Method Room Air Intake Visit Reasons: [facility] HDF/low blood count transfusion Intake Note: Pt is here today for her [facility] low blood count Allergies cat dander [CAT] Allergy (Unknown, Verified 07/27/23 11:30) UNKNOWN mold [MOLD] Allergy (Unknown, Verified 07/27/23 11:30) UNKNOWN amoxicillin [From Augmentin] Adverse Reaction (Verified 07/27/23 11:30) Abdominal Pain ENVIRONMENTAL Allergy (Unknown, Uncoded 07/27/23 11:30) RUNNY NOSE,ITCHY EYES Medication List - Last Reconciled 07/27/23 by Shaunna Owens MD atorvastatin 40 mg PO BEDTIME [bariatric commode As directed] [bariatric sliding shower bench As directed] [bariatric wheeled walker As directed] [bed pad As directed ] buspirone 15 mg PO TID cetirizine 10 mg PO DAILY PRN cholecalciferol (vitamin D3) 125 mcg PO BEDTIME commode (bedside commode) As directed [cpap mask cpap mask- CPAP at 15 cm NS] diaper,brief,adult,disposable As directed for incontinence, up to 6 per day [disposable wipes As directed to clean after incontinence] Eliquis (apixaban) 5 mg PO BID 30 days NS ferrous sulfate 324 mg PO DAILY [filters for cpap Filters for CPAP machine NS] furosemide 20 mg PO QAM PRN [heated tubing Heated tubing for CPAP machine NS] medroxyprogesterone 20 mg (2 x 10 mg) PO BID montelukast 10 mg PO BEDTIME oxybutynin chloride ER 15 mg PO DAILY sennosides-docusate sodium 8.6-50 mg (Senokot-S) 1 tab-cap PO BEDTIME PRN sertraline 150 mg PO DAILY sumatriptan succinate 100 mg PO DAILY MRX1 PRN walker As directed Tobacco use date assessed: 07/27/23 Dental Screening Dental Screen Date: 08/23/23 Did you have a dental visit in the last 12 months?: No Was dental information given to patient?: No HPI [facility] HDF/low blood count transfusion HPI Details 57 year old lady with morbid obesity, 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 Apixaban was held and an IVC filter placed on 06/05/23. She was transfused 3u pRBCs 06/01/23 with appropriate rise in H+H. She also received 1 dose IV iron and was started on PO iron replacement. Her vaginal bleeding resolved and in consultation with gynecology, was transitioned back to apixaban without significant rebleeding. She is currently being followed by OBGYN at [place], Dr. Cardenas, placed on medroxyprogesterone, and has an appointment in a.m. for follow-up. She also gets weekly CBC drawn by visiting nurse She has been feeling better, still feels low tired, ran out of her iron supplements 2 weeks ago, needs a refill. She is also due for follow-up on her lipids and diabetes mellitus. Complains of a pruritic patch on dorsal aspect of right foot which has been present for the last several days. She needs prescriptions for her adult diapers sized to a, uses only 7 a day, and uses 3 liners daily and at least a 3 pack of wipes per month, due to her mixed urinary incontinence. Previously was being seen by Urology in [place] approximately 6 years ago per. Currently on oxybutynin chloride ER, which affords only minimal control of her bladder leakage. She is currently being seen for PTSD, mixed anxiety depression by Avel Osuna , currently controlled on sertraline and buspirone here. Has migraine headaches, takes sumatriptan as needed. [facility] Medical History (Updated 07/27/23 @ 12:47 by Shaunna Owens MD) Tinea pedis of right foot Type 2 diabetes mellitus without complication, with no history of insulin use Pulmonary embolism on long-term anticoagulation therapy History of DVT (deep vein thrombosis) Saddle embolism of pulmonary artery Mixed stress and urge urinary incontinence Varicose veins of leg with swelling Postmenopausal bleeding Colon cancer screening Hyperparathyroidism DAVIS (nonalcoholic steatohepatitis) Depression with anxiety Migraine Chronic venous insufficiency Mixed dyslipidemia Essential hypertension Peripheral vascular disease Morbid obesity Surgical History History of removal of cyst History of umbilical hernia repair Hx of cholecystectomy History of trigger finger History of carpal tunnel release of both wrists History of section Family History Father Diabetes mellitus Mother HTN (hypertension) Maternal Grandmother Scleroderma Maternal Grandfather Lung cancer Maternal Aunt Lung cancer Mental health disorder Maternal Uncle Colon cancer Substance use disorder Brother No problems noted. Son No problems noted. Son No problems noted. Daughter Mental health disorder Social History Household Members: Family Housing: House Do you presently have visiting nurse or other home services: Yes Alcohol intake: never Patient Tobacco Use Status: Never used Tobacco e-Cigarette/Vaping Use: Never Used Advance Directives Date on File: 11/11/21 service: No Current occupational status: disabled Cognitive needs: No Hearing needs: No Vision needs: Yes Questionnaire PHQ-9 Over the last 2 weeks, how often have you been bothered by any of the following problems? 1. Little interest or pleasure in doing things: several days 2. Feeling down, depressed, or hopeless: several days 3. Trouble falling or staying asleep, or sleeping too much: several days 4. Feeling tired or having little energy: not at all 5. Poor appetite or overeating: several days 6. Feeling bad about yourself - or that you are a failure or have let yourself or your family down: several days 7. Trouble concentrating on things, such as reading the newspaper or watching television: not at all 8. Moving or speaking so slowly that other people could have noticed. Or the opposite - being so fidgety or restless that you have been moving around a lot more than usual: not at all 9. Thoughts that you would be better off or of hurting yourself in some way: not at all Total score: 5 Depression Screening Interpretation: Positive Depression Screening Follow-up: Existing condition, In treatment and Community Mental Health Worker F/U (ff'd by Orquidea Osuna) Depression Screening Done: Yes 10415 - PHQ-9 Billing: Yes Source: Developed by Drs. Vince L. NetoJane coronado Kurt Kroenke and colleagues, with an educational ayaz from [employer]. Thrive Questionnaire Date Thrive assessed: 07/27/23 I am a: Patient What is your living situation today?: I have a steady place to live Within the past 12 months, did the food you bought not last and you didn't have the money to get more?: Sometimes True Within the past 12 months, did you worry whether your food would run out before you got money to buy more?: Often true Do you have trouble paying for medicines?: No Do you have trouble getting transportation to medical appointments?: No Do you have trouble paying your heating and electricity bill?: No Do you have trouble taking care of your child, family member or friend?: No Do you have trouble with day-to-day activities such as bathing, preparing meals, shopping, managing finances, etc.?: Yes Are you currently unemployed and looking for a job?: No Are you interested in more education?: No THRIVE Score: 2 AUDIT C Alcohol Use Questionnaire (AUDIT-C) 1. How often do you have a drink containing alcohol?: Never Total Score: 0 KIARA-7 AMB Questionnaire KIARA-7 Date KIARA - 7 assessed: 07/27/23 Feeling nervous, anxious, or on edge: 1 = Several days Not being able to stop or control worryin = Not at all Worrying too much about different things: 1 = Several days Trouble relaxin = Not at all Being so restless that it is hard to sit still: 0 = Not at all Becoming easily annoyed or irritable: 0 = Not at all Feeling afraid as if something awful might happen: 0 = Not at all Total KIARA-7 score (0-4 normal; 5-9 mild; 10-14 moderate; 15-21 severe): 2 Source: Developed by Drs. Vince Duque, Jane Sue, Govind Gomez and colleagues, with an educational ayaz from [employer]. KIARA-7 Assessment Billing KIARA-7 Assessment Tool: KIARA-7 Assessment 92837 Review of Systems Const Denies daytime sleepiness, Denies fatigue, Denies fever(s), Denies malaise, Denies night sweats, Denies snoring and Denies weight loss Eyes Details: Goes to [facility] for her routine eye exam Denies change in vision ENT Denies nasal congestion, Denies post nasal drip, Denies sinus pain and Denies sinus pressure Card Denies chest pain, Denies pedal edema, Denies dyspnea and Denies orthopnea Resp Denies cough, Denies excessive phlegm production, Denies dyspnea, Denies snoring and Denies wheezing GI Denies abdominal pain and Denies heartburn Reports as per HPI Musc Denies myalgias, Denies arthralgias and Denies joint swelling Skin/Breast Reports as per HPI Neuro Denies memory loss and Denies seizure-like activity Psych Reports as per HPI, Denies abnormal sleep pattern and Denies memory loss Endo Denies fatigue and Denies heat intolerance Saulo/Lymph Denies easy bruising Aller/Immun Denies seasonal rhinorrhea and Denies wheezing Physical exam (Primary Care) Vital Signs: Last Vital Signs Pulse 89 07/27/23 11:17 BP 122/78 07/27/23 11:17 Pulse Ox 98 07/27/23 11:17 Oxygen Delivery Method Room Air 07/27/23 11:17 BMI result Body Mass Index 69.9 Tobacco/Smoking Status: Tobacco use Status Tobacco use date assessed 07/27/23 07/27/23 11:24 Patient Tobacco Use Status Never used Tobacco 07/27/23 11:24 e-Cigarette/Vaping Use Never Used 07/27/23 11:24 PHQ-9: PHQ-9 Score PHQ-9: Total score 5 07/27/23 12:05 Depression Screening Interpretation: Positive Depression Screening Follow-up: Existing condition, In treatment and Community Mental Health Worker F/U (ff'd by Orquidea Osuna) Thrive Assessment: Date of Thrive Assessment Date Thrive assessed 07/27/23 07/27/23 12:05 Const General: comfortable, no acute distress and alert Nutritional Appearance: obese morbidly obese Orientation/consciousness: patient oriented x3 Limitations: physical limitations and other limitations (On 3 L supplemental oxygen) HENMT Ears: external ears normal General nose exam: Normal external nose present Mouth: oropharynx normal and moist mucous membranes Eyes General: appearance normal, both eyes and all related structures Neck Neck: Yes full ROM, Yes no lymphadenopathy and Yes supple Resp Effort & Inspection: normal respiratory effort and able to speak in complete sentences Auscultation: diminished lung sounds bilateral Cardio Rate: regular rate Rhythm: regular rhythm Heart sounds: S1 normal heart sound present and S2 normal heart sound present GI Palpation (GI): Soft to palpation, nontender and no masses Auscultation: normal bowel sounds Skin Other: Varicose veins noted in both lower extremities Erythematous circular patch with central clearing and rolled edges on dorsal aspect of right foot Neuro General: patient oriented x3, tone normal, moves all extremities, Normal light touch and pain sensation and no focal motor deficits Cranial nerves: Yes CN's II-XII intact bilaterally Cognition (Neuro): normal cognition Extrem General: Yes full ROM, Yes no joint enlargement and Yes no calf tenderness Psych Appearance: grossly normal and well kempt Mental Status: mental status grossly normal Speech and movement: Normal speech and movement present Affect: normal affect Attitude: cooperative Thought process: Normal thought process present Thought content: Normal thought content present Immunizations pneumoc 20-singh conj-dip cr(PF) 0.5 mL IM syringe Performing Provider: Shaunna Owens MD Performing Location: [facility] Administered by: Ade Borjas CMA on 07/27/23 12:05 Dose Route Admin Location Dispensed Lot Number Expiration Date [employer] 0.5 mL IM Left Deltoid 0.5 mL [id number] 02/17/24 2734-0175-80 [employer] VIS Given Date VIS Provided VIS Publication Date 07/27/23 Single Vaccine 21 Eligibility Eligibility Date Funding Source Not [facility] Eligible 07/27/23 Private Assessment and Plan Assessment & Plan (1) Mixed dyslipidemia: Code(s): E78.2 - Mixed hyperlipidemia Plan: Fasting lipid panel ordered, continue atorvastatin 40 mg daily, reinforced a adherence to healthy eating habits. (2) Essential hypertension: Code(s): I10 - Essential (primary) hypertension Plan: Blood pressure at goal of less than 130/80. Continue with current medication. Reinforced importance of following a low sodium diet, getting regular exercise, and lowering stress levels. (3) Type 2 diabetes mellitus without complication, with no history of insulin use: Code(s): E11.9 - Type 2 diabetes mellitus without complications Plan: Hemoglobin A1c , basic metabolic panel and urine for microalbuminuria screening [facility]. Prevnar 20 given today, patient states that she was advised not to get COVID booster by her instrument designer, up-to-date with her flu shot (4) Mixed stress and urge urinary incontinence: Code(s): N39.46 - Mixed incontinence Plan: Currently on oxybutynin chloride ER 15 mg daily with minimal relief per patient, referred to urology for further evaluation management (5) Anemia: Code(s): D64.9 - Anemia, unspecified Plan: Patient gets weekly lab draw for CBC ordered by her customer leader, [facility] ferrous sulfate 324 mg per tablet to take once a day , advised to take it vitamin-C or orange juice for better absorption. (6) Tinea pedis of right foot: Code(s): B35.3 - Tinea pedis Plan: Prescription sent for terbinafine HCL 1% cream to be applied liberally to affected area on right foot twice a day for 2 weeks. Return to clinic if no improvement of symptoms Orders: Orders Hemoglobin A1c Today E11.9 - Type 2 diabetes mellitus without complications, E66.01 - Morbid (severe) obesity due to excess calories, E78.2 - Mixed hyperlipidemia, G43.909 - Migraine, unspecified, not intractable, without status migrainosus, I10 - Essential (primary) hypertension, I73.9 - Peripheral vascular disease, unspecified Comprehensive [place]. Panel Fast Today E11.9 - Type 2 diabetes mellitus without complications, E66.01 - Morbid (severe) obesity due to excess calories, E78.2 - Mixed hyperlipidemia, G43.909 - Migraine, unspecified, not intractable, without status migrainosus, I10 - Essential (primary) hypertension, I73.9 - Peripheral vascular disease, unspecified Microalbumin, Random (w Creat) Today E11.9 - Type 2 diabetes mellitus without complications, E66.01 - Morbid (severe) obesity due to excess calories, E78.2 - Mixed hyperlipidemia, G43.909 - Migraine, unspecified, not intractable, without status migrainosus, I10 - Essential (primary) hypertension, I73.9 - Peripheral vascular disease, unspecified Vitamin D 25-OH Total Today E11.9 - Type 2 diabetes mellitus without complications, E66.01 - Morbid (severe) obesity due to excess calories, E78.2 - Mixed hyperlipidemia, G43.909 - Migraine, unspecified, not intractable, without status migrainosus, I10 - Essential (primary) hypertension, I73.9 - Peripheral vascular disease, unspecified TSH reflex Free T4 Today E11.9 - Type 2 diabetes mellitus without complications, E66.01 - Morbid (severe) obesity due to excess calories, E78.2 - Mixed hyperlipidemia, G43.909 - Migraine, unspecified, not intractable, without status migrainosus, I10 - Essential (primary) hypertension, I73.9 - Peripheral vascular disease, unspecified Lipid Panel Today E11.9 - Type 2 diabetes mellitus without complications, E66.01 - Morbid (severe) obesity due to excess calories, E78.2 - Mixed hyperlipidemia, G43.909 - Migraine, unspecified, not intractable, without status migrainosus, I10 - Essential (primary) hypertension, I73.9 - Peripheral vascular disease, unspecified Vitamin B12 and Folate Today E11.9 - Type 2 diabetes mellitus without complications, E66.01 - Morbid (severe) obesity due to excess calories, E78.2 - Mixed hyperlipidemia, G43.909 - Migraine, unspecified, not intractable, without status migrainosus, I10 - Essential (primary) hypertension, I73.9 - Peripheral vascular disease, unspecified Pneumococcal 20 Immunization Today Z23 - Encounter for immunization Referrals Urology Referral N39.46 - Mixed incontinence Medications: New terbinafine HCl 1% 1 appl topical BID 2 weeks 30 grams 0RF B35.3 - Tinea pedis Refilled ferrous sulfate 324 mg PO DAILY 30 tabs 0RF Coding Level of Care Code Est Pt Level 4 (49003) Diagnoses Mixed dyslipidemia E78.2 Essential hypertension I10 Type 2 diabetes mellitus without complication, with no history of insulin use E11.9 Mixed stress and urge urinary incontinence N39.46 Anemia D64.9 Tinea pedis of right foot B35.3 Additional Codes KIARA-7 Assessment Billing - KIARA-7 Assessment Tool: KIARA-7 Assessment 03388 ([id number])
== END 2023-07-27 12:15 | disposition home or self-care (01) ==
PROVIDERS: PCP Internal Medicine; Visit Provider Internal Medicine
DX: E78.2 Mixed hyperlipidemia (principal); I10 Essential (primary) hypertension; E11.9 Type 2 diabetes mellitus without complications; N39.46 Mixed incontinence; D64.9 Anemia, unspecified; B35.3 Tinea pedis; Z23 Encounter for immunization
CPT/HCPCS: 90471; 90677; 99214

== ENCOUNTER 2023-07-27 12:16 | Outpatient (REF) | payer OTHER, SELFPAY ==
[2023-07-27 13:52] LABS: Creatinine Urine 157.32 mg/dL; Microalbum/Creatinine Ratio Ur 38.7 ug/mg cr (<30)
== END 2023-07-27 12:17 | disposition home or self-care (01) ==
LOC: HO.HMGCLDS 12:16
PROVIDERS: PCP Internal Medicine; Visit Provider Internal Medicine
DX: E11.9 Type 2 diabetes mellitus without complications (principal); E78.2 Mixed hyperlipidemia; I10 Essential (primary) hypertension; I73.9 Peripheral vascular disease, unspecified; E66.01 Morbid (severe) obesity due to excess calories; G43.909 Migraine, unspecified, not intractable, without status migrainosus
CPT/HCPCS: 82043; 82570

== ENCOUNTER 2023-12-01 10:41 | Emergency (ER) | payer OTHER, SELFPAY ==
[2023-12-01] VITALS (7 sets, daily range): BP systolic 114–150; BP diastolic 53–88; PULSE 96–108; RESP 18–32; TEMP 37.2–39.3; O2SAT 95–99; BMI 69.9
--- NOTE | ~2023-12-01 | XR_ITS ---
EXAMINATION: XR CHEST CLINICAL INFORMATION: Fever. COMPARISON: Chest radiograph dated 06/01/2023. TECHNIQUE: Frontal view of the chest was obtained. FINDINGS: The heart is normal in size. The lungs are clear. There is no large pleural effusion. No pneumothorax. No acute osseous abnormality. XR/XR chest 1V IMPRESSION: No active cardiopulmonary disease.
--- NOTE | 2023-12-01 11:09 | ECG_ITS ---
Test Reason : SOB Blood Pressure : / mmHG Vent. Rate : 100 BPM Atrial Rate : 100 BPM P-R Int : 152 ms QRS Dur : 086 ms QT Int : 332 ms P-R-T Axes : 055 008 056 degrees QTc Int : 428 ms Normal sinus rhythm Normal ECG When compared with ECG of 01-JUN-2023 18:24, No significant change was found Referred By: Milagros Galicia Electronically Signed By:NETTA DUNNE
--- NOTE | 2023-12-01 11:21 | ED.FEMALEGU ---
HPI - Female Genitourinary General Chief complaint: General Medical Stated complaint: WEAKNESS AND CRAMPING HX OF VAG BLEED PER EMS Time Seen by Provider: 12/01/23 10:48 Source: patient, EMS and old records reviewed Mode of arrival: EMS Limitations: no limitations History of Present Illness ED Provider: CHRISTEL HPI Narrative: 58 yo female PMH of saddle embolus on eliquis back in February, anemia from intermittent abnormal vaginal bleeding managed by OBGYN at [place] Dr. Cardenas has had negative endometrial biopsy currently on oral hormone, DM, obesity, DVT with IVC filter, migraine, HTN, HLD, PVD, chronic hypoxia and 3L NC here with c/o abdominal cramps and passing blood clots intermittently since November 16. She is compliant with all medications though did not take her eliquis this AM. She notes she feels dizzy, weak and shaky. Has gone through 7 depends in the last 24 hours. She feels weak when she stands MD elicited complaint: vaginal bleeding Pertinent past history: other (abnormal uterine bleeding) Onset (ago): week(s) (couple) Location of symptoms: pelvis Severity: moderate Quality of pain: cramping Consistency: intermittent Vaginal bleeding: moderate, bright red and clots Exacerbating factors: none Relieving factors: none Associated symptoms: weakness and other (weak, shaky, cramps) Related Data Home Medications ?Medication ?Instructions ?Recorded ?Confirmed buspirone 15 mg tablet 15 mg PO TID 07/07/20 06/01/23 sertraline 100 mg tablet 150 mg PO DAILY 07/07/20 06/01/23 sumatriptan succinate 100 mg tablet 100 mg PO DAILY MRX1 PRN Migraine 07/07/20 06/01/23 Headache Previous Rx's ?Medication ?Instructions ?Recorded cpap mask #1 ea 07/14/20 filters for cpap #1 ea 07/14/20 heated tubing #1 ea 07/14/20 commode (bedside commode) #1 ea 12/02/21 bariatric sliding shower bench #1 ea 12/07/21 bariatric wheeled walker #1 ea 12/07/21 bariatric commode #1 ea 01/05/22 walker #1 ea 01/05/22 furosemide 20 mg tablet 20 mg PO QAM PRN for swelling #90 06/02/22 tabs bed pad #100 ea 10/26/22 diaper,brief,adult,disposable #200 ea 10/26/22 disposable wipes #100 ea 10/26/22 montelukast 10 mg tablet 10 mg PO BEDTIME #90 tabs 01/26/23 sennosides 8.6 mg-docusate sodium 1 tab-cap PO BEDTIME PRN 04/03/23 50 mg tablet (Senokot-S) constipation #30 tabs oxybutynin chloride 15 mg 15 mg PO DAILY #30 tabs 05/08/23 tablet,extended release 24 hr Eliquis 5 mg tablet (apixaban) 5 mg PO BID 30 days #60 tabs 06/09/23 medroxyprogesterone 10 mg tablet 20 mg (2 x 10 mg) PO BID #60 tabs 06/09/23 atorvastatin 40 mg tablet 40 mg PO BEDTIME #90 tabs 07/24/23 cholecalciferol (vitamin D3) 125 125 mcg PO BEDTIME #90 caps 07/24/23 mcg (5,000 unit) capsule terbinafine HCl 1 % topical cream 1 appl topical BID 2 weeks #30 07/27/23 grams ferrous sulfate 324 mg (65 mg 324 mg PO DAILY #90 tabs 08/21/23 iron) tablet,delayed release cetirizine 10 mg tablet 10 mg PO DAILY PRN for allergies 11/10/23 #90 tabs Allergies Allergy/AdvReac Type Severity Reaction Status Date / Time cat dander [CAT] Allergy Unknown UNKNOWN Verified 12/01/23 10:58 mold [MOLD] Allergy Unknown UNKNOWN Verified 12/01/23 10:58 amoxicillin [From Augmentin] AdvReac Abdominal Verified 12/01/23 10:58 Pain ENVIRONMENTAL Allergy Unknown RUNNY Uncoded 07/27/23 11:30 NOSE,ITCHY EYES Review of Systems Review of Systems: Constitutional : No Fever, No Chills ENT/Mouth : No sore throat, No Rhinorrhea Eyes: No Eye Pain, No Redness Cardiovascular : No Chest Pain, No SOB Respiratory : No Cough, No Sputum, No Wheezing Gastrointestinal : no Nausea, No Vomiting, No Diarrhea, positive abdominal pain, Genitourinary : positive irregular bleeding, No Dysuria, No Urinary Frequency, positive pelvic pain Musculoskeletal : No Myalgias Skin : No rash Neuro : pos Weakness, No Headache Psych : No Anxiety/Panic, No Depression Heme/Lymph: No bruising, No Lymphadenopathy Endocrine : No Polyuria, No Polydipsia All other systems reviewed and are negative [facility] Past Medical History Attestation statement: The following information was validated with the patient. Source: old records reviewed Medical History Tinea pedis of right foot Type 2 diabetes mellitus without complication, with no history of insulin use Pulmonary embolism on long-term anticoagulation therapy History of DVT (deep vein thrombosis) Saddle embolism of pulmonary artery Mixed stress and urge urinary incontinence Varicose veins of leg with swelling Postmenopausal bleeding Colon cancer screening Hyperparathyroidism DAVIS (nonalcoholic steatohepatitis) Depression with anxiety Migraine Chronic venous insufficiency Mixed dyslipidemia Essential hypertension Peripheral vascular disease Morbid obesity Surgical History History of removal of cyst History of umbilical hernia repair Hx of cholecystectomy History of trigger finger History of carpal tunnel release of both wrists History of section Family History Family History Father Diabetes mellitus Mother HTN (hypertension) Maternal Grandmother Scleroderma Maternal Grandfather Lung cancer Maternal Aunt Lung cancer Mental health disorder Maternal Uncle Colon cancer Substance use disorder Brother No problems noted. Son No problems noted. Son No problems noted. Daughter Mental health disorder Social History Social History Household Members: Family Housing: House Do you presently have visiting nurse or other home services: Yes Alcohol intake: never Patient Tobacco Use Status: Never used Tobacco e-Cigarette/Vaping Use: Never Used Advance Directives: Yes Advance Directives on File: Yes Advance Directives Date on File: 11/11/21 Patient : No service: No Current occupational status: disabled Cognitive needs: No Hearing needs: No Vision needs: Yes Physical Exam Vital Signs: Vital Signs: Last Vital Signs Temp 100.3 F 12/01/23 15:16 Pulse 97 12/01/23 15:45 Resp 30 H 12/01/23 15:45 BP 114/53 L 12/01/23 15:45 Pulse Ox 96 12/01/23 15:45 O2 Del Method Nasal Cannula 12/01/23 15:45 O2 Flow Rate 3 12/01/23 15:45 Oxygen Flow Rate 3 12/01/23 10:58 BMI result Body Mass Index 69.9 Appearance: Alert. Oriented X3. No acute distress. Eyes: Pupils equal, round and reactive to light. ENT: Pharynx normal. Neck: Normal inspection. Neck supple. CVS: tachcyardic heart rate and rhythm. Pulses normal. Respiratory: No respiratory distress. Breath sounds diminished at bases - chronic O2 use Abdomen: Soft and nontender. Obese : no clots noted depends is saturated with urine and moderate amount of blood no jennifer bleeding from vaginal opening noted Skin: Skin warm and dry. pale skin color. Normal skin turgor. Extremities: No lower extremity edema. No calf ttp Neuro: Oriented X 3. No motor deficit. No sensory deficit. Course Course Course Narrative: symptomatic and tachy hemoglobin 7.4 on eliquis 1 UPRBC ordered Reevaluation(s) Reevaluation #1: 2 clots have passed since arrival we have not had to change sheets blood pending given antibodies Reevaluation #2: 212pm prior to transfusion patient developed fever - UA , CXR, viral panel and tylenol ordered temp 102 patient was not aware of fever at home given empiric ceftriaxone for possible UTI given appearance of urine and she uses depends chronically has passed two orange fruit sized clots has not saturated depend pad again no brisk bleeding from vaginal opening I spoke to Dr. 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 accepted under hospitalist service Dr. Draper Medications Administered Generic Name Dose Route Start Last Admin Trade Name Freq PRN Reason Stop Dose Admin Sodium Chloride 1,000 mls @ 75 mls/hr 12/01/23 13:45 12/01/23 15:03 Ns IVCONT 75 mls/hr .[id number] ELMER Administration Sodium Chloride 1,000 mls @ 999 mls/hr 12/01/23 15:21 12/01/23 15:43 Ns IV 12/01/23 16:21 999 mls/hr .Q1H1M ONE Administration Discontinued Medications Generic Name Dose Route Start Last Admin Trade Name Victoriano PRN Reason Stop Dose Admin Acetaminophen 650 mg 12/01/23 14:09 12/01/23 14:36 Acetaminophen 325 Mg Tablet PO 12/01/23 14:10 650 mg ONCE ONE Administration Sodium Chloride 100 mls @ 100 mls/hr 12/01/23 11:38 12/01/23 15:04 Ns IV 12/01/23 12:37 100 mls/hr ONCE ONE Administration Magnesium Sulfate 2 gm in 50 mls @ 25 mls/hr 12/01/23 11:49 12/01/23 14:43 Magnesium Sulfate/H2o IV 12/01/23 13:48 Infused ONCE ONE Infusion Ceftriaxone Sodium 1 gm/ 50 mls @ 100 mls/hr 12/01/23 14:23 12/01/23 15:20 Sodium Chloride IV 12/01/23 14:52 Infused ONCE ONE Infusion Morphine Sulfate 4 mg 12/01/23 11:49 12/01/23 12:29 Morphine Sulfate 4 Mg/Ml Cartridge IVPUSH 12/01/23 11:50 4 mg ONCE ONE Administration Protocol Medical Decision Making Medical Decision Making MDM Narrative: 58 yo female PMH of saddle embolus on eliquis back in February, anemia from intermittent abnormal vaginal bleeding managed by OBGYN at [place] Dr. Cardenas has had negative endometrial biopsy currently on oral hormone, DM, obesity, DVT with IVC filter, migraine, HTN, HLD, PVD here with c/o pelvic pain, cramps, vaginal bleeding and clots she feels weak and fatigue at this time labs, type and screen possible transfusion and she reports intermittent cramping will start on IV morphine. Has had similar symptoms in past Differential Diagnosis Differential Diagnoses: The differential diagnosis associated with the presentation includes DUB, anemia, weakness Admission/Observation Consideration of admission/observation: Escalation of care including admission/observation considered planning to transfer to center with OBGYN [facility] given vaginal bleeding and eliquis use we have no OBGYN service here or coverage, administration and hospitalist aware developed sepsis symptoms during visit viral panel negative CXR no pneumonia UA bacteria and leukocytes noted - IV ceftriaxone ordered, lactic negative, blood cultures done, UA culture pending Consult Healthcare Provider Management of the patient was discussed with: Engineer Exhauster (Ronald from [facility] aware at 140pm pending possible transfer if OB team accepts) Lab Data MDM Lab Attestation statement: I reviewed the patient's lab results. 12/01/23 11:23 12/01/23 11:23 Labs: Lab Results 12/01/23 12/01/23 12/01/23 Range/Units 11:23 12:28 12:28 WBC 13.2 H (4.8-10.8) X10*3/uL RBC 3.34 L D (4.20-5.50) X10*6/uL Hgb 7.4 L (12.0-16.0) g/dl Hct 24.3 L D (37.0-47.0) % MCV 72.8 L (80.0-98.0) fL MCH 22.2 L (27.0-33.0) pg MCHC 30.5 L (31.0-35.0) g/dl RDW 19.3 H (11.0-16.0) % Plt Count 274 (160-400) X10*3/uL MPV 9.3 L (9.4-12.3) fL Immature Gran % (Auto) 0.8 H (0.0-0.4) % Neut % (Auto) 83.2 H (45-73) % Lymph % (Auto) 9.2 L (20-40) % [place] % (Auto) 6.2 (2-11) % Eos % (Auto) 0.3 (0-4) % Baso % (Auto) 0.3 (0-2) % Lymph # (Auto) 1.2 (1.2-4.9) X10*3/uL [place] # (Auto) 0.8 (0.1-1.2) X10*3/uL Eos # (Auto) 0.0 (0.0-0.4) X10*3/uL Baso # (Auto) 0.0 (0.0-0.2) X10*3/uL Abs Immat Gran (auto) 0.11 H (0.00-0.03) X10*3/uL Absolute Neuts (auto) 11.0 H (2.0-8.3) x10*3/uL Absolute Nucleated RBC 0.020 H (0.0-0.012) X10*3/uL Nucleated RBC % (auto) 0.2 (0.0-0.2) /100WBC PT 14.1 H (11.1-13.3) SEC INR 1.2 H (0.9-1.1) APTT 28.9 (26.0-36.8) SEC Sodium 140 (135-145) mmol/L Potassium 3.9 (3.3-5.1) mmol/L Chloride 105 (96-108) mmol/L Carbon Dioxide 26 (22-29) mmol/L Anion Gap 13 (12-20) BUN 6 L (9-16) mg/dL Creatinine 0.62 (0.5-1.4) mg/dL Estim Creat Clear Calc 153.2 Estimated GFR > 60 Random Glucose 199 H (60-115) mg/dL Lactic Acid (0.5-2.0) mmol/L Calcium 9.7 D (8.4-10.2) mg/dL Magnesium 1.5 L (1.6-2.6) mg/dL Total Bilirubin 0.5 (0.0-1.0) mg/dL Direct Bilirubin 0.2 (0.0-0.5) mg/dL AST 9 (5-31) U/L ALT 8 (0-31) U/L Alkaline Phosphatase 78 (39-117) U/L Total Protein 7.0 (6.5-8.0) g/dL Albumin 3.6 (3.5-5.0) g/dL Urine Color Urine Appearance Urine pH (5.0-9.0) Ur Specific [place] (1.005-1.025) Urine Protein (Neg-Trace) mg/dL Urine Glucose (UA) (Negative) mg/dL Urine Ketones (Negative) mg/dL Urine Blood (Negative) Urine Nitrite (Negative) Ur Leukocyte Esterase (Negative) Urine RBC (0-2) /HPF Urine WBC (0-5) /HPF Ur Squamous Epith Cells (0-2) /HPF Urine Bacteria (None Seen) Hyaline Casts (0-2) /LPF COVID-19 (GAEL) (Negative) COVID-19 Clin Com Influenza Type A (PEACE) (Negative) Influenza Type B ([place]ACE) (Negative) Influenza A & B Note Blood Type B Positive Antibody Screen POSITIVE Antibody Identification Anti-E Anti-K LIS, Polyspecific NEGATIVE Positive LIS Work-up TNP Crossmatch See Detail Crossmatch ([facility]G) See Detail Blood Bank Comment Technical 12/01/23 12/01/23 12/01/23 Range/Units 14:21 14:22 14:23 WBC (4.8-10.8) X10*3/uL RBC (4.20-5.50) X10*6/uL Hgb (12.0-16.0) g/dl Hct (37.0-47.0) % MCV (80.0-98.0) fL MCH (27.0-33.0) pg MCHC (31.0-35.0) g/dl RDW (11.0-16.0) % Plt Count (160-400) X10*3/uL MPV (9.4-12.3) fL Immature Gran % (Auto) (0.0-0.4) % Neut % (Auto) (45-73) % Lymph % (Auto) (20-40) % [place] % (Auto) (2-11) % Eos % (Auto) (0-4) % Baso % (Auto) (0-2) % Lymph # (Auto) (1.2-4.9) X10*3/uL [place] # (Auto) (0.1-1.2) X10*3/uL Eos # (Auto) (0.0-0.4) X10*3/uL Baso # (Auto) (0.0-0.2) X10*3/uL Abs Immat Gran (auto) (0.00-0.03) X10*3/uL Absolute Neuts (auto) (2.0-8.3) x10*3/uL Absolute Nucleated RBC (0.0-0.012) X10*3/uL Nucleated RBC % (auto) (0.0-0.2) /100WBC PT (11.1-13.3) SEC INR (0.9-1.1) APTT (26.0-36.8) SEC Sodium (135-145) mmol/L Potassium (3.3-5.1) mmol/L Chloride (96-108) mmol/L Carbon Dioxide (22-29) mmol/L Anion Gap (12-20) BUN (9-16) mg/dL Creatinine (0.5-1.4) mg/dL Estim Creat Clear Calc Estimated GFR Random Glucose (60-115) mg/dL Lactic Acid 1.3 (0.5-2.0) mmol/L Calcium (8.4-10.2) mg/dL Magnesium (1.6-2.6) mg/dL Total Bilirubin (0.0-1.0) mg/dL Direct Bilirubin (0.0-0.5) mg/dL AST (5-31) U/L ALT (0-31) U/L Alkaline Phosphatase (39-117) U/L Total Protein (6.5-8.0) g/dL Albumin (3.5-5.0) g/dL Urine Color Urine Appearance Urine pH (5.0-9.0) Ur Specific [place] (1.005-1.025) Urine Protein (Neg-Trace) mg/dL Urine Glucose (UA) (Negative) mg/dL Urine Ketones (Negative) mg/dL Urine Blood (Negative) Urine Nitrite (Negative) Ur Leukocyte Esterase (Negative) Urine RBC (0-2) /HPF Urine WBC (0-5) /HPF Ur Squamous Epith Cells (0-2) /HPF Urine Bacteria (None Seen) Hyaline Casts (0-2) /LPF COVID-19 (GAEL) Negative (Negative) COVID-19 Clin Com See Note Influenza Type A ([facility]ACE) Negative (Negative) Influenza Type B ([facility]ACE) Negative (Negative) Influenza A & B Note See Note Blood Type Antibody Screen Antibody Identification LIS, Polyspecific Positive LIS Work-up Crossmatch Crossmatch ([place]) Blood Bank Comment 12/01/23 Range/Units 14:35 WBC (4.8-10.8) X10*3/uL RBC (4.20-5.50) X10*6/uL Hgb (12.0-16.0) g/dl Hct (37.0-47.0) % MCV (80.0-98.0) fL MCH (27.0-33.0) pg MCHC (31.0-35.0) g/dl RDW (11.0-16.0) % Plt Count (160-400) X10*3/uL MPV (9.4-12.3) fL Immature Gran % (Auto) (0.0-0.4) % Neut % (Auto) (45-73) % Lymph % (Auto) (20-40) % [place] % (Auto) (2-11) % Eos % (Auto) (0-4) % Baso % (Auto) (0-2) % Lymph # (Auto) (1.2-4.9) X10*3/uL [place] # (Auto) (0.1-1.2) X10*3/uL Eos # (Auto) (0.0-0.4) X10*3/uL Baso # (Auto) (0.0-0.2) X10*3/uL Abs Immat Gran (auto) (0.00-0.03) X10*3/uL Absolute Neuts (auto) (2.0-8.3) x10*3/uL Absolute Nucleated RBC (0.0-0.012) X10*3/uL Nucleated RBC % (auto) (0.0-0.2) /100WBC PT (11.1-13.3) SEC INR (0.9-1.1) APTT (26.0-36.8) SEC Sodium (135-145) mmol/L Potassium (3.3-5.1) mmol/L Chloride (96-108) mmol/L Carbon Dioxide (22-29) mmol/L Anion Gap (12-20) BUN (9-16) mg/dL Creatinine (0.5-1.4) mg/dL Estim Creat Clear Calc Estimated GFR Random Glucose (60-115) mg/dL Lactic Acid (0.5-2.0) mmol/L Calcium (8.4-10.2) mg/dL Magnesium (1.6-2.6) mg/dL Total Bilirubin (0.0-1.0) mg/dL Direct Bilirubin (0.0-0.5) mg/dL AST (5-31) U/L ALT (0-31) U/L Alkaline Phosphatase (39-117) U/L Total Protein (6.5-8.0) g/dL Albumin (3.5-5.0) g/dL Urine Color Yellow Urine Appearance Clear Urine pH 8.0 (5.0-9.0) Ur Specific [place] 1.015 (1.005-1.025) Urine Protein Negative (Neg-Trace) mg/dL Urine Glucose (UA) Negative (Negative) mg/dL Urine Ketones Negative (Negative) mg/dL Urine Blood Trace H (Negative) Urine Nitrite Negative (Negative) Ur Leukocyte Esterase Moderate (2+) H (Negative) Urine RBC 0-2 (0-2) /HPF Urine WBC 6-10 (0-5) /HPF Ur Squamous Epith Cells 0-2 (0-2) /HPF Urine Bacteria 2+ (None Seen) Hyaline Casts 0-2 (0-2) /LPF COVID-19 (GAEL) (Negative) COVID-19 Clin Com Influenza Type A ([facility]ACE) (Negative) Influenza Type B ([place]) (Negative) Influenza A & B Note Blood Type Antibody Screen Antibody Identification LIS, Polyspecific Positive LIS Work-up Crossmatch Crossmatch ([facility]G) Blood Bank Comment Independent Interpretation I performed an independent interpretation of an: EKG and Plain X-Ray (no consolidation) Interpretation: Rate: 100 Rhythm: NSR [place]: normal Normal P waves. Normal MIKE. Normal QRS complex. ST T wave : no ROSA qTC: 428 prior studies: no acute ischemia The study has been interpreted contemporaneously by me. . Radiology Impression Discussion of test interpretation with radiology: I have reviewed the radiologist's reading. Radiologist Impression: CLINICAL INFORMATION: Fever. COMPARISON: Chest radiograph dated 06/01/2023. TECHNIQUE: Frontal view of the chest was obtained. FINDINGS: The heart is normal in size. The lungs are clear. There is no large pleural effusion. No pneumothorax. No acute osseous abnormality. XR/XR chest 1V IMPRESSION: No active cardiopulmonary disease. Independent Historian Clinical information obtained from an independent historian. History obtained from or confirmed by: EMS External Record Review External record reviewed: Inpatient record Critical Care Time Critical Care Time Critical Care Time: Yes Total Critical Care Time: 60 Attestation: consultation, review of records, IVF, transfusion of blood, sepsis protocol and workup, IV morphine dose with improvement in pain I attest to this time spent taking care of the patient Discharge Plan Discharge Clinical Impression: Abnormal uterine bleeding, ABLA (acute blood loss anemia), Hypomagnesemia Fever Qualifiers: Fever type: unspecified Qualified Code(s): R50.9 - Fever, unspecified Patient Disposition: Xfer [facility] Transfer Details: [facility] Prescriptions: No Action (DME) filters for cpap See Rx Instructions .Route .MEDSUPPLY Qty: 1 0RF Rx Instructions: Filters for CPAP machine (DME) heated tubing See Rx Instructions .Route .MEDSUPPLY Qty: 1 0RF Rx Instructions: Heated tubing for CPAP machine (DME) cpap mask See Rx Instructions .Route .MEDSUPPLY Qty: 1 0RF Rx Instructions: cpap mask- CPAP at 15 cm (DME) bariatric wheeled walker See Rx Instructions .Route .MEDSUPPLY Qty: 1 0RF Rx Instructions: As directed (DME) bariatric sliding shower bench See Rx Instructions .Route .MEDSUPPLY Qty: 1 0RF Rx Instructions: As directed furosemide 20 mg tablet 20 mg PO QAM PRN (Reason: for swelling) Qty: 90 0RF (DME) disposable wipes See Rx Instructions .Route .MEDSUPPLY Qty: 100 11RF Rx Instructions: As directed to clean after incontinence (DME) diaper,brief,adult,disposable Misc See Rx Instructions .Route Qty: 200 11RF Rx Instructions: As directed for incontinence, up to 6 per day (DME) bed pad See Rx Instructions .Route .MEDSUPPLY Qty: 100 11RF Rx Instructions: As directed montelukast 10 mg tablet 10 mg PO BEDTIME Qty: 90 0RF Rx Instructions: schedule PCP appt for future refills sennosides-docusate sodium [Senokot-S] 8.6-50 mg tablet 1 tab-cap PO BEDTIME PRN (Reason: constipation) Qty: 30 0RF oxybutynin chloride 15 mg tablet extended release 24hr 15 mg PO DAILY Qty: 30 5RF atorvastatin 40 mg tablet 40 mg PO BEDTIME Qty: 90 1RF cholecalciferol (vitamin D3) 125 mcg (5,000 unit) capsule 125 mcg PO BEDTIME Qty: 90 1RF ferrous sulfate 324 mg (65 mg iron) tablet,delayed release (DR/EC) 324 mg PO DAILY Qty: 90 0RF cetirizine 10 mg tablet 10 mg PO DAILY PRN (Reason: for allergies) Qty: 90 1RF (DME) bedside commode Kit See Rx Instructions .Route Qty: 1 0RF Rx Instructions: As directed medroxyprogesterone 10 mg tablet 20 mg PO BID Qty: 60 0RF Eliquis 5 mg tablet 5 mg PO BID 30 Days Qty: 60 6RF buspirone 15 mg tablet 15 mg PO TID sertraline 100 mg tablet 150 mg PO DAILY sumatriptan succinate 100 mg tablet 100 mg PO DAILY MRX1 PRN (Reason: Migraine Headache) terbinafine HCl 1 % cream 1 appl topical BID 14 Days Qty: 30 0RF (DME) walker Misc See Rx Instructions .Route Qty: 1 0RF Rx Instructions: As directed (DME) bariatric commode See Rx Instructions .Route .MEDSUPPLY Qty: 1 0RF Rx Instructions: As directed Referrals: Shaunna Owens MD [Primary Care Provider] - 1 Week Print Language: German
[2023-12-01 11:27] LABS: MANUAL DIFF FLAG NO
[2023-12-01 11:32] LABS: Basophils Percent Auto 0.3 % (0-2); Eosinophils Percent Auto 0.3 % (0-4); Hematocrit 24.3 % (37.0-47.0); Hemoglobin 7.4 g/dl (12.0-16.0); Imm Gran Abs Auto 0.11 X10*3/uL (0.00-0.03); Imm Gran Pct Auto 0.8 % (0.0-0.4); Lymphocytes Absolute Auto 1.2 X10*3/uL (1.2-4.9); Lymphocytes Percent Auto 9.2 % (20-40); Mean Corpuscular HGB Conc 30.5 g/dl (31.0-35.0); Mean Corpuscular Hemoglobin 22.2 pg (27.0-33.0); Mean Corpuscular Volume 72.8 fL (80.0-98.0); Mean Platelet Volume 9.3 fL (9.4-12.3); Monocytes Absolute Auto 0.8 X10*3/uL (0.1-1.2); Monocytes Percent Auto 6.2 % (2-11); NRBC Pct Auto 0.2 /100WBC (0.0-0.2); Neutrophils Percent Auto 83.2 % (45-73); Platelet Count 274 X10*3/uL (160-400); Red Blood Count 3.34 X10*6/uL (4.20-5.50); Red Cell Distribution Width 19.3 % (11.0-16.0); White Blood Count 13.2 X10*3/uL (4.8-10.8)
[2023-12-01 11:38] LABS: INTERNATIONAL NORM RATIO 1.2 (0.9-1.1); Prothrombin Time 14.1 SEC (11.1-13.3)
[2023-12-01 11:40] LABS: Partial Thromboplastin Time 28.9 SEC (26.0-36.8)
[2023-12-01 11:45] LABS: Alanine Aminotransferase 8 U/L (0-31); Albumin Level 3.6 g/dL (3.5-5.0); Alkaline Phosphatase 78 U/L (39-117); Anion Gap 13 (12-20); Aspartate Amino Transferase 9 U/L (5-31); Bilirubin Direct 0.2 mg/dL (0.0-0.5); Bilirubin Total 0.5 mg/dL (0.0-1.0); Blood Urea Nitrogen 6 mg/dL (9-16); Calcium 9.7 mg/dL (8.4-10.2); Carbon Dioxide 26 mmol/L (22-29); Chloride 105 mmol/L (96-108); Creatinine Clr Calc Pharmacy 153.2; Estimated Glomerular Filt Rate > 60; Glucose Random 199 mg/dL (60-115); Magnesium 1.5 mg/dL (1.6-2.6); Potassium 3.9 mmol/L (3.3-5.1); Sodium 140 mmol/L (135-145)
--- OUTSIDE RECORDS SUMMARY | 2023-12-01 11:58 | XMS_ITS | Patient Health Record ---
[facility] Address [address] [place] [address] Care Team Providers Care Financial Wellness Coach Name Role Phone Graciela ROSALES, Shaunna Garcia Primary Care Provider Un available [employer] Audrey Unavailable [phone] ALLERGIES Allergen (clinical drug ingredient) Drug/Non Drug Allergy documented on EMR Reaction Allergy Type Onset Date Status Dust Mites Unknown Allergy Active Mold Unknown Allergy Active REASON FOR REFERRAL No Information MEDICATIONS Medication SIG (Take, Route, Frequency, Duration) Notes Start Date End Date Status Montelukast Sodium 10 MG Oral for 90 Active Vitamin D3 125 MCG (5000 UT) TAKE 1 CAPSULE BY MOUTH EVERY NIGHT AT BEDTIME Oral for 90 Active Atorvastatin Calcium 40 MG TAKE 1 TABLET BY MOUTH AT BEDTIME Oral for 90 Active metFORMIN HCl ER 500 MG TAKE 2 TABLETS B Y MOUTH AT BEDTIME Oral for 90 Active Sertraline HCl 100 MG Oral for 30 Active busPIRone HCl 15 MG TAKE 1 TABLET BY LAYLA TH THREE TIMES DAILY Oral for 30 Active SUMAtriptan Succinate 100 MG Oral for 30 Active Albuterol Active Furosemide 20 MG 1 tablet Orally Once a day for 30 day(s) Active Ondansetron 4 MG 1 tablet on the tong ue and allow to dissolve Orally Once a day for 30 day(s) Active oxyBUTYnin Chloride ER 15 MG TAKE 1 TABLET BY MOUTH DAILY Oral for 90 Active SOCIAL HISTORY Tobacco Use: Social History Observation Description Date Details (start date - stop date) Never Smoker NA - NA Sex Assigned At : Social History Observation Description Sex Assigned At Unknown Tobacco Use/Smoking Question Answer Notes Are you a: nonsmoker Additional Findings: Tobacco Non-User Aggressive non-smoker Alcohol Screen Question Answer Notes Did you have a drink containing alcohol in the p ast year? No Points 0 Interpretation Negative Tobacco use other than smoking: Question Answer Notes Are you an other tobacco user? No PROBLEMS Problem Type ICD Code Onset Dates Problem Status W/U Status Risk SNOMED Code Notes Problem Type 2 diabetes mellitus with polyneuropathy (E11.42) Active confirmed 14782554 Problem Osteoarthritis of right ankle and foot (M19.071) Active confirmed 268484489282135 Problem Osteoarthritis of left ankle and foot (M19.072) Active confirmed [id number] PLAN OF TREATMENT Pending Test Test Name Order Date X ray : Foot, left 3V 11/02/2022 X ray : Foot, right 3V 11/02/2022 Insurance Providers Payer Name Payer Address Payer Phone Subscriber Number Group Number Insured Name Patient Relationship to Insured Coverage Start Date Coverage End Date [facility] [employer] Claims [address] [place] [id number] Argelia Gibbons Self - patient is the insured MEDICAL (GENERAL) HISTORY Medical History History ICD Code Anxiety Arthritis Back,Hip,and Knee pain CAD (Cholesterol) covid-19 Depression Diabetic Gall bladder problems Headaches Liver disease Sciatica Chicken pox Surgical History Surgery Date(Month/Year) section x 3 carpal tunnel surgery rt/lt gall bladder removal Hernia Repair 2008 tonsillectomy cystectomy lt foot Trigger Finger Release
[2023-12-01] MEDS: Morphine Sulfate 4 MG/ML CARTRIDGE IVPUSH (12:29)
[2023-12-01] MEDS: Magnesium Sulfate/H2O 2 GM/50 ML PIGGYBACK IV (12:29)
[2023-12-01] MEDS: Acetaminophen 325 MG TABLET 650 MG PO (14:36)
[2023-12-01] MEDS: cefTRIAXone sodium 1 GM in 0.9 % Sodium Chloride 50 ML IV (14:43)
[2023-12-01 14:46] LABS: Appearance Urine Clear; Color Urine Yellow; Glucose Urine UA Negative (Negative); Leukocyte Esterase Urine Moderate (2+) (Negative); Nitrite Urine Negative (Negative); Specific Gravity - Urine 1.015 (1.005-1.025); UMIC TRIGGER UACC YES; Urine Blood Trace (Negative); Urine Ketones Negative (Negative); Urine Protein Negative (Neg-Trace)
[2023-12-01 14:48] LABS: Lactic Acid 1.3 mmol/L (0.5-2.0)
[2023-12-01 14:48] LABS: IDNOW Serial# 08D9AD1C; Influenza A Negative (Negative); Influenza B2 Negative (Negative)
[2023-12-01 14:49] LABS: IDNOW Serial# 152EDE1D
[2023-12-01 14:50] LABS: COVID-19 Test Negative (Negative)
[2023-12-01 14:57] LABS: Bacteria Urine 2+ (None Seen); Hyaline Casts Urine 0-2 /LPF (0-2); RBC Urine 0-2 /HPF (0-2); Squamous Epithelial Cell Urine 0-2 /HPF (0-2); UACC Culture Trigger YES
[2023-12-01] MEDS: 0.9 % Sodium Chloride 1,000 ML 75 ML IVCONT (15:03)
--- NOTE | 2023-12-01 15:20 | PC.NURSE ---
pt reported that she had passed a blood clot vaginally. When changing her, a rectal temp was taken (102.7) MD notified and additional labs ordered, fluids and tylenol. Rocephin started after. Pt is on 3L oxygen at home, when sitting up her respiratory rate is about 30.
--- NOTE | 2023-12-01 15:22 | PC.NURSE ---
blood started, mtn fluids infusing.
--- NOTE | 2023-12-01 15:40 | PC.NURSE ---
sheets and pad on bed checked - no clots or bleeding noted at this time.
[2023-12-01] MEDS: 0.9 % Sodium Chloride 1,000 ML 999 ML IV (15:43)
--- NOTE | 2023-12-01 16:41 | PC.NURSE ---
called Alisha to give report, RN was reported to be on break. phone number given for call back
--- NOTE | 2023-12-01 17:35 | PC.NURSE ---
report given to Alisha RN room 211
== END 2023-12-01 17:25 | disposition short-term general hospital (02) ==
PROVIDERS: Emergency Provider Emergency Medicine; PCP Internal Medicine
DX: D62 Acute posthemorrhagic anemia (principal); R50.9 Fever, unspecified; N93.9 Abnormal uterine and vaginal bleeding, unspecified; R06.02 Shortness of breath; Z11.52 Encounter for screening for COVID-19; Z79.899 Other long term (current) drug therapy
CPT/HCPCS: 36415; 36430; 71045; 80048; 80076; 81001; 83605; 83735; 85025; 85610; 85730; 86850; 86870; 86880; 86885; 86900; 86901; 86902; 86905; 86920; 86922; 87040; 87086; 87088; 87186; 87502; 87635; 93005; 96365; 96366; 96367; 96375; 99285; J0696; J2270; J3475; P9016

== ENCOUNTER → 2023-12-01 11:09 | Outpatient (BNV) | payer OTHER, SELFPAY | PROVIDERS: Emergency Provider Emergency Medicine; PCP Internal Medicine; Visit Provider Internal Medicine | DX: R06.02 Shortness of breath (principal) | CPT/HCPCS: 93010 ==

== ENCOUNTER 2023-12-29 14:00 | Outpatient (REF) | payer OTHER, SELFPAY ==
[2023-12-29 15:59] LABS: MANUAL DIFF FLAG NO
[2023-12-29 16:08] LABS: Basophils Percent Auto 0.4 % (0-2); Eosinophils Absolute Auto 0.1 X10*3/uL (0.0-0.4); Eosinophils Percent Auto 1.9 % (0-4); Hematocrit 28.2 % (37.0-47.0); Hemoglobin 8.4 g/dl (12.0-16.0); Imm Gran Abs Auto 0.04 X10*3/uL (0.00-0.03); Imm Gran Pct Auto 0.6 % (0.0-0.4); Lymphocytes Absolute Auto 1.7 X10*3/uL (1.2-4.9); Lymphocytes Percent Auto 24.1 % (20-40); Mean Corpuscular HGB Conc 29.8 g/dl (31.0-35.0); Mean Corpuscular Hemoglobin 21.9 pg (27.0-33.0); Mean Corpuscular Volume 73.6 fL (80.0-98.0); Mean Platelet Volume 9.9 fL (9.4-12.3); Monocytes Absolute Auto 0.5 X10*3/uL (0.1-1.2); Neutrophils Absolute Auto 4.6 x10*3/uL (2.0-8.3); Platelet Count 285 X10*3/uL (160-400); Red Blood Count 3.83 X10*6/uL (4.20-5.50); Red Cell Distribution Width 18.7 % (11.0-16.0)
[2023-12-29 16:15] LABS: INTERNATIONAL NORM RATIO 4.2 (0.9-1.1); Prothrombin Time 51.6 SEC (11.1-13.3)
[2023-12-29 16:23] LABS: Estimated Average Glucose 154 mg/dL
[2023-12-29 16:43] LABS: Alanine Aminotransferase 11 U/L (0-31); Albumin Level 3.7 g/dL (3.5-5.0); Alkaline Phosphatase 91 U/L (39-117); Anion Gap 11 (12-20); Aspartate Amino Transferase 10 U/L (5-31); Bilirubin Total 0.4 mg/dL (0.0-1.0); Blood Urea Nitrogen 10 mg/dL (9-16); Calcium 10.4 mg/dL (8.4-10.2); Carbon Dioxide 26 mmol/L (22-29); Chloride 108 mmol/L (96-108); Estimated Glomerular Filt Rate > 60; Glucose Fasting 176 mg/dL (60-99); Iron 16 mcg/dL (30-160); Percent Iron Saturation 5 % (15-50); Potassium 3.8 mmol/L (3.3-5.1); Sodium 141 mmol/L (135-145); Total Iron Binding Capacity 340 mcg/dL (228-428); Total Protein 7.3 g/dL (6.5-8.0); Unsaturated Iron Binding 324 ug/dL
[2023-12-29 16:45] LABS: Microalbum/Creatinine Ratio Ur 46.4 ug/mg cr (<30)
[2023-12-29 16:49] LABS: Vitamin D 25-OH Total 33.3 ng/mL (>30)
== END 2023-12-29 14:01 | disposition home or self-care (01) ==
LOC: HO.HMGCLDS 14:00
PROVIDERS: PCP Internal Medicine; Visit Provider Internal Medicine
DX: E11.9 Type 2 diabetes mellitus without complications (principal); D64.9 Anemia, unspecified; E78.2 Mixed hyperlipidemia; I10 Essential (primary) hypertension; E66.01 Morbid (severe) obesity due to excess calories; Z78.0 Asymptomatic menopausal state; Z79.01 Long term (current) use of anticoagulants
CPT/HCPCS: 36415; 80053; 82043; 82306; 82570; 83036; 83540; 85025; 85610

== ENCOUNTER 2024-01-01 11:18 | Outpatient (AMB) | payer OTHER, SELFPAY ==
--- NOTE | 2024-01-01 11:39 | MHC.PC.OV ---
Vital Signs 01/01/24 12:06 Height 5 ft 1 in Weight 375 lb BMI 70.8 BP 124/74 Blood Pressure Location Lt radial Position Sitting Pulse 97 Pulse Source Pulse Oximeter Pulse Oximetry (%) 96 Oxygen Delivery Method Room Air Intake Visit Reasons: Alisha [facility] Intake Note: Pt is here today for her [facility] Allergies cat dander [CAT] Allergy (Unknown, Verified 01/01/24 12:18) UNKNOWN mold [MOLD] Allergy (Unknown, Verified 01/01/24 12:18) UNKNOWN amoxicillin [From Augmentin] Adverse Reaction (Verified 01/01/24 12:18) Abdominal Pain ENVIRONMENTAL Allergy (Unknown, Uncoded 01/01/24 12:18) RUNNY NOSE,ITCHY EYES Medication List - Last Reconciled 01/01/24 by Shaunna Owens MD atorvastatin 40 mg PO BEDTIME [bariatric commode As directed] [bariatric sliding shower bench As directed] [bariatric wheeled walker As directed] [bed pad As directed ] buspirone 15 mg PO TID cetirizine 10 mg PO DAILY PRN cholecalciferol (vitamin D3) 125 mcg PO BEDTIME commode (bedside commode) As directed [cpap mask cpap mask- CPAP at 15 cm NS] diaper,brief,adult,disposable As directed for incontinence, up to 6 per day [disposable wipes As directed to clean after incontinence] ferrous sulfate 324 mg PO DAILY [filters for cpap Filters for CPAP machine NS] furosemide 20 mg PO QAM PRN [heated tubing Heated tubing for CPAP machine NS] medroxyprogesterone 20 mg (2 x 10 mg) PO BID montelukast 10 mg PO BEDTIME oxybutynin chloride ER 15 mg PO DAILY sennosides-docusate sodium 8.6-50 mg (Senokot-S) 1 tab-cap PO BEDTIME PRN sertraline 150 mg PO DAILY sumatriptan succinate 100 mg PO DAILY MRX1 PRN walker As directed Tobacco use date assessed: 01/01/24 Dental Screening Dental Screen Date: 01/01/24 Did you have a dental visit in the last 12 months?: No Did you have a dental problem in the last 6 months where you did not have access to dental care?: No Was dental information given to patient?: [facility] declined [facility] HPI Details 58-year-old lady with history saddle pulmonary embolism with cor pulmonale currently on warfarin, has morbid obesity, on home O2, has IVC filter, has hypertension, hyperlipidemia, peripheral venous insufficiency, anxiety and depression, and anemia with known abnormal uterine bleeding followed by Dr. Villa currently on medroxyprogesterone, here today for follow-up after recent admission at [facility] for abnormal uterine bleeding and thickened endometrium in the setting of therapeutic anticoagulation for PE and DVT. Her hemoglobin hematocrit dropped to 7.4/24.3 she was also found to have urinary tract infection, chest x-ray came back negative. Eliquis was held . Patient states that her vaginal spotting has lessened now has an appointment for follow-up with her OBGYN, Dr. Cardenas and is scheduled for transvaginal ultrasound, with a plan for T and see and possible IUD placement. Patient also has been trying to lose weight, she has scheduled an appointment with Dr. Del Valle for 02/08/2024 for help with weight loss. At present patient states that she has been feeling better, less tired, does not get short of breath, with no chest pain reported.. She however would like to be off Coumadin and switched back to Eliquis , advised patient to consult her surgeon for this. [facility], [facility] Medical History History of pulmonary embolus (PE) Tinea pedis of right foot Type 2 diabetes mellitus without complication, with no history of insulin use Pulmonary embolism on long-term anticoagulation therapy History of DVT (deep vein thrombosis) Saddle embolism of pulmonary artery Mixed stress and urge urinary incontinence Varicose veins of leg with swelling Postmenopausal bleeding Colon cancer screening Hyperparathyroidism DAVIS (nonalcoholic steatohepatitis) Depression with anxiety Migraine Chronic venous insufficiency Mixed dyslipidemia Essential hypertension Peripheral vascular disease Morbid obesity Surgical History History of removal of cyst History of umbilical hernia repair Hx of cholecystectomy History of trigger finger History of carpal tunnel release of both wrists History of section Family History Father Diabetes mellitus Mother HTN (hypertension) Maternal Grandmother Scleroderma Maternal Grandfather Lung cancer Maternal Aunt Lung cancer Mental health disorder Maternal Uncle Colon cancer Substance use disorder Brother No problems noted. Son No problems noted. Son No problems noted. Daughter Mental health disorder Social History Household Members: Family Housing: House Do you presently have visiting nurse or other home services: Yes Alcohol intake: never Patient Tobacco Use Status: Never used Tobacco e-Cigarette/Vaping Use: Never Used Advance Directives Date on File: 11/11/21 service: No Current occupational status: disabled Cognitive needs: No Hearing needs: No Vision needs: Yes Questionnaire PHQ-9 Over the last 2 weeks, how often have you been bothered by any of the following problems? 1. Little interest or pleasure in doing things: several days 2. Feeling down, depressed, or hopeless: several days 3. Trouble falling or staying asleep, or sleeping too much: several days 4. Feeling tired or having little energy: more than half the days 5. Poor appetite or overeating: several days 6. Feeling bad about yourself - or that you are a failure or have let yourself or your family down: several days 7. Trouble concentrating on things, such as reading the newspaper or watching television: not at all 8. Moving or speaking so slowly that other people could have noticed. Or the opposite - being so fidgety or restless that you have been moving around a lot more than usual: not at all 9. Thoughts that you would be better off or of hurting yourself in some way: not at all Total score: 7 Depression Screening Interpretation: Positive Depression Screening Follow-up: Existing condition and In treatment Depression Screening Done: Yes 24921 - PHQ-9 Billing: Yes Source: Developed by Drs. Vince Duque, Jane Sue, Govind Gomez and colleagues, with an educational ayaz from [employer]. Thrive Questionnaire Date Thrive assessed: 01/01/24 I am a: Patient What is your living situation today?: I have a steady place to live Within the past 12 months, did the food you bought not last and you didn't have the money to get more?: Sometimes True Within the past 12 months, did you worry whether your food would run out before you got money to buy more?: Sometimes True Do you have trouble paying for medicines?: No Do you have trouble getting transportation to medical appointments?: No Do you have trouble paying your heating and electricity bill?: No Do you have trouble taking care of your child, family member or friend?: No Do you have trouble with day-to-day activities such as bathing, preparing meals, shopping, managing finances, etc.?: Yes Are you currently unemployed and looking for a job?: No Are you interested in more education?: No Please select the resources that you would like help with: Housing/Assisted Currently or been in a relationship where the following occur: I choose not to answer THRIVE Score: 2 AUDIT C Alcohol Use Questionnaire (AUDIT-C) 1. How often do you have a drink containing alcohol?: Never Total Score: 0 KIARA-7 AMB Questionnaire KIARA-7 Date KIARA - 7 assessed: 01/01/24 Feeling nervous, anxious, or on edge: 1 = Several days Not being able to stop or control worryin = Several days Worrying too much about different things: 1 = Several days Trouble relaxin = Several days Being so restless that it is hard to sit still: 0 = Not at all Becoming easily annoyed or irritable: 1 = Several days Feeling afraid as if something awful might happen: 1 = Several days Total KIARA-7 score (0-4 normal; 5-9 mild; 10-14 moderate; 15-21 severe): 6 Source: Developed by Drs. Vince Duque, Jane Sue, Govind Gomez and colleagues, with an educational ayaz from [employer]. KIARA-7 Assessment Billing KIARA-7 Assessment Tool: KIARA-7 Assessment 66187 Review of Systems Const Denies daytime sleepiness, Denies fatigue, Denies fever(s), Denies malaise, Denies night sweats, Denies snoring and Denies weight loss Eyes Details: Goes to [facility] for her routine eye exam Denies change in vision ENT Denies nasal congestion, Denies post nasal drip, Denies sinus pain and Denies sinus pressure Card Denies chest pain, Denies pedal edema, Denies dyspnea and Denies orthopnea Resp Denies cough, Denies excessive phlegm production, Denies dyspnea, Denies snoring and Denies wheezing GI Denies abdominal pain and Denies heartburn Reports no additional complaints Musc Denies myalgias, Denies arthralgias and Denies joint swelling Skin/Breast Reports as per HPI Neuro Denies memory loss and Denies seizure-like activity Psych Reports as per HPI, Denies abnormal sleep pattern and Denies memory loss Endo Denies fatigue and Denies heat intolerance Saulo/Lymph Denies easy bruising Aller/Immun Denies seasonal rhinorrhea and Denies wheezing Physical exam (Primary Care) Vital Signs: Last Vital Signs Pulse 97 01/01/24 12:06 BP 124/74 01/01/24 12:06 Pulse Ox 96 01/01/24 12:06 Oxygen Delivery Method Room Air 01/01/24 12:06 BMI result Body Mass Index 70.8 Tobacco/Smoking Status: Tobacco use Status Tobacco use date assessed 01/01/24 01/01/24 11:52 Patient Tobacco Use Status Never used Tobacco 01/01/24 11:40 e-Cigarette/Vaping Use Never Used 01/01/24 11:40 PHQ-9: PHQ-9 Score PHQ-9: Total score 7 01/01/24 12:53 Depression Screening Interpretation: Positive Depression Screening Follow-up: Existing condition and In treatment Thrive Assessment: Date of Thrive Assessment Date Thrive assessed 01/01/24 01/01/24 11:52 Currently or been in a relationship where the following occur: I choose not to answer Const General: comfortable, no acute distress and alert Nutritional Appearance: obese morbidly obese Orientation/consciousness: patient oriented x3 Limitations: physical limitations and other limitations (On 3 L supplemental oxygen) HENMT Ears: external ears normal General nose exam: Normal external nose present Mouth: oropharynx normal and moist mucous membranes Eyes General: appearance normal, both eyes and all related structures Neck Neck: Yes full ROM, Yes no lymphadenopathy and Yes supple Resp Effort & Inspection: normal respiratory effort and able to speak in complete sentences Auscultation: clear to auscultation bilaterally Cardio Rate: regular rate Rhythm: regular rhythm Heart sounds: S1 normal heart sound present and S2 normal heart sound present GI Palpation (GI): Soft to palpation, nontender and no masses Auscultation: normal bowel sounds Skin Other: Varicose veins noted in both lower extremities Erythematous circular patch with central clearing and rolled edges on dorsal aspect of right foot Neuro General: patient oriented x3, tone normal, moves all extremities, Normal light touch and pain sensation and no focal motor deficits Cranial nerves: Yes CN's II-XII intact bilaterally Cognition (Neuro): normal cognition Extrem General: Yes full ROM, Yes no joint enlargement and Yes no calf tenderness Psych Appearance: grossly normal and well kempt Mental Status: mental status grossly normal Speech and movement: Normal speech and movement present Affect: normal affect Attitude: cooperative Thought process: Normal thought process present Thought content: Normal thought content present Results Reviewed Results Reviewed: Name: Argelia Gibbons Age/Sex: 58/F : 1965 Unit#: [id number] Attend Dr: Shaunna Owens MD Re12/29/23 Status: DEP REF Location: [facility] Disch: SPEC : [id number] BREANNE: 12/29/23 STATUS: COMP REQ : [id number] RECD: 12/29/[address]: Shaunna Owens MD COMP: 12/29/23 ENTERED: 12/29/[address] [facility] DR: ORDERED: CBC Auto Diff Test Result Flag Reference WBC 7.0 4.8-10.8 X10*3/uL RBC 3.83 L 4.20-5.50 X10*6/uL HGB 8.4 L 12.0-16.0 g/dl HCT 28.2 L 37.0-47.0 % MCV 73.6 L 80.0-98.0 fL MCH 21.9 L 27.0-33.0 pg MCHC 29.8 L 31.0-35.0 g/dl RDW 18.7 H 11.0-16.0 % PLT 285 160-400 X10*3/uL MPV 9.9 9.4-12.3 fL Neut Pct Auto 66.0 45-73 % ImGran Pct Auto 0.6 H 0.0-0.4 % Lymp Pct Auto 24.1 20-40 % Bureau Pct Auto 7.0 2-11 % Eos Pct Auto 1.9 0-4 % Baso Pct Auto 0.4 0-2 % NRBC Pct Auto 0.0 0.0-0.2 /100WBC ANC Neut Abs # 4.6 2.0-8.3 x10*3/uL ImGran Abs Auto 0.04 H 0.00-0.03 X10*3/uL Lymph Abs Auto 1.7 1.2-4.9 X10*3/uL Bureau Abs Auto 0.5 0.1-1.2 X10*3/uL Eos Abs Auto 0.1 0.0-0.4 X10*3/uL Baso Abs Auto 0.0 0.0-0.2 X10*3/uL NRBC Abs Auto 0.000 0.0-0.012 X10*3/uL Laboratory Tests 12/29/23 14:06 Estimat Average Glucose 154 Hemoglobin A1c % 7.0 H Name: Argelia Gibbons Age/Sex: 58/F : 1965 Unit#: [id number] Attend Dr: Shaunna Owens MD Re12/29/23 Status: DEP REF Location: [facility] Disch: SPEC : [id number] BREANNE: 12/29/23-140 STATUS: COMP REQ : [id number] RECD: 12/29/23-[address]: Shaunna Owens MD COMP: 12/29/23-164 ENTERED: 12/29/23-[address]: ORDERED: CMP Fast, IRON PROF, Vitamin D 25-OH Test Result Flag Reference Sodium 141 135-145 mmol/L Potassium 3.8 3.3-5.1 mmol/L CL 108 96-108 mmol/L CO2 26 22-29 mmol/L Gap 11 L 12-20 BUN 10 9-16 mg/dL Creat 0.83 0.5-1.4 mg/dL EGFR > 60 NOTE: For -Australian individuals, multiply the result by 1.210. Chronic Kidney Disease: Estimated GFR < 60 mL/min/1.73m2 Severe Kidney Disease: Estimated GFR < 15 mL/min/1.73m2 FBS 176 H 60-99 mg/dL A fasting glucose of 126 mg/dl or greater on more than one occasion is considered diagnostic of diabetes. CA 10.4 # H 8.4-10.2 mg/dL Iron 16 L 30-160 mcg/dL TIBC 340 228-428 mcg/dL Saturation 5 L 15-50 % UIBC 324 ug/dL Total Bili 0.4 0.0-1.0 mg/dL AST (GOT) 10 5-31 U/L ALT (GPT) 11 0-31 U/L Protein, Total 7.3 6.5-8.0 g/dL Alb 3.7 3.5-5.0 g/dL Alk Phos 91 39-117 U/L Vit D 25-OH Tot 33.3 >30 ng/mL Health Based Reference Values* < 20 ng/mL Deficient 20-30 ng/mL Insufficient > 30 ng/mL Sufficient Assessment and Plan Assessment & Plan (1) History of pulmonary embolus (PE): Code(s): Z86.711 - Personal history of pulmonary embolism Plan: Currently on warfarin, would like to be switched back to Eliquis, advise patient to consult her vascular surgeon regarding this. Ordered another PT INR. Patient to check with her vascular surgeon whether she can be switched back to Eliquis and stop warfarin (2) Type 2 diabetes mellitus without complication, with no history of insulin use: Code(s): E11.9 - Type 2 diabetes mellitus without complications Plan: Hemoglobin A1c today at 7%. Reinforced importance of following recommended diet and staying active. Will recheck levels again in 3 months (3) Depression with anxiety: Comment: ff'd by Avel Osuna Code(s): F41.8 - Other specified anxiety disorders Plan: Currently on sertraline 150 mg once daily (4) Mixed dyslipidemia: Code(s): E78.2 - Mixed hyperlipidemia Plan: Continue atorvastatin 40 mg at bedtime, will check her fasting lipid panel on upcoming physical exam (5) Essential hypertension: Code(s): I10 - Essential (primary) hypertension Plan: Blood pressure at goal of less than 130/80. Continue with current medication. Reinforced importance of following a low sodium diet, getting regular exercise, and lowering stress levels. Orders: Orders Prothrombin Time INR 01/01/24 I26.92 - Saddle embolus of pulmonary artery without acute cor pulmonale, Z86.711 - Personal history of pulmonary embolism, Z86.718 - Personal history of other venous thrombosis and embolism Prothrombin Time INR 01/04/24 Z86.711 - Personal history of pulmonary embolism Coding Level of Care Code Est Pt Level 4 (17486) Complex EM visit Add On G2211 Diagnoses History of pulmonary embolus (PE) Z86.711 Type 2 diabetes mellitus without complication, with no history of insulin use E11.9 Depression with anxiety F41.8 Mixed dyslipidemia E78.2 Essential hypertension I10 Additional Codes KIARA-7 Assessment Billing - KIARA-7 Assessment Tool: KIARA-7 Assessment 88274 ([id number])
[2024-01-01 12:06] VITALS: BP 124/74; PULSE 97; O2SAT 96; BMI 70.8
== END 2024-01-01 13:32 | disposition home or self-care (01) ==
PROVIDERS: PCP Internal Medicine; Visit Provider Internal Medicine
DX: E11.69 Type 2 diabetes mellitus with other specified complication (principal); Z86.711 Personal history of pulmonary embolism; F41.8 Other specified anxiety disorders; E78.2 Mixed hyperlipidemia; I10 Essential (primary) hypertension
CPT/HCPCS: 99214; G2211

== ENCOUNTER 2024-01-01 11:32 | Outpatient (REF) | payer OTHER, SELFPAY ==
[2024-01-01 13:34] LABS: INTERNATIONAL NORM RATIO 1.6 (0.9-1.1); Prothrombin Time 19.2 SEC (11.1-13.3)
== END 2024-01-01 11:33 | disposition home or self-care (01) ==
LOC: HO.HMGCLDS 11:32
PROVIDERS: PCP Internal Medicine; Visit Provider Internal Medicine
DX: I26.92 Saddle embolus of pulmonary artery without acute cor pulmonale (principal); Z86.711 Personal history of pulmonary embolism; Z86.718 Personal history of other venous thrombosis and embolism
CPT/HCPCS: 36415; 85610

== ENCOUNTER → 2024-01-08 19:30 | Outpatient (REF) | payer OTHER, SELFPAY | LOC: HO.SL 19:30 | PROVIDERS: PCP Internal Medicine; Visit Provider Internal Medicine Pulmonary Disease | DX: G47.33 Obstructive sleep apnea (adult) (pediatric) (principal) | CPT/HCPCS: 95810 ==

== ENCOUNTER → 2024-01-08 21:09 | Outpatient (BNV) | payer OTHER, SELFPAY | PROVIDERS: PCP Internal Medicine; Visit Provider Psychiatry & Neurology Neurology | DX: G47.33 Obstructive sleep apnea (adult) (pediatric) (principal) | CPT/HCPCS: 95810 ==

== ENCOUNTER 2024-03-27 10:22 | Outpatient (AMB) | payer OTHER, SELFPAY ==
--- NOTE | 2024-03-27 10:24 | A.OFFVIS_ITS ---
Vital Signs 03/27/24 10:25 Height 5 ft 1 in Weight 365 lb BMI 69.0 BP 138/78 Blood Pressure Location Rt radial Position Sitting Pulse 83 Pulse Source Doppler Pulse Oximetry (%) 96 Oxygen Delivery Method Nasal Cannula Oxygen Flow Rate 3 Intake Visit Reasons: Obstructive sleep apnea Allergies cat dander [CAT] Allergy (Unknown, Verified 01/01/24 12:18) UNKNOWN mold [MOLD] Allergy (Unknown, Verified 01/01/24 12:18) UNKNOWN amoxicillin [From Augmentin] Adverse Reaction (Verified 01/01/24 12:18) Abdominal Pain ENVIRONMENTAL Allergy (Unknown, Uncoded 01/01/24 12:18) RUNNY NOSE,ITCHY EYES HPI HPI Obstructive sleep apnea: Details: 57-year-old lady with underlying history of morbid obesity and severe obstructive sleep apnea recent diagnosis of DVT with PE status post directed therapy, now continues to require 3 L of supplemental oxygen with exertion, on Eliquis. She has had her split night study showing underlying obstructive sleep apnea requiring CPAP at 16 cm to control. [facility] Medical History (Updated 03/15/24 @ 11:26 by Merline Chowdhury PA-C) ZAHEER (obstructive sleep apnea) Supplemental oxygen dependent History of pulmonary embolus (PE) Tinea pedis of right foot Type 2 diabetes mellitus without complication, with no history of insulin use Pulmonary embolism on long-term anticoagulation therapy History of DVT (deep vein thrombosis) Saddle embolism of pulmonary artery Mixed stress and urge urinary incontinence Varicose veins of leg with swelling Postmenopausal bleeding Colon cancer screening Hyperparathyroidism DAVIS (nonalcoholic steatohepatitis) Depression with anxiety Migraine Chronic venous insufficiency Mixed dyslipidemia Essential hypertension Peripheral vascular disease Morbid obesity Surgical History (Updated 03/15/24 @ 11:33 by Merline Chowdhury PA-C) S/P insertion of IVC (inferior vena caval) filter History of hysteroscopy History of tonsillectomy History of cholecystectomy History of removal of cyst History of umbilical hernia repair History of trigger finger History of carpal tunnel release of both wrists History of section Family History Father Diabetes mellitus Mother HTN (hypertension) Maternal Grandmother Scleroderma Maternal Grandfather Lung cancer Maternal Aunt Lung cancer Mental health disorder Maternal Uncle Colon cancer Substance use disorder Brother No problems noted. Son No problems noted. Son No problems noted. Daughter Mental health disorder Social History Household Members: Family Housing: House Do you presently have visiting nurse or other home services: Yes Alcohol intake: never Patient Tobacco Use Status: Never used Tobacco e-Cigarette/Vaping Use: Never Used Advance Directives Date on File: 11/11/21 service: No Current occupational status: disabled Cognitive needs: No Hearing needs: No Vision needs: Yes Review of Systems Const Reports daytime sleepiness, Denies excessive sweating, Denies fatigue, Denies fever(s), Reports lethargy, Denies malaise, Denies night sweats, Denies snoring and Denies weight loss Eyes Denies blurry vision and Denies itchy eyes ENT Denies nasal congestion, Denies post nasal drip, Denies sinus pain, Denies sinus pressure and Denies other ( Thrush) Card Denies chest pain, Denies pedal edema, Denies dyspnea, Reports dyspnea on exertion, Denies orthopnea and Denies paroxysmal nocturnal dyspnea Resp Denies cough, Denies hemoptysis, Denies excessive phlegm production, Denies dyspnea, Reports dyspnea on exertion, Denies snoring and Denies wheezing GI Denies abdominal pain and Denies heartburn Musc Denies myalgias, Denies arthralgias and Denies joint swelling Skin/Breast Denies rash Neuro Denies memory loss and Denies seizure-like activity Psych Denies abnormal sleep pattern, Denies anxiety and Denies memory loss Endo Denies excessive sweating, Denies fatigue and Denies heat intolerance Saulo/Lymph Denies easy bruising Aller/Immun Denies itchy eyes, Denies seasonal rhinorrhea and Denies wheezing Physical Exam Vital Signs: Last Vital Signs Pulse 83 03/27/24 10:25 BP 138/78 03/27/24 10:25 Pulse Ox 96 03/27/24 10:25 Oxygen Delivery Method Nasal Cannula 03/27/24 10:25 Oxygen Flow Rate 3 03/27/24 10:25 BMI result Body Mass Index 69.0 Const General: no acute distress and alert Nutritional Appearance: obese Orientation/consciousness: Other orientation findings ( oriented) HEENT Head: Yes atraumatic Eyes General: appearance normal, both eyes and all related structures Sclerae: sclerae normal EOM: EOMs intact bilaterally Neck Neck: Yes supple Lymphatic: no lymphadenopathy noted Resp Effort & Inspection: normal respiratory effort and no use of accessory muscles Auscultation: clear to auscultation bilaterally Cardio Rate: regular rate Rhythm: regular rhythm Heart sounds: no gallops, no murmurs and no rubs Skin General skin exam: other ( warm) Extrem General: No clubbing, No cyanosis and No edema Office Procedures 6 Minute Walk Time:: 11:00 SPO2 % at rest: 96 Pulse at rest: 83 SPO2 % during excercise: 88 Pulse during excercise: 100 SPO2 % after excercise: 98 Pulse after excercise: 124 Distance in yards walked: 150 Performance Observations:: pt walked 62 yrds on 1l desat to 88% with an increase in HR to 100, placed on 3 lnc pt. walked 89 yrds desat to 94%, HR 124. Pt. has increased WOB during walking. [address]1046 - 6 Minute Walk Assessment & Plan Assessment & Plan (1) History of DVT (deep vein thrombosis): Code(s): Z86.718 - Personal history of other venous thrombosis and embolism Category: Medical Plan: Anticoagulated with Eliquis. Will check D-dimer and reassess. (2) ZAHEER (obstructive sleep apnea): Code(s): G47.33 - Obstructive sleep apnea (adult) (pediatric) Category: Medical Plan: Results of split night study reviewed, patient require CPAP at 16 cm of water. Order placed. (3) Supplemental oxygen dependent: Code(s): Z99.81 - Dependence on supplemental oxygen Category: Medical Plan: 6 minute walk test/supplemental oxygen elevation performed. Patient continues to require supplemental oxygen at 1 L at rest and 3 L with exertion. Orders: Orders AMB 6 minute walk Today Aracelis Elias B35.3 - Tinea pedis, G47.33 - Obstructive sleep apnea (adult) (pediatric) D Dimer High Sensitivity Today Jose Mares MD Z86.711 - Personal history of pulmonary embolism Coding Level of Care Code Est Pt Level 4 (64934) Complex EM visit Add On G2211 Diagnoses History of DVT (deep vein thrombosis) Z86.718 ZAHEER (obstructive sleep apnea) G47.33 Supplemental oxygen dependent Z99.81 CPT Codes Coding ([id number])
[2024-03-27 10:25] VITALS: BP 138/78; PULSE 83; O2SAT 96; BMI 69.0
[2024-03-27 11:12] VITALS: PULSE 83; O2SAT 96
== END 2024-03-27 11:21 | disposition home or self-care (01) ==
PROVIDERS: PCP Internal Medicine; Visit Provider Internal Medicine Pulmonary Disease
DX: Z86.718 Personal history of other venous thrombosis and embolism (principal); G47.33 Obstructive sleep apnea (adult) (pediatric); Z99.81 Dependence on supplemental oxygen
CPT/HCPCS: 94618; 99214; G2211

== ENCOUNTER → 2024-03-27 10:22 | Outpatient (BNVA) | payer OTHER, SELFPAY | PROVIDERS: PCP Internal Medicine; Visit Provider Internal Medicine Pulmonary Disease | DX: G47.33 Obstructive sleep apnea (adult) (pediatric) (principal); E66.9 Obesity, unspecified; B35.3 Tinea pedis; Z68.44 Body mass index [BMI] 60.0-69.9, adult; Z86.711 Personal history of pulmonary embolism; Z99.81 Dependence on supplemental oxygen; Z79.01 Long term (current) use of anticoagulants; Z86.718 Personal history of other venous thrombosis and embolism | CPT/HCPCS: 94618; 99212 ==

== ENCOUNTER 2024-04-01 11:33 | Outpatient (REF) | payer OTHER, SELFPAY ==
[2024-04-01 11:52] LABS: MANUAL DIFF FLAG NO
[2024-04-01 12:15] LABS: Basophils Absolute Auto 0.1 X10*3/uL (0.0-0.2); Basophils Percent Auto 0.6 % (0-2); Eosinophils Absolute Auto 0.3 X10*3/uL (0.0-0.4); Eosinophils Percent Auto 3.2 % (0-4); Hematocrit 35.8 % (37.0-47.0); Hemoglobin 9.9 g/dl (12.0-16.0); Imm Gran Abs Auto 0.05 X10*3/uL (0.00-0.03); Imm Gran Pct Auto 0.6 % (0.0-0.4); Lymphocytes Absolute Auto 1.9 X10*3/uL (1.2-4.9); Lymphocytes Percent Auto 21.7 % (20-40); Mean Corpuscular HGB Conc 27.7 g/dl (31.0-35.0); Mean Corpuscular Hemoglobin 18.6 pg (27.0-33.0); Mean Corpuscular Volume 67.2 fL (80.0-98.0); Mean Platelet Volume 9.1 fL (9.4-12.3); Monocytes Absolute Auto 0.6 X10*3/uL (0.1-1.2); Monocytes Percent Auto 6.8 % (2-11); Neutrophils Percent Auto 67.1 % (45-73); Platelet Count 282 X10*3/uL (160-400); Red Blood Count 5.33 X10*6/uL (4.20-5.50); Red Cell Distribution Width 20.2 % (11.0-16.0); White Blood Count 8.9 X10*3/uL (4.8-10.8)
[2024-04-01 12:25] LABS: Prothrombin Time 11.5 SEC (10.9-12.4)
[2024-04-01 12:38] LABS: Iron 28 mcg/dL (30-160); Percent Iron Saturation 7 % (15-50); Total Iron Binding Capacity 400 mcg/dL (228-428); Unsaturated Iron Binding 372 ug/dL
[2024-04-01 12:51] LABS: D Dimer High Sensitivity 817 NG/ML
== END 2024-04-01 11:34 | disposition home or self-care (01) ==
LOC: HO.LAB 11:33
PROVIDERS: PCP Internal Medicine; Referring Provider Internal Medicine; Visit Provider Internal Medicine Pulmonary Disease
DX: D62 Acute posthemorrhagic anemia (principal); N93.9 Abnormal uterine and vaginal bleeding, unspecified; Z86.711 Personal history of pulmonary embolism
CPT/HCPCS: 36415; 83540; 85025; 85379; 85610

== ENCOUNTER 2024-05-09 13:25 | Outpatient (AMB) | payer OTHER, SELFPAY ==
[2024-05-09 13:40] VITALS: BP 122/72; PULSE 85; O2SAT 98; BMI 68.6
--- NOTE | 2024-05-09 13:40 | A.OFFVIS_ITS ---
Vital Signs 05/09/24 13:40 Height 5 ft 1 in Weight 363 lb BMI 68.6 BP 122/72 Blood Pressure Location Rt radial Position Sitting Pulse 85 Pulse Source Doppler Pulse Oximetry (%) 98 Oxygen Delivery Method Nasal Cannula Oxygen Flow Rate 3 Intake Visit Reasons: Obstructive sleep apnea Allergies cat dander [CAT] Allergy (Unknown, Verified 01/01/24 12:18) UNKNOWN mold [MOLD] Allergy (Unknown, Verified 01/01/24 12:18) UNKNOWN amoxicillin [From Augmentin] Adverse Reaction (Verified 01/01/24 12:18) Abdominal Pain ENVIRONMENTAL Allergy (Unknown, Uncoded 01/01/24 12:18) RUNNY NOSE,ITCHY EYES HPI HPI Obstructive sleep apnea: Details: 58-year-old lady with underlying history of morbid obesity and severe obstructive sleep apnea recent diagnosis of DVT with PE status post directed therapy, now continues to require 3 L of supplemental oxygen with exertion, on Eliquis, repeat D-dimer 816. She has had her split night study showing underlying obstructive sleep apnea requiring CPAP at 16 cm to control, however she has not received her CPAP machine yet. [facility] Medical History (Updated 03/15/24 @ 11:26 by Merline Chowdhury PA-C) ZAHEER (obstructive sleep apnea) Supplemental oxygen dependent History of pulmonary embolus (PE) Tinea pedis of right foot Type 2 diabetes mellitus without complication, with no history of insulin use Pulmonary embolism on long-term anticoagulation therapy History of DVT (deep vein thrombosis) Saddle embolism of pulmonary artery Mixed stress and urge urinary incontinence Varicose veins of leg with swelling Postmenopausal bleeding Colon cancer screening Hyperparathyroidism DAVIS (nonalcoholic steatohepatitis) Depression with anxiety Migraine Chronic venous insufficiency Mixed dyslipidemia Essential hypertension Peripheral vascular disease Morbid obesity Surgical History (Updated 03/15/24 @ 11:33 by Merline Chowdhury PA-C) S/P insertion of IVC (inferior vena caval) filter History of hysteroscopy History of tonsillectomy History of cholecystectomy History of removal of cyst History of umbilical hernia repair History of trigger finger History of carpal tunnel release of both wrists History of section Family History Father Diabetes mellitus Mother HTN (hypertension) Maternal Grandmother Scleroderma Maternal Grandfather Lung cancer Maternal Aunt Lung cancer Mental health disorder Maternal Uncle Colon cancer Substance use disorder Brother No problems noted. Son No problems noted. Son No problems noted. Daughter Mental health disorder Social History Household Members: Family Housing: House Do you presently have visiting nurse or other home services: Yes Alcohol intake: never Patient Tobacco Use Status: Never used Tobacco e-Cigarette/Vaping Use: Never Used Advance Directives Date on File: 11/11/21 service: No Current occupational status: disabled Cognitive needs: No Hearing needs: No Vision needs: Yes Review of Systems Card Denies chest pain and Reports dyspnea on exertion Resp Denies cough, Denies excessive phlegm production, Reports dyspnea on exertion and Denies wheezing Aller/Immun Denies wheezing Physical Exam Vital Signs: Last Vital Signs Pulse 85 05/09/24 13:40 BP 122/72 05/09/24 13:40 Pulse Ox 98 05/09/24 13:40 Oxygen Delivery Method Nasal Cannula 05/09/24 13:40 Oxygen Flow Rate 3 05/09/24 13:40 BMI result Body Mass Index 68.6 Const General: no acute distress and alert Nutritional Appearance: obese Orientation/consciousness: Other orientation findings ( oriented) HEENT Head: Yes atraumatic Eyes General: appearance normal, both eyes and all related structures Sclerae: sclerae normal EOM: EOMs intact bilaterally Neck Neck: Yes supple Lymphatic: no lymphadenopathy noted Resp Effort & Inspection: normal respiratory effort and no use of accessory muscles Auscultation: clear to auscultation bilaterally Cardio Rate: regular rate Rhythm: regular rhythm Heart sounds: no gallops, no murmurs and no rubs Skin General skin exam: other ( warm) Extrem General: No clubbing, No cyanosis and No edema Assessment & Plan Assessment & Plan (1) ZAHEER (obstructive sleep apnea): Code(s): G47.33 - Obstructive sleep apnea (adult) (pediatric) Category: Medical Plan: results of titration study reviewed. CPAP of 16 prescribed. Patient has not received it yet. (2) Supplemental oxygen dependent: Code(s): Z99.81 - Dependence on supplemental oxygen Category: Medical Plan: Continue supplemental oxygen to maintain O2 saturation above 88%. (3) History of pulmonary embolus (PE): Code(s): Z86.711 - Personal history of pulmonary embolism Category: Medical Plan: Results of repeat D-dimer reviewed. Continue apixaban. Coding Level of Care Code Est Pt Level 4 (67806) Complex EM visit Add On G2211 Diagnoses ZAHEER (obstructive sleep apnea) G47.33 Supplemental oxygen dependent Z99.81 History of pulmonary embolus (PE) Z86.711
== END 2024-05-09 13:57 | disposition home or self-care (01) ==
PROVIDERS: PCP Internal Medicine; Visit Provider Internal Medicine Pulmonary Disease
DX: G47.33 Obstructive sleep apnea (adult) (pediatric) (principal); Z99.81 Dependence on supplemental oxygen; Z86.711 Personal history of pulmonary embolism
CPT/HCPCS: 99214; G2211

== ENCOUNTER → 2024-05-09 13:25 | Outpatient (BNVA) | payer OTHER, SELFPAY | PROVIDERS: PCP Internal Medicine; Visit Provider Internal Medicine Pulmonary Disease | DX: G47.33 Obstructive sleep apnea (adult) (pediatric) (principal); E66.01 Morbid (severe) obesity due to excess calories; Z68.44 Body mass index [BMI] 60.0-69.9, adult; Z99.81 Dependence on supplemental oxygen; Z86.718 Personal history of other venous thrombosis and embolism; Z86.711 Personal history of pulmonary embolism | CPT/HCPCS: 99212 ==

== ENCOUNTER 2024-07-19 12:21 | Emergency (ER) | payer OTHER, SELFPAY ==
--- NOTE | ~2024-07-19 | US_ITS ---
EXAMINATION: US LOWER EXTREMITY VEINS BILATERAL HISTORY: History PE, bilateral calf pain COMPARISON: Comparison is made with the prior examination dated 03/13/2023. TECHNIQUE: Duplex and color Doppler sonographic examination of the deep venous system of the bilateral lower extremities was performed. FINDINGS: The examination is limited due to patient body habitus. The right common femoral, superficial femoral, and popliteal veins are patent demonstrating normal compressibility, spontaneous flow, and augmentation. There is a normal color and spectral Doppler waveform appearance of the visualized deep venous system above the knee. The posterior tibial and peroneal veins are not well visualized. The left common femoral, superficial femoral, and popliteal veins are patent demonstrating normal compressibility, spontaneous flow, and augmentation. There is a normal color and spectral Doppler waveform appearance of the visualized deep venous system above the knee. The posterior tibial and peroneal veins are not well visualized. US/US venous duplex LE BI IMPRESSION: No evidence of acute DVT in the bilateral lower extremities. Electronically signed by: Vince Ruiz MD 07/19/2024 02:44 PM [facility]
--- NOTE | ~2024-07-19 | XR_ITS ---
EXAMINATION: XR CHEST 2 VIEWS HISTORY: Short of breath COMPARISON: Comparison is made with the prior examination dated 12/01/2023. FINDINGS: PA and lateral views of the chest are submitted. The lungs are expanded and clear. There is no pleural effusion, pneumothorax, or pulmonary vascular congestion. The heart is normal in size. The bones are intact. XR/XR chest 2V IMPRESSION: No acute cardiopulmonary abnormality. Electronically signed by: Vince Ruiz MD 07/19/2024 01:49 PM EST
[2024-07-19 12:31] VITALS: BP 151/75; PULSE 86; O2SAT 98
[2024-07-19 12:41] VITALS: BP 141/78; PULSE 84; RESP 20; TEMP 37.2; O2SAT 99; BMI 68.0
--- NOTE | 2024-07-19 12:51 | ECG_ITS ---
Test Reason : sob Blood Pressure : */* mmHG Vent. Rate : 78 BPM Atrial Rate : 78 BPM P-R Int : 152 ms QRS Dur : 88 ms QT Int : 362 ms P-R-T Axes : 49 -14 35 degrees QTcB Int : 412 ms Normal sinus rhythm Normal ECG When compared with ECG of 01-Dec-2023 12:38, No significant change was found Referred By: Petr Shukla Electronically Signed By: NETTA DUNNE
--- NOTE | 2024-07-19 12:53 | ED_ITS ---
HPI - General Adult General Chief complaint: General Medical Stated complaint: FLU-LIKE SYMPTOMS Time Seen by Provider: 07/19/24 15:41 Source: patient Mode of arrival: ambulatory Limitations: no limitations History of Present Illness ED Provider: Rosa Nicholson PA-C HPI narrative: Patient is a 58 year old assigned female at with a history of anemia, DM, DVT with IVC filter (on elqiuis presently for PE), and chronically on 3 liters of oxygen via nasal cannula, presenting to the emergency department today with a productive cough and bilateral calf pain. Patient states that over the last 3 days she has had a cough and bilateral calf pain. Patient states that she is compliant on medications. Patient denies any dizziness, lightheadedness, abdominal pain, nausea, vomiting, fever, chills, blurry vision, double vision, loss of vision, chest pain, difficulty breathing, shortness of breath, back pain, night sweats, pain with urination, increased urinary frequency, increased urinary urgency, blood in her urine or stool, syncope or a near syncopal episode, recent trauma or falls, bowel incontinence, bladder incontinence, or any other complaints at this time. Onset (ago): day(s) (3) Relieving factors: none Exacerbating factors: none Associated symptoms: cough Treatments prior to arrival: none Related Data Home Medications ?Medication ?Instructions ?Recorded ?Confirmed buspirone 15 mg tablet 15 mg PO TID 07/07/20 06/01/23 sertraline 100 mg tablet 150 mg PO DAILY 07/07/20 06/01/23 sumatriptan succinate 100 mg tablet 100 mg PO DAILY MRX1 PRN Migraine 07/07/20 06/01/23 Headache melatonin 3 mg tablet 3 mg PO BEDTIME PRN 05/09/24 Previous Rx's ?Medication ?Instructions ?Recorded cpap mask #1 ea 07/14/20 filters for cpap #1 ea 07/14/20 heated tubing #1 ea 07/14/20 commode (bedside commode) #1 ea 12/02/21 bariatric sliding shower bench #1 ea 12/07/21 bariatric wheeled walker #1 ea 12/07/21 bariatric commode #1 ea 01/05/22 walker #1 ea 01/05/22 sennosides 8.6 mg-docusate sodium 1 tab-cap PO BEDTIME PRN 04/03/23 50 mg tablet (Senokot-S) constipation #30 tabs medroxyprogesterone 10 mg tablet 20 mg (2 x 10 mg) PO BID #60 tabs 06/09/23 cetirizine 10 mg tablet 10 mg PO DAILY PRN for allergies 11/10/23 #90 tabs ferrous sulfate 324 mg (65 mg 324 mg PO DAILY #90 tabs 01/06/24 iron) tablet,delayed release montelukast 10 mg tablet 10 mg PO BEDTIME #90 tabs 01/06/24 oxybutynin chloride 15 mg 15 mg PO DAILY #30 tabs 01/06/24 tablet,extended release 24 hr atorvastatin 40 mg tablet 40 mg PO BEDTIME #90 tabs 02/19/24 apixaban 5 mg tablet 5 mg PO BID #60 tabs 04/03/24 bed pad #100 ea 04/03/24 diaper,brief,adult,disposable #200 ea 04/03/24 disposable wipes #100 ea 04/03/24 cholecalciferol (vitamin D3) 125 125 mcg PO BEDTIME #90 caps 05/10/24 mcg (5,000 unit) capsule furosemide 20 mg tablet 20 mg PO QAM PRN for swelling #90 05/14/24 tabs electric head and foot bed #1 ea 07/03/24 electric scooter #1 ea 07/03/24 azithromycin 250 mg tablet See Rx Instructions PO .COMPLEX #6 07/19/24 tabs prednisone 20 mg tablet 20 mg PO DAILY 7 days #7 tabs 07/19/24 Allergies Allergy/AdvReac Type Severity Reaction Status Date / Time cat dander [CAT] Allergy Unknown UNKNOWN Verified 07/19/24 12:44 mold [MOLD] Allergy Unknown UNKNOWN Verified 07/19/24 12:44 amoxicillin [From Augmentin] AdvReac Abdominal Verified 07/19/24 12:44 Pain ENVIRONMENTAL Allergy Unknown RUNNY Uncoded 01/01/24 12:18 NOSE,ITCHY EYES Review of Systems 2 Constitutional: Constitutional: Reports no additional constitutional complaints, Denies chills, Denies fever(s) and Denies night sweats Eyes: Eyes: Reports no additional eye complaints, Denies blurry vision, Denies change in vision, Denies diplopia, Denies eye discharge, Denies loss of vision and Denies eye pain ENT: Denies dizziness Cardiovascular: Cardiovascular: Reports no additional cardiovascular complaints, Denies chest pain, Denies lightheadedness, Denies Loss of Consciousness and Denies dyspnea Respiratory: Respiratory: Reports no additional respiratory complaints, Reports cough and Denies dyspnea Gastrointestinal: Gastrointestinal: Reports no additional gastrointestinal complaints, Denies abdominal pain, Denies melena, Denies hematochezia, Denies change in bowel habits and Denies change in stool character Genitourinary: Genitourinary: Denies hematuria, Denies urinary frequency, Denies dysuria, Denies urinary incontinence, Denies urinary hesitancy and Denies urinary urgency Musculoskeletal: Musculoskeletal: Reports no additional musculoskeletal complaints, Denies numbness and Denies tingling Comments: bilateral calf pain Neurologic: Denies dizziness, Denies loss of vision, Denies numbness and Denies tingling Psychiatric: Psychiatric: Reports no additional psychiatric complaints Endocrine: Endocrine: Reports no additional endocrine complaints Hematologic/Lymphatic: Hematologic/Lymphatic: Reports no additional hematologic/lymphatic complaints Allergic/Immunologic: Allergic/Immunologic: Reports no additional allergic/immunologic complaints PMF Past Medical History Attestation statement: The following information was validated with the patient. Source: old records reviewed and nursing notes reviewed Medical History ZAHEER (obstructive sleep apnea) Supplemental oxygen dependent History of pulmonary embolus (PE) Tinea pedis of right foot Type 2 diabetes mellitus without complication, with no history of insulin use Pulmonary embolism on long-term anticoagulation therapy History of DVT (deep vein thrombosis) Saddle embolism of pulmonary artery Mixed stress and urge urinary incontinence Varicose veins of leg with swelling Postmenopausal bleeding Colon cancer screening Hyperparathyroidism DAVIS (nonalcoholic steatohepatitis) Depression with anxiety Migraine Chronic venous insufficiency Mixed dyslipidemia Essential hypertension Peripheral vascular disease Morbid obesity Surgical History S/P insertion of IVC (inferior vena caval) filter History of hysteroscopy History of tonsillectomy History of cholecystectomy History of removal of cyst History of umbilical hernia repair History of trigger finger History of carpal tunnel release of both wrists History of section Family History Family History Father Diabetes mellitus Mother HTN (hypertension) Maternal Grandmother Scleroderma Maternal Grandfather Lung cancer Maternal Aunt Lung cancer Mental health disorder Maternal Uncle Colon cancer Substance use disorder Brother No problems noted. Son No problems noted. Son No problems noted. Daughter Mental health disorder Social History Social History Household Members: Family Housing: House Do you presently have visiting nurse or other home services: Yes Alcohol intake: never Patient Tobacco Use Status: Never used Tobacco e-Cigarette/Vaping Use: Never Used Advance Directives: Yes Advance Directives on File: Yes Advance Directives Date on File: 11/11/21 service: No Current occupational status: disabled Cognitive needs: No Hearing needs: No Vision needs: Yes Physical Exam ED Vital Signs: Vital Signs - 24 hr 07/19/24 12:41 Temperature 99.0 F Pulse Rate 84 Respiratory Rate 20 Blood Pressure 141/78 H Pulse Oximetry 99 Oxygen Delivery Method Nasal Cannula BMI result Body Mass Index 68.0 Const General: cooperative, no acute distress, alert and awake Nutritional Appearance: well nourished Orientation/consciousness: patient oriented x3 Limitations: no limitations HENMT Head: Yes normal to inspection and Yes atraumatic Ears: hearing grossly normal bilaterally and external ears normal General nose exam: Normal external nose present, no nasal discharge noted and no epistaxis Face and sinus: Yes normal facial exam, No abrasion and No laceration Mouth: Normal oral and palatal mucosa present, no drooling and no muffled voice Eyes General: appearance normal, both eyes and all related structures Periorbital: periorbital findings normal Eyelids: Yes eyelids normal Conjunctivae: conjunctivae normal Pupils: Equal, round and reactive pupils present EOM: EOMs intact bilaterally Neck Neck: Yes normal visual inspection, Yes full ROM and Yes no lymphadenopathy Chest Chest palpation & inspection: normal inspection of the chest Resp Other: on 3 liters of oxygen via nasal cannula Effort & Inspection: normal respiratory effort and able to speak in complete sentences GI Inspection: Yes normal to inspection Neuro General: patient oriented x3 and moves all extremities Cranial nerves: Yes Equal, round and reactive pupils present Cognition (Neuro): normal cognition Extrem General: Yes normal to inspection, Yes full ROM and Yes capillary refill normal Psych Appearance: grossly normal Mental Status: mental status grossly normal Affect: normal affect Attitude: cooperative Thought process: Normal thought process present Thought content: Normal thought content present Insight: Good insight present (Psych) Course Course Course Narrative: Patient with history of pulmonary embolus complains of several days of bilateral calf pain, increased cough increased shortness of breath Patient uses home oxygen and is breathing comfortably speaking full sentences no distress Labs ultrasound chest x-ray EKG ordered This is rapid medical exam done in triage pending full evaluation exam and disposition by ER provider Medical Decision Making Medical Decision Making [facility] Narrative: Patient is a 58 year old assigned female at with a history of anemia, DM, DVT with IVC filter (on elqiuis presently for PE), and chronically on 3 liters of oxygen via nasal cannula, presenting to the emergency department today with a productive cough and bilateral calf pain. Patient's physical exam was unremarkable. Patient's blood work was unremarkable. Patient's EKG was unremarkable. Patient's chest x-ray and bilateral lower extremity US showed no acute process. Patient's influenza testing was positive. I explained my physical exam findings as well as all test results to the patient. I answered all questions asked by the patient. I stressed the importance of the patient taking her medication as directed (either prescribed or as the over the counter packaging recommends). I stressed the importance of the patient following up with her primary care provider. I stressed the importance of the patient returning to the emergency department immediately if her symptoms were to worsen or if she were to develop any dizziness, shortness of breath, difficulty breathing, chest pain, blurry vision, loss of vision, nausea, vomiting, abdominal pain, fever, chills, back pain, or any other complaints. Patient verbalized agreement and understanding with this treatment plan and discharge. Differential Diagnosis Differential Diagnoses: The differential diagnosis associated with the presentation includes Influenza URI Cough PNA Bilatearl lower leg pain Admission/Observation Consideration of admission/observation: Escalation of care including admission/observation considered Patient would have been admitted to the hospital had her work up had any findings where hospital admission was appropriate and her clinical presentation warranted hospital admission. Lab Data [facility] Lab Attestation statement: I reviewed the patient's lab results. My interpretation of these results are in the [facility] Rationale portion of this note. 07/19/24 13:14 07/19/24 13:14 Labs: Lab Results 07/19/24 Range/Units 13:14 WBC 4.9 (4.8-10.8) X10*3/uL RBC 4.94 (4.20-5.50) X10*6/uL Hgb 10.3 L (12.0-16.0) g/dl Hct 35.3 L (37.0-47.0) % MCV 71.5 L (80.0-98.0) fL MCH 20.9 L (27.0-33.0) pg MCHC 29.2 L (31.0-35.0) g/dl RDW 19.9 H (11.0-16.0) % Plt Count 214 (160-400) X10*3/uL MPV 9.1 L (9.4-12.3) fL Immature Gran % (Auto) 0.8 H (0.0-0.4) % Neut % (Auto) 68.9 (45-73) % Lymph % (Auto) 17.6 L (20-40) % [place] % (Auto) 9.9 (2-11) % Eos % (Auto) 2.4 (0-4) % Baso % (Auto) 0.4 (0-2) % Lymph # (Auto) 0.9 L (1.2-4.9) X10*3/uL [place] # (Auto) 0.5 (0.1-1.2) X10*3/uL Eos # (Auto) 0.1 (0.0-0.4) X10*3/uL Baso # (Auto) 0.0 (0.0-0.2) X10*3/uL Abs Immat Gran (auto) 0.04 H (0.00-0.03) X10*3/uL Absolute Neuts (auto) 3.4 (2.0-8.3) x10*3/uL Absolute Nucleated RBC 0.000 (0.0-0.012) X10*3/uL Nucleated RBC % (auto) 0.0 (0.0-0.2) /100WBC PT 13.3 H (10.9-12.4) SEC INR 1.1 (0.9-1.1) Sodium 142 (135-145) mmol/L Potassium 4.4 (3.3-5.1) mmol/L Chloride 108 (96-108) mmol/L Carbon Dioxide 27 (22-29) mmol/L Anion Gap 11 L (12-20) BUN 7 L (9-16) mg/dL Creatinine 0.62 (0.5-1.4) mg/dL Estim Creat Clear Calc 150.3 Estimated GFR > 60 Random Glucose 199 H (60-115) mg/dL Calcium 9.6 D (8.4-10.2) mg/dL Troponin I High Sens < 2.7 (<3.5-17.0) ng/L B-Natriuretic Peptide 77 (<100) pg/mL COVID-19 (GAEL) Negative (Negative) COVID-19 Clin Com See Note Influenza Type A (PEACE) Positive A (Negative) Influenza Type B (PEACE) Negative (Negative) Influenza A & B Note See Note Independent Interpretation I performed an independent interpretation of an: EKG, Plain X-Ray and Ultrasound Interpretation: My interpretation is in agreement with the radiologist's impression of these imaging studies. L EXAMINATION: XR CHEST 2 VIEWS HISTORY: Short of breath COMPARISON: Comparison is made with the prior examination dated 12/01/2023. FINDINGS: PA and lateral views of the chest are submitted. The lungs are expanded and clear. There is no pleural effusion, pneumothorax, or pulmonary vascular congestion. The heart is normal in size. The bones are intact. XR/XR chest 2V IMPRESSION: No acute cardiopulmonary abnormality. Electronically signed by: Vince Ruiz MD 07/19/2024 01:49 PM [facility] Dictated By: Vince Ruiz MD Signed By: Electronically signed by Vince Ruiz MD 07/19/24 1349 EXAMINATION: US LOWER EXTREMITY VEINS BILATERAL HISTORY: History PE, bilateral calf pain COMPARISON: Comparison is made with the prior examination dated 03/13/2023. TECHNIQUE: Duplex and color Doppler sonographic examination of the deep venous system of the bilateral lower extremities was performed. FINDINGS: The examination is limited due to patient body habitus.The right common femoral, superficial femoral, and popliteal veins are patent demonstrating normal compressibility, spontaneous flow, and augmentation. There is a normal color and spectral Doppler waveform appearance of the visualized deep venous system above the knee. The posterior tibial and peroneal veins are not well visualized. The left common femoral, superficial femoral, and popliteal veins are patent demonstrating normal compressibility, spontaneous flow, and augmentation. There is a normal color and spectral Doppler waveform appearance of the visualized deep venous system above the knee. The posterior tibial and peroneal veins are not well visualized. US/US venous duplex LE BI IMPRESSION: No evidence of acute DVT in the bilateral lower extremities. Electronically signed by: Vince Ruiz MD 07/19/2024 02:44 PM [facility] Dictated By: Vince Ruiz MD Signed By: Electronically signed by Vince Ruiz MD 07/19/24 1444 I independently interpreted this EKG and am in agreement with the below findings: Vent. Rate: 78 BPM Atrial Rate: 78 BPM P-R Int: 152 ms QRS Dur: 88 ms QT Int: 362 ms P-R-T Axes: 49 -14 35 degrees QTcB Int: 412 ms Normal sinus rhythm Normal ECG When compared with ECG of 01-Dec-2023 12:38, No significant change was found DD/ 1305 Radiology Impression Discussion of test interpretation with radiology: I have reviewed the radiologist's reading. Prescription Management I considered prescription management with: Antibiotic (covering the patient with Azithromycin given her comorbidities and current Influenza diagnosis.) Discharge Plan Discharge Clinical Impression: Influenza, Edema Patient Disposition: Home, Self-Care Instructions: Influenza (DC), Edema (ED) Additional Instructions: Follow up with your primary care provider. Return to the emergency department immediately if your symptoms worsen or if you develop any dizziness, shortness of breath, difficulty breathing, chest pain, blurry vision, loss of vision, nausea, vomiting, abdominal pain, fever, chills, back pain, or any other complaints. Prescriptions: New azithromycin 250 mg tablet See Rx Instructions .ROUTE .COMPLEX Qty: 6 0RF Rx Instructions: For 250 mg dose pack: take 500 mg today (day 1), then 250 mg for 4 days (days 2-5) prednisone 20 mg tablet 20 mg PO DAILY 7 Days Qty: 7 0RF No Action (DME) filters for cpap See Rx Instructions .Route .MEDSUPPLY Qty: 1 0RF Rx Instructions: Filters for CPAP machine (DME) heated tubing See Rx Instructions .Route .MEDSUPPLY Qty: 1 0RF Rx Instructions: Heated tubing for CPAP machine (DME) cpap mask See Rx Instructions .Route .MEDSUPPLY Qty: 1 0RF Rx Instructions: cpap mask- CPAP at 15 cm (DME) bariatric wheeled walker See Rx Instructions .Route .MEDSUPPLY Qty: 1 0RF Rx Instructions: As directed (DME) bariatric sliding shower bench See Rx Instructions .Route .MEDSUPPLY Qty: 1 0RF Rx Instructions: As directed sennosides-docusate sodium [Senokot-S] 8.6-50 mg tablet 1 tab-cap PO BEDTIME PRN (Reason: constipation) Qty: 30 0RF cetirizine 10 mg tablet 10 mg PO DAILY PRN (Reason: for allergies) Qty: 90 1RF ferrous sulfate 324 mg (65 mg iron) tablet,delayed release (DR/EC) 324 mg PO DAILY Qty: 90 1RF montelukast 10 mg tablet 10 mg PO BEDTIME Qty: 90 1RF Rx Instructions: schedule PCP appt for future refills oxybutynin chloride 15 mg tablet extended release 24hr 15 mg PO DAILY Qty: 30 5RF atorvastatin 40 mg tablet 40 mg PO BEDTIME Qty: 90 1RF (DME) diaper,brief,adult,disposable Misc See Rx Instructions .Route Qty: 200 11RF Rx Instructions: As directed for incontinence, up to 6 per day (DME) disposable wipes See Rx Instructions .Route .MEDSUPPLY Qty: 100 11RF Rx Instructions: As directed to clean after incontinence (DME) bed pad See Rx Instructions .Route .MEDSUPPLY Qty: 100 11RF Rx Instructions: As directed apixaban 5 mg tablet 5 mg PO BID Qty: 60 6RF cholecalciferol (vitamin D3) 125 mcg (5,000 unit) capsule 125 mcg PO BEDTIME Qty: 90 0RF furosemide 20 mg tablet 20 mg PO QAM PRN (Reason: for swelling) Qty: 90 0RF (DME) electric scooter See Rx Instructions .Route .MEDSUPPLY Qty: 1 0RF Rx Instructions: As directed (DME) electric head and foot bed See Rx Instructions .Route .MEDSUPPLY Qty: 1 0RF Rx Instructions: As directed (DME) bedside commode Kit See Rx Instructions .Route Qty: 1 0RF Rx Instructions: As directed medroxyprogesterone 10 mg tablet 20 mg PO BID Qty: 60 0RF buspirone 15 mg tablet 15 mg PO TID sertraline 100 mg tablet 150 mg PO DAILY sumatriptan succinate 100 mg tablet 100 mg PO DAILY MRX1 PRN (Reason: Migraine Headache) (DME) walker Misc See Rx Instructions .Route Qty: 1 0RF Rx Instructions: As directed (DME) bariatric commode See Rx Instructions .Route .MEDSUPPLY Qty: 1 0RF Rx Instructions: As directed melatonin 3 mg tablet 3 mg PO BEDTIME PRN Referrals: Shaunna Owens MD [Primary Care Provider] - Print Language: Thai
[2024-07-19 13:22] LABS: MANUAL DIFF FLAG NO
[2024-07-19 13:29] LABS: Basophils Percent Auto 0.4 % (0-2); Eosinophils Absolute Auto 0.1 X10*3/uL (0.0-0.4); Eosinophils Percent Auto 2.4 % (0-4); Hematocrit 35.3 % (37.0-47.0); Hemoglobin 10.3 g/dl (12.0-16.0); Imm Gran Abs Auto 0.04 X10*3/uL (0.00-0.03); Imm Gran Pct Auto 0.8 % (0.0-0.4); Lymphocytes Absolute Auto 0.9 X10*3/uL (1.2-4.9); Lymphocytes Percent Auto 17.6 % (20-40); Mean Corpuscular HGB Conc 29.2 g/dl (31.0-35.0); Mean Corpuscular Hemoglobin 20.9 pg (27.0-33.0); Mean Corpuscular Volume 71.5 fL (80.0-98.0); Mean Platelet Volume 9.1 fL (9.4-12.3); Monocytes Absolute Auto 0.5 X10*3/uL (0.1-1.2); Monocytes Percent Auto 9.9 % (2-11); Neutrophils Absolute Auto 3.4 x10*3/uL (2.0-8.3); Neutrophils Percent Auto 68.9 % (45-73); Platelet Count 214 X10*3/uL (160-400); Red Blood Count 4.94 X10*6/uL (4.20-5.50); Red Cell Distribution Width 19.9 % (11.0-16.0); White Blood Count 4.9 X10*3/uL (4.8-10.8)
[2024-07-19 13:37] LABS: INTERNATIONAL NORM RATIO 1.1 (0.9-1.1); Prothrombin Time 13.3 SEC (10.9-12.4)
[2024-07-19 13:41] LABS: Anion Gap 11 (12-20); Blood Urea Nitrogen 7 mg/dL (9-16); Calcium 9.6 mg/dL (8.4-10.2); Carbon Dioxide 27 mmol/L (22-29); Chloride 108 mmol/L (96-108); Creatinine Clr Calc Pharmacy 150.3; Estimated Glomerular Filt Rate > 60; Glucose Random 199 mg/dL (60-115); Potassium 4.4 mmol/L (3.3-5.1); Sodium 142 mmol/L (135-145)
[2024-07-19 13:46] LABS: IDNOW Serial# 08D9AD1C; Influenza A Positive (Negative); Influenza B2 Negative (Negative)
[2024-07-19 13:47] LABS: COVID-19 Test Negative (Negative); IDNOW Serial# 55D5AD1C
[2024-07-19 13:48] LABS: B Type Natriuretic Peptide 77 pg/mL (<100)
[2024-07-19 13:57] LABS: Troponin-I High Sensitivity < 2.7 ng/L (<3.5-17.0)
[2024-07-19 16:20] VITALS: BP 141/78; PULSE 84; RESP 20; TEMP 37.2; O2SAT 99
== END 2024-07-19 17:09 | disposition home or self-care (01) ==
PROVIDERS: Physician Assistant Medical; Emergency Provider Emergency Medicine; PCP Internal Medicine
DX: J10.1 Influenza due to other identified influenza virus with other respiratory manifestations (principal); R60.0 Localized edema; R06.02 Shortness of breath; Z11.52 Encounter for screening for COVID-19; Z79.899 Other long term (current) drug therapy
CPT/HCPCS: 36415; 71046; 80048; 83880; 84484; 85025; 85610; 87502; 87635; 93005; 93970; 99283; 99284

== ENCOUNTER → 2024-07-19 12:51 | Outpatient (BNV) | payer OTHER, SELFPAY | PROVIDERS: Emergency Provider Emergency Medicine; PCP Internal Medicine; Visit Provider Internal Medicine | DX: R06.02 Shortness of breath (principal) | CPT/HCPCS: 93010 ==

== ENCOUNTER → 2024-07-19 12:52 | Outpatient (BNV) | payer OTHER, SELFPAY | PROVIDERS: PCP Internal Medicine; Visit Provider Radiology Diagnostic Radiology | DX: M79.661 Pain in right lower leg (principal); M79.662 Pain in left lower leg; Z86.711 Personal history of pulmonary embolism; R06.02 Shortness of breath | CPT/HCPCS: 71046; 93970 ==

== ENCOUNTER 2024-09-10 09:25 | Outpatient (AMB) | payer OTHER, SELFPAY ==
[2024-09-10 09:30] VITALS: BP 138/64; PULSE 97; O2SAT 97; BMI 70.2
--- NOTE | 2024-09-10 09:30 | A.OFFVIS_ITS ---
Vital Signs 09/10/24 09:30 Height 5 ft 1 in Weight 371 lb 7.662 oz BMI 70.2 BP 138/64 Blood Pressure Location Lt radial Position Sitting Pulse 97 Pulse Source Doppler Pulse Oximetry (%) 97 Intake Visit Reasons: Obstructive sleep apnea Allergies cat dander [CAT] Allergy (Unknown, Verified 09/10/24 09:39) UNKNOWN mold [MOLD] Allergy (Unknown, Verified 09/10/24 09:39) UNKNOWN amoxicillin [From Augmentin] Adverse Reaction (Verified 09/10/24 09:39) Abdominal Pain ENVIRONMENTAL Allergy (Unknown, Uncoded 01/01/24 12:18) RUNNY NOSE,ITCHY EYES HPI HPI Obstructive sleep apnea: Details: 59-year-old lady with underlying history of morbid obesity and severe obstructive sleep apnea recent diagnosis of DVT with PE status post directed therapy, now continues to require 3 L of supplemental oxygen with exertion, on Eliquis, repeat D-dimer 816. She has received her CPAP machine and is getting used to sleeping with it with improving quality of sleep and control of her ZAHEER symptoms. [facility] Medical History ZAHEER (obstructive sleep apnea) Supplemental oxygen dependent History of pulmonary embolus (PE) Tinea pedis of right foot Type 2 diabetes mellitus without complication, with no history of insulin use Pulmonary embolism on long-term anticoagulation therapy History of DVT (deep vein thrombosis) Saddle embolism of pulmonary artery Mixed stress and urge urinary incontinence Varicose veins of leg with swelling Postmenopausal bleeding Colon cancer screening Hyperparathyroidism DAVIS (nonalcoholic steatohepatitis) Depression with anxiety Migraine Chronic venous insufficiency Mixed dyslipidemia Essential hypertension Peripheral vascular disease Morbid obesity Surgical History S/P insertion of IVC (inferior vena caval) filter History of hysteroscopy History of tonsillectomy History of cholecystectomy History of removal of cyst History of umbilical hernia repair History of trigger finger History of carpal tunnel release of both wrists History of section Family History Father Diabetes mellitus Mother HTN (hypertension) Maternal Grandmother Scleroderma Maternal Grandfather Lung cancer Maternal Aunt Lung cancer Mental health disorder Maternal Uncle Colon cancer Substance use disorder Brother No problems noted. Son No problems noted. Son No problems noted. Daughter Mental health disorder Social History Household Members: Family Housing: House Do you presently have visiting nurse or other home services: Yes Alcohol intake: never Patient Tobacco Use Status: Never used Tobacco e-Cigarette/Vaping Use: Never Used Advance Directives Date on File: 11/11/21 service: No Current occupational status: disabled Cognitive needs: No Hearing needs: No Vision needs: Yes Review of Systems Const Denies daytime sleepiness, Denies excessive sweating, Denies fatigue, Denies fev er(s), Denies lethargy, Denies malaise, Denies night sweats, Denies snoring and Denies weight loss Eyes Denies blurry vision and Denies itchy eyes ENT Denies nasal congestion, Denies post nasal drip, Denies sinus pain, Denies sinus pressure and Denies other ( Thrush) Card Denies chest pain, Denies pedal edema, Denies dyspnea, Denies orthopnea and Denies paroxysmal nocturnal dyspnea Resp Denies cough, Denies hemoptysis, Denies excessive phlegm production, Denies dyspnea, Denies snoring and Denies wheezing GI Denies abdominal pain and Denies heartburn Musc Denies myalgias, Denies arthralgias and Denies joint swelling Skin/Breast Denies rash Neuro Denies memory loss and Denies seizure-like activity Psych Denies abnormal sleep pattern and Denies memory loss Endo Denies excessive sweating, Denies fatigue and Denies heat intolerance Saulo/Lymph Denies easy bruising Aller/Immun Denies itchy eyes, Denies seasonal rhinorrhea and Denies wheezing Physical Exam Vital Signs: Last Vital Signs Pulse 97 09/10/24 09:30 BP 138/64 09/10/24 09:30 Pulse Ox 97 09/10/24 09:30 BMI result Body Mass Index 70.2 Const General: no acute distress and alert Nutritional Appearance: obese Orientation/consciousness: Other orientation findings ( oriented) HEENT Head: Yes atraumatic Eyes General: appearance normal, both eyes and all related structures Sclerae: sclerae normal EOM: EOMs intact bilaterally Neck Neck: Yes supple Lymphatic: no lymphadenopathy noted Resp Effort & Inspection: normal respiratory effort and no use of accessory muscles Auscultation: clear to auscultation bilaterally Cardio Rate: regular rate Rhythm: regular rhythm Heart sounds: no gallops, no murmurs and no rubs Skin General skin exam: other ( warm) Extrem General: No clubbing, No cyanosis and No edema Assessment & Plan Assessment & Plan (1) ZAHEER (obstructive sleep apnea): Code(s): G47.33 - Obstructive sleep apnea (adult) (pediatric) Category: Medical Plan: Improving control on APAP therapy. Continue PAP therapy. (2) Supplemental oxygen dependent: Code(s): Z99.81 - Dependence on supplemental oxygen Category: Medical Plan: Continue supplemental oxygen to maintain O2 saturation above 89%. (3) Saddle embolism of pulmonary artery: Code(s): I26.92 - Saddle embolus of pulmonary artery without acute cor pulmonale Category: Medical Plan: Continue on anticoagulation with Eliquis. Coding Level of Care Code Est Pt Level 4 (42675) Complex EM visit Add On G2211 Diagnoses ZAHEER (obstructive sleep apnea) G47.33 Supplemental oxygen dependent Z99.81 Saddle embolism of pulmonary artery I26.92
--- OUTSIDE RECORDS SUMMARY | 2024-09-10 10:27 | XMS_ITS | Clinical Summary ---
Author Organization [facility] Address [address] [place] [address] Phone Care Team Providers Care Coin Machine Assembler Name Role Phone Holly Cruz MD Primary Care Provider [phone] Allergies Active Allergy Reactions Criticality Noted Date Comments Amoxicillin 04/11/2023 Medications apixaban (Eliquis) 5 mg tablet 3 Active atorvastatin (LIPITOR) 40 mg tablet 3 Active azelastine (OPTIVAR) 0.05 % ophthalmic solution 3 Active busPIRone (BUSPAR) 15 mg tablet TAKE 1 TABLET BY MOUTH THREE TIMES DAILY 3 Active cetirizine (ZyrTEC) 10 mg tablet Take 1 Tablet by mouth daily. 3 Active cholecalciferol (VITAMIN D-3) 125 mcg (5,000 unit) capsule 3 Active erythromycin 5 mg/gram (0.5 %) ophthalmic ointment 3 Active furosemide (LASIX) 20 mg tablet Take 1 Tablet by mouth daily. Active megestroL (MEGACE) 20 mg tablet Take 1 Tablet by mouth 2 times daily for 360 days. 4 Active metFORMIN XR (GLUCOPHAGE-XR) 500 mg 24 hr tablet 3 Active montelukast (SINGULAIR) 10 mg tablet TAKE 1 TABLET BY MOUTH AT BEDTIME 3 Active ondansetron (ZOFRAN) 4 mg tablet Take 1 Tablet by mouth every 8 hours as needed. Active oxyBUTYnin XL (DITROPAN-XL) 15 mg 24 hr tablet Take 1 Tablet by mouth daily. 3 Active senna-docusate (Stimulant Laxative Plus) 8.6-50 mg per tablet TAKE 1 TABLET BY MOUTH AT BEDTIME NEEDED FOR CONSTIPATION 3 Active sertraline (ZOLOFT) 100 mg tablet TAKE 1 AND 1/2 TABLETS BY MOUTH EVERY DAY 3 Active SUMAtriptan (IMITREX) 100 mg tablet 3 Active Active Problems Problem Noted Date Diagnosed Date Morbid obesity with BMI of 70 and over, adult Abnormal uterine bleeding (AUB) 05/13/2023 Thickened endometrium 05/13/2023 Hyperlipidemia 10/19/2015 Immunizations Name Administration Dates Next Due Influenza trivalent, 0.5mL, preservative free (Fluarix; FluLaval; Fluzone) ages 6mo and older (Afluria) 3 years and older 04/02/2015 Influenza, Unspecified 03/04/2016 Td Tetanus diptheria (Tdvax) 7yo and older 08/11 Tdap Tetanus diptheria acell ular pertussis (Boostrix; Adacel) 7yo and older 07/18/2012 Surgical History Surgery Date Site/Laterality Comments CARPAL TUNNEL RELEASE Bilateral PROCEDURE: HISTORICAL CARPAL TUNNEL REL SECTION PROCEDURE: HISTORICAL DELIVERY; COMMENT: x 3 HERNIA REPAIR 06/19/2007 PROCEDURE: HISTORICAL HERNIA REPAIR/ING CHOLECYSTECTOMY 06/19/2000 PROCEDURE: HISTORICAL CHOLECYSTECTOMY OTHER SURGICAL HISTORY PROCEDURE: ---- OTHER ----; COMMENT: trigger release OTHER SURGICAL HISTORY 03/14/2023 Right PROCEDURE: [place] CESSATION THROMBOLYTIC THER W/CATHETER REMOVAL OTHER SURGICAL HISTORY 03/14/2023 PROCEDURE: [place] THROMBOLYSIS ARTERIAL INFUSION ICRA RS&I INIT TX; COMMENT: x2 OTHER SURGICAL HISTORY 03/14/2023 PROCEDURE: ULTRASOUND GUIDANCE FOR VASCULAR AC; COMMENT: x2 OTHER SURGICAL HISTORY 03/14/2023 Left PROCEDURE: [place] CESSATION THROMBOLYTIC THER W/CATHETER REMOVAL Medical History Medical History Date Comments Hyperlipidemia 10/19/2015 DX:Hyperlipidemi a Overactive bladder 10/19/2015 DX:Overactive bladder GERD (gastroesophageal reflux disease) 10/19/2015 DX:GERD (gastroesophageal reflux disease) Morbid obesity (CMS/HCC) 06/09/2016 DX:Morb id obesity (HCC) Medial meniscus tear 06/09/2016 DX:Medial m eniscus tear; COMMENT: Right 12/02 Hypertension 05/13/2023 DX:Hypertension Pulmonary embolus 05/13/2023 DX:Pulmonary e mbolus (HCC) Left leg DVT (CMS/HCC) 05/13/2023 DX:Left l eg DVT (HCC) Family History Medical History Relation Name Comments Lung cancer Aunt maternal Diabetes Father Lung cancer Maternal Grandfather Scleroderma Maternal Grandmother Hypertension Mother Colon cancer Uncle maternal Relation Name Status Comments Aunt Father Maternal Grandfather Maternal Grandmother Mother Uncle Social History Tobacco Use Types Packs/Day Years Used Date Smoking Tobacco: Never Alcohol Use Standard Drinks/Week Comments No 0 (1 standard drink = 0.6 oz pur e alcohol) Comments Unknown Sex and Gender Information Value Date Recorded Sex Assigned at Not on file Legal Sex Female 4:11 PM EST Gender Identity Not on file Sexual Orientation Not on file Obstetrics History Last Filed Vital Signs Vital Sign Reading Time Taken Comments Blood Pressure 169/89 08/08/2023 8:58 AM EST Pulse 79 08/08/2023 8:58 AM EST Temperature - - Respiratory Rate - - Oxygen Saturation - - Inhaled Oxygen Concentration - - Weight 167 kg (369 lb) 08/08/2023 8:58 AM EST Height 154.9 cm (5' 1 ) 04/11/2023 1:48 PM EDT Body Mass Index 69.72 04/11/2023 1:48 PM EDT Plan of Treatment Health Maintenance Due Date Last Done Comments Breast Cancer Screening 1965 Hepatitis B Vaccines (1 of 3 - 19+ 3-dose series) 08/24/1986 Cervical Cancer Screening: P ap Smear 08/24/1988 Pneumococcal Vaccine: 50+ Years (1 of 1 - PCV) 08/24/2017 Zoster Vaccines (1 of 2) 08/24/2017 DTaP,Tdap,and Td Vaccines (3 - Td or Tdap) 07/18/2022 07/18/2012, 08/11/2006 Cholesterol Screening (Lipid Panel) 07/18/2023 08/13/2016 Colorectal Cancer Screening: Colonoscopy 07/18/2023 Depression Screening 07/18/2023 HIV Screening 07/18/2023 Hepatitis C Screening 07/18/2023 Social Influencers of Health Screening 07/18/2023 Hypertension/CHF/CAD Annual BMP Blood Test 08/03/2023 08/13/2016 COVID-19 Vaccine (1 - 2023-2 5 season) 2024 Influenza Vaccine (#1) 2024 6, 04/02/2015 HIB Vaccines Aged Out No longer eligi ble based on patient's age to complete this topic HPV Vaccines Aged Out No longer eligi ble based on patient's age to complete this topic Hepatitis A Vaccines Aged Out No long er eligible based on patient's age to complete this topic IPV Vaccines Aged Out No longer eligi ble based on patient's age to complete this topic MMR Vaccines Aged Out No longer eligi ble based on patient's age to complete this topic Meningococcal ACWY Vaccine Aged Out N o longer eligible based on patient's age to complete this topic Meningococcal B Vacine Aged Out No lo nger eligible based on patient's age to complete this topic Pneumococcal Vaccine: Pediatrics (0 to 5 Years) and At-Risk Patients (6 to 64 Years) Aged Out No longer eligible b ased on patient's age to complete this topic RSV Immunization Patients Under 20 months Aged Out No longer eligible b ased on patient's age to complete this topic Varicella Vaccines Aged Out No longer eligible based on patient's age to complete this topic Procedures Procedure Name Priority Date/Time Associated Diagnosis Comments ANNUAL BMP BLOOD TEST Routine 08/13/2016 LIPID PANEL Routine 08/13/2016 from Last 3 Months or Most Recently Relevant to Health Maintenance Results * Annual BMP Blood Test (08/13/2016) Pathologist [facility] Annual BMP Blood Test abstracted Historical Provider HEALTH MAINTENANCE Final Result * (ABNORMAL) Lipid panel (08/13/2016) LDL/HDL Ratio 5(A) 0 - 4 Triglycerides 211(A) 0 - 150 mg/dL Cholesterol 261(A) 0 - 200 mg/dL HDL 53 >=40 mg/dL LDL Cholesterol 166(A) 0 - 100 mg/dL Blood Venous blood specimen / Unknown us Historical Provider LAB BLOOD ORDERABLES Tonya l Result from Last 3 Months or Most Recently Relevant to Health Maintenance Insurance MEDICAID - [place] Advance Directives Documents on File Type Date Recorded Patient Head Butler Expl anation Health Care Decision (hx) 03/15/2023 AD LO DIRECTIVE Health Care Decision (hx) 03/15/2023 AD LO DIRECTIVE Health Care Decision (hx) 03/15/2023 AD LO DIRECTIVE Health Care Decision (hx) 03/15/2023 AD LO DIRECTIVE Care Teams Coin Machine Assembler Relationship Specialty Start Date End Date Holly Cruz MD [address] [place] [address] PCP - General Internal Medicine 09/14/15
--- OUTSIDE RECORDS SUMMARY | 2024-09-10 10:27 | XMS_ITS | Patient Health Record ---
Author Organization [facility] Address [address] [place] [address] Care Team Providers Care Marketing Liaison Name Role Phone Graciela ROSALES, Shaunna Garcia Primary Care Provider Un available [employer] Audrey Unavailable [phone] Allergies Allergen (clinical drug ingredient) Drug/Non Drug Allergy documented on EMR Reaction Allergy Type Onset Date Status Dust Mites Unknown Allergy Active Mold Unknown Allergy Active Reason For Referral No Information Medications Medication SIG (Take, Route, Frequency, Duration) Notes [...] BY MOUTH DAILY Oral for 90 Active Social History Tobacco Use: Social History Observation Description Date Details (start date - stop date) Never Smoker NA - NA Tobacco Use/Smoking Question Answer Notes Are you a: nonsmoker Additional Findings: Tobacco Non-User Aggressive non-smoker Alcohol Screen Question Answer Notes Did you have a drink containing alcohol in the p ast year? No Points 0 Interpretation Negative Tobacco use other than smoking: Question Answer Notes Are you an other tobacco user? No Problems Problem Type SNOMED Code ICD Code Onset Dates Problem Status W/U Status Risk Notes Problem 83545483 Type 2 diabetes mellitus with polyneuropathy (E11.42) Active confirmed Problem [id number] Osteoarthritis o f right ankle and foot (M19.071) Active confirmed Problem 24479272 Osteoarthritis o f left ankle and foot (M19.072) Active confirmed Plan Of Treatment Pending Test Test Name Order Date X ray : Foot, left 3V 11/02/2022 X ray : Foot, right 3V 11/02/2022 Insurance Providers Payer Name Payer Address Payer Phone Subscriber Number Group Number Insured Name Patient Relationship to Insured Coverage Start Date Coverage End Date [facility] [employer] Claims [address] [place] [id number] Argelia Gibbons Self - patient is the insured Medical (General) History Medical History History ICD Code Anxiety Arthritis Back,Hip,and Knee pain CAD (Cholesterol) covid-19 Depression Diabetic Gall bladder problems Headaches Liver disease Sciatica Chicken pox Surgical History Surgery Date(Month/Year) section x 3 carpal tunnel surgery rt/lt gall bladder removal Hernia Repair 2008 tonsillectomy cystectomy lt foot Trigger Finger Release
== END 2024-09-10 10:00 | disposition home or self-care (01) ==
LOC: HO.HPS 09:25
PROVIDERS: PCP Internal Medicine; Visit Provider Internal Medicine Pulmonary Disease
DX: G47.33 Obstructive sleep apnea (adult) (pediatric) (principal); Z99.81 Dependence on supplemental oxygen; I26.92 Saddle embolus of pulmonary artery without acute cor pulmonale
CPT/HCPCS: 99214; G2211

== ENCOUNTER → 2024-09-10 09:25 | Outpatient (BNVA) | payer OTHER, SELFPAY | PROVIDERS: PCP Internal Medicine; Visit Provider Internal Medicine Pulmonary Disease | DX: G47.33 Obstructive sleep apnea (adult) (pediatric) (principal); I26.92 Saddle embolus of pulmonary artery without acute cor pulmonale; Z99.81 Dependence on supplemental oxygen | CPT/HCPCS: 99212 ==

== ENCOUNTER 2025-03-27 07:09 | Outpatient (REF) | payer OTHER, SELFPAY ==
--- NOTE | ~2025-03-27 | XR_ITS ---
EXAMINATION: XR CHEST CLINICAL INFORMATION: R05.9 - Cough, unspecified COMPARISON: X-ray 07/19/2024 TECHNIQUE: 2 views of the chest were obtained. FINDINGS: The cardiomediastinal silhouette is within normal limits. The lungs are well expanded. Mild bronchial wall thickening in the lower lungs. There is no focal consolidation, edema, or effusion. No pneumothorax. No acute osseous abnormality. XR/XR chest 2V IMPRESSION: Bronchial wall thickening can be seen with inflammatory/infectious process.. No focal consolidation. Electronically signed by: Rodney Contreras MD 03/27/2025 08:48 AM EDT
== END 2025-03-27 07:10 | disposition home or self-care (01) ==
LOC: HO.HMGCX 07:09
PROVIDERS: Absent Provider Nurse Practitioner Family; PCP Internal Medicine; Visit Provider Internal Medicine
DX: J06.9 Acute upper respiratory infection, unspecified (principal); R05.2 Subacute cough
CPT/HCPCS: 71046; 99212

== ENCOUNTER 2025-03-27 07:09 | Outpatient (AMB) | payer OTHER, SELFPAY ==
--- NOTE | 2025-03-27 07:14 | AM.OFFWIN_ITS ---
Intake Vital Signs 03/27/25 07:16 Height 5 ft 1 in Weight 369 lb BMI 69.7 BP 156/90 H Blood Pressure Location Rt radial Position Sitting Respiration 18 Pulse 99 Pulse Source Pulse Oximeter Temp 98.6 F Temp Source Oral Pulse Oximetry (%) 98 Oxygen Delivery Method Nasal Cannula Intake Visit Reasons: EP Cough, congestion 2wks Intake Note: Pt is here today c/o cough and congestion x3week Patient Tobacco Use Status: Never used Tobacco Allergies cat dander (CAT) Allergy (Unknown, Verified 03/27/25 07:14) UNKNOWN mold (MOLD) Allergy (Unknown, Verified 03/27/25 07:14) UNKNOWN amoxicillin (From Augmentin) Adverse Reaction (Verified 03/27/25 07:14) Abdominal Pain ENVIRONMENTAL Allergy (Unknown, Uncoded 03/27/25 07:14) RUNNY NOSE,ITCHY EYES HPI HPI Comments History of Present Illness Details 59 Y/O Morbidly obese Female patient who presents to the walk in clinic with c/o Productive Cough for 2-3 weeks. Reports Chest congestion, wheezing and SOB. The Cough is Productive - green Sputum. Denies Fevers but reports body chills. [facility] Medical History (Updated 03/27/25 @ 07:47 by Silke Kuo NP) Cough Acute respiratory disease ZAHEER (obstructive sleep apnea) Supplemental oxygen dependent History of pulmonary embolus (PE) Tinea pedis of right foot Type 2 diabetes mellitus without complication, with no history of insulin use Pulmonary embolism on long-term anticoagulation therapy History of DVT (deep vein thrombosis) Saddle embolism of pulmonary artery Mixed stress and urge urinary incontinence Varicose veins of leg with swelling Postmenopausal bleeding Colon cancer screening Hyperparathyroidism DAVIS (nonalcoholic steatohepatitis) Depression with anxiety Migraine Chronic venous insufficiency Mixed dyslipidemia Essential hypertension Peripheral vascular disease Morbid obesity Surgical History S/P insertion of IVC (inferior vena caval) filter History of hysteroscopy History of tonsillectomy History of cholecystectomy History of removal of cyst History of umbilical hernia repair History of trigger finger History of carpal tunnel release of both wrists History of section Family History Father Diabetes mellitus Mother HTN (hypertension) Maternal Grandmother Scleroderma Maternal Grandfather Lung cancer Maternal Aunt Lung cancer Mental health disorder Maternal Uncle Colon cancer Substance use disorder Brother No problems noted. Son No problems noted. Son No problems noted. Daughter Mental health disorder Social History Household Members: Family Housing: House Do you presently have visiting nurse or other home services: Yes Alcohol intake: never Patient Tobacco Use Status: Never used Tobacco e-Cigarette/Vaping Use: Never Used Advance Directives Date on File: 11/11/21 service: No Current occupational status: disabled Cognitive needs: No Hearing needs: No Vision needs: Yes Review of Systems Const All systems reviewed & are unremarkable except as noted in HPI and below Physical Exam Vital Signs: Last Vital Signs Temp 98.6 F 03/27/25 07:16 Pulse 99 03/27/25 07:16 Resp 18 03/27/25 07:16 BP 156/90 H 03/27/25 07:16 Pulse Ox 98 03/27/25 07:16 Oxygen Delivery Method Nasal Cannula 03/27/25 07:16 BMI result Body Mass Index 69.7 Const General: no acute distress Nutritional Appearance: obese morbidly obese Orientation/consciousness: patient oriented x3 HEENT Head: Yes normocephalic Ears: external ears normal and TM's normal bilaterally General nose exam: Normal external nose present and Nasal discharge present Face and sinus: Yes sinuses nontender Mouth: moist mucous membranes Throat: Yes uvula midline Resp Effort & Inspection: normal respiratory effort, able to speak in complete sentences, no audible wheezes and no cough Auscultation: clear to auscultation bilaterally, no crackles, no rales, no rhonchi and no wheezes Cardio Heart sounds: S1 normal heart sound present and S2 normal heart sound present Neuro General: patient oriented x3, gait normal (Walks with a Walker) and moves all extremities Psych Speech and movement: Normal speech and movement present Assessment & Plan Assessment & Plan (1) Acute respiratory disease: Code(s): J06.9 - Acute upper respiratory infection, unspecified Plan: Ordered Respiratory Panel B/L Lungs CTA - Ordered Chest Xray Will Tx with Azithromycin for now, due to its Anti-inflammatory Nature, could help with cough. Rest and Hydrate with warm fluids. OTC cough and cold remedies. (2) Cough: Code(s): R05.9 - Cough, unspecified Qualifiers: Cough type: subacute Qualified Code(s): R05.2 - Subacute cough Plan: Ordered Respiratory Panel B/L Lungs CTA - Ordered Chest Xray Will Tx with Azithromycin for now, due to its Anti-inflammatory Nature, could help with cough. Rest and Hydrate with warm fluids. OTC cough and cold remedies. Orders: Orders XR chest 2V Today R05.9 - Cough, unspecified Resp Pathogen Panel - [facility] Today J06.9 - Acute upper respiratory infection, unspecified, R05.9 - Cough, unspecified Medications: New azithromycin 500 mg PO DAILY 3 tabs 0RF 3 days R05.9 - Cough, unspecified benzonatate 200 mg (2 x 100 mg) PO BID 60 caps 0RF R05.9 - Cough, unspecified Coding Level of Care Code Est Pt Level 4 (38034) Diagnoses Acute respiratory disease J06.9 Subacute cough R05.2 Cough type: subacute Time Spent (min) 20
[2025-03-27 07:16] VITALS: BP 156/90; PULSE 99; RESP 18; TEMP 37; O2SAT 98; BMI 69.7
== END 2025-03-27 07:57 | disposition home or self-care (01) ==
PROVIDERS: PCP Internal Medicine; Visit Provider Nurse Practitioner Family
DX: J06.9 Acute upper respiratory infection, unspecified (principal); R05.2 Subacute cough

== ENCOUNTER 2025-03-27 07:34 | Outpatient (REF) | payer OTHER, SELFPAY ==
[2025-03-27 10:05] LABS: MANUAL DIFF FLAG NO
[2025-03-27 10:09] LABS: Hematocrit 36.5 % (37.0-47.0); Hemoglobin 11.5 g/dl (12.0-16.0); Imm Gran Abs Auto 0.03 X10*3/uL (0.00-0.03); Imm Gran Pct Auto 0.4 % (0.0-0.4); Lymphocytes Absolute Auto 1.5 X10*3/uL (1.2-4.9); Mean Corpuscular HGB Conc 31.5 g/dl (31.0-35.0); Mean Corpuscular Hemoglobin 23.4 pg (27.0-33.0); Mean Corpuscular Volume 74.2 fL (80.0-98.0); NRBC Abs Auto 0.000 X10*3/uL (0.0-0.012); NRBC Pct Auto 0.0 /100WBC (0.0-0.2); Platelet Count 293 X10*3/uL (160-400); Red Blood Count 4.92 X10*6/uL (4.20-5.50); White Blood Count 7.6 X10*3/uL (4.8-10.8)
[2025-03-27 10:32] LABS: Alanine Aminotransferase 12 U/L (0-31); Anion Gap 14 (12-20); Aspartate Amino Transferase 19 U/L (5-31); Blood Urea Nitrogen 10 mg/dL (9-16); Calcium 10.1 mg/dL (8.4-10.2); Carbon Dioxide 27 mmol/L (22-29); Chloride 105 mmol/L (96-108); Cholesterol 229 mg/dL (<200); Estimated Glomerular Filt Rate > 60; HDL Cholesterol 35 mg/dL (>40); Iron 33 mcg/dL (30-160); Percent Iron Saturation 10 % (15-50); Potassium 4.5 mmol/L (3.3-5.1); Sodium 141 mmol/L (135-145); Total Iron Binding Capacity 336 mcg/dL (228-428); Triglycerides 188 mg/dL (<150); Unsaturated Iron Binding 303 ug/dL
[2025-03-27 13:58] LABS: Chlamydia pneumoniae PCR Not Detected (Not Detect.); Coronavirus 229E PCR Not Detected (Not Detect.); Coronavirus HKU1 PCR Not Detected (Not Detect.); Coronavirus NL63 PCR Not Detected (Not Detect.); Coronavirus OC43 PCR Not Detected (Not Detect.); RSV PCR Not Detected (Not Detect.); Rhino/Enterovirus PCR Not Detected (Not Detect.); SARS-CoV-2 PCR Not Detected (Not Detect.)
[2025-03-27 14:02] LABS: Influenza A H1 PCR Not Detected (Not Detect.); Influenza A H1-2009 PCR Not Detected (Not Detect.); Influenza A H3 PCR Not Detected (Not Detect.)
[2025-03-27 14:31] LABS: Microalbum/Creatinine Ratio Ur 114.9 ug/mg cr (<30)
== END 2025-03-27 07:35 | disposition home or self-care (01) ==
LOC: HO.LAB 07:34
PROVIDERS: Internal Medicine; Visit Provider Nurse Practitioner Family
DX: I10 Essential (primary) hypertension (principal); D64.9 Anemia, unspecified; E78.2 Mixed hyperlipidemia; E66.01 Morbid (severe) obesity due to excess calories; E11.9 Type 2 diabetes mellitus without complications; J06.9 Acute upper respiratory infection, unspecified; R05.9 Cough, unspecified
CPT/HCPCS: 36415; 80048; 80061; 82043; 82570; 83036; 83540; 84450; 84460; 85025; 87633

== ENCOUNTER → 2025-03-27 08:37 | Outpatient (BNV) | payer OTHER, SELFPAY | PROVIDERS: Absent Provider Nurse Practitioner Family; PCP Internal Medicine; Visit Provider Radiology Diagnostic Ultrasound | DX: R05.9 Cough, unspecified (principal) | CPT/HCPCS: 71046 ==

== ENCOUNTER 2025-05-22 11:05 | Outpatient (AMB) | payer OTHER, SELFPAY ==
[2025-05-22 11:40] VITALS: BP 152/90; PULSE 91; RESP 16; TEMP 36.6; O2SAT 93; BMI 68.4
--- NOTE | 2025-05-22 11:40 | A.OFFPC_ITS ---
Vital Signs 05/22/25 11:40 Height 5 ft 1 in Weight 362 lb BMI 68.4 BP 152/90 H Blood Pressure Location Lt radial Position Sitting Respiration 16 Pulse 91 Pulse Source Pulse Oximeter Temp 97.8 F Temp Source Oral Pulse Oximetry (%) 93 Oxygen Delivery Method Nasal Cannula Intake Visit Reasons: Annual PE, bariatric shower chair, recliner Intake Note: Pt is here today for her PE Choir Member Required: No Allergies cat dander (CAT) Allergy (Unknown, Verified 05/22/25 11:40) UNKNOWN mold (MOLD) Allergy (Unknown, Verified 05/22/25 11:40) UNKNOWN amoxicillin (From Augmentin) Adverse Reaction (Verified 05/22/25 11:40) Abdominal Pain ENVIRONMENTAL Allergy (Unknown, Uncoded 05/22/25 11:40) RUNNY NOSE,ITCHY EYES Tobacco use date assessed: 05/22/25 Dental Screening Dental Screen Date: 05/22/25 Did you have a dental visit in the last 12 months?: No Did you have a dental problem in the last 6 months where you did not have access to dental care?: No Was dental information given to patient?: Patient has dentist [facility] Medical History (Updated 05/22/25 @ 12:32 by Shaunna Owens MD) Diminished hearing Diabetes mellitus due to underlying condition, uncontrolled, with hyperglycemia Cough Acute respiratory disease ZAHEER (obstructive sleep apnea) Supplemental oxygen dependent History of pulmonary embolus (PE) Tinea pedis of right foot Type 2 diabetes mellitus without complication, with no history of insulin use Pulmonary embolism on long-term anticoagulation therapy History of DVT (deep vein thrombosis) Saddle embolism of pulmonary artery Mixed stress and urge urinary incontinence Varicose veins of leg with swelling Postmenopausal bleeding Colon cancer screening Hyperparathyroidism DAVIS (nonalcoholic steatohepatitis) Depression with anxiety Migraine Chronic venous insufficiency Mixed dyslipidemia Essential hypertension Peripheral vascular disease Morbid obesity Surgical History S/P insertion of IVC (inferior vena caval) filter History of hysteroscopy History of tonsillectomy History of cholecystectomy History of removal of cyst History of umbilical hernia repair History of trigger finger History of carpal tunnel release of both wrists History of section Family History Father Diabetes mellitus Mother HTN (hypertension) Maternal Grandmother Scleroderma Maternal Grandfather Lung cancer Maternal Aunt Lung cancer Mental health disorder Maternal Uncle Colon cancer Substance use disorder Brother No problems noted. Son No problems noted. Son No problems noted. Daughter Mental health disorder Social History Household Members: Family Housing: House Do you presently have visiting nurse or other home services: Yes Alcohol intake: never Patient Tobacco Use Status: Never used Tobacco e-Cigarette/Vaping Use: Never Used Advance Directives Date on File: 11/11/21 service: No Current occupational status: disabled Cognitive needs: No Hearing needs: No Vision needs: Yes Questionnaire PHQ-9 Over the last 2 weeks, how often have you been bothered by any of the following problems? 1. Little interest or pleasure in doing things: several days 2. Feeling down, depressed, or hopeless: several days 3. Trouble falling or staying asleep, or sleeping too much: several days 4. Feeling tired or having little energy: several days 5. Poor appetite or overeating: several days 6. Feeling bad about yourself - or that you are a failure or have let yourself or your family down: several days 7. Trouble concentrating on things, such as reading the newspaper or watching television: several days 8. Moving or speaking so slowly that other people could have noticed. Or the opposite - being so fidgety or restless that you have been moving around a lot more than usual: several days 9. Thoughts that you would be better off or of hurting yourself in some way: not at all Total score: 8 Source: Developed by Drs. Vince Duque, Jane Sue, Govind Gomez and colleagues, with an educational ayaz from [employer]. Thrive Questionnaire Date Thrive assessed: 01/01/24 I am a: Patient What is your living situation today?: I have a steady place to live Within the past 12 months, did the food you bought not last and you didn't have the money to get more?: I choose not to answer this question Within the past 12 months, did you worry whether your food would run out before you got money to buy more?: I choose not to answer this question Do you have trouble paying for medicines?: I choose not to answer this question Do you have trouble getting transportation to medical appointments?: I choose not to answer this question Do you have trouble paying your heating and electricity bill?: I choose not to answer this question Do you have trouble taking care of your child, family member or friend?: I choose not to answer this question Do you have trouble with day-to-day activities such as bathing, preparing meals, shopping, managing finances, etc.?: I choose not to answer this question Are you currently unemployed and looking for a job?: I choose not to answer this question Are you interested in more education?: I choose not to answer this question Please select the resources that you would like help with: None Currently or been in a relationship where the following occur: No concerns reported THRIVE Score: 0 AUDIT C Alcohol Use Questionnaire (AUDIT-C) 1. How often do you have a drink containing alcohol?: Never Total Score: 0 KIARA-7 AMB Questionnaire KIARA-7 Date KIARA - 7 assessed: 01/01/24 Feeling nervous, anxious, or on edge: 1 = Several days Not being able to stop or control worryin = Several days Worrying too much about different things: 1 = Several days Trouble relaxin = Several days Being so restless that it is hard to sit still: 1 = Several days Becoming easily annoyed or irritable: 1 = Several days Feeling afraid as if something awful might happen: 1 = Several days Total KIARA-7 score (0-4 normal; 5-9 mild; 10-14 moderate; 15-21 severe): 7 Source: Developed by Drs. Vince Duque, Jane Sue, Govind Gomez and colleagues, with an educational ayaz from [employer]. Physical exam (Primary Care) Vital Signs: Last Vital Signs Temp 97.8 F 05/22/25 11:40 Pulse 91 05/22/25 11:40 Resp 16 05/22/25 11:40 BP 152/90 H 05/22/25 11:40 Pulse Ox 93 05/22/25 11:40 Oxygen Delivery Method Nasal Cannula 05/22/25 11:40 BMI result Body Mass Index 68.4 Tobacco/Smoking Status: Tobacco use Status Tobacco use date assessed 05/22/25 05/22/25 11:47 Patient Tobacco Use Status Never used Tobacco 05/22/25 11:47 e-Cigarette/Vaping Use Never Used 05/22/25 11:47 PHQ-9: PHQ-9 Score PHQ-9: Total score 8 05/22/25 12:07 Thrive Assessment: Date of Thrive Assessment Date Thrive assessed 01/01/24 05/22/25 11:47 Currently or been in a relationship where the following occur: No concerns reported Office Procedures Flu Questionnaire Does the patient have a severe egg allergy?: No Does the patient have severe life threatening allergies?: No Does the patient have a fever or illness today?: No Has the patient ever had Guillain-Hancock Syndrome?: No Has the patient ever had any past reaction to a flu shot?: No Immunizations Fluarix [id number] (PF) 45 mcg (15 mcg x 3)/0.5 mL IM syringe Performing Provider: Shaunna Owens MD [place] [facility] Administered by: PATRICE Knight on 05/22/25 12:52 Dose Route Admin Location Dispensed Lot Number Expiration Date [facility] [place]NOTE 2] Digital Media Producer 0.5 mL IM Right Deltoid 0.5 mL [id number] 12/16/25 [id number] [employer] VIS Given Date VIS Provided VIS Publication Date 05/22/25 Single Vaccine 24 Eligibility Eligibility Date Funding Source Not [facility] Eligible 05/22/25 Private Results Reviewed Results Reviewed: ida: ShaiArgelia M Age/Sex: 59/F : 1965 Unit#: [id number] Attend Dr: Silke Kuo BUSINESS DIVISION CHAIR Re03/27/25 Status: DEP REF [facility] Disch: SPEC : [id number] BREANNE: 03/27/25 STATUS: COMP REQ : [id number] RECD: 03/27/[address]: Shaunna Owens MD COMP: 03/27/25 ENTERED: 03/27/[address]: Silke Kuo BUSINESS DIVISION CHAIR ORDERED: CBC Auto Diff Test Result Flag Reference WBC 7.6 4.8-10.8 X10*3/uL RBC 4.92 4.20-5.50 X10*6/uL HGB 11.5 L 12.0-16.0 g/dl HCT 36.5 L 37.0-47.0 % MCV 74.2 L 80.0-98.0 fL MCH 23.4 L 27.0-33.0 pg MCHC 31.5 31.0-35.0 g/dl RDW 17.6 H 11.0-16.0 % PLT 293 # 160-400 X10*3/uL MPV 9.9 9.4-12.3 fL Neut Pct Auto 70.9 45-73 % ImGran Pct Auto 0.4 0.0-0.4 % Lymp Pct Auto 20.2 20-40 % Blair Pct Auto 6.3 2-11 % Eos Pct Auto 1.5 0-4 % Baso Pct Auto 0.7 0-2 % NRBC Pct Auto 0.0 0.0-0.2 /100WBC ANC Neut Abs # 5.4 2.0-8.3 x10*3/uL ImGran Abs Auto 0.03 0.00-0.03 X10*3/uL Lymph Abs Auto 1.5 1.2-4.9 X10*3/uL Blair Abs Auto 0.5 0.1-1.2 X10*3/uL Eos Abs Auto 0.1 0.0-0.4 X10*3/uL Baso Abs Auto 0.1 0.0-0.2 X10*3/uL NRBC Abs Auto 0.000 0.0-0.012 X10*3/uL ida: Argelia Gibbons Age/Sex: 59/F : 1965 Unit#: [id number] Attend Dr: Silke Kuo BUSINESS DIVISION CHAIR Re03/27/25 Status: DEP REF Location[facility] Disch: SPEC : [id number] BREANNE: 03/27/25 STATUS: COMP REQ : [id number] RECD: 03/27/[address] [facility] [address]: Shaunna Owens MD COMP: 03/27/25 ENTERED: 03/27/[address]: Silke Kuo BUSINESS DIVISION CHAIR ORDERED: Met Prof Fast, IRON PROF, AST, ALT, Lipid Panel Test Result Flag Reference Sodium 141 135-145 mmol/L Potassium 4.5 3.3-5.1 mmol/L CL 105 96-108 mmol/L CO2 27 22-29 mmol/L Gap 14 12-20 BUN 10 9-16 mg/dL Creat 0.59 0.5-1.4 mg/dL eGFR > 60 Chronic Kidney Disease: Estimated GFR < 60 mL/min/1.73m2 Severe Kidney Disease: Estimated GFR < 15 mL/min/1.73m2 FBS 261 H 60-99 mg/dL A fasting glucose of 126 mg/dl or greater on more than one occasion is considered diagnostic of diabetes. CA 10.1 8.4-10.2 mg/dL Iron 33 30-160 mcg/dL TIBC 336 228-428 mcg/dL Saturation 10 L 15-50 % UIBC 303 ug/dL AST (GOT) 19 5-31 U/L ALT (GPT) 12 0-31 U/L Triglyceride 188 H <150 mg/dL Desirable Triglyceride: less than 150 mg/dL Borderline High Triglyceride 150-199 mg/dL High Triglyceride: 200-499 mg/dL Very High Triglyceride: greater than or equal to 5OO mg/dL Cholesterol 229 H <200 mg/dL Desirable Cholesterol: less than 200 mg/dL Borderline High Cholesterol: 200-239 mg/dL High Cholesterol: greater than 239 mg/dL LDL Calculated 157 H <100 mg/dL Desirable LDL: less than 100 mg/dL Near Optimal/Above Optimal LDL: 110-129 mg/dL Borderline High LDL: 130-159 mg/dL High LDL: 160-189 mg/dL Very High LDL: greater than or equal to 190 mg/dL HDL 35 L >40 mg/dL Desirable HDL: greater than 40 mg/dL Laboratory Tests 03/27/25 07:45 Estimat Average Glucose 240 Hemoglobin A1c % 10.0 H Laboratory Tests 03/27/25 07:45 Urine Creatinine 190.50 Urine Microalbumin 219.0 Microalb/Creat Ratio 114.9 H Coding Level of Care Code Est Pt Prev Care 40-64y(72840) Diagnoses Diabetes mellitus due to underlying condition, uncontrolled, with hyperglycemia E08.65 Diminished hearing H91.90 Essential hypertension I10 Mixed dyslipidemia E78.2 Assessment & Plan Assessment & Plan (1) Diabetes mellitus due to underlying condition, uncontrolled, with hyperglycemia: Code(s): E08.65 - Diabetes mellitus due to underlying condition with hyperglycemia Category: Medical (2) Diminished hearing: Code(s): H91.90 - Unspecified hearing loss, unspecified ear Category: Medical (3) Essential hypertension: Code(s): I10 - Essential (primary) hypertension Category: Medical (4) Mixed dyslipidemia: Code(s): E78.2 - Mixed hyperlipidemia Category: Medical Orders: Orders MM tomosynthesis screening BI Today Z12.31 - Encounter for screening mammogram for malignant neoplasm of breast Basic Metabolic Panel Fasting 3 Months E08.65 - Diabetes mellitus due to underlying condition with hyperglycemia, E78.2 - Mixed hyperlipidemia, I10 - Essential (primary) hypertension Aspartate Amino Transferase 3 Months E08.65 - Diabetes mellitus due to underlying condition with hyperglycemia, E78.2 - Mixed hyperlipidemia, I10 - Essential (primary) hypertension Microalbumin, Random (w Creat) 3 Months E08.65 - Diabetes mellitus due to underlying condition with hyperglycemia, E78.2 - Mixed hyperlipidemia, I10 - Essential (primary) hypertension Vitamin D 25-OH Total 3 Months E08.65 - Diabetes mellitus due to underlying condition with hyperglycemia, E78.2 - Mixed hyperlipidemia, I10 - Essential (primary) hypertension Influenza [id number] Immunization Today Z23 - Encounter for immunization Lipid Panel 3 Months E08.65 - Diabetes mellitus due to underlying condition with hyperglycemia, E78.2 - Mixed hyperlipidemia, I10 - Essential (primary) hypertension Alanine Aminotransferase 3 Months E08.65 - Diabetes mellitus due to underlying condition with hyperglycemia, E78.2 - Mixed hyperlipidemia, I10 - Essential (primary) hypertension Hemoglobin A1c 3 Months E08.65 - Diabetes mellitus due to underlying condition with hyperglycemia, E78.2 - Mixed hyperlipidemia, I10 - Essential (primary) hypertension Referrals Speech and Hearing Referral H91.90 - Unspecified hearing loss, unspecified ear Cologuard Test Z12.11 - Encounter for screening for malignant neoplasm of colon, Z12.12 - Encounter for screening for malignant neoplasm of rectum Podiatry Referral E08.65 - Diabetes mellitus due to underlying condition with hyperglycemia Medications: New fluconazole may repeat second dose 72 hrs after first dose if symptoms persist 150 mg PO Q3D 2 tabs 0RF 2 doses metformin ER (Glucophage XR) 500 mg PO BID 60 tabs 4RF E08.65 - Diabetes mellitus due to underlying condition with hyperglycemia lancets (FreeStyle Lancets) Check fasting glucose twice a day 100 ea 5RF E08. 65 - Diabetes mellitus due to underlying condition with hyperglycemia clotrimazole 1% 1 appl topical BID 45 grams 2RF 2 weeks blood-glucose meter (FreeStyle Lite Meter kit) As directed 1 ea 0RF E08.65 - Diabetes mellitus due to underlying condition with hyperglycemia blood sugar diagnostic (FreeStyle Lite Strips) Check fasting glucose twice a day, before eating or 2 hours after a meal 100 ea 5RF E08.65 - Diabetes mellitus due to underlying condition with hyperglycemia Changed From atorvastatin 40 mg PO BEDTIME 90 tabs 1RF To atorvastatin 80 mg PO BEDTIME 30 tabs 5RF
== END 2025-05-22 12:56 | disposition home or self-care (01) ==
PROVIDERS: PCP Internal Medicine; Visit Provider Internal Medicine
DX: Z23 Encounter for immunization (principal)

== ENCOUNTER → 2025-05-22 11:05 | Outpatient (BNVA) | payer OTHER, SELFPAY | PROVIDERS: PCP Internal Medicine; Visit Provider Internal Medicine | DX: Z00.01 Encounter for general adult medical examination with abnormal findings (principal); Z23 Encounter for immunization; E08.65 Diabetes mellitus due to underlying condition with hyperglycemia; H91.93 Unspecified hearing loss, bilateral; I10 Essential (primary) hypertension; E78.2 Mixed hyperlipidemia; G47.33 Obstructive sleep apnea (adult) (pediatric); E66.01 Morbid (severe) obesity due to excess calories; F41.8 Other specified anxiety disorders; G43.909 Migraine, unspecified, not intractable, without status migrainosus; D64.9 Anemia, unspecified; N39.46 Mixed incontinence; E21.3 Hyperparathyroidism, unspecified; B37.2 Candidiasis of skin and nail; Z86.711 Personal history of pulmonary embolism | CPT/HCPCS: 90471; 90656; 96127; 99396 ==